=== PATIENT | female | born 1960 | race Two or more races ===

== ENCOUNTER 2017-03-15 11:24 | Emergency (ER) | payer BC, SELFPAY ==
[2017-03-15 13:00] VITALS: BP 114/63; PULSE 76; RESP 20; TEMP 36.2; O2SAT 97; BMI 34.5
--- NOTE | 2017-03-15 13:38 | HMH.EDUTC ---
[facility] [place] Clinical Impression: Upper respiratory infection Qualifiers: URI type: unspecified URI Qualified Code(s): J06.9 - Acute upper respiratory infection, unspecified Disposition: Home, Self-Care Condition on Discharge: Good Instructions: Cough, Sore Throat Additional Instructions: * Monitor Temp. Tylenol and/or Ibuprofen as needed. ER if fever is no less than 101 despite alternating Tylenol and Ibuprofen * Encourage fluids, water, Gatorade, powerade, pedialyte if infant/toddler/or child * Warm salt water gargles for throat irritation *Warm fluids *Sore throat lozenges *Sleep elevated *humidifier or vaporizer Lots of rest Increase fluids, water, Gatorade, powerade *Flonase 2 sprays each nostril daily but may take 2-3 days to notice improvement with it *Bromfed may cause drowsiness. Know how it effect you or your child. Before driving, caring for small children or sending your child to school *Your throat swab was sent to lab for culture. Those results area typically sent to your primary care physician. Be sure to follow up in 2-3 days if no improvement so they can review those results and treat if necessary If you dont have primary care I recommend you get one, but in the mean time you will have to return to a walk in clinic Follow up IMMEDIATELY for new or worsening of symptoms OR no noticeable improvement over the next 48-72 hours. 911 immediately for any life threatening symptoms such as chest pain or difficulty breathing Prescriptions: Doxycycline Monohydrate 100 mg PO BID #14 capsule Promethazine/Dextromethorphan [Promethazine-Dm Syrup] 5 ml PO Q4H PRN #200 syrup PRN Reason: Cough Referrals: Pj Higuera MD [Primary Care Provider] - Time of Disposition: 13:49 Medical Decision Making Vital Signs: 03/15/17 13:00 Temperature 97.2 F L Temperature Source Temporal Artery Scan Pulse Rate [Right] 76 Respiratory Rate 20 Blood Pressure [Right Arm] 114/63 Blood Pressure Mean [Right Arm] 80 Blood Pressure Source [Right Arm] Automatic Cuff Blood Pressure Position [Right Arm] Sitting 02 Sat by Pulse Oximetry 97 Oxygen Delivery Method Room Air - Shyam Inquiry Pt receiving controlled substance: No Shyam was queried for this patient: No [facility] [place] HPI - General Chief complaint: Urgent Treatment Center Stated complaint: sinus problem,cough,sore throat Mode of Arrival: Ambulatory Source of Information: Patient Limitations: No Limitations Description of Symptoms (Recalled from Triage Doc. by RN): COUGH, CONGESTION HEENT Symptoms (Recalled from RN notes): Yes Resp Symptoms (Recalled from RN notes): No Skin Symptoms (Recalled from RN notes): No MS Symptoms (Recalled from RN notes): No Functional Status (Recalled from RN notes): NA - History of Present Illness Provider Complaint: Patient state that she thinks she has an URI state that she is having sinus pain and pressure, drainage, sore throat and over all not feeling well - Related Data Previous Rx's Medication Instructions Recorded Doxycycline Monohydrate 100 mg PO BID #14 capsule 03/15/17 Promethazine/Dextromethorphan 5 ml PO Q4H PRN #200 syrup 03/15/17 [Promethazine-Dm Syrup] Allergies Allergy/AdvReac Type Severity Reaction Status Date / Time No Known Allergies Allergy Unverified 02/28/17 14:59 - Worker's Comp Is this a Worker's Comp case?: No [facility] History - *Social History Smoking Status: Current every day smoker Alcohol Intake: never - Psychiatric History Expresses thoughts of harming self/others: None Suicide Plan Description: No Plan - Constitutional Reports chills, Reports fever(s) - ENT Reports nasal congestion, Reports sore throat - Respiratory Reports cough Physical Exam - General General appearance: alert, in no apparent distress - Expanded ENT Exam Nose exam: Present: sinus tenderness Comment: Throat red, irritated drainage noted in back of throat - Respiratory Respiratory exam: Pre
--- NOTE | 2017-03-15 13:41 | ED_ITS ---
[facility] [place] Clinical Impression: Upper respiratory infection Qualifiers: URI type: unspecified URI Qualified Code(s): J06.9 - Acute upper respiratory infection, unspecified Disposition: Home, Self-Care Condition on Discharge: Good Instructions: Cough, Sore Throat Additional Instructions: * Monitor Temp. Tylenol and/or Ibuprofen as needed. ER if fever is no less than 101 despite alternating Tylenol and Ibuprofen * Encourage fluids, water, Gatorade, powerade, pedialyte if infant/toddler/or child * Warm salt water gargles for throat irritation *Warm fluids *Sore throat lozenges *Sleep elevated *humidifier or vaporizer Lots of rest Increase fluids, water, Gatorade, powerade *Flonase 2 sprays each nostril daily but may take 2-3 days to notice improvement with it *Bromfed may cause drowsiness. Know how it effect you or your child. Before driving, caring for small children or sending your child to school *Your throat swab was sent to lab for culture. Those results area typically sent to your primary care physician. Be sure to follow up in 2-3 days if no improvement so they can review those results and treat if necessary If you don? t have primary care I recommend you get one, but in the mean time you will have to return to a walk in clinic Follow up IMMEDIATELY for new or worsening of symptoms OR no noticeable improvement over the next 48-72 hours. 911 immediately for any life threatening symptoms such as chest pain or difficulty breathing Prescriptions: Doxycycline Monohydrate 100 mg PO BID #14 capsule Promethazine/Dextromethorphan [Promethazine-Dm Syrup] 5 ml PO Q4H PRN #200 syrup PRN Reason: Cough Referrals: Pj Higuera MD [Primary Care Provider] - Time of Disposition: 13:49 Medical Decision Making Vital Signs: 03/15/17 13:00 Temperature 97.2 F L Temperature Source Temporal Artery Scan Pulse Rate [Right] 76 Respiratory Rate 20 Blood Pressure [Right Arm] 114/63 Blood Pressure Mean [Right Arm] 80 Blood Pressure Source [Right Arm] Automatic Cuff Blood Pressure Position [Right Arm] Sitting 02 Sat by Pulse Oximetry 97 Oxygen Delivery Method Room Air - Shyam Inquiry Pt receiving controlled substance: No Shyam was queried for this patient: No [facility] [place] - General Chief complaint: Urgent Treatment Center Stated complaint: sinus problem,cough,sore throat Mode of Arrival: Ambulatory Source of Information: Patient Limitations: No Limitations Description of Symptoms (Recalled from Triage Doc. by RN): COUGH, CONGESTION HEENT Symptoms (Recalled from RN notes): Yes Resp Symptoms (Recalled from RN notes): No Skin Symptoms (Recalled from RN notes): No MS Symptoms (Recalled from RN notes): No Functional Status (Recalled from RN notes): NA - History of Present Illness Provider Complaint: Patient state that she thinks she has an URI state that she is having sinus pain and pressure, drainage, sore throat and over all not feeling well - Related Data Previous Rx's Medication Instructions Recorded Doxycycline Monohydrate 100 mg PO BID #14 capsule 03/15/17 Promethazine/Dextromethorphan 5 ml PO Q4H PRN #200 syrup 03/15/17 [Promethazine-Dm Syrup] Allergies Allergy/AdvReac Type Severity Reaction Status Date / Time No Known Allergies Allergy Unverified 02/28/17 14:59 - Worker's Comp Is this a Worker's Comp case?: No [facility] History
== END 2017-03-15 14:12 | disposition home or self-care (01) ==
PROVIDERS: Emergency Provider Nurse Practitioner; Family Provider Internal Medicine Adolescent Medicine; PCP Internal Medicine Adolescent Medicine
DX: J06.9 Acute upper respiratory infection, unspecified (principal); F17.210 Nicotine dependence, cigarettes, uncomplicated
CPT/HCPCS: 96372; 99202

== ENCOUNTER 2017-03-18 09:03 | Emergency (ER) | payer BC, SELFPAY ==
[2017-03-18 09:32] VITALS: BP 167/82; PULSE 71; RESP 22; TEMP 36.8; O2SAT 96; BMI 34.0
[2017-03-18 09:58] LABS: UTC Influenza A Antigen Negative (Negative); UTC Influenza B Antigen Negative (Negative)
--- NOTE | 2017-03-18 10:23 | HMH.EDUTC ---
[facility] [place] Clinical Impression: Cough Disposition: Home, Self-Care Condition on Discharge: Good Instructions: Cough Additional Instructions: * Continue and complete antibiotic. * Continue your singular * you can try adding claritin temporarily * continue flonase * you declined chadfernandaana luciano * Discussed possibility of pneumonia with worsening cough. You were adament this is not your chest and just a tickle . recommended cxr. you declined. BE SURE to follow up immediately for NEW or WORSENING symptoms. * start steroid today. Tapering so if as you taper, if symptoms are starting to return then you need to FU before stopping it completely. * Steroids can elevate your BP even more. Monitor your BP and if remains elevated despite improving symptoms or if you start to develop symptoms (CASIANO, CP, vision changes, etc) then follow up immediately Prescriptions: methylPREDNISolone [Medrol] 4 mg PO DAILY #1 tab.ds.pk Referrals: Pj Higuera MD [Primary Care Provider] - Time of Disposition: 10:36 Medical Decision Making Vital Signs: 03/18/17 09:32 Temperature 98.3 F Temperature Source Temporal Artery Scan Pulse Rate [Right Brachial] 71 Respiratory Rate 22 Blood Pressure [Right Arm] 167/82 Blood Pressure Mean [Right Arm] 110 Blood Pressure Source [Right Arm] Automatic Cuff Blood Pressure Position [Right Arm] Sitting 02 Sat by Pulse Oximetry 96 Oxygen Delivery Method Room Air - Lab Data Lab Results 03/18/17 09:57: Influenza Type A Ag Negative, Influenza Type B Ag Negative - Shyam Inquiry Pt receiving controlled substance: No [facility] [place] - General Stated complaint: Cough, Nausea, Diarrhea, Fever Time Seen by Provider: 03/18/17 09:35 Mode of Arrival: Ambulatory Source of Information: Patient Description of Symptoms (Recalled from Triage Doc. by RN): PT C/O NAUSEA, DIARRHEA, COUGH, AND FEVER. HEENT Symptoms (Recalled from RN notes): No Resp Symptoms (Recalled from RN notes): Yes (COUGH) Skin Symptoms (Recalled from RN notes): No MS Symptoms (Recalled from RN notes): No Functional Status (Recalled from RN notes): NA - History of Present Illness Provider Complaint: c/o persistant cough. Was seen in [facility] 03/15/16 and dx URI. Given solumedrol injection and prescribed doxy and promethazine DM. [place] like she was better for several days then cough worse yesterday. Nonprod. Feels d/t tickle . Promethazine DM every 4 hours not helping. Denies SOA or wheezing. Home Meds: levothyroxine, bisoprolol, lipitor, singular and flonase and currently doxy and promethazine DM - Related Data Previous Rx's Medication Instructions Recorded Doxycycline Monohydrate 100 mg PO BID #14 capsule 03/15/17 Promethazine/Dextromethorphan 5 ml PO Q4H PRN #200 syrup 03/15/17 [Promethazine-Dm Syrup] methylPREDNISolone [Medrol] 4 mg PO DAILY #1 tab.ds.pk 03/18/17 Allergies Allergy/AdvReac Type Severity Reaction Status Date / Time No Known Allergies Allergy Verified 03/18/17 09:39 - Worker's Comp Is this a Worker's Comp case?: No [facility] History I have reviewed the patient's past medical history: Yes Comment: hypothyroidism, allergic rhinitis, HLP, HTN Laterality Cases: Left: Partial Knee Replacement Other Surgeries: Yes: Other (deviated septum, sinus window, hysterectomy) Amputation: No Fractures: No - *Social History Smoking Status: Current every day smoker Alcohol Intake: never - Psychiatric History Expresses thoughts of harming self/others: None Suicide Plan Description: No Plan ROS Obtained: Yes Appropriate systems reviewed & no add complaints except as noted - Constitutional Denies anorexia, Denies body ache(s), Denies chills, Denies fatigue, Denies fever(s) - Eyes Denies discharge - ENT Reports nasal congestion, Reports nasal discharge, Reports sinus pressure (improving), Denies ear pain, Denies sinus pain, Denies sore throat ( just that tickle there ), Denies ringing in the ears - Cardiovascula
--- NOTE | 2017-03-18 10:26 | ED_ITS ---
[facility] [place] Disposition Clinical Impression: Cough Disposition: Home, Self-Care Condition on Discharge: Good Instructions: Cough Additional Instructions: * Continue and complete antibiotic. * Continue your singular * you can try adding claritin temporarily * continue flonase * you declined chadfernandaana luciano * Discussed possibility of pneumonia with worsening cough. You were adament this is not your chest and just a tickle . recommended cxr. you declined. BE SURE to follow up immediately for NEW or WORSENING symptoms. * start steroid today. Tapering so if as you taper, if symptoms are starting to return then you need to FU before stopping it completely. * Steroids can elevate your BP even more. Monitor your BP and if remains elevated despite improving symptoms or if you start to develop symptoms (CASIANO, CP , vision changes, etc) then follow up immediately Prescriptions: methylPREDNISolone [Medrol] 4 mg PO DAILY #1 tab.ds.pk Referrals: Pj Higuera MD [Primary Care Provider] - Time of Disposition: 10:36 Medical Decision Making Vital Signs: 03/18/17 09:32 Temperature 98.3 F Temperature Source Temporal Artery Scan Pulse Rate [Right Brachial] 71 Respiratory Rate 22 Blood Pressure [Right Arm] 167/82 Blood Pressure Mean [Right Arm] 110 Blood Pressure Source [Right Arm] Automatic Cuff Blood Pressure Position [Right Arm] Sitting 02 Sat by Pulse Oximetry 96 Oxygen Delivery Method Room Air - Lab Data Lab Results 03/18/17 09:57: Influenza Type A Ag Negative, Influenza Type B Ag Negative - Shyam Inquiry Pt receiving controlled substance: No [facility] [place] HPI - General Stated complaint: Cough, Nausea, Diarrhea, Fever Time Seen by Provider: 03/18/17 09:35 Mode of Arrival: Ambulatory Source of Information: Patient Description of Symptoms (Recalled from Triage Doc. by RN): PT C/O NAUSEA, DIARRHEA, COUGH, AND FEVER. HEENT Symptoms (Recalled from RN notes): No Resp Symptoms (Recalled from RN notes): Yes (COUGH) Skin Symptoms (Recalled from RN notes): No MS Symptoms (Recalled from RN notes): No Functional Status (Recalled from RN notes): NA - History of Present Illness Provider Complaint: c/o persistant cough. Was seen in [facility] 03/15/16 and dx URI. Given solumedrol injection and prescribed doxy and promethazine DM. [place] like she was better for several days then cough worse yesterday. Nonprod. Feels d/t tickle . Promethazine DM every 4 hours not helping. Denies SOA or wheezing. Home Meds: levothyroxine, bisoprolol, lipitor, singular and flonase and currently doxy and promethazine DM - Related Data Previous Rx's Medication Instructions Recorded Doxycycline Monohydrate 100 mg PO BID #14 capsule 03/15/17 Promethazine/Dextromethorphan 5 ml PO Q4H PRN #200 syrup 03/15/17 [Promethazine-Dm Syrup] methylPREDNISolone [Medrol] 4 mg PO DAILY #1 tab.ds.pk 03/18/17 Allergies Allergy/AdvReac Type Severity Reaction Status Date / Time No Known Allergies Allergy Verified 03/18/17 09:39 - Worker's Comp Is this a Worker's Comp case?: No [facility] History I have reviewed the patient's past medical history: Yes Comment: hypothyroidism, allergic rhinitis, HLP, HTN Laterality Cases: Left: Partial Knee Replacement Other Surgeries: Yes: Other (deviated septum, sinus window, hysterectomy) Amputation: No Fractures: No - *Social History Smoking
== END 2017-03-18 10:37 | disposition home or self-care (01) ==
PROVIDERS: Emergency Provider Nurse Practitioner Family; Family Provider Internal Medicine Adolescent Medicine; PCP Internal Medicine Adolescent Medicine
DX: R05 Cough (principal); I10 Essential (primary) hypertension; E03.9 Hypothyroidism, unspecified; E78.5 Hyperlipidemia, unspecified; Z96.652 Presence of left artificial knee joint; Z79.899 Other long term (current) drug therapy
CPT/HCPCS: 87276; 87804; 99202

== ENCOUNTER → 2017-04-06 16:34 | Outpatient (CLI) | payer BC, SELFPAY ==
[2017-04-06 19:32] LABS: Free T4 (Free Thyroxine) 1.28 ng/dl (0.76-1.46); Thyroid Stimulating Hormone 0.71 uIU/ml (0.358-3.740)
[2017-04-08 18:30] LABS: Thyroid Peroxidase Antibodies 12 IU/mL (0-34)
[2017-04-10 18:09] LABS: Thyroglobulin Level <1.0 IU/mL (0.0-0.9)
== END ==
PROVIDERS: PCP Internal Medicine Adolescent Medicine; Visit Provider Otolaryngology
DX: E03.9 Hypothyroidism, unspecified (principal)
CPT/HCPCS: 36415; 84439; 84443; 86376; 86800

== ENCOUNTER → 2017-08-12 07:05 | Outpatient (CLI) | payer BC, SELFPAY ==
[2017-08-12 07:42] LABS: Basophils # 0.1 K/mm3 (0-0.2); Basophils % 0.8 % (0.1-2.0); Eosinophils # 0.3 K/mm3 (0.0-0.4); Eosinophils % 3.9 % (0.1-12.0); Hemoglobin 15.6 g/dL (12.2-16.2); Lymphocytes # 1.8 K/mm3 (0.7-4.5); Lymphocytes % 23.7 K/mm3 (10-50); Mean Corpuscular HGB Conc 31.2 g/dL (31.8-35.4); Mean Corpuscular Hemoglobin 28.6 pg (27.0-31.2); Mean Corpuscular Volume 91.8 fl (81-99); Mean Platelet Volume 8.3 fl (7.4-10.4); Monocytes # 0.3 K/mm3 (0.1-1.0); Monocytes % 3.9 % (1.7-9.3); Neutrophils # 5.2 K/mm3 (1.8-7.8); Neutrophils % 67.7 % (37.0-80.0); Platelet Count 194 K/mm3 (142-424); Red Blood Count 5.44 M/mm3 (4.20-5.40); Red Cell Distribution Width 12.6 % (11.5-17.5); White Blood Count 7.7 K/mm3 (4.8-10.8)
[2017-08-12 08:37] LABS: Anion Gap 13.7 mEq/L (5-15); Blood Urea Nitrogen 14 mg/dL (7-18); Carbon Dioxide 29 mmol/L (21.0-32.0); Chloride 104 mmol/L (98-107); Creatine Kinase 95 U/L (26-192); Creatinine,Serum 0.77 mg/dL (0.55-1.02); Estimated Glomerular Filt Rate 78 ml/min (>60); GFR (African American) 94 ML/MIN (>60); Potassium 4.7 mmoL/L (3.5-5.1); Sodium 142 mmol/L (136-145)
[2017-08-12 08:38] LABS: Alanine Aminotransferase 21 U/L (12-78); Albumin Level 3.7 gm/dL (3.4-5.0); Albumin/Globulin Ratio 1.2 (1.1-1.8); Alkaline Phosphatase 96 U/L (46-116); Aspartate Amino Transferase 13 U/L (15-37); Bilirubin,Total 0.8 mg/dL (0.2-1.0); Calcium 9.2 mg/dL (8.5-10.1); Chol/HDL Ratio 3.5 (1-3.5); Cholesterol 135 mg/dL (140-200); Free Thyroxine Index 3.6 ug/dL (5.93-13.13); Globulin 3.2 gm/dl (1.3-3.2); Glucose 91 mg/dL (74-106); HDL Cholesterol 39 mg/dL (29-89); LDL Cholesterol 76 mg/dL (0-130); T4 (Thyroxine) 11.6 ug/dl (4.7-13.3); Thyroid Stimulating Hormone 0.55 uIU/ml (0.358-3.740); Total Protein,Serum 6.9 gm/dL (6.4-8.2); Triglycerides 102 mg/dL (30-200); Triiodothryronine (T3) Uptake 31 % (31-39); VLDL Cholesterol 20 mg/dL (0-40)
[2017-08-14 14:20] LABS: Anti-Centromere B Antibodies <0.2 AI (0.0-0.9); Anti-Jo-1 <0.2 AI (0.0-0.9); Anti-Smith Antibody <0.2 AI (0.0-0.9); Antichromatin Antibodies <0.2 AI (0.0-0.9); Antiscleroderma-70 Antibodies <0.2 AI (0.0-0.9); RNP Antibodies <0.2 AI (0.0-0.9); Sjogren's Anti-SS-A <0.2 AI (0.0-0.9); Sjogren's Anti-SS-B <0.2 AI (0.0-0.9)
[2017-08-15 06:10] LABS: Anti-Cyclic Citrullinated Pept 3 units (0-19); Anti-DNA (DS) Ab Qn 1 IU/mL (0-9)
== END ==
PROVIDERS: Visit Provider Internal Medicine Adolescent Medicine
DX: M79.1 Myalgia (principal); E03.9 Hypothyroidism, unspecified; M12.9 Arthropathy, unspecified; E78.5 Hyperlipidemia, unspecified
CPT/HCPCS: 36415; 80053; 80061; 82550; 83735; 84436; 84443; 84479; 85025; 86038; 86200

== ENCOUNTER → 2017-08-30 16:57 | Outpatient (CLI) | payer BC, SELFPAY ==
[2017-09-01 20:05] LABS: Vitamin B12 421 pg/mL (232-1245)
== END ==
PROVIDERS: Visit Provider Internal Medicine Adolescent Medicine
DX: Z86.39 Personal history of other endocrine, nutritional and metabolic disease (principal)
CPT/HCPCS: 36415; 82607

== ENCOUNTER 2018-03-28 15:30 | Outpatient (RCR) | payer OTHER, BC, SELFPAY ==
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
--- NOTE | 2018-02-23 15:46 | HMH.RHREAS ---
Rehab Reassessment Rehab OP Re-assessment Start: 02/23/18 15:39 Freq: Status: Active Protocol: Document 02/23/18 15:41 LASHANDA (Rec: 02/23/18 15:46 LASHANDA [id number]) Electronically Signed By Tobin Mendes, PT 02/23/18 15:41 Rehab Re-assessment Subjective Subjective PT REPORTS 1-2/10 @ REST AND 4 -5/10 ON VAS W/ACTIVITY, AND FEELS 50% BETTER SINCE I EVAL Objective Objective Notes CROM: FLX 0-40, EXT 0-40, B SB 0-25, B ROT 0-50 MMT: R SH FLX 4-/5, L SH FLX 4 /5, B ELBOW WFL TTP: B UT MM 2/ Assessment Progress Assessment Progressing as Expected Assessment Notes PT W/IMPROVED ROM, AND TTP Patient goals met STG'S 6 LTG'S 8 Goals Not Met STG'S 03/18, LTG'S 08/18 Plan Plan PT TO CONT. W/SKILLED P.T. TO MAKE FURTHER IMPROVEMENTS IN ROM, STRENGTH, AND TTP TO ALLOW FOR OPTIMAL FUNCTION Frequency of Therapy 1-2X/WK Duration of therapy 3-4WKS Time and Billing Re-Eval Time 15 Re-Eval Billing Units 1 PHYSICIAN CERTIFICATION: I certify the specified therapy services for Maria C Lewis are required, authorized, and reviewed every 30 days.
== END 2018-03-28 15:35 | disposition home or self-care (01) ==
LOC: PT 15:30
PROVIDERS: Visit Provider Internal Medicine Adolescent Medicine
DX: M54.2 Cervicalgia (principal)
CPT/HCPCS: 97010; 97014; 97035; 97110; 97140; 97163; 97164; G0283

== ENCOUNTER → 2018-08-25 09:42 | Outpatient (CLI) | payer BC, SELFPAY ==
[2018-08-25 10:02] LABS: Basophils # 0.1 K/mm3 (0-0.2); Basophils % 0.6 % (0.1-2.0); Eosinophils # 0.2 K/mm3 (0.0-0.4); Eosinophils % 1.7 % (0.1-12.0); Hematocrit 48.3 % (37.0-47.0); Hemoglobin 15.4 g/dL (12.2-16.2); Lymphocytes # 1.9 K/mm3 (0.7-4.5); Lymphocytes % 19.5 % (10-50); Mean Corpuscular HGB Conc 31.9 g/dL (31.8-35.4); Mean Corpuscular Hemoglobin 28.2 pg (27.0-31.2); Mean Corpuscular Volume 88.3 fl (81-99); Mean Platelet Volume 7.4 fl (7.4-10.4); Monocytes # 0.6 K/mm3 (0.1-1.0); Monocytes % 6.2 % (1.7-9.3); Neutrophils # 7.1 K/mm3 (1.8-7.8); Platelet Count 186 K/mm3 (142-424); Red Blood Count 5.47 M/mm3 (4.20-5.40); Red Cell Distribution Width 13.2 % (11.5-17.5); White Blood Count 9.9 K/mm3 (4.8-10.8)
[2018-08-25 11:12] LABS: Alanine Aminotransferase 26 U/L (12-78); Albumin Level 3.6 gm/dL (3.4-5.0); Albumin/Globulin Ratio 1.1 (1.1-1.8); Alkaline Phosphatase 72 U/L (46-116); Anion Gap 13.2 mEq/L (5-15); Aspartate Amino Transferase 19 U/L (15-37); Blood Urea Nitrogen 15 mg/dL (7-18); Carbon Dioxide 29 mmol/L (21.0-32.0); Chloride 105 mmol/L (98-107); Chol/HDL Ratio 4.3 (1-3.5); Cholesterol 216 mg/dL (140-200); Creatinine,Serum 0.72 mg/dL (0.55-1.02); Estimated Glomerular Filt Rate 84 ml/min (>60); Free Thyroxine Index 3.8 ug/dL (5.93-13.13); GFR (African American) 101 ML/MIN (>60); Globulin 3.3 gm/dl (1.3-3.2); Glucose 86 mg/dL (74-106); HDL Cholesterol 50 mg/dL (29-89); LDL Cholesterol 149 mg/dL (0-130); Potassium 5.2 mmoL/L (3.5-5.1); Sodium 142 mmol/L (136-145); T4 (Thyroxine) 11.6 ug/dl (4.7-13.3); Thyroid Stimulating Hormone 0.84 uIU/ml (0.358-3.740); Total Protein,Serum 6.9 gm/dL (6.4-8.2); Triglycerides 84 mg/dL (30-200); Triiodothryronine (T3) Uptake 33 % (31-39); VLDL Cholesterol 17 mg/dL (0-40)
[2018-08-27 03:15] LABS: Vitamin B12 676 pg/mL (232-1245)
== END ==
PROVIDERS: Visit Provider Internal Medicine Adolescent Medicine
DX: E78.5 Hyperlipidemia, unspecified (principal); E03.9 Hypothyroidism, unspecified; D45 Polycythemia vera; Z86.39 Personal history of other endocrine, nutritional and metabolic disease
CPT/HCPCS: 36415; 80053; 80061; 82607; 84436; 84443; 84479; 85025

== ENCOUNTER 2019-01-18 07:39 | Inpatient (IN) ==
[2019-01-18 08:06] LABS: Basophils # 0.1 K/mm3 (0-0.2); Basophils % 0.4 % (0.1-2.0); Eosinophils # 0.3 K/mm3 (0.0-0.4); Hematocrit 48.9 % (37.0-47.0); Hemoglobin 15.5 g/dL (12.2-16.2); Lymphocytes # 1.3 K/mm3 (0.7-4.5); Lymphocytes % 9.3 % (10-50); Mean Corpuscular HGB Conc 31.6 g/dL (31.8-35.4); Mean Corpuscular Volume 94.5 fl (81-99); Mean Platelet Volume 7.9 fl (7.4-10.4); Monocytes # 0.5 K/mm3 (0.1-1.0); Monocytes % 3.4 % (1.7-9.3); Neutrophils % 84.9 % (37.0-80.0); Platelet Count 233 K/mm3 (142-424); Red Blood Count 5.17 M/mm3 (4.20-5.40); Red Cell Distribution Width 12.8 % (11.5-17.5); White Blood Count 14.2 K/mm3 (4.8-10.8)
[2019-01-18 08:17] LABS: Albumin Level 3.9 gm/dL (3.4-5.0); Anion Gap 14.2 mEq/L (5-15); Calcium 9.8 mg/dL (8.5-10.1); Globulin 3.9 gm/dl (1.3-3.2); Total Protein,Serum 7.8 gm/dL (6.4-8.2)
--- NOTE | 2019-01-18 08:19 | Emergency Department Note ---
ED Disposition Clinical Impression: Acute appendicitis Qualifiers: Acute appendicitis type: with localized peritonitis Appendicitis gangrene presence: without gangrene Appendicitis perforation presence: without perforation Appendicitis abscess presence: without abscess Qualified Code(s): K35.30 - Acute appendicitis with localized peritonitis, without perforation or gangrene Disposition: Still a Patient Condition on Discharge: Fair Referrals: Pj Higuera MD [Primary Care Provider] - - Critical Care Critical Care Time: No Attestation: On 01/18/19, the high probability of a clinically significant, sudden or life threatening deterioration of the following system(s) required my full and direct attention, intervention and personal management. The time I documented below is in addition to time spent performing reported procedures but includes the following listed in this critical care notation. Medical Decision Making - Shyam Inquiry Pt receiving controlled substance: Yes Shyam was queried for this patient: No Reason not queried -: Emergent pt cond-no time Risks and benefits of using a controlled substance: were not discussed with pt by me Vital Signs: 01/18/19 07:47 01/18/19 08:51 01/18/19 10:18 Temperature 98.2 F Temperature Source Oral Pulse Rate [Left Radial] 68 68 98 H Respiratory Rate 18 Blood Pressure [Right Arm] 109/56 L 105/54 L 97/53 L Blood Pressure Mean [Right Arm] 73 71 67 Blood Pressure Source [Right Arm] Automatic Cuff Blood Pressure Position [Right Arm] Sitting Sitting Sitting 02 Sat by Pulse Oximetry 98 97 Oxygen Delivery Method Room Air Room Air - Lab Data Lab Results 01/18/19 07:55: WBC 14.2 H, RBC 5.17, Hgb 15.5, Hct 48.9 H, MCV 94.5, MCH 29.9, MCHC 31.6 L, RDW 12.8, Plt Count 233, MPV 7.9, Neut % (Auto) 84.9 H, Lymph % (Auto) 9.3 L, [place] % (Auto) 3.4, Eos % (Auto) 2.0, Baso % (Auto) 0.4, Neut # (Auto) 12.0 H, Lymph # (Auto) 1.3, [place] # (Auto) 0.5, Eos # (Auto) 0.3, Baso # (Auto) 0.1 01/18/19 07:55: Sodium 138, Potassium 4.2, Chloride 101, Carbon Dioxide 27, Anion Gap 14.2, BUN 13, Creatinine 0.80, Estimated Creat Clear 92, Estimated GFR 74, Est GFR ( Amer) 89, Glucose 109 H, Calcium 9.8, Total Bilirubin 1.0, AST 10 L, ALT 20, Alkaline Phosphatase 87, Total Protein 7.8, Albumin 3.9, Globulin 3.9 H, Albumin/Globulin Ratio 1.0 L 01/18/19 07:55: Lipase 147 01/18/19 08:45: Urine Color Yellow, Urine Appearance Clear, Urine pH 7.5, Ur Specific [place] 1.015, Urine Protein Negative, Urine Glucose (UA) Negative, Urine Ketones Negative, Urine Blood Negative, Urine Nitrate Negative, Urine Bi lirubin Negative, Urine Urobilinogen 0.2, Ur Leukocyte Esterase Negative, Urine RBC None, Urine WBC None, Ur Squamous Epith Cells Occasional, Urine Bacteria Trace Result diagrams: 01/18/19 07:55 01/18/19 07:55 Orders (Tests/Meds): ED MEDICATIONS Discontinued Medications Generic Name Dose Route Start Last Admin Trade Name Mary PRN Reason Stop Dose Admin Diatrizoate Meglum/Diatrizoate Sod 30 ml 01/18/19 07:59 01/18/19 08:00 Gastrografin 66%-10% 30ml PO 01/18/19 08:00 30 ml ONCE ONE Administration Diatrizoate Meglum/Diatrizoate Sod 20 ml 01/18/19 10:07 01/18/19 10:08 Rad-Gastrografin (66%-10%);120ml PO 01/18/19 10:08 20 ml ONCE ONE Administration Hydromorphone HCl 1 mg 01/18/19 09:12 01/18/19 09:21 Dilaudid 2mg/Ml Syringe IV 01/18/19 09:13 1 mg ONCE ONE Administration Sodium Chloride 1,000 mls @ 999 mls/hr 01/18/19 08:15 01/18/19 08:04 Sod Chlor 0.9% 1000ml Bag IV 01/18/19 09:15 999 mls/hr .Q1H1M YOUSUF Administration Ioversol 75 ml 01/18/19 10:07 01/18/19 10:08 Rad-Optiray 350 100ml Vial IV 11/08/19 10:08 75 ml ONCE ONE Administration Protocol Ketorolac Tromethamine 30 mg 01/18/19 07:59 01/18/19 08:00 Toradol 30mg/Ml Vial IV 01/18/19 08:00 30 mg ONCE ONE Administration Morphine Sulfate 4 mg 01/18/19 08:24 01/18/19 08:32 Morphine 4mg/Ml Syringe IV 01/18/19 08:25 4 mg ONCE ONE Administration Ondansetron HCl 4 mg 01/18/19 07:59 01/18/19 08:00 Zofran 4mg/2ml Vial IV 01/18/19 08:00 4 mg ONCE ONE Administration Ondansetron HCl 4 mg 01/18/19 08:04 01/18/19 08:06 Zofran 4mg/2ml Vial IV 01/18/19 08:05 4 mg ONCE ONE Administration Sodium Chloride 10 ml 01/18/19 10:07 01/18/19 10:08 Rad-Saline Flush 10ml Syringe IV 01/18/19 10:08 10 ml ONCE ONE Administration - CT Data CT Scan: Abdomen, Pelvis Time Received: 10:[address] Reviewed: Yes: I discussed the CT results w/the radiologist Findings Narrative: Acute appendicitis without perforation or abscess. Call placed to surgeon vocational counselor. General Adult HPI - General Chief complaint: Abdominal Pain Stated complaint: right side pain, cramps Time Seen by Provider: 01/18/19 08:18 Mode of Arrival: Wheelchair Limitations: No Limitations Description of Symptoms (Recalled from ER Triage Doc. by RN): to ed per pvt car with c/o rlq abd pain pt states started with generalized crampy abd pain nausea yesterday, woke up this am with sharp rlq pain vomiting. last PO intake sips of water thru the night - History of Present Illness HPI narrative: Abdominal pain since 7 PM yesterday. Started out with crampy upper and mid abdominal pain and then during the night developed right lower quadrant pain. Had a normal bowel movement yesterday. She has had vomiting. No urinary symptoms except decreased urinary output, but says she has not been drinking much fluid. No previous similar pain. Last meal yesterday at 4 PM. - Related Data Home Medications Medication Instructions Recorded Confirmed fluticasone propionate 50 50 mcg INTRANASAL ONCE 04/06/17 mcg/actuation nasal spray,suspension levothyroxine 100 mcg capsule PO 04/06/17 montelukast 10 mg tablet 10 mg PO QHS 04/06/17 Previous Rx's Medication Instructions Recorded methylPREDNISolone [Medrol] 4 mg PO DAILY #1 tab.ds.pk 03/18/17 atorvastatin 20 mg tablet 20 mg PO QDAY #90 tab 06/12/17 Methocarbamol [Robaxin 750mg Tab] 750 mg PO BID #20 tab 12/28/17 bisoprolol fumarate 10 mg tablet 10 mg PO BID #60 tab 01/17/19 Allergies Allergy/AdvReac Type Severity Reaction Status Date / Time No Known Allergies Allergy Verified 12/28/17 10:24 [facility] History - Hepatitis A Screen Drug use history?: No High risk sexual behaviors?: No History of sexually transmitted infection?: No Currently employed?: No Childcare worker?: No Do you have indoor plumbing?: Yes Do you have electricity?: Yes Attestation statement:: This patient has been screened for Hepatitis A risk factors. I have reviewed the patient's past medical history: Yes Medical History: Reports:: Diabetes Mellitus Type 2, Hyperlipidemia Denies:: Cancer, Diabetes Mellitus Type 1, MRSA Other Medical History: Reports: Sinus Problems Comment: hypothyroidism, allergic rhinitis, HLP, HTN Laterality Cases: Right: Arthroscopy Knee Other Surgeries: Yes: Hysterectomy-Total, Sinus Surgery, Thyroidectomy, Other Amputation: No Fractures: No - Social History Smoking Status: Current every day smoker # Packs/Day (cigarettes): 1 Alcohol Intake: never Alcohol Intake Frequency:: a few times a month Substance Use Type: denies use Occupational Status: employed Family Hx:: Cancer ROS Obtained: Yes All systems reviewed & no additional complaints - Constitutional Constitutional: Denies fever(s) - Gastrointestinal Gastrointestingal: Reports: abdominal pain, nausea, vomiting. Denies: constipation, diarrhea - Genitourinary Female Genitourinary: Denies difficulty voiding Physical Exam - General General appearance: alert, in no apparent distress - Head Head exam: atraumatic, normocephalic - Eye Eye exam: Present: normal appearance, EOMI - ENT ENT exam: Present: mucous membranes moist - Neck Neck exam: Present: normal inspection, trachea midline - Chest Chest inspection: Present: normal inspection, symmetric chest wall rise - Respiratory Respiratory exam: Present: normal lung sounds bilaterally. Absent: respiratory distress - Cardiovascular Cardiovascular exam: Present: regular rate, normal rhythm, normal heart sounds - Abdominal Exam Abdominal exam: Present: soft, tenderness, guarding, normal bowel sounds, tenderness at [place]'s Point. Absent: distention Abdominal tenderness: Present: RLQ - Extremities Exam Extremities exam: Present: normal inspection - Neurological Exam Neurological exam: Present: alert, oriented X3 - Psychiatric Psychiatric exam: Present: normal affect, normal mood - Skin Skin exam: Present: warm, dry
[2019-01-18 08:51] LABS: Microscopic, Urine URINE MICROSCOPIC (MICROSCOPIC)
[2019-01-18 09:00] LABS: Appearance,Urine CLEAR (Clear); Bilirubin,Urine Negative (Negative); Blood, Urine Negative (Negative); Color,Urine YELLOW (Yellow); Glucose,Urine (UA) Negative (Negative); Ketones,Urine Negative (Negative); Leukocyte Esterase,Urine Negative (Negative); PH,Urine 7.5 (5.0-8.5); Protein,Urine Negative (Negative); Specific Gravity, Urine 1.015 (1.005-1.030); Urobilinogen,Urine 0.2 EU/dl (0.2)
[2019-01-18 09:05] LABS: Bacteria,Urine Trace /lpf; Squamous Epithelial Cell,Urine Occasional #/hpf (0-5)
--- NOTE | 2019-01-18 11:10 | Progress Note ---
[facility] Anesthesia Checklist - Patient Identification Patient Identification: Arm Band, Verbal (Name & ) - Structural Data Admitted From: Home Planned Operative Procedure/s: lap appy Consent for Planned Operative Procedure(s) Verified: Yes Verified Documents: History and Physical - NPO Status Verified Time NPO: 00:00 - Additional verifications Patient : No Anesthesia Reactions: No Hx Blood Transfusions: No Blood Transfusion Reaction: No Cephalosporin Allergy: No Previous Colonoscopy: No - Cardiovascular Assessment Heart Sounds: S1 & S2 Pulse Strength: Baseline Pulse Rhythm: Regular Peripheral Edema: No - Airway Assessment C-Spine Mobility Assessed: Yes TMJ Mobility Assessed: Yes Dentition: Good Dentition - Neurological Assessment Level of Consciousness: Awake, Alert, Appropriate Hx Seizures: No Numbness or tingling in extremities: No - Anesthesia Plan Anesthesia Risk discussed: Yes Anesthesia Plan: Verified ASA Class: II Anesthesia Type: General [facility] History I have reviewed the patient's past medical history: Yes Medical History: Reports:: Diabetes Mellitus Type 2, Hyperlipidemia Denies:: Cancer, Diabetes Mellitus Type 1, MRSA *Have you ever received a pneumonia vaccine?: No *Have you received a flu vaccine this season?: No Other Medical History: Reports: Sinus Problems Anesthesia experience/problems:: none Laterality Cases: Right: Arthroscopy Knee Other Surgeries: Yes: Hysterectomy-Total, Sinus Surgery, Thyroidectomy, Other Amputation: No Fractures: No - *Social History Smoking Status: Current every day smoker # Packs/Day (cigarettes): 1 Alcohol Intake: never Alcohol Intake Frequency:: a few times a month Substance Use Type: denies use *Occupational Status:: employed *Travel in the last 8 weeks: None Family Hx:: Cancer
--- NOTE | 2019-01-18 11:37 | History & Physical Report ---
HPI HPI: Patient is a 58-year-old female. She states that yesterday evening she had some general cramping abdominal pain and discomfort with some associated nausea and anorexia. This morning she awoke with localization of the pain to the right lower quadrant. This was quite tender. She presented to the emergency department at [facility] where she was seen and evaluated. She was found to have a leukocytosis. CT scan revealed findings of acute appendicitis without obvious perforation or abscess formation. Surgical cons ultation was obtained. [facility] History Medical History: Reports:: Diabetes Mellitus Type 2, Hyperlipidemia Denies:: Cancer, Diabetes Mellitus Type 1, MRSA, Seizures *Have you ever received a pneumonia vaccine?: No *Have you received a flu vaccine this season?: No Other Medical History: Reports: Sinus Problems. Denies: Blood Transfusion Reaction Anesthesia experience/problems:: none Laterality Cases: Right: Arthroscopy Knee Other Surgeries: Yes: Hysterectomy-Total, Sinus Surgery, Thyroidectomy, Other Amputation: No Fractures: No - *Social History Smoking Status: Current every day smoker # Packs/Day (cigarettes): 1 Alcohol Intake: never Alcohol Intake Frequency:: a few times a month Substance Use Type: denies use *Occupational Status:: employed *Travel in the last 8 weeks: None Family Hx:: Cancer Review of Systems - Review of Systems Review of systems:: pertinent systems reviewed and negative unless documented below Meds Home Medications Medication Instructions Recorded Confirmed Type fluticasone propionate 50 50 mcg INTRANASAL ONCE 04/06/17 01/18/19 History mcg/actuation nasal spray,suspension levothyroxine 100 mcg capsule 100 mcg PO DAILY 04/06/17 01/18/19 History montelukast 10 mg tablet 10 mg PO QHS 04/06/17 01/18/19 History Atorvastatin Calcium [Lipitor 20mg 20 mg PO QDAY 01/18/19 01/18/19 History Tablet] Bisoprolol Fumarate [Bisoprolol 10 mg PO BID 01/18/19 01/18/19 History 10mg Tablet] Allergies Allergy/AdvReac Type Severity Reaction Status Date / Time No Known Allergies Allergy Verified 01/18/19 11:24 Exam Vital signs and Labs for Last 24 Hours: Temp Pulse Resp BP Pulse Ox 98 F 78 16 95/54 L 97 01/18/19 10:58 01/18/19 10:58 01/18/19 10:58 01/18/19 10:58 01/18/19 10:18 Laboratory Results - last 24 hr 01/18/19 07:55: WBC 14.2 H, RBC 5.17, Hgb 15.5, Hct 48.9 H, MCV 94.5, MCH 29.9, MCHC 31.6 L, RDW 12.8, Plt Count 233, MPV 7.9, Neut % (Auto) 84.9 H, Lymph % (Auto) 9.3 L, [place] % (Auto) 3.4, Eos % (Auto) 2.0, Baso % (Auto) 0.4, Neut # (Auto) 12.0 H, Lymph # (Auto) 1.3, [place] # (Auto) 0.5, Eos # (Auto) 0.3, Baso # (Auto) 0.1 01/18/19 07:55: Sodium 138, Potassium 4.2, Chloride 101, Carbon Dioxide 27, Anion Gap 14.2, BUN 13, Creatinine 0.80, Estimated Creat Clear 92, Estimated GFR 74, Est GFR ( Amer) 89, Glucose 109 H, Calcium 9.8, Total Bilirubin 1.0, AST 10 L, ALT 20, Alkaline Phosphatase 87, Total Protein 7.8, Albumin 3.9, Globulin 3.9 H, Albumin/Globulin Ratio 1.0 L 01/18/19 07:55: Lipase 147 01/18/19 08:45: Urine Color Yellow, Urine Appearance Clear, Urine pH 7.5, Ur Specific [place] 1.015, Urine Protein Negative, Urine Glucose (UA) Negative, Urine Ketones Negative, Urine Blood Negative, Urine Nitrate Negative, Urine Bilirubin Negative, Urine Urobilinogen 0.2, Ur Leukocyte Esterase Negative, Urine RBC None, Urine WBC None, Ur Squamous Epith Cells Occasional, Urine Bacteria Trace I & O for Last 24 hours: Intake & Output 01/15/19 01/16/19 01/17/19 01/18/19 11:59 11:59 11:59 11:59 Weight 165 lb - *Routine HEENT Exam Head: Present: normocephalic Eye: Present: EOMI, PERRL ENT: Present: mucous membranes moist - *Routine Neck Exam Present: supple. Absent: lymphadenopathy - *Routine Respiratory Exam Present: CTA bilaterally - *Routine Cardiovascular Exam Present: RRR - *Routine Abdominal Exam Present: soft, normoactive bowel sounds, tenderness, surgical scars Comments: She has tenderness with voluntary guarding in the right lower quadrant. Minimal rebound. - *Routine Extremities Exam Absent: cyanosis, clubbing, edema - *Routine Skin Exam Present: warm. Absent: rash - *Routine Neurological Exam Present: alert, oriented X3 - Detailed Eye Exam Eyelids: Left normal inspection Results - Results Lab Results Last 24 Hours:: Laboratory Results - last 24 hr 01/18/19 07:55: WBC 14.2 H, RBC 5.17, Hgb 15.5, Hct 48.9 H, MCV 94.5, MCH 29.9, MCHC 31.6 L, RDW 12.8, Plt Count 233, MPV 7.9, Neut % (Auto) 84.9 H, Lymph % (Auto) 9.3 L, [place] % (Auto) 3.4, Eos % (Auto) 2.0, Baso % (Auto) 0.4, Neut # (Auto) 12.0 H, Lymph # (Auto) 1.3, [place] # (Auto) 0.5, Eos # (Auto) 0.3, Baso # (Auto) 0.1 01/18/19 07:55: Sodium 138, Potassium 4.2, Chloride 101, Carbon Dioxide 27, Anion Gap 14.2, BUN 13, Creatinine 0.80, Estimated Creat Clear 92, Estimated GFR 74, Est GFR ( Amer) 89, Glucose 109 H, Calcium 9.8, Total Bilirubin 1.0, AST 10 L, ALT 20, Alkaline Phosphatase 87, Total Protein 7.8, Albumin 3.9, Globulin 3.9 H, Albumin/Globulin Ratio 1.0 L 01/18/19 07:55: Lipase 147 01/18/19 08:45: Urine Color Yellow, Urine Appearance Clear, Urine pH 7.5, Ur Specific [place] 1.015, Urine Protein Negative, Urine Glucose (UA) Negative, Urine Ketones Negative, Urine Blood Negative, Urine Nitrate Negative, Urine Bilirubin Negative, Urine Urobilinogen 0.2, Ur Leukocyte Esterase Negative, Urine RBC None, Urine WBC None, Ur Squamous Epith Cells Occasional, Urine Bacteria Trace Assessment and Plan - Assessment and plan all Dx Assessment and Plan for all problems:: Plan for laparoscopic with possibly open appendectomy.
--- NOTE | 2019-01-18 13:13 | Operative Note ---
Date of procedure: 01/18/19 Pre-op Diagnosis:: Acute appendicitis Post-op Diagnosis:: Acute suppurative appendicitis with perforation Procedure performed:: Laparoscopic appendectomy Surgeon:: Onesimo Ramirez MD WARP SPINNER:: Pj Em Anesthesia: TERESA Estimated blood loss (mL): 20 Clinical Note:: Patient is a 58-year-old female. She states that yesterday evening she had some general cramping abdominal pain and discomfort with some associated nausea and anorexia. This morning she awoke with localization of the pain to the right lower quadrant. This was quite tender. She presented to the emergency department at [facility] where she was seen and evaluated. She was found to have a leukocytosis. CT scan revealed findings of acute appendicitis without obvious perforation or abscess formation. Surgical consultation was obtained. Arrangements were made for emergent appendectomy. Operative findings:: Patient had evidence of established peritonitis. She had some feculent fluid in the pelvis. She had a partially retrocecal appendix. There was a perforation in the proximal appendix which had been walled off by epiploic fat. Operative note:: Patient was taken to the operating room. She was given preoperative intravenous antibiotics. In the operating room she was placed in a supine position. General anesthesia was induced via endotracheal tube. Uribe catheter was placed for bladder decompression. Her abdomen was prepped and draped in the standard surgical fashion. Subumbilical incision was made and dissection was carried down to the fascia. While performing abdominal wall lift Veress needle was inserted. CO2 pneumoperitoneum was achieved to approximately 15 mmHg. 12 mm optical trocar was inserted at the umbilicus. Intraperitoneal contents were visualized. There is evidence of some thin feculent fluid in the pelvis. She had evidence of established peritonitis. 5 mm trocar was inserted in the suprapubic location. Additional 5 mm trocar was inserted in the right upper abdomen. There was an inflammatory response in the right lower quadrant. Ultimately the appendix was identified and found to be markedly inflamed. It was partially retrocecal. Lateral retroperitoneal attachments were incised with LIDIA ultrasonic harmonic lida. Freeing, and anterior retraction of, the appendix was rather difficult due to its anatomic location and due to the inflammatory response. However, ultimately dissection was carried down to the appendiceal base using LIDIA ultrasonic harmonic lida with LIDIA ultrasonic harmonic lida used to coagulate the appendiceal artery. There was noted to be a perforation in the proximal appendix which had been walled off by epiploic fat. However, the base of the appendix was relatively uninflamed. The appendix was divided at its base with an endoscopic MARE linear cutting stapling device. The appendix was placed within an Endo Catch retrieval device and removed from the peritoneal cavity via the umbilical trocar site. The appendiceal staple line was inspected for hemostasis and integrity which was assured. Irrigation was performed in the pelvis and pericecal location and aspirated until clear. There is good hemostasis. Trochars were removed as CO2 pneumoperitoneum was evacuated. Fascia at the umbilicus was closed with 0 Vicryl suture. Local anesthetic was infiltrated. Skin incisions were closed with 4-0 Monocryl in a subcuticular fashion. Steri-Strips and dressings were applied. Condition: stable Disposition: PACU Specimens:: Appendix Complications:: None immediately apparent
--- NOTE | 2019-01-18 13:25 | Progress Note ---
[facility] Anesthesia Record Part I Intake, IV Amount: 700 Estimated blood loss (mL): 10 Urine output (mL): 50 Blood Products used (#): none Blood Pressure: 104/58 SaO2: 90 Pulse Rate: 82 Respiratory Rate: 20 Temperature: 97.4 F Patient is:: Mask O2, Stable, Ventilator Stable to PACU at:: 13:19
--- NOTE | 2019-01-18 13:25 | Progress Note ---
[facility] Anesthesia Record Part II Discharge Time: 13:49 Destination: Surgical Day Care (OP Surgery) PACU nurse assessment reviewed?: Yes Patient Condition:: Good Anesthesia Complications:: None Swallowing reflex intact?: Yes Cyanosis?: No
--- NOTE | 2019-01-18 13:38 | Electrocardiograph Report ---
APPROVED REPORT Exam: Resting ECG HR:71 bpm ECG Measurements Heart Rate 71 AXES IA 134 P 54 QRSd 76 QRS 13 QT 416 T16 QTc 452 <Conclusion> Normal sinus rhythm Nonspecific ST-T wave abnormalities Incomplete RBBB Low voltage Abnormal ECG Electronically signed by : Ranjeet Cornejo, 01/18/2019 13:37:37
--- NOTE | 2019-01-18 15:54 | Pharmacy Consult Notes ---
[facility] Pharmacy VTE Monitoring - Patient Demographics Admission date: 01/18/19 Report Date: 01/18/19 Time: 15:53 Allergies/Adverse Reactions: Patient Allergies No Known Allergies Allergy (Verified 01/18/19 11:24) Height: 1.6 m Weight: 82.242 kg Patient Problems: Current Active Problems Acute appendicitis (Acute) - VTE Risk Labs: VTE Related Lab Results Hgb 15.5 g/dL (12.2-16.2) 01/18/19 07:55 Hct 48.9 % (37.0-47.0) H 01/18/19 07:55 Plt Count 233 K/mm3 (142-424) 01/18/19 07:55 BUN 13 mg/dL (7-18) 01/18/19 07:55 Creatinine 0.80 mg/dL (0.55-1.02) 01/18/19 07:55 Estimated Creat Clear 92 mL/min (50-200) 01/18/19 07:55 Was VTE Risk Assessment Performed: Yes VTE Score: 3 VTE Risk Level: Low Risk - Prophylaxis VTE Prophylaxis Ordered?: Yes Types of VTE Prophylaxis: TEDS Knee High Location of Applied Device: Bilateral Lower Extremeties - VTE Diagnosis Confirmed Treatment or plan recommended: Continue Current Treatment
[2019-01-19 06:12] LABS: Basophils % 0.2 % (0.1-2.0); Eosinophils % 0.2 % (0.1-12.0); Hematocrit 38.7 % (37.0-47.0); Lymphocytes # 1.2 K/mm3 (0.7-4.5); Lymphocytes % 11.5 % (10-50); Mean Corpuscular HGB Conc 31.3 g/dL (31.8-35.4); Mean Corpuscular Volume 95.7 fl (81-99); Mean Platelet Volume 8.5 fl (7.4-10.4); Monocytes # 0.4 K/mm3 (0.1-1.0); Monocytes % 3.5 % (1.7-9.3); Neutrophils # 8.9 K/mm3 (1.8-7.8); Neutrophils % 84.7 % (37.0-80.0); Platelet Count 159 K/mm3 (142-424); Red Blood Count 4.05 M/mm3 (4.20-5.40); White Blood Count 10.5 K/mm3 (4.8-10.8)
[2019-01-19 06:16] LABS: Hemoglobin 12.1 g/dL (12.2-16.2)
[2019-01-19 06:32] LABS: Anion Gap 13.4 mEq/L (5-15)
[2019-01-19 08:28] LABS: Calcium 8.2 mg/dL (8.5-10.1)
--- NOTE | 2019-01-19 08:35 | Consult Report ---
*Admission Date: 01/18/19 *Reason for consult:: Medical evaluation *History of present illness: Patient is a 58-year-old female. She states that yesterday evening she had some general cramping abdominal pain and discomfort with some associated nausea and anorexia. This morning she awoke with localization of the pain to the right lower quadrant. This was quite tender. She presented to the emergency depar tment at [facility] where she was seen and evaluated. She was found to have a leukocytosis. CT scan revealed findings of acute appendicitis without obvious perforation or abscess formation. Surgical consultation was obtained. Patient was admitted to [facility] and urgent appendectomy was accomplished. Please see operative notes for review. Patient was then transferred to second floor in good condition. I am consulted for medical management this morning. [facility] History I have reviewed the patient's past medical history: Yes Medical History: Reports:: Hyperlipidemia, Palpitations Denies:: Cancer, Diabetes Mellitus Type 1, Diabetes Mellitus Type 2, MRSA, Seizures *Have you ever received a pneumonia vaccine?: Yes *Have you received a flu vaccine this season?: No Other Medical History: Reports: Hypothyroidism, Sinus Problems. Denies: Blood Transfusion Reaction Anesthesia experience/problems:: none Laterality Cases: Right: Arthroscopy Knee Other Surgeries: Yes: Hysterectomy-Total, Sinus Surgery, Thyroidectomy, Other (BREAST REDUCTION, TUMMY TUCK) Amputation: No Fractures: No - *Social History Educational Level: Attended College Smoking Status: Current every day smoker Tobacco Type: cigarettes # Packs/Day (cigarettes): 1 Alcohol Intake: never Alcohol Intake Frequency:: a few times a month Substance Use Type: denies use *Occupational Status:: employed Housing: house Household Members: spouse *Travel in the last 8 weeks: None Family Hx:: Asthma, Cancer, Diabetes Review of Systems - Review of Systems Review of systems:: pertinent systems reviewed and negative unless documented below Patient feels well this morning. Denies abdominal pain. Denies a complete 10 point review of systems as noted. - Constitutional Denies anorexia, Denies body ache(s), Denies fever(s), Denies headache(s) - ENT Denies dizziness, Denies dry mouth - *Cardiovascular Denies chest pain, Denies excessive sweating, Denies shortness of breath - *Respiratory Denies change in phlegm color, Denies chest congestion, Denies cough Meds Home Medications Medication Instructions Recorded Confirmed Type fluticasone propionate 50 50 mcg INTRANASAL ONCE 04/06/17 01/18/19 History mcg/actuation nasal spray,suspension levothyroxine 100 mcg capsule 100 mcg PO DAILY 04/06/17 01/18/19 History montelukast 10 mg tablet 10 mg PO QHS 04/06/17 01/18/19 History Amitriptyline HCl [Elavil 25mg 25 mg PO HS 01/18/19 01/18/19 History tablet] Atorvastatin Calcium [Lipitor 20mg 20 mg PO QDAY 01/18/19 01/18/19 History Tablet] Bisoprolol Fumarate [Bisoprolol 10 mg PO BID 01/18/19 01/18/19 History 10mg Tablet] Allergies Allergy/AdvReac Type Severity Reaction Status Date / Time No Known Allergies Allergy Verified 01/18/19 11:24 Exam Vital signs and Labs for Last 24 Hours: Temp Pulse Resp BP Pulse Ox 99.0 F 72 18 99/46 L 95 01/19/19 07:34 01/19/19 07:34 01/19/19 07:34 01/19/19 07:34 01/19/19 07:34 Laboratory Results - last 24 hr 01/18/19 07:55: Lipase 147 01/18/19 08:45: Urine Color Yellow, Urine Appearance Clear, Urine pH 7.5, Ur Specific [place] 1.015, Urine Protein Negative, Urine Glucose (UA) Negative, Urine Ketones Negative, Urine Blood Negative, Urine Nitrate Negative, Urine Bilirubin Negative, Urine Urobilinogen 0.2, Ur Leukocyte Esterase Negative, Urine RBC None, Urine WBC None, Ur Squamous Epith Cells Occasional, Urine Bacteria Trace 01/19/19 05:50: WBC 10.5 D, RBC 4.05 L, Hgb 12.1 L D, Hct 38.7, MCV 95.7, MCH 29.9, MCHC 31.3 L, RDW 13.0, Plt Count 159 D, MPV 8.5, Neut % (Auto) 84.7 H, Lymph % (Auto) 11.5, [place] % (Auto) 3.5, Eos % (Auto) 0.2, Baso % (Auto) 0.2, Neut # (Auto) 8.9 H, Lymph # (Auto) 1.2, [place] # (Auto) 0.4, Eos # (Auto) 0.0, Baso # (Auto) 0.0 01/19/19 05:50: Sodium 144, Potassium 4.4, Chloride 106, Carbon Dioxide 29, Anion Gap 13.4, BUN 11, Creatinine 0.85, Estimated Creat Clear 97, Estimated GFR 69, Est GFR ( Amer) 83, Glucose 111 H, Calcium 8.2 L D I & O for Last 24 hours: Intake & Output 01/16/19 01/17/19 01/18/19 01/19/19 11:59 11:59 11:59 11:59 Intake Total 3000 / 3000 Output Total 1175 / 1175 Balance 1825 / 1825 Weight 165 lb 185 lb 7 oz Narrative: Pleasant, talkative, oriented x3. No JVD. Oropharynx clear. ENT exam otherwise clear Lungs have good air movement except for some minimal smoker's rhonchi. Abdomen soft and minimal tenderness around incision sites which is certainly expected but no other spots of tenderness. No CVA tenderness. Heart rate regular without murmurs. No peripheral edema or clubbing. Neurologically intact. Internal Medicine - CN: Reslt - Labs CBC & Chem 7: 01/19/19 05:50 01/19/19 05:50 Labs: Short CBC 01/19/19 Range/Units 05:50 WBC 10.5 D (4.8-10.8) K/mm3 Hgb 12.1 L D (12.2-16.2) g/dL Hct 38.7 (37.0-47.0) % Plt Count 159 D (142-424) K/mm3 BMP 01/19/19 05:50 Sodium 144 Potassium 4.4 Chloride 106 Carbon Dioxide 29 BUN 11 Creatinine 0.85 Glucose 111 H Calcium 8.2 L D Urine 01/18/19 Range/Units 08:45 Urine Color Yellow (Yellow) Urine Appearance Clear (Clear) Urine pH 7.5 (5.0-8.5) Ur Specific [place] 1.015 (1.005-1.030) Urine Protein Negative (Negative) Urine Glucose (UA) Negative (Negative) Assessment and Plan (1) Acquired hypothyroidism Current visit: Yes Status: Acute Category: Medical Code(s): E03.9 - Hypothyroidism, unspecified Stable. Resume Synthroid dose (2) Acute appendicitis Current visit: Yes Status: Acute Qualifiers: Acute appendicitis type: with localized peritonitis Appendicitis gangrene presence: without gangrene Appendicitis perforation presence: without perforation Appendicitis abscess presence: without abscess Qualified Code(s): K35.30 - Acute appendicitis with localized peritonitis, without perforation or gangrene Category: Medical Code(s): K35.80 - Unspecified acute appendicitis Seems to be doing very nicely. Surgical management is extremely appropriate. (3) HTN (hypertension) Current visit: No Status: Acute Category: Medical Code(s): I10 - Essential (primary) hypertension Did well overnight, restart beta-adelaida. Anticipate discharge home soon, continue home medications.
--- NOTE | 2019-01-19 09:13 | Progress Note ---
Subjective Patient reports: feels better Narrative: Feels better. Tolerating clears. Exam Vital signs and Labs for Last 24 Hours: Temp Pulse Resp BP Pulse Ox 99.0 F 72 18 99/46 L 95 01/19/19 07:34 01/19/19 07:34 01/19/19 07:34 01/19/19 07:34 01/19/19 07:34 Laboratory Results - last 24 hr 01/19/19 05:50: WBC 10.5 D, RBC 4.05 L, Hgb 12.1 L D, Hct 38.7, MCV 95.7, MCH 29.9, MCHC 31.3 L, RDW 13.0, Plt Count 159 D, MPV 8.5, Neut % (Auto) 84.7 H, Lymph % (Auto) 11.5, [place] % (Auto) 3.5, Eos % (Auto) 0.2, Baso % (Auto) 0.2, Neut # (Auto) 8.9 H, Lymph # (Auto) 1.2, [place] # (Auto) 0.4, Eos # (Auto) 0.0, Baso # (Auto) 0.0 01/19/19 05:50: Sodium 144, Potassium 4.4, Chloride 106, Carbon Dioxide 29, Anion Gap 13.4, BUN 11, Creatinine 0.85, Estimated Creat Clear 97, Estimated GFR 69, Est GFR ( Amer) 83, Glucose 111 H, Calcium 8.2 L D I & O for Last 24 hours: Intake & Output 01/16/19 01/17/19 01/18/19 01/19/19 11:59 11:59 11:59 11:59 Intake Total 3000 / 3000 Output Total 1175 / 1175 Balance 1825 / 1825 Weight 165 lb 185 lb 7 oz - *Routine Abdominal Exam Present: soft Comments: Dressings intact. Hypoactive bowel sounds. Progress Note: A&P (1) Acquired hypothyroidism Status: Acute Current Visit: Yes (2) Acute appendicitis Status: Acute Assessment and plan: Continue IV antibiotics due to established peritonitis. Advance diet. Current Visit: Yes (3) HTN (hypertension) Status: Acute Current Visit: No
--- NOTE | 2019-01-20 08:11 | Progress Note ---
Internal Medicine - PN: Subj *Date: 01/20/19 *Time: 08:09 Interval history: Patient has no complaints this morning but overnight developed a fever. Patient's blood pressure remains low. She is in good spirits and was noted to have nonproductive cough but claims "I always have a cough". She denies any change in her postoperative pain and perceives this is normal. Exam Vital signs and Labs for Last 24 Hours: Temp Pulse Resp BP Pulse Ox 99.7 F H 68 18 103/46 L 94 L 01/20/19 07:47 01/20/19 07:47 01/20/19 07:47 01/20/19 07:47 01/20/19 07:47 Laboratory Results - last 24 hr 01/19/19 05:50: Calcium 8.2 L D I & O for Last 24 hours: Intake & Output 01/17/19 01/18/19 01/19/19 01/20/19 11:59 11:59 11:59 11:59 Intake Total 3360 / 3360 3333 / 3333 Output Total 1175 / 1175 3150 / 3150 Balance 2185 / 2185 183 / 183 Weight 165 lb 185 lb 7 oz 187 lb 6 oz Narrative: She looks comfortable. Oropharynx is moist and clear. Lungs have some congested breath sounds in the right upper lobe. Heart has regular rate and rhythm. Abdomen is soft. Assessment and Plan (1) Acute appendicitis Current visit: Yes Status: Acute Qualifiers: Acute appendicitis type: with localized peritonitis Appendicitis gangrene presence: without gangrene Appendicitis perforation presence: without perforation Appendicitis abscess presence: without abscess Qualified Code(s): K35.30 - Acute appendicitis with localized peritonitis, without perforation or gangrene Category: Medical Code(s): K35.80 - Unspecified acute appendicitis (2) Acquired hypothyroidism Current visit: Yes Status: Acute Category: Medical Code(s): E03.9 - Hypothyroidism, unspecified (3) HTN (hypertension) Current visit: No Status: Acute Category: Medical Code(s): I10 - Essential (primary) hypertension (4) Postoperative fever Current visit: Yes Status: Acute Category: Medical Code(s): R50.82 - Postprocedural fever - Assessment and plan all Dx Assessment and Plan for all problems:: 1. CBC has been ordered for this morning 2. I will order the patient a breathing treatment to help with her chest congestion on 3. Incentive spirometer has been ordered
[2019-01-20 08:14] LABS: Anion Gap 12.9 mEq/L (5-15); Basophils % 0.3 % (0.1-2.0); Calcium 8.4 mg/dL (8.5-10.1); Eosinophils # 0.2 K/mm3 (0.0-0.4); Eosinophils % 2.1 % (0.1-12.0); Hematocrit 37.7 % (37.0-47.0); Hemoglobin 12.2 g/dL (12.2-16.2); Lymphocytes # 0.8 K/mm3 (0.7-4.5); Lymphocytes % 8.7 % (10-50); Mean Corpuscular HGB Conc 32.3 g/dL (31.8-35.4); Mean Corpuscular Volume 93.6 fl (81-99); Mean Platelet Volume 8.1 fl (7.4-10.4); Monocytes # 0.1 K/mm3 (0.1-1.0); Monocytes % 1.4 % (1.7-9.3); Neutrophils # 8.5 K/mm3 (1.8-7.8); Neutrophils % 87.6 % (37.0-80.0); Platelet Count 159 K/mm3 (142-424); Red Blood Count 4.03 M/mm3 (4.20-5.40); Red Cell Distribution Width 12.9 % (11.5-17.5); White Blood Count 9.7 K/mm3 (4.8-10.8)
--- NOTE | 2019-01-20 08:49 | Progress Note ---
Subjective Patient reports: no new complaints, feels better Narrative: Patient tolerating bland diet without any issues. Reportedly patient did go out to smoke. Had a couple of fevers overnight. Exam Vital signs and Labs for Last 24 Hours: Temp Pulse Resp BP Pulse Ox 99.7 F H 68 18 103/46 L 94 L 01/20/19 07:47 01/20/19 07:47 01/20/19 07:47 01/20/19 07:47 01/20/19 07:47 Laboratory Results - last 24 hr 01/20/19 07:49: WBC 9.7, RBC 4.03 L, Hgb 12.2, Hct 37.7, MCV 93.6, MCH 30.3, MCHC 32.3, RDW 12.9, Plt Count 159, MPV 8.1, Neut % (Auto) 87.6 H, Lymph % (Auto) 8.7 L, [place] % (Auto) 1.4 L, Eos % (Auto) 2.1, Baso % (Auto) 0.3, Neut # (Auto) 8.5 H, Lymph # (Auto) 0.8, [place] # (Auto) 0.1, Eos # (Auto) 0.2, Baso # (Auto) 0.0 01/20/19 07:49: Sodium 141, Potassium 3.9, Chloride 105, Carbon Dioxide 27, Anion Gap 12.9, BUN 7 D, Creatinine 0.86, Estimated Creat Clear 97, Estimated GFR 68, Est GFR ( Amer) 82, Glucose 93, Calcium 8.4 L I & O for Last 24 hours: Intake & Output 01/17/19 01/18/19 01/19/19 01/20/19 11:59 11:59 11:59 11:59 Intake Total 3360 / 3360 3333 / 3333 Output Total 1175 / 1175 3150 / 3150 Balance 2185 / 2185 183 / 183 Weight 165 lb 185 lb 7 oz 187 lb 6 oz - *Routine Abdominal Exam Present: soft. Absent: tenderness Progress Note: A&P (1) Acute appendicitis Status: Acute Assessment and plan: Continue IV antibiotics. Current Visit: Yes (2) Acquired hypothyroidism Status: Acute Current Visit: Yes (3) HTN (hypertension) Status: Acute Current Visit: No (4) Postoperative fever Status: Acute Assessment and plan: Incentive spirometry. Current Visit: Yes Assessment and Plan for All Diagnoses:: Given the fevers and degree of established peritonitis likely plan to continue with IV antibiotics for another 24 hours. Once afebrile for 24 hours possible discharge on oral antibiotics. Start incentive spirometry. Advised patient against smoking.
[2019-01-20 09:17] LABS: Lymphocytes % 8 % (10-50); Monocytes % 1 % (2-9); Neutrophils % 86 % (42-76); Total Cells Counted 100
[2019-01-20 09:18] LABS: RBC Morphology Normal
[2019-01-20 13:07] LABS: Microscopic, Urine URINE MICROSCOPIC (MICROSCOPIC)
[2019-01-20 13:08] LABS: Appearance,Urine CLEAR (Clear); Bilirubin,Urine Negative (Negative); Blood, Urine Negative (Negative); Color,Urine YELLOW (Yellow); Glucose,Urine (UA) Negative (Negative); Ketones,Urine Negative (Negative); Leukocyte Esterase,Urine Negative (Negative); PH,Urine 8.5 (5.0-8.5); Protein,Urine Negative (Negative)
[2019-01-20 13:16] LABS: Bacteria,Urine Trace /lpf
--- NOTE | 2019-01-21 08:19 | Progress Note ---
Internal Medicine - PN: Subj *Date: 01/21/19 *Time: 08:18 Interval history: Patient remained in the hospital over the weekend because of postoperative fever. White count is normal. I attempted to see patient today but she is out of the room apparently downstairs smoking. Further recommendations as needed based on blood cultures if positive. Currently I would continue current antibiotic coverage and try to minimize patient smoking. Exam Vital signs and Labs for Last 24 Hours: Temp Pulse Resp BP Pulse Ox 100.2 F H 84 18 110/56 L 94 L 01/21/19 08:00 01/21/19 08:00 01/21/19 08:00 01/21/19 08:00 01/21/19 08:00 Laboratory Results - last 24 hr 01/20/19 07:49: WBC 9.7, RBC 4.03 L, Hgb 12.2, Hct 37.7, MCV 93.6, MCH 30.3, MCHC 32.3, RDW 12.9, Plt Count 159, MPV 8.1, Neut % (Auto) 87.6 H, Lymph % (Auto) 8.7 L, [place] % (Auto) 1.4 L, Eos % (Auto) 2.1, Baso % (Auto) 0.3, Neut # (Auto) 8.5 H, Lymph # (Auto) 0.8, [place] # (Auto) 0.1, Eos # (Auto) 0.2, Baso # (Auto) 0.0, Total Counted 100, Neutrophils % (Manual) 86 H, Band Neutrophils % 4.0, Lymphocytes % (Manual) 8 L, Atypical Lymphs % 1.0, Monocytes % (Manual) 1 L , Platelet Estimate Normal, RBC Morphology Normal 01/20/19 07:49: Sodium 141, Potassium 3.9, Chloride 105, Carbon Dioxide 27, Anion Gap 12.9, BUN 7 D, Creatinine 0.86, Estimated Creat Clear 97, Estimated GFR 68, Est GFR ( Amer) 82, Glucose 93, Calcium 8.4 L 01/20/19 12:50: Urine Color Yellow, Urine Appearance Clear, Urine pH 8.5, Ur Specific [place] 1.010, Urine Protein Negative, Urine Glucose (UA) Negative, Urine Ketones Negative, Urine Blood Negative, Urine Nitrate Negative, Urine Bilirubin Negative, Urine Urobilinogen 2.0, Ur Leukocyte Esterase Negative, Urine RBC None, Urine WBC None, Ur Squamous Epith Cells 3-5, Urine Bacteria Trace 01/20/19 13:18: Lactate 1.0 I & O for Last 24 hours: Intake & Output 01/18/19 01/19/19 01/20/19 01/21/19 11:59 11:59 11:59 11:59 Intake Total 3360 / 3360 3333 / 3333 3664 / 3664 Output Total 1175 / 1175 3350 / 3350 1850 / 1850 Balance 2185 / 2185 -17 / -17 1814 / 1814 Weight 165 lb 185 lb 7 oz 187 lb 6 oz 192 lb 4.8 oz Assessment and Plan (1) Acute appendicitis Current visit: Yes Status: Acute Qualifiers: Acute appendicitis type: with localized peritonitis Appendicitis gangrene presence: without gangrene Appendicitis perforation presence: without perforation Appendicitis abscess presence: without abscess Qualified Code(s): K35.30 - Acute appendicitis with localized peritonitis, without perforation or gangrene Category: Medical Code(s): K35.80 - Unspecified acute appendicitis (2) Acquired hypothyroidism Current visit: Yes Status: Acute Category: Medical Code(s): E03.9 - Hypothyroidism, unspecified (3) HTN (hypertension) Current visit: No Status: Acute Category: Medical Code(s): I10 - Essential (primary) hypertension (4) Postoperative fever Current visit: Yes Status: Acute Category: Medical Code(s): R50.82 - Postprocedural fever
--- NOTE | 2019-01-21 08:25 | Progress Note ---
Subjective Patient reports: no new complaints, feels better Narrative: Patient feels well. She has some abdominal soreness which is improving. She has had some appreciable fevers. Exam Vital signs and Labs for Last 24 Hours: Temp Pulse Resp BP Pulse Ox 100.2 F H 84 18 110/56 L 94 L 01/21/19 08:00 01/21/19 08:00 01/21/19 08:00 01/21/19 08:00 01/21/19 08:00 Laboratory Results - last 24 hr 01/20/19 07:49: WBC 9.7, RBC 4.03 L, Hgb 12.2, Hct 37.7, MCV 93.6, MCH 30.3, MCHC 32.3, RDW 12.9, Plt Count 159, MPV 8.1, Neut % (Auto) 87.6 H, Lymph % (Auto) 8.7 L, [place] % (Auto) 1.4 L, Eos % (Auto) 2.1, Baso % (Auto) 0.3, Neut # (Auto) 8.5 H, Lymph # (Auto) 0.8, [place] # (Auto) 0.1, Eos # (Auto) 0.2, Baso # (Auto) 0.0, Total Counted 100, Neutrophils % (Manual) 86 H, Band Neutrophils % 4.0, Lymphocytes % (Manual) 8 L, Atypical Lymphs % 1.0, Monocytes % (Manual) 1 L , Platelet Estimate Normal, RBC Morphology Normal 01/20/19 07:49: Sodium 141, Potassium 3.9, Chloride 105, Carbon Dioxide 27, Anion Gap 12.9, BUN 7 D, Creatinine 0.86, Estimated Creat Clear 97, Estimated GFR 68, Est GFR ( Amer) 82, Glucose 93, Calcium 8.4 L 01/20/19 12:50: Urine Color Yellow, Urine Appearance Clear, Urine pH 8.5, Ur Specific [place] 1.010, Urine Protein Negative, Urine Glucose (UA) Negative, Urine Ketones Negative, Urine Blood Negative, Urine Nitrate Negative, Urine Bilirubin Negative, Urine Urobilinogen 2.0, Ur Leukocyte Esterase Negative, Urine RBC None, Urine WBC None, Ur Squamous Epith Cells 3-5, Urine Bacteria Trace 01/20/19 13:18: Lactate 1.0 I & O for Last 24 hours: Intake & Output 01/18/19 01/19/19 01/20/19 01/21/19 11:59 11:59 11:59 11:59 Intake Total 3360 / 3360 3333 / 3333 3664 / 3664 Output Total 1175 / 1175 3350 / 3350 1850 / 1850 Balance 2185 / 2185 -17 / -17 1814 / 1814 Weight 165 lb 185 lb 7 oz 187 lb 6 oz 192 lb 4.8 oz - *Routine Abdominal Exam Present: soft Comments: Incisions are clean and intact with minimal bruising at the lower trocar site. Abdomen is soft with good bowel sounds. Progress Note: A&P (1) Acute appendicitis Status: Acute Assessment and plan: I will go ahead and advance her to a regular diet and decrease her IV fluids. Continue IV antibiotics. Monitor fevers. Once afebrile for 24 hours may be a will discharge home and transition to oral antibiotics. If she continues to have ongoing fevers could need intravenous antibiotics such as Invanz with a PICC line. Current Visit: Yes (2) Acquired hypothyroidism Status: Acute Current Visit: Yes (3) HTN (hypertension) Status: Acute Current Visit: No (4) Postoperative fever Status: Acute Current Visit: Yes
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
--- NOTE | 2019-01-22 06:51 | Progress Note ---
Subjective Patient reports: feels better Narrative: Patient states that she enjoyed regular diet but the orange juice "did not sit well." Still had Tmax of 102.1F Exam Vital signs and Labs for Last 24 Hours: Temp Pulse Resp BP Pulse Ox 98.4 F 80 22 112/54 L 96 01/22/19 04:00 01/22/19 04:00 01/22/19 04:00 01/22/19 04:00 01/22/19 04:00 I & O for Last 24 hours: Intake & Output 01/19/19 01/20/19 01/21/19 01/22/19 11:59 11:59 11:59 11:59 Intake Total 3360 / 3360 3333 / 3333 3664 / 3664 3887 / 3887 Output Total 1175 / 1175 3350 / 3350 1850 / 1850 2975 / 2975 Balance 2185 / 2185 -17 / -17 1814 / 1814 912 / 912 Weight 185 lb 7 oz 187 lb 6 oz 192 lb 4.806 oz 183 lb 1 oz - *Routine Abdominal Exam Present: soft Comments: Some bruising. Progress Note: A&P (1) Acute appendicitis Status: Acute Assessment and plan: Continue antibiotics. Check CBC. Encourage ambulation due to probable atelectasis. Current Visit: Yes (2) Acquired hypothyroidism Status: Acute Current Visit: Yes (3) HTN (hypertension) Status: Acute Current Visit: No (4) Postoperative fever Status: Acute Current Visit: Yes
[2019-01-22 07:41] LABS: Anion Gap 8.6 mEq/L (5-15); Calcium 8.2 mg/dL (8.5-10.1)
[2019-01-22 07:50] LABS: Basophils % 0.3 % (0.1-2.0); Eosinophils # 0.2 K/mm3 (0.0-0.4); Eosinophils % 2.2 % (0.1-12.0); Hematocrit 37.9 % (37.0-47.0); Hemoglobin 12.2 g/dL (12.2-16.2); Lymphocytes # 0.6 K/mm3 (0.7-4.5); Lymphocytes % 8.4 % (10-50); Mean Corpuscular HGB Conc 32.2 g/dL (31.8-35.4); Mean Corpuscular Volume 94.2 fl (81-99); Mean Platelet Volume 8.3 fl (7.4-10.4); Monocytes # 0.4 K/mm3 (0.1-1.0); Monocytes % 4.9 % (1.7-9.3); Neutrophils # 6.2 K/mm3 (1.8-7.8); Neutrophils % 84.3 % (37.0-80.0); Platelet Count 179 K/mm3 (142-424); Red Blood Count 4.03 M/mm3 (4.20-5.40); Red Cell Distribution Width 12.7 % (11.5-17.5); White Blood Count 7.4 K/mm3 (4.8-10.8)
--- NOTE | 2019-01-22 08:11 | Progress Note ---
Internal Medicine - PN: Subj *Date: 01/22/19 *Time: 08:52 Interval history: Continue to have fever overnight. Tolerating p.o. intake and having bowel movements however. Still complaining of some abdominal discomfort. Ambulating significantly. Denies nausea, vomiting. No chest pain or shortness of breath. Exam Vital signs and Labs for Last 24 Hours: Temp Pulse Resp BP Pulse Ox 98.1 F 81 17 103/58 L 97 01/22/19 07:45 01/22/19 07:45 01/22/19 07:45 01/22/19 07:45 01/22/19 07:45 Laboratory Results - last 24 hr 01/22/19 07:15: WBC 7.4, RBC 4.03 L, Hgb 12.2, Hct 37.9, MCV 94.2, MCH 30.4, MCHC 32.2, RDW 12.7, Plt Count 179, MPV 8.3, Neut % (Auto) 84.3 H, Lymph % (Auto) 8.4 L, [place] % (Auto) 4.9, Eos % (Auto) 2.2, Baso % (Auto) 0.3, Neut # (Auto) 6.2, Lymph # (Auto) 0.6 L, [place] # (Auto) 0.4, Eos # (Auto) 0.2, Baso # (Auto) 0.0 01/22/19 07:15: Sodium 137, Potassium 3.6, Chloride 103, Carbon Dioxide 29, Anion Gap 8.6, BUN 4 L D, Creatinine 0.79, Estimated Creat Clear 103, Estimated GFR 75, Est GFR ( Amer) 91, Glucose 104, Calcium 8.2 L I & O for Last 24 hours: Intake & Output 01/19/19 01/20/19 01/21/19 01/22/19 23:59 23:59 23:59 23:59 Intake Total 3507 / 3507 3714 / 3714 4820 / 4820 1383 / 1383 Output Total 3500 / 3500 800 / 1700 3825 / 3825 1000 / 1000 Balance 2913 995 / 995 383 / 383 Weight 84.113 kg 84.992 kg 87.226 kg 83.036 kg Narrative: No acute distress, obese. Lungs clear to auscultation with minimal transmitted upper respiratory wheeze, no rhonchi or crackles Heart rate regular, no murmurs Bowel sounds active, abdomen soft, diffuse nonfocal tenderness. Trocar insertion sites clean dry and intact Pulses 2+ in upper and lower extremities No edema in lower legs. Neurovascularly intact Alert and oriented to person place and time Assessment and Plan (1) Acute appendicitis Current visit: Yes Status: Acute Qualifiers: Acute appendicitis type: with localized peritonitis Appendicitis gangrene presence: without gangrene Appendicitis perforation presence: without perforation Appendicitis abscess presence: without abscess Qualified Code(s): K35.30 - Acute appendicitis with localized peritonitis, without perforation or gangrene Category: Medical Code(s): K35.80 - Unspecified acute appendicitis (2) Acquired hypothyroidism Current visit: Yes Status: Acute Category: Medical Code(s): E03.9 - Hypothyroidism, unspecified (3) HTN (hypertension) Current visit: No Status: Acute Category: Medical Code(s): I10 - Essential (primary) hypertension (4) Postoperative fever Current visit: Yes Status: Acute Category: Medical Code(s): R50.82 - Postprocedural fever - Assessment and plan all Dx Assessment and Plan for all problems:: Further recommendations as needed based on blood cultures if positive. Currently I would continue current antibiotic coverage and try to minimize patient smoking. Monitor for afebrile status for 24 hours. Will be okay from our standpoint at that time to discharge home. Further recommendations at this point. Thank you for the consult, will continue to follow along
--- NOTE | 2019-01-23 07:36 | Progress Note ---
Subjective Patient reports: feels better Narrative: Patient feels well with no complaints. No fevers. Exam Vital signs and Labs for Last 24 Hours: Temp Pulse Resp BP Pulse Ox 97.7 F 89 17 151/68 H 96 01/23/19 04:00 01/23/19 04:00 01/23/19 04:00 01/23/19 04:00 01/23/19 04:00 Laboratory Results - last 24 hr 01/22/19 07:15: WBC 7.4, RBC 4.03 L, Hgb 12.2, Hct 37.9, MCV 94.2, MCH 30.4, MCHC 32.2, RDW 12.7, Plt Count 179, MPV 8.3, Neut % (Auto) 84.3 H, Lymph % (Auto) 8.4 L, [place] % (Auto) 4.9, Eos % (Auto) 2.2, Baso % (Auto) 0.3, Neut # (Auto) 6.2, Lymph # (Auto) 0.6 L, [place] # (Auto) 0.4, Eos # (Auto) 0.2, Baso # (Auto) 0.0 01/22/19 07:15: Sodium 137, Potassium 3.6, Chloride 103, Carbon Dioxide 29, Anion Gap 8.6, BUN 4 L D, Creatinine 0.79, Estimated Creat Clear 103, Estimated GFR 75, Est GFR ( Amer) 91, Glucose 104, Calcium 8.2 L I & O for Last 24 hours: Intake & Output 01/20/19 01/21/19 01/22/19 01/23/19 11:59 11:59 11:59 11:59 Intake Total 3333 / 3333 3664 / 3664 4247 / 4247 3515 / 3515 Output Total 3350 / 3350 1850 / 1850 2975 / 2975 1300 / 1300 Balance -17 / -17 1814 / 1814 1272 / 1272 2215 / 2215 Weight 187 lb 6 oz 192 lb 4.806 oz 183 lb 1 oz 183 lb 1.009 oz Microbiology Reports for the Last 24 Hours: Microbiology 01/20/19 13:18 Blood Blood Culture - Preliminary NO GROWTH AFTER 48 HOURS 01/20/19 13:18 Blood Blood Culture - Preliminary NO GROWTH AFTER 48 HOURS - *Routine Abdominal Exam Present: soft. Absent: tenderness Comments: Minimal bruising. Progress Note: A&P (1) Acute appendicitis Status: Acute Assessment and plan: Discharge home. Current Visit: Yes (2) Acquired hypothyroidism Status: Acute Current Visit: Yes (3) HTN (hypertension) Status: Acute Current Visit: No (4) Postoperative fever Status: Acute Current Visit: Yes
--- NOTE | 2019-01-23 07:51 | Discharge Summary ---
General - General Admission date:: 01/18/19 Discharge date: 01/23/19 HPI HPI: Patient is a 58-year-old female. She states that in the evening of 01/17/19 she had some general cramping abdominal pain and discomfort with some associated nausea and anorexia. On 01/18/19 she awoke with localization of the pain more to the right lower quadrant. This area was quite tender to her. She presented to the emergency department at [facility] where she was seen and evaluated. She was found to have a leukocytosis. CT scan revealed findings of acute appendicitis without obvious perforation or abscess formation with some fluid in the pelvis. Surgical consultation was obtained. Hospital Course Hospital Course: Patient was taken emergently to the operating room for appendectomy. She was found to have evidence of perforation of the appendix with partially retrocecal appendix. There is a perforation of the proximal appendix which had been walled off with epiploic fat. She had some feculent fluid in the pelvis. This was all taken care of laparoscopically. She was given preoperative Unasyn which was continued postoperatively. Following morning she had normalization of her white blood cell count. Patient has always been very anxious to go home even prior to her operative intervention. However, she had developed some postoperative fevers and given the degree of inflammation she remained an inpatient for intravenous antibiotics. She did have medical consultation with her primary care provider during the hospitalization. On postoperative day #1 she was advanced from a clear liquid diet to a bland diet. She tolerated all of this without difficulty and wanted more substantial food early on. Patient had been out of the room reportedly smoking on several occasions. Due to her fevers she underwent evaluation for alternate source of infection including urinalysis and chest x-ray. Chest x-ray revealed mostly chronic changes but no evidence of any pneumonia. Urinalysis was unremarkable. Her diet was advanced to a regular diet. She tolerated this without difficulty. Ultimately on postoperative day #5 she had remained afebrile for greater than 24 hours and arrangements were made for discharge home. She is given a prescription for additional 5 days of Augmentin to complete a 10-day course of antibiotics. She will be given [place] 5 mg for pain. She is to refrain from heavy lifting. Given the nature of her work she will likely be off work for approximately 4 weeks postoperative. Objective Vital signs: Temp Pulse Resp BP Pulse Ox 97.7 F 89 17 151/68 H 96 11/13/19 04:00 01/23/19 04:00 01/23/19 04:00 01/23/19 04:00 01/23/19 04:00 - Detailed Eye Exam Eyelids: Left normal inspection Results Labs on day of discharge: Labs from last 24 hours 01/22/19 01/22/19 07:15 07:15 WBC 7.4 RBC 4.03 L Hgb 12.2 Hct 37.9 MCV 94.2 MCH 30.4 MCHC 32.2 RDW 12.7 Plt Count 179 MPV 8.3 Neut % (Auto) 84.3 H Lymph % (Auto) 8.4 L [place] % (Auto) 4.9 Eos % (Auto) 2.2 Baso % (Auto) 0.3 Neut # (Auto) 6.2 Lymph # (Auto) 0.6 L [place] # (Auto) 0.4 Eos # (Auto) 0.2 Baso # (Auto) 0.0 Sodium 137 Potassium 3.6 Chloride 103 Carbon Dioxide 29 Anion Gap 8.6 BUN 4 L D Creatinine 0.79 Estimated Creat Clear 103 Estimated GFR 75 Est GFR ( Amer) 91 Glucose 104 Calcium 8.2 L Preliminary micro results at discharge 01/20/19 13:18 Blood Culture - Preliminary Blood NO GROWTH AFTER 48 HOURS 01/20/19 13:18 Blood Culture - Preliminary Blood NO GROWTH AFTER 48 HOURS DS: Diagnosis - Discharge Diagnosis (1) Acute appendicitis Status: Acute (2) Acquired hypothyroidism Status: Acute (3) HTN (hypertension) Status: Acute (4) Postoperative fever Status: Acute Discharge Plan - Patient Discharge Instructions ACTIVITY: No heavy lifting DIET: advance to your usual diet Patient Instructions: DI for Appendicitis -- Adult, Appendicitis, DI for Surgical Site Infection, Appendectomy -- Laparoscopic Surgery, How to Quit Smoking - Follow up Plan Follow up with: Pj Higuera MD [Primary Care Provider] - 1 week Onesimo Ramirez MD [Staff Physician] - 02/01/19 Disposition: Home, Self-Skilled Nursing Medications: Home Medications Medication Instructions Recorded Confirmed Type fluticasone propionate 50 50 mcg INTRANASAL 1500 04/06/17 01/19/19 History mcg/actuation nasal spray,suspension levothyroxine 100 mcg capsule 100 mcg PO DAILY 04/06/17 01/18/19 History Amitriptyline HCl [Elavil 25mg 25 mg PO 1500 01/18/19 01/19/19 History tablet] Bisoprolol Fumarate [Bisoprolol 10 mg PO HS 01/18/19 01/19/19 History 10mg Tablet] Amoxicillin/Potassium Clav 1 tab PO Q12H #10 tab 01/23/19 Rx [Augmentin 875-125 Tablet] Hydrocod/Acet 5/325 mg [[place] 1 - 2 tab PO Q6HP PRN #11 tab 01/23/19 Rx 5/325mg tablet] Prescriptions/Medication Reconciliation: New Hydrocod/Acet 5/325 mg [[place] 5/325mg tablet] 1 - 2 tab PO Q6HP PRN #11 tab PRN Reason: Moderate Pain Amoxicillin/Potassium Clav [Augmentin 875-125 Tablet] 1 tab PO Q12H #10 tab Continued levothyroxine 100 mcg capsule 100 mcg PO DAILY fluticasone propionate 50 mcg/actuation nasal spray,suspension 50 mcg INTRANASAL 1500 Amitriptyline HCl [Elavil 25mg tablet] 25 mg PO 1500 Bisoprolol Fumarate [Bisoprolol 10mg Tablet] 10 mg PO HS - Problem Reconciliation Problems Reviewed?: Yes
== END 2019-01-23 09:06 | disposition home or self-care (01) | DRG 340 ==
LOC: ER 07:39 → OR 10:52 → 2ND 10:52 → OR 10:59 → OBSVTOIN 12:13 → 2ND 13:25
PROVIDERS: ADMIT Surgery; ATTEND Surgery
CPT/HCPCS: 36415; 71020; 71046; 74177; 80048; 80053; 81001; 83605; 83690; 85007; 85025; 87040; 93005; 94640; 96365; 96374; 96375; 99284; J2405; J2710; Q9967

== ENCOUNTER → 2019-02-18 11:05 | Outpatient (CLI) | payer BC, SELFPAY ==
[2019-02-18 11:09] LABS: Microscopic, Urine URINE MICROSCOPIC (MICROSCOPIC)
[2019-02-18 11:31] LABS: Appearance,Urine CLEAR (Clear); Bilirubin,Urine Negative (Negative); Blood, Urine Negative (Negative); Color,Urine YELLOW (Yellow); Glucose,Urine (UA) Negative (Negative); Ketones,Urine Negative (Negative); Leukocyte Esterase,Urine Negative (Negative); Nitrate,Urine Negative (Negative); PH,Urine 6.5 (5.0-8.5); Protein,Urine Negative (Negative); Urobilinogen,Urine 0.2 EU/dl (0.2)
[2019-02-18 11:34] LABS: Basophils # 0.1 K/mm3 (0-0.2); Eosinophils # 0.3 K/mm3 (0.0-0.4); Eosinophils % 4.8 % (0.1-12.0); Hematocrit 44.3 % (37.0-47.0); Hemoglobin 13.8 g/dL (12.2-16.2); Lymphocytes # 1.6 K/mm3 (0.7-4.5); Lymphocytes % 29.4 % (10-50); Mean Corpuscular HGB Conc 31.2 g/dL (31.8-35.4); Mean Corpuscular Hemoglobin 29.4 pg (27.0-31.2); Mean Corpuscular Volume 94.3 fl (81-99); Mean Platelet Volume 8.1 fl (7.4-10.4); Monocytes # 0.3 K/mm3 (0.1-1.0); Monocytes % 4.8 % (1.7-9.3); Neutrophils # 3.3 K/mm3 (1.8-7.8); Platelet Count 180 K/mm3 (142-424); Red Cell Distribution Width 13.6 % (11.5-17.5); White Blood Count 5.6 K/mm3 (4.8-10.8)
[2019-02-18 11:38] LABS: RBC,Urine Occasional #/hpf (0-3)
== END ==
PROVIDERS: Visit Provider Surgery
DX: Z90.49 Acquired absence of other specified parts of digestive tract (principal)
CPT/HCPCS: 36415; 81001; 85025

== ENCOUNTER → 2019-11-06 07:44 | Outpatient (CLI) | payer SELFPAY ==
--- NOTE | 2019-11-06 07:44 | CT_ITS ---
PROCEDURE: CT HEART W CALCIUM SCORE CLINICAL HISTORY: family history of cad COMPARISON: CT CT ABDOMEN PELVIS W CON from 01/18/2019 TECHNIQUE: Axial images obtained with sagittal and coronal reformats. All CT scans at the facility use one or more dose reduction, viz: automated exposure control, ma/kV adjustment per patient size (including targeted exams where dose is matched to indication, i.e. head), or iterative reconstruction technique. FINDINGS: The total coronary artery calcium score is 407 indicating extensive calcific plaque burden with very high cardiovascular disease risk. Incidental note is made coarsening of the interstitial markings and bronchial thickening suggesting COPD. IMPRESSION: Extensive calcific plaque burden with very high cardiovascular disease risk. COPD Dictated by: Frandy Krishna MD 11/06/2019 08:44 Frandy Krishna MD in [place] 11/06/2019 08:44
== END ==
PROVIDERS: PCP Internal Medicine Adolescent Medicine; Visit Provider Internal Medicine Cardiovascular Disease
DX: Z13.6 Encounter for screening for cardiovascular disorders (principal); Z82.49 Family history of ischemic heart disease and other diseases of the circulatory system
CPT/HCPCS: 75571

== ENCOUNTER → 2019-11-14 07:16 | Outpatient (CLI) | payer BC, SELFPAY ==
--- NOTE | 2019-11-14 | CA_ITS ---
APPROVED REPORT Exam: Exercise Treadmill Technologist: Kendra Diaz, Ht: 5 ft 3 in Wt: 171 lbs BSA: 1.81 m2 HR: 70 bpm BP: 118/65 mmHg Rhythm: NSR Medical History Medical History: Hyperlipidemia Medications: Levothyroxine,,,,, Asa,,,,, Cardiac Risk Factors: Hyperlipidemia, FHX of CAD, Smoking Stress Test Details Test: Nash HR Resting HR: 84 bpm Max Heart Rate (APMHR): 163 bpm Max HR Achieved: 161 bpm Target HR (85% APMHR): 138 bpm % of APMHR: 98 Recovery HR: 106 bpm BP Resting BP: 118.0/65.0 mmHg Max BP: 164.0/86.0 mmHg Recovery BP: 142.0/75.0 mmHg BP response to stress: Abnormal hypertensive response to stress. ECG Resting ECG: NSR Clinical Exercise duration: 08:31 min Highest Stage Achieved: Exercise capacity: 10.1 METs Stress ECG Conclusion EXERCISED 08:31 ON NASH PROTOCOL WITH MAX HEART RATE 149 BPM WHICH IS 91% OF PM FOR AGE. MAX BP 164/86. METS = 10.1. TEST STOPPED DUE TO SOA AND LEG FATIGUE. NO CHEST PAIN. OCCASIONAL PVC. MODERATELY FREQUENT PAC'S. ALLOWING FOR MOTION ARTIFACT,THE ST RESPONSE TO EXERCISE IS NORMAL. NORMAL GXT. MYOVIEW IMAGES REPORTED SEPARATELY. Test Summary RECOVERY 02:00 0.0 0.0 100 . 142/ 75 . . REST . . . . . . . Sitting REST . . . . . . . Sitting REST 07:01 0.0 0.0 84 . 118/ 65 . . Stage 1 01:00 10.0 1.7 97 . . . . Stage 1 02:00 10.0 1.7 104 . . . . Stage 1 03:00 10.0 1.7 109 . 154/ 86 . . Stage 2 01:00 12.0 2.5 117 . . . . Stage 2 02:00 12.0 2.5 121 . . . . Stage 2 03:00 12.0 2.5 129 . 164/ 86 . . Stage 3 01:00 14.0 3.4 142 . . . . Stage 3 . . . . . . . Cardiolite injected Stage 3 02:00 14.0 3.4 136 . . . . Stage 3 02:31 14.0 3.4 149 . . . Stop exercise at 08:31 RECOVERY 01:00 0.0 0.0 113 . . . . RECOVERY 02:00 0.0 0.0 100 . 142/ 75 . . RECOVERY 03:00 0.0 0.0 89 . 142/ 64 . . RECOVERY 04:00 0.0 0.0 82 . 119/ 59 . . RECOVERY 05:00 0.0 0.0 83 . 111/ 57 . . RECOVERY 05:20 0.0 0.0 83 . 111/ 57 . . Electronically signed by : Guero Escobar, 11/14/2019 15:36:04
--- NOTE | 2019-11-14 07:16 | NM_ITS ---
APPROVED REPORT Exam: Nuclear Stress Test Indication: chest pain Patient Location: Outpatient Stress Tech: Tram Valdovinosnkson [place] Tech:CHI Encarnacion RT(R)(N) Ht: 5 ft 3 in Wt: 171 lbs Bra Size: xl HR: 70 bpm BP: 118/65 mmHg BSA: 1.81 m2 BMI: 30.2 History: chest pain Procedure: Patient exercised on Nash protocol 8.30 minutes and sec, resting heart rate 70 bpm, resting blood pressure 118/65 mmHg, with exercise maximum heart rate achived was 124 bpm which is 91 % of the maximum predicted heart rate and blood pressure was 164/86 mmHg. Patient denied any complaint of chest pain. Patient has Good exercise capacity, achieved 10.0 METs of workload on treadmill, the blood pressure response to exercise was Adequate. Electrocardiogram Resting electrocardiogram showed sinus rhythm, with exercise there is less than 1.[address] segment depression noted from the baseline EKG. The EKG portion of the exercise Myoview is negative for ischemia. Cardiac Stress and Resting SPECT Images: Cardiac Stress and Resting SPECT images were obtained using technetium 99m Myoview 29.0 mCi stress and 10.24 mCi at rest. Gated SPECT with analysis of segmental wall motion and calculation of the ejection fraction also done. Cardiac stress and resting SPECT images show uniform myocardial activity without segmental perfusion abnormality, computer derived ejection fraction is 62% with no regional wall motion abnormality, right ventricle is normal size and contractility. Conclusion: 1. The EKG portion of the exercise Myoview is negative for ischemia, patient has good exercise capacity achieved 10.0 METs of workload on treadmill, the blood pressure response to exercise was adequate, there was no exercise-induced chest discomfort. 2. No scintigraphic evidence of reversible ischemia seen, computer derived ejection fraction is 62% with no regional wall motion abnormality, right ventricle is normal size and contractility. 3. Normal exercise Myoview study. Electronically signed by : Guero Escobar, 11/14/2019 15:38:12
--- NOTE | 2019-11-14 10:52 | HMH.ITSHM ---
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 [] levothyroxine asa
== END ==
PROVIDERS: PCP Internal Medicine Adolescent Medicine; Visit Provider Internal Medicine Cardiovascular Disease
DX: I20.8 Other forms of angina pectoris (principal); R93.1 Abnormal findings on diagnostic imaging of heart and coronary circulation; E78.5 Hyperlipidemia, unspecified; I10 Essential (primary) hypertension; F17.200 Nicotine dependence, unspecified, uncomplicated
CPT/HCPCS: 78452; 93017; A9502; J2785

== ENCOUNTER → 2020-01-18 09:38 | Outpatient (CLI) | payer BC, SELFPAY ==
[2020-01-18 10:41] LABS: Basophils # 0.1 K/mm3 (0-0.2); Basophils % 1.2 % (0.1-2.0); Eosinophils # 0.2 K/mm3 (0.0-0.4); Eosinophils % 2.8 % (0.1-12.0); Hematocrit 49.5 % (37.0-47.0); Hemoglobin 16.6 g/dL (12.2-16.2); Lymphocytes # 1.8 K/mm3 (0.7-4.5); Lymphocytes % 32.3 % (10-50); Mean Corpuscular HGB Conc 33.6 g/dL (31.8-35.4); Mean Corpuscular Hemoglobin 30.2 pg (27.0-31.2); Mean Corpuscular Volume 89.9 fl (81-99); Mean Platelet Volume 8.2 fl (7.4-10.4); Monocytes # 0.3 K/mm3 (0.1-1.0); Monocytes % 5.6 % (1.7-9.3); Neutrophils # 3.2 K/mm3 (1.8-7.8); Platelet Count 174 K/mm3 (142-424); Red Cell Distribution Width 13.3 % (11.5-17.5); White Blood Count 5.5 K/mm3 (4.8-10.8)
[2020-01-18 11:16] LABS: Chloride 103 mmol/L (98-107); Sodium 139 mmol/L (136-145)
[2020-01-18 11:18] LABS: Alanine Aminotransferase 15 U/L (12-78); Alkaline Phosphatase 69 U/L (38-126); Aspartate Amino Transferase 25 U/L (14-36); Blood Urea Nitrogen 15 mg/dl (7-17); Estimated Glomerular Filt Rate 74 ml/min (>60); GFR (African American) 89 ML/MIN (>60)
[2020-01-18 11:19] LABS: Albumin Level 4.5 g/dl (3.5-5.0); Albumin/Globulin Ratio 1.6 (1.1-1.8); Calcium 9.7 mg/dl (8.4-10.2); Carbon Dioxide 30 mmol/L (22.0-30.0); Chol/HDL Ratio 3.1 (1-3.5); Cholesterol 135 mg/dl (140-200); Globulin 2.8 g/dL (1.3-3.2); Glucose 89 mg/dl (74-100); HDL Cholesterol 44 mg/dl (40-60); Total Protein,Serum 7.3 g/dl (6.3-8.2); Triglycerides 105 mg/dl (30-150); VLDL Cholesterol 21 mg/dL (0-40)
[2020-01-18 11:30] LABS: Direct LDL Cholesterol 77.76 mg/dL (100-129)
[2020-01-18 11:34] LABS: 25-OH Vitamin D, Total 43.2 ng/mL (30-100)
[2020-01-18 11:48] LABS: Thyroid Stimulating Hormone 0.58 uIU/mL (0.465-4.68)
== END ==
PROVIDERS: Visit Provider Internal Medicine Adolescent Medicine
DX: E03.9 Hypothyroidism, unspecified (principal); E78.5 Hyperlipidemia, unspecified; M85.89 Other specified disorders of bone density and structure, multiple sites
CPT/HCPCS: 36415; 80053; 80061; 82306; 84443; 85025

== ENCOUNTER → 2020-02-20 14:09 | Outpatient (CLI) | payer BC, SELFPAY ==
--- NOTE | 2020-02-20 14:13 | XR_ITS ---
PROCEDURE: XR DEXA AXIAL SKELETON CLINICAL HISTORY: OSTEOPENIA COMPARISON: CR,DX BONE3 BONE DENSITOMETRY(HIP:LT SPINE from 04/08/2015 FINDINGS: The right hip BMD is 0.657 with a T-score of -1.7. The left hip BMD is 0.648 with a T-score of -1.8. The lumbar spine BMD is 0.777 with a T-score of -2.5. Previously the lowest density was in the left femoral neck with T-score -2.6. Previously lumbar spine density had a T-score of -2.3 IMPRESSION: This patient is considered osteoporotic according to the World Health Organization criteria. Fracture risk is high. Treatment is advised. Based on these results a follow-up exam is recommended in 1 year. Dictated by: Frandy Krishna MD 02/20/2020 16:35 Frandy Krishna MD in [place] 02/20/2020 16:35
--- NOTE | 2020-02-20 14:14 | CT_ITS ---
PROCEDURE: CT LUNG SCREENING CLINICAL INDICATION: H/O NICOTINE DEPENDENCE current smoker COMPARISON: No exams were available for comparison TECHNIQUE: The exam was performed on a GE Light Speed [address] scanner using 2.90 mGy CTDI. A low dose helical CT CHEST was performed on a multi-detector scanner. All CT scans at the facility use one or more dose reduction, viz: automated exposure control, ma/kV adjustment per patient size (including targeted exams where dose is matched to indication, i.e. head), or iterative reconstruction technique. The LDCT was performed in a facility that meets the criteria for the screening program. Data regarding this exam was submitted to ACR which is an approved registry. The order for this exam indicates that it came as a result of a lung cancer screening counseling shard decision-making visit that included all the elements required of such a visit including smoking cessation. The radiologist interpreting this exam meets the [facility] criteria for the LDCT lung cancer screening program. The exam is reported using the Lung-RADS classification scale and reported to the ACR registry. NOTE: This study was performed for the specific purposes of lung cancer screening and is not an alternative to diagnostic chest CT. RADIATION DOSE: CTDI vol(CT dose Index-volume) = 2.90mG DLP (Dose Length Product) = 103.68 mGcm FINDINGS: Changes of COPD. There is a small pneumatocele in the left lung base at 1.8 cm. There is mild bronchial thickening. There is evidence of old granulomatous disease. Old no suspicious nodules identified. OTHER FINDINGS: The few scattered small nodes are present in the mediastinum. Coronary artery calcifications are present. Are are there are degenerative changes in the thoracic spine. IMPRESSION: Lung-RADS Category 1 Negative Follow-up: Continue annual screening with LDCT in 12 months Dictated by: Frandy Krishna MD 03/09/2020 12:43 Frandy Krishna MD in [place] 03/09/2020 12:43
== END ==
PROVIDERS: PCP Internal Medicine Adolescent Medicine; Visit Provider Internal Medicine Adolescent Medicine
DX: Z87.891 Personal history of nicotine dependence (principal); Z12.2 Encounter for screening for malignant neoplasm of respiratory organs; M85.80 Other specified disorders of bone density and structure, unspecified site
CPT/HCPCS: 77080

== ENCOUNTER → 2020-06-01 17:01 | Outpatient (CLI) | payer BC, SELFPAY ==
[2020-06-01 19:13] LABS: Free Thyroxine Index 3.5 ug/dL (5.93-13.13); T4 (Thyroxine) 11.2 ug/dl (5.53-11.0); Triiodothryronine (T3) Uptake 31 % (23.5-40.5)
[2020-06-01 19:27] LABS: Thyroid Stimulating Hormone 0.43 uIU/mL (0.465-4.68)
== END ==
PROVIDERS: Visit Provider Internal Medicine Adolescent Medicine
DX: E03.9 Hypothyroidism, unspecified (principal)
CPT/HCPCS: 36415; 84436; 84443; 84479

== ENCOUNTER 2020-08-19 15:30 | Outpatient (RCR) | payer BC, SELFPAY ==
--- NOTE | 2020-06-25 17:29 | HMH.PTOPEV ---
PT Outpatient Evaluation Rehab PT Outpatient Evaluation Start: 06/25/20 15:54 Freq: Status: Active Protocol: Document 06/25/20 16:03 MADHURICECELIA (Rec: 06/25/20 17:29 ABISAI [id number]) Electronically Signed By Jorge Ahn, PT 06/25/20 16:03 Outpatient Therapy Subjective History Subjective History This is the initial Physical Therapy evaluation for Maria C Lewis. Pt is a 59 y/o female referred to PT for c/o Lower thoracic and periscapular pain . Pt reports insidious onset of thoracic pain ~ 7-8 years ago. 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 Pt reports she has burning pain that radiates around B sides R>L, and sharp pain under R shoulder blade. Pt reports all pain is intermittant but is severe at end of night after work. Chief Complaint Pain Symptom Type Ache,Sharp,Burning Symptoms Relieved By Heat Symptoms Aggravated By Physical Activity,Twisting, Lifting Prior Functional Limitations None Current Functional Limitations None Symptom Description Intermittent Level of pain today (0-10) 5 Pain scale - at its best (0-10) 3 Pain scale - at its worst (0-10) 8 Cervical Eval Palpation Cervical/Thoracic Palpation Findings Tenderness,Spasm,Trigger Point ,Muscle Guarding Special Test C-Spine Foraminal Distraction Test Positive Lumbopelvic Eval Palapation tenderness right thoracic spinal tenderness Yes lumbar spinal tenderness No Accessory Movement T-spine Vertebrae Accessory Movements Central P/A [place],Right P/A that Elicit Symptoms [place],Left P/A [place] T10 right T11 right T12 right Range of Motion Lumbar Spine ROM Reason Not Measured Within Functional Limits Outpatient Therapy Assessment Impairments Problems/Impairmments Palpation Tenderness,Impaired Driving,Impaired Lifting, Impaired Household Care, Impaired Work Activities, Subjective C/O Pain,Impaired Self Care/Self Management Prognosis Rehab Potential Good Clinical Impression Consistent with Diagnosis Yes
== END 2020-08-19 15:35 | disposition home or self-care (01) ==
LOC: PT 15:30
PROVIDERS: PCP Internal Medicine Adolescent Medicine; Visit Provider Internal Medicine Adolescent Medicine
DX: M12.9 Arthropathy, unspecified (principal)
CPT/HCPCS: 97010; 97012; 97014; 97035; 97110; 97140; 97163; 97164; G0283

== ENCOUNTER → 2021-03-12 15:49 | Outpatient (CLI) | payer BC, SELFPAY | PROVIDERS: PCP Internal Medicine Adolescent Medicine; Visit Provider Nurse Practitioner Family | DX: Z20.822 Contact with and (suspected) exposure to COVID-19 (principal) | CPT/HCPCS: C9803; U0003; U0005 ==

== ENCOUNTER → 2021-05-26 15:42 | Outpatient (CLI) | payer BC, SELFPAY ==
--- NOTE | 2021-05-26 15:47 | XR_ITS ---
FINAL REPORT CLINICAL HISTORY: pain/redness at 5th phalanx; a horse stepped on her foot 4 weeks ago; LEFT FOOR PAIN FINDINGS: LEFT FOOT 3 views were obtained. There is no acute fracture or dislocation. The joint spaces are intact. There are calcaneal spurs. There is no soft tissue abnormality. IMPRESSION: No acute bony abnormality. Reviewed, Interpreted and Dictated by Onesimo Jordan III, MD Transcribed by Jazz Hendricks Authenticated by Onesimo Jordan III, MD on 05/26/2021 04:45:[address] [facility]
== END ==
PROVIDERS: PCP Internal Medicine Adolescent Medicine; Visit Provider Internal Medicine Adolescent Medicine
DX: M79.672 Pain in left foot (principal)
CPT/HCPCS: 73630

== ENCOUNTER → 2021-08-12 09:43 | Outpatient (CLI) | payer BC, SELFPAY ==
--- NOTE | 2021-08-12 09:48 | CT_ITS ---
FINAL REPORT CLINICAL HISTORY: H/O NICOTINE DEPENDENCE, 1 1/2 packs per day x 30 years COMPARISON: 02/20/2020 FINDINGS: Axial images were obtained from the lung apex to the mid abdomen by computed tomography. Low-dose protocol was utilized. CTDl vol(mGy): 2.7 DLP (mGy-cm): 86.2 FINDINGS: There is no axillary adenopathy. There is no hilar or mediastinal adenopathy. The heart size is normal. . There are mild emphysematous changes. There are moderate coronary artery calcifications. There is no pericardial or pleural effusion. Limited images of the upper abdomen are unremarkable. Again noted is a 1.8 cm pneumatocele at the left lung base. There is diffuse bronchial wall thickening which may represent bronchitis. No suspicious mass or nodule is identified. IMPRESSION: Lung RADS category 1. Recommend 12 month follow-up low-dose chest CT. Reviewed, Interpreted and Dictated by Onesimo Jordan III, MD Transcribed by Serena Pompa Authenticated and [facility]
== END ==
PROVIDERS: PCP Internal Medicine Adolescent Medicine; Visit Provider Internal Medicine Adolescent Medicine
DX: Z87.891 Personal history of nicotine dependence (principal); Z12.2 Encounter for screening for malignant neoplasm of respiratory organs
CPT/HCPCS: 71271

== ENCOUNTER → 2021-08-19 15:11 | Outpatient (CLI) | payer BC, SELFPAY ==
--- NOTE | 2021-08-19 15:20 | MM_ITS ---
PROCEDURE INFORMATION: Exam: MG Bilateral Screening 3D Mammography Exam date and time: 08/19/2021 3:18 PM Age: 60 years old Clinical indication: Screening examination TECHNIQUE: Imaging protocol: Bilateral Screening tomosynthesis and 2D mammography including computer-aided detection (CAD) when performed. COMPARISON: No relevant prior studies available. FINDINGS: MAMMOGRAPHY: Breast composition: The breasts are almost entirely fatty. Mass: None. Architectural distortion: None. Calcifications: No suspicious calcifications. Asymmetric density: None. Skin thickening: None. Axillary adenopathy: None. IMPRESSION: No mammographic evidence of malignancy. Annual screening is recommended unless otherwise clinically indicated. ASSESSMENT: BI-RADS Category 1: Negative
== END ==
PROVIDERS: PCP Internal Medicine Adolescent Medicine; Visit Provider Internal Medicine Adolescent Medicine
DX: Z12.31 Encounter for screening mammogram for malignant neoplasm of breast (principal)
CPT/HCPCS: 77063; 77067

== ENCOUNTER → 2021-08-24 07:23 | Outpatient (CLI) | payer BC, SELFPAY ==
--- NOTE | 2021-08-24 | CA_ITS ---
APPROVED REPORT Exam: Exercise Treadmill Technologist: Keke Nathan, Ht: 5 ft 3 in Wt: 192 lbs BSA: 1.90 m2 HR: 70 bpm BP: 114/70 mmHg Rhythm: NSR, LOW VOLTAGE QRS, NS T WAVE ABNS INFERIORLY AND ANTEROLATERALLY Medical History Medical History: Hyperlipidemia Medications: Omeprazole,,,,, Levothyroxine,,,,, Aspirin,,,,, Magnesium,,,,, RoSUVASTATIN,,,,, Alendronate,,,,, Vit D2,,,,, Allergies: No known drug allergies Cardiac Risk Factors: Hyperlipidemia, Smoking Stress Test Details Test: Nash, Exercise stress testing was performed using a Nash protocol. HR Resting HR: 76 bpm Max Heart Rate (APMHR): 161.350689 bpm Max HR Achieved: 145 bpm Target HR (85% APMHR): 136.046403 bpm % of APMHR: 90.06 Recovery HR: 87 bpm BP Resting BP: 114/70 mmHg Max BP: 180/80 mmHg Recovery BP: 151.0/58.0 mmHg ECG Resting ECG: NSR, LOW VOLTAGE QRS, NS T WAVE ABNS INFERIORLY AND ANTEROLATERALLY Clinical Exercise duration: 07:16 min Highest Stage Achieved: Exercise capacity: 10.1 METs Stress ECG Conclusion MAX HR: 145 % OF PM: 90% MAP BP: 180/80 METS: 10.1 TEST STOPPED DUE TO: SOA NO CHANGE IN PRETEST CHEST TIGHTNESS. OCCASIONAL PAC AND PVC NORMAL ST RESPONSE TO EXERCISE NORMAL GXT MYOVIEW IMAGES REPORTED SEPARATELY Test Summary . . . . . . . . . Stop exercise at 07:16 . . . . . . Electronically signed by : Guero Escobar MD 08/24/2021 20:49:58
--- NOTE | 2021-08-24 07:23 | NM_ITS ---
APPROVED REPORT Exam: Nuclear Stress Test Indication: Chest pain, HTN, High cholesterol, Tobacco use, Family history Patient Location: Outpatient Stress Tech: Keke Nathan [place] Tech:Johanna Yanes, ARRT, RT (R)(N) Ht: 5 ft 3 in Wt: 1980 lbs Bra Size: D HR: 76 bpm BP: 114/70 mmHg BSA: 5.12 m2 TID: 1.04 BMI: 350.7 History: Chest pain, HTN, High cholesterol, Tobacco use, Family history Procedure: Patient exercised on Nash protocol 7:16 minutes and sec, resting heart rate 76 bpm, resting blood pressure 114/70 mmHg, with exercise maximum heart rate achived was 145 bpm which is 90 % of the maximum predicted heart rate and blood pressure was 180/80 mmHg. Test was stopped due to SOB. Patient denied any complaint of chest pain. Patient has Good exercise capacity, achieved 10.1 METs of workload on treadmill, the blood pressure response to exercise was Adequate. Electrocardiogram Resting electrocardiogram shows sinus rhythm nonspecific ST-T changes, with exercise there is less than 1.[address] segment depression noted from the baseline EKG. The EKG portion of the exercise Myoview is negative for ischemia. Cardiac Stress and Resting SPECT Images: Cardiac Stress and Resting SPECT images were obtained using technetium 99m Myoview 28.8 mCi stress and 10.64 mCi at rest. Gated SPECT analysis of segmental wall motion and calculation of the ejection fraction also done. Cardiac stress test with SPECT images show uniform, elevated without segmental fusion abnormality, computer derived ejection fraction is 68% with no regional wall motion abnormality, right ventricle is normal size and contractility. Conclusion: 1. The EKG portion of the exercise Myoview is negative for ischemia, patient has good exercise capacity achieved 10.1 METs of workload on treadmill, the blood pressure response to exercise was adequate, there was no exercise-induced chest discomfort. 2. No scintigraphic evidence of reversible ischemia seen at this level of exercise, computer derived ejection fraction is 68% with no regional wall motion abnormality, right ventricle is normal size and contractility. 3. Normal exercise Myoview study. Electronically signed by : Guero Escobar MD 08/24/2021 20:58:41
--- NOTE | 2021-08-24 07:44 | CA_ITS ---
APPROVED REPORT EXAM: Comprehensive 2D, Doppler, and color-flow Echocardiogram Speech And Language Specialist: Yessenia Warren RVT Ht: 5 ft 3 in Wt: 192lbs BSA: 1.90 BP: 127/71 mmHg Indications: SOA,CAD,SMOKER,PALPS,HTN,HLD 2D Dimensions LVOT 2.28 cm (M/F) 1.5-2.5 LA Volume 27.80 mL LA Volume Index 14.63 mL/m2 (M/F) 16-34 M-Mode Dimensions RVDd 2.33 cm (0.9-2.6) LA Diam 3.55 cm (1.9-4.0) LVDd 4.74 cm (3.5-5.7) Ao Diam 2.54 cm (2.0-3.7) LVDs 2.73 cm (3.5-5.7) IVSd 0.72 cm (0.6-1.1) PWd 0.84 cm (0.6-1.1) EF (Teich) 73.40% FS 42.40% EDV (Teich) 104.40 mL TAPSE 2.94 (<1.7) ESV (Teich) 27.80 mL LV Diastology E Decel Time 190.00 (160-240 msec) E/A Ratio 1.2 MED E' 5.80 (< 7 cm/sec) E'/MED E' Ratio 16.45 (>14) LAT E' 7.90 (<10 cm/sec) E/LAT E' Ratio 12.08 (>14) Aortic Valve AO Peak GR. 12.40 mmHg Mitral Valve MV E Max Lazaro. 95.00 (40-130 cm/s) MV A Velocity 80.00 (40-130 cm/s) E/A Ratio 1.19 MV Decel. Time 190.00 (160-240 ms) MV PHT 56.00 ms Pulmonary Valve PV Peak Velocity 76.00 (50-150 cm/s) Tricuspid Valve TR P. Velocity 220.00 cm/s RAP Estimate 10.00 mmHg RVSP 29.30 mmHg Left Ventricle Left atrium is normal size, left ventricle is normal size, estimated ejection fraction 55% with no regional wall motion abnormality, diastolic parameters are within normal range. Right Ventricle Right atrium and right ventricle are normal size and contractility. Aortic Valve Aortic valve is minimally thickened and fibrosed there is no aortic stenosis or aortic insufficiency. Mitral Valve Mitral valve grossly normal, there is trace mitral regurgitation. Tricuspid Valve Tricuspid valve grossly normal, there is trace tricuspid regurgitation, tricuspid regurgitation jet velocity is inadequate for calculation of the right ventricular systolic pressure. Pulmonic Valve Pulmonic valve is poorly visualized. Great Vessels Aortic root is normal size. Inferior vena cava is normal size with normal spectral collapse. Pericardium No significant pericardial effusion noted. Conclusion 1. Normal left ventricular size, preserved left ventricular systolic function, estimated ejection fraction 55% with no regional wall motion abnormality, diastolic parameters are within normal range. 2. Trace mitral and tricuspid regurgitation. 3. Trace mitral and tricuspid regurgitation. 3. No significant pericardial effusion noted. 4. Inferior vena cava is normal size with normal inspiratory collapse. No significant pericardial effusion noted. 5. Inferior vena cava normal size with normal inspiratory collapse. Electronically signed by : Guero Escobar MD 08/24/2021 19:33:05
--- NOTE | 2021-08-24 09:25 | HMH.ITSHM ---
Current Home Medications as stated by this patient Maria C Lewis or medical collections representative. []ROSUVASTATIN OMEPRAZOLE MAGNESIUM LEVOTHYROXINE VITAMIN D2 ASA AMLODIPINE ALENDRONATE
== END ==
LOC: RAD 07:23
PROVIDERS: PCP Internal Medicine Adolescent Medicine; Visit Provider Internal Medicine
DX: I20.8 Other forms of angina pectoris (principal); I10 Essential (primary) hypertension; R93.1 Abnormal findings on diagnostic imaging of heart and coronary circulation; E78.2 Mixed hyperlipidemia; F17.200 Nicotine dependence, unspecified, uncomplicated
CPT/HCPCS: 78452; 93017; 93306; A9502

== ENCOUNTER → 2021-09-18 12:06 | Outpatient (CLI) | payer BC, SELFPAY ==
[2021-09-18 12:17] LABS: Microscopic, Urine URINE MICROSCOPIC (MICROSCOPIC)
[2021-09-18 12:37] LABS: Basophils # 0.1 K/mm3 (0-0.2); Basophils % 0.6 % (0.1-2.0); Eosinophils # 0.3 K/mm3 (0.0-0.4); Eosinophils % 3.9 % (0.1-12.0); Hematocrit 43.5 % (37.0-47.0); Hemoglobin 14.7 g/dL (12.2-16.2); Lymphocytes # 1.7 K/mm3 (0.7-4.5); Lymphocytes % 23.7 % (10-50); Mean Corpuscular HGB Conc 33.8 g/dL (31.8-35.4); Mean Corpuscular Hemoglobin 29.1 pg (27.0-31.2); Mean Corpuscular Volume 86.1 fl (81-99); Mean Platelet Volume 7.5 fl (7.4-10.4); Monocytes # 0.3 K/mm3 (0.1-1.0); Monocytes % 4.3 % (1.7-9.3); Neutrophils # 4.9 K/mm3 (1.8-7.8); Neutrophils % 67.5 % (37.0-80.0); Platelet Count 189 K/mm3 (142-424); Red Blood Count 5.05 M/mm3 (4.20-5.40); White Blood Count 7.3 K/mm3 (4.8-10.8)
[2021-09-18 13:03] LABS: Appearance,Urine CLEAR (Clear); Bilirubin,Urine Negative (Negative); Blood, Urine TRACE-I (Negative); Color,Urine YELLOW (Yellow); Glucose,Urine (UA) Negative (Negative); Ketones,Urine Negative (Negative); Leukocyte Esterase,Urine Negative (Negative); Nitrate,Urine Negative (Negative); Protein,Urine Negative (Negative); Urobilinogen,Urine 0.2 EU/dl (0.2)
[2021-09-18 14:02] LABS: Chloride 105 mmol/L (98-107); Potassium 3.9 mmoL/L (3.5-5.1); Sodium 139 mmol/L (136-145)
[2021-09-18 14:04] LABS: Amylase 80 U/L (30-110)
[2021-09-18 14:05] LABS: Alanine Aminotransferase 21 U/L (12-78); Albumin Level 4.3 g/dl (3.5-5.0); Albumin/Globulin Ratio 1.5 (1.1-1.8); Alkaline Phosphatase 66 U/L (38-126); Anion Gap 9.9 mEq/L (5-15); Aspartate Amino Transferase 29 U/L (14-36); Bilirubin,Total 0.7 mg/dl (0.2-1.3); Blood Urea Nitrogen 11 mg/dl (7-17); Calcium 9.3 mg/dl (8.4-10.2); Carbon Dioxide 28 mmol/L (22.0-30.0); Estimated Glomerular Filt Rate 86 ml/min (>60); GFR (African American) 104 ML/MIN (>60); Globulin 2.8 g/dL (1.3-3.2); Glucose 123 mg/dl (74-100); Lipase 190 U/L (23-300); Total Protein,Serum 7.1 g/dl (6.3-8.2)
[2021-09-18 16:47] LABS: RBC,Urine Occasional #/hpf (0-3)
== END ==
PROVIDERS: PCP Internal Medicine Adolescent Medicine; Visit Provider Surgery
DX: R10.11 Right upper quadrant pain; K82.9 Disease of gallbladder, unspecified
CPT/HCPCS: 36415; 80053; 81001; 82150; 83690; 85025

== ENCOUNTER → 2021-10-13 13:52 | Outpatient (CLI) | payer BC, SELFPAY ==
--- NOTE | 2021-10-13 13:52 | CT_ITS ---
FINAL REPORT CLINICAL HISTORY: back pain, ruq pain COMPARISON: 01/18/2019 FINDINGS: Axial CT images of the abdomen and pelvis were obtained without intravenous contrast. Coronal reformatted images were also obtained.This study was performed with techniques to keep radiation doses as low as reasonably achievable (ALARA). Individualized dose reduction techniques using automated exposure control or adjustment of mA and/or kV according to the patient's size were employed. Abdomen: There are mild changes of emphysema. There is no evidence of renal stone or hydronephrosis. The gallbladder is present. The liver, spleen and pancreas have an unremarkable, unenhanced appearance. No mass or adenopathy is seen. No inflammatory process is identified. There is mild vascular calcification. Pelvis: The appendix is not seen which is likely due to appendectomy. Images of the pelvis reveal no evidence of ureteral dilation or ureteral stone.No mass or abnormal fluid collection is identified. There are multiple descending and sigmoid diverticula without evidence of diverticulitis. There are postoperative changes from hysterectomy. IMPRESSION: No acute intra-abdominal intrapelvic abnormality. Reviewed, Interpreted and Dictated by Onesimo Jordan III, MD Transcribed by Jazz Hendricks Authenticated and [facility]
== END ==
PROVIDERS: PCP Internal Medicine Adolescent Medicine; Visit Provider Urology
DX: M54.9 Dorsalgia, unspecified (principal); R10.11 Right upper quadrant pain
CPT/HCPCS: 74176

== ENCOUNTER → 2021-11-05 10:51 | Outpatient (CLI) | payer BC, SELFPAY ==
--- NOTE | 2021-11-05 10:51 | US_ITS ---
FINAL REPORT CLINICAL HISTORY: pain FINDINGS: Limited sonographic images of the right upper extremity were obtained. There are multiple echogenic and hypoechoic subcutaneous nodules. The largest measures up to 2.0 by 1.4 cm. IMPRESSION: Multiple nodules consistent with lipomas. Correlation with MRI and skin marker may be helpful. Reviewed, Interpreted and Dictated by Thanh Yarbrough MD Transcribed by Jane Durham Authenticated and [facility]
== END ==
PROVIDERS: PCP Internal Medicine Adolescent Medicine; Visit Provider Surgery
DX: D17.9 Benign lipomatous neoplasm, unspecified (principal)
CPT/HCPCS: 76882

== ENCOUNTER → 2021-11-06 08:04 | Outpatient (CLI) | payer BC, SELFPAY ==
[2021-11-06 08:29] LABS: Basophils # 0.1 K/mm3 (0-0.2); Eosinophils # 0.3 K/mm3 (0.0-0.4); Eosinophils % 5.4 % (0.1-12.0); Hematocrit 50.2 % (37.0-47.0); Hemoglobin 15.3 g/dL (12.2-16.2); Lymphocytes # 1.7 K/mm3 (0.7-4.5); Lymphocytes % 27.2 % (10-50); Mean Corpuscular HGB Conc 30.5 g/dL (31.8-35.4); Mean Corpuscular Hemoglobin 28.7 pg (27.0-31.2); Mean Corpuscular Volume 94.2 fl (81-99); Mean Platelet Volume 8.2 fl (7.4-10.4); Monocytes # 0.3 K/mm3 (0.1-1.0); Monocytes % 4.6 % (1.7-9.3); Neutrophils # 3.8 K/mm3 (1.8-7.8); Neutrophils % 60.8 % (37.0-80.0); Platelet Count 209 K/mm3 (142-424); Red Blood Count 5.33 M/mm3 (4.20-5.40); Red Cell Distribution Width 13.3 % (11.5-17.5); White Blood Count 6.3 K/mm3 (4.8-10.8)
[2021-11-06 09:14] LABS: Anion Gap 9.2 mEq/L (5-15); Blood Urea Nitrogen 9 mg/dl (7-17); Calcium 9.1 mg/dl (8.4-10.2); Carbon Dioxide 30 mmol/L (22.0-30.0); Chloride 105 mmol/L (98-107); Estimated Glomerular Filt Rate 86 ml/min (>60); GFR (African American) 104 ML/MIN (>60); Glucose 83 mg/dl (74-100); Potassium 4.2 mmoL/L (3.5-5.1); Sodium 140 mmol/L (136-145)
== END ==
PROVIDERS: PCP Internal Medicine Adolescent Medicine; Visit Provider Surgery
DX: Z01.812 Encounter for preprocedural laboratory examination (principal); Z20.822 Contact with and (suspected) exposure to COVID-19; D17.9 Benign lipomatous neoplasm, unspecified
CPT/HCPCS: 36415; 80048; 85025; C9803; U0003; U0005

== ENCOUNTER 2021-11-08 09:18 | Day surgery (SDC) | payer BC, SELFPAY ==
[2021-11-08] VITALS (10 sets, daily range): BP systolic 107–150; BP diastolic 58–80; PULSE 64–93; RESP 14–20; TEMP 36.1–36.2; O2SAT 92–99; BMI 33.6
--- NOTE | 2021-11-08 11:35 | EXP.ANES.CKL ---
PFSH PFS Medical History (Updated 11/08/21 @ 09:39 by Luna Garcia RN) Agatston coronary artery calcium score greater than 400 Arrhythmia Atypical angina Gastroesophageal reflux disease HLD (hyperlipidemia) Meniscal injury Palpitations Post-tussive syncope Syncope Syncope and collapse Trigger finger Surgical History (Updated 11/08/21 @ 09:47 by Luna Garcia RN) H/O sinus surgery H/O total hysterectomy History of appendectomy History of thyroidectomy, subtotal Hx of breast reduction, elective Family History (Updated 11/08/21 @ 09:40 by Luna Garcia RN) Other Brain cancer Cancer of kidney Family history of diabetes mellitus type II Family history of hypothyroidism Family history of myocardial infarction Lung cancer Social History (Updated 11/08/21 @ 09:42 by Luna Garcia RN) Smoking Status: Current every day smoker tobacco type: cigarettes packs per day: 2 years smoked: 30 second hand exposure: Yes alcohol intake: never substance use type: denies use current occupational status: employed Travel in the last 8 weeks: None household members: spouse housing: house current occupational exposures/hazards: No caffeine: Yes [facility] Anesthesia Checklist Patient Identification Patient Identification: Arm Band Structural Data Admitted From: Home Planned Operative Procedure/s: Excision of Back Lipoma x5 Consent for Planned Operative Procedure(s) Verified: Yes Verified Documents: Surgical Consent and History and Physical NPO Status Verified Time NPO: 00:00 Additional verifications Anesthesia Reactions: No Hx Blood Transfusions: No Blood Transfusion Reaction: No Airway Assessment C-Spine Mobility Assessed: Yes TMJ Mobility Assessed: No Dentition: Good Dentition Neurological Assessment Level of Consciousness: Awake and Alert Anesthesia Plan Anesthesia Risk discussed: Yes Anesthesia Plan: Verified ASA Class: II Anesthesia Type: General
--- NOTE | 2021-11-08 12:41 | EXP.OP.NOTE ---
Date of procedure: 11/08/21 Pre-op Diagnosis:: Lipomas on the back Post-op Diagnosis:: Same Procedure performed:: Excision of lipoma x5 on the back. Excisional length approximately 3 cm for each lipoma with intermediate complexity closure. Surgeon:: Onesimo Ramirez MD MANUFACTURING SPECIALIST:: Juan Antonio Rivas Anesthesia: GETA Estimated blood loss (mL): 5 Clinical Note:: Patient is a 60-year-old female referred for symptomatic lipoma on the back.? She has had some back pain.? She had actually seen Dr. Chappell in urology for back pain and microscopic hematuria.? Examination revealed palpable subcutaneous knot .? This was not visualized on CT scan.? She was found to have an area on the left lower back and 2 areas on the right back.? The smaller 1 more superior on the right back is the one that is most symptomatic to her. On examination she had palpable subcutaneous nodules on the lower back bilaterally.? 1 on the left and 2 on the right.? More superior one on the right is tender. She felt like she may have an area near her right shoulder as well but this was unable to be palpated as she has some discomfort at this location. I spent some time with the patient discussing the nature of her symptoms.? This seems to be most consistent with symptomatic lipoma.? Interestingly, the most symptomatic 1 to her is the smallest one on the right back more superior to the larger 1.? We discussed options including excision versus additional imaging and potential biopsy.? Given the relatively small nature and physical exam characteristics I feel that excision would be reasonable as the likelihood of malignant neoplasm is extremely low.? She strongly wished to pursue excision. This was arranged. After the patient had left the office she had called back and review stent and ultrasound to evaluate possible lesion near her shoulder which she had been complaining about. She underwent ultrasound of multiple areas which revealed findings consistent with multiple nodules consistent with lipomas. She was scheduled for surgery. In the preoperative area patient had requested having all of these areas removed as she had some discomfort near both shoulders. While the patient was awake in the preoperative area the areas were marked where she was tender. It was explained to her that these areas were rather subtle on examination and that excision may be an gratifying for her and potentially not alleviate her pain. She wished to pursue excision. Operative findings:: Consistent with subtle relatively well-circumscribed small subcutaneous nodules consistent with tiny lipomas. The left lower lesion was somewhat more circumscribed and somewhat larger consistent with a definitive lipoma. The right upper lesion near her shoulder was somewhat deeper. Operative note:: Consent was obtained and patient was taken to the operating room. She was positioned in supine position. General anesthesia. She was repositioned in prone position. The area was prepped and draped in the standard surgical fashion. Some of these lesions were palpable. Skin incision was made. Dissection was carried down through subcutaneous tissue to tiny relatively well-circumscribed lipomatous appearing tissue. These were removed using electrocautery and blunt dissection. They were sent as separate specimens based on their location. The lesion closer to her right scapula was somewhat deeper. This was closed with deep tissues reapproximated with a couple of interrupted 2-0 Vicryl and subdermal tissues closed with 3-0 Vicryl with skin closed with Monocryl. The remainder of the incisions were closed reapproximating subdermal tissues with interrupted 3-0 Vicryl and skin with 4-0 Monocryl. Please note that the largest of the lesion which was the least symptomatic was the left lower lesion which was consistent with lipoma. After all incisions were closed as stated above Dermabond was applied. Clean dry sterile dressing was applied. Condition: stable
--- NOTE | 2021-11-08 12:52 | P.PNANES_ITS ---
[facility] Anesthesia Record Part I Anesthesia Record I Intake, IV Amount: 1,000 Estimated blood loss (mL): 10 Urine output (mL): 0 Blood Pressure: 150/80 SaO2: 92 Pulse Rate: 93 Respiratory Rate: 16 Temperature: 97.2 F Patient is:: Drowsy and Stable Stable to PACU at:: 12:45
--- NOTE | 2021-11-08 13:23 | SUR.PHASEI ---
LATE ENTRY [id number] called and gave detailed report to Lisa Block RN 1315 transported via stretcher to post op. vital signs stable. rates pain at level 2. left in stable condition with Lisa Block RN at bedside.
--- NOTE | 2021-11-10 08:18 | P.PNANES_ITS ---
[facility] Anesthesia Record Part II Anesthesia Record Part II Discharge Time: 13:15 Destination: Surgical Day Care (OP Surgery) PACU nurse assessment reviewed?: Yes Patient Condition:: Good Anesthesia Complications:: None Swallowing reflex intact?: Yes Cyanosis?: No Blood Pressure: 119/64 Pulse Rate: 71 Temperature: 97 F Mental Status: Alert & Oriented Pain level:: 2 Nausea and/or vomitting:: None Intake, IV Amount: 0
[2021-11-10 08:19] VITALS: BP 119/64; PULSE 71; TEMP 36.1
== END 2021-11-08 14:08 | disposition home or self-care (01) ==
PROVIDERS: PCP Internal Medicine Adolescent Medicine; Visit Provider Surgery
PROC: (CPT 21931; principal; 2021-11-08 11:45)
DX: D17.1 Benign lipomatous neoplasm of skin and subcutaneous tissue of trunk (principal); Z72.0 Tobacco use
CPT/HCPCS: 21931; 96374; J2405; J2710

== ENCOUNTER 2022-03-01 16:08 | Emergency (ER) | payer BC, SELFPAY ==
[2022-03-01 16:10] VITALS: BP 123/75; PULSE 78; RESP 19; TEMP 37; O2SAT 98; BMI 31.4
--- NOTE | 2022-03-01 16:23 | EXP.UTC ---
Discharge Plan Disposition Patient Disposition: Home, Self-Care Condition: Good Prescriptions Prescriptions: No Action levothyroxine 100 mcg capsule 100 mcg PO DAILY omeprazole 40 mg capsule,delayed release(DR/EC) 40 mg PO DAILY Label Comments: TAKE 1 CAPSULE BY MOUTH ONCE DAILY magnesium 250 mg tablet 250 mg PO DAILY alendronate 70 mg tablet 70 mg PO WEEKLY amlodipine [Norvasc] 2.5 mg tablet 2.5 mg PO DAILY Qty: 90 3RF rosuvastatin 10 mg tablet See Rx Instructions .ROUTE .COMPLEX Rx Instructions: Take 1 tablet by mouth once daily hydrocodone-acetaminophen 5-325 mg Tablet 1 - 2 tab PO Q6H PRN (Reason: Pain) Qty: 11 0RF Referrals Follow up/Referrals: Pj Higuera MD [Primary Care Provider] - See instructions Activity Restrictions/Add. Instructions Additional Instructions/Restrictions: *Monitor Temp, Over the counter Motrin or Tylenol as directed/as needed Tylenol every 4 hours and Motrin every 6 hours (as long as your family doctor has told you that you can take it) for fever or pain. and straight to ER if unable to lower temp less than 101.0 after medication given *Warm salt water gargles may help to soothe the throat *Throat Lozenges? *Warm fluids like tea with honey may help to soothe the throat? *Sleep elevated *Humidifier/Vaporizer Follow up IMMEDIATELY for new or worsening symptoms or no Noticeable improvement over the next 48-72 hours. 911 for difficulty breathing or swallowing You were tested for today for COVID19 your test result should be back in the next 24-48 hours, you may check your results on the [facility] Clinical Impressions Clinical Impression: Encounter for laboratory testing for COVID-19 virus Stand Alone Forms Stand Alone Forms: Work/School Release Instructions Patient Instructions: Coronavirus Disease 2019, DI for COVID-19 (Suspected or Confirmed ) Discharge ED Provider: Jess Fu [facility] HPI General Stated complaint: h/a, sore throat, cough, congestion Mode of Arrival: Ambulatory Source of Information: Patient Limitations: No Limitations Time Seen by Provider: 03/01/22 16:23 Description of Symptoms (Recalled from Triage Doc. by RN): PATIENT C/O HEADACHE, SORE THROAT, COUGH AND CONGESTION X 3 DAYS. SHE STATES SHE WAS SEEN IN PCP OFFICE BUT STATES THEY COULD NOT TEST HER FOR COVID, SO SHE CAME HERE TO GET TESTED HEENT Symptoms (Recalled from RN notes): Yes Resp Symptoms (Recalled from RN notes): Yes Skin Symptoms (Recalled from RN notes): No MS Symptoms (Recalled from RN notes): No Functional Status (Recalled from RN notes): WNL History of Present Illness Provider Complaint: Patient states that she has been having cough, headache, sinus congestion and feeling achy all over for about 3 days States that she seen her PCP and they started her on antibiotics but she wanted to get tested for COVID also so she came here to get tested for COVID and doesnt want checked for anything else Related Data Home Medications Medication Instructions Recorded Confirmed levothyroxine 100 mcg capsule 100 mcg PO DAILY thyroid 04/06/17 12/02/21 alendronate 70 mg tablet 70 mg PO WEEKLY Osteoporosis 08/11/21 12/02/21 magnesium 250 mg tablet 250 mg PO DAILY Supplement 08/11/21 12/02/21 omeprazole 40 mg capsule,delayed 40 mg PO DAILY GERD 08/11/21 12/02/21 release rosuvastatin 10 mg tablet See Rx Instructions .Route 11/08/21 12/02/21 .COMPLEX Cholesterol Previous Rx's Medication Instructions Recorded hydrocodone 5 mg-acetaminophen 325 1 - 2 tab PO Q6H PRN Pain #11 tabs 11/08/21 mg tablet amlodipine 2.5 mg tablet (Norvasc) 2.5 mg PO DAILY High blood 01/17/22 pressure #90 tabs Allergies Allergy/AdvReac Type Severity Reaction Status Date / Time No Known Allergies Allergy Verified 12/02/21 09:35 Worker's Comp Is this a Worker's Comp case?: No [facility] Disclaimer: The informatio
[2022-03-01 16:24] VITALS: BP 123/75; PULSE 78; RESP 19; TEMP 37; O2SAT 98
== END 2022-03-01 16:30 | disposition home or self-care (01) ==
PROVIDERS: Emergency Provider Nurse Practitioner; PCP Internal Medicine Adolescent Medicine
DX: Z20.822 Contact with and (suspected) exposure to COVID-19 (principal); J02.9 Acute pharyngitis, unspecified; R05.9 Cough, unspecified; R09.89 Other specified symptoms and signs involving the circulatory and respiratory systems
CPT/HCPCS: 99212; C9803; G0463; U0003; U0005

== ENCOUNTER 2022-12-31 11:45 | Emergency (ER) | payer BC, SELFPAY ==
[2022-12-31 11:46] VITALS: BP 150/79; PULSE 71; RESP 18; TEMP 37; O2SAT 95; BMI 33.3
--- OUTSIDE RECORDS SUMMARY | 2022-12-31 11:51 | XMS_ITS | Clinical Summary ---
Author Name Unknown Address [address] [place] [address] Phone Organization [facility] , [facility] Address [address] [place] [address] Phone Care Team Providers Care Poiser Balance Name Role Phone HUMAIRA CHANEY, ASH Unavailable [phone] Ami CHANEY, Dino Primary Care Provider [phone] Reason for Visit and Chief Complaint The Chief Complaint is: Left Knee Pain Problems Includes: Problems addressed during this encounter and other active Problems All Visits Onset Date Resolved Date Provider Condition S tatus Joint Pain in the Left Knee 05/19/2022 Dino Mueller MD Active Plan of Treatment Patient is not ready to return to prolonged standing or squatting type work or kneeling it may take another 1 to 3 months of physical therapy to get her ready for return to full duty work will continue PT in the meantime and see her back in 4 to 6 weeks continue light duty restrictions - Last Documented On 12/05/2022 8:03AM ; [facility] Pending Tests Order Diagnosis Results Due Ordering P rovider Radiology - X-Ray Knee 2 Views Standing DEGENERATIVE JOINT DISEASE KNEE 09/11/14 Dino Mueller MD Future Appointments Date Time Location Provi last WORK COMP 01/10/2023 9:45AM [facility] [place]
--- OUTSIDE RECORDS SUMMARY | 2022-12-31 11:51 | XMS_ITS ---
Author Name Unknown Address [address] [place] [address] Phone Organization [facility] , [facility] Address [address] [place] [address] Phone Care Team Providers Care Paint Roller Winder Name Role Phone HUMAIRA CHANEY, ASH Unavailable [phone] Ami CHANEY, Dino Primary Care Provider [phone] Problems Includes: Active, inactive, and resolved Problems All Visits Onset Date Resolved Date Provider Condition S tatus Joint Pain in the Left Knee 05/19/2022 Dino Mueller MD Active Plan of Treatment Pending Tests Order Diagnosis Results Due Ordering P rovider Radiology - X-Ray Knee 2 Views Standing DEGENERATIVE JOINT DISEASE KNEE 09/11/14 Dino Mueller MD Future Appointments Date Time Location Provi last WORK COMP 01/10/2023 9:45AM [facility] MD Instructions to patient Lose weight Last Documented On 3 9:44AM ; [facility] Lose weight Last Documented On 3 10:10
--- OUTSIDE RECORDS SUMMARY | 2022-12-31 11:51 | XMS_ITS | Clinical Summary ---
Author Name Unknown Address [address] [place] [address] Phone Organization [facility] , [facility] Address [address] [place] [address] Phone Care Team Providers Care Yoker Name Role Phone HUMAIRA CHANEY, ASH Unavailable [phone] Ami CHANEY, Dino Primary Care Provider [phone] Reason for Visit and Chief Complaint The Chief Complaint is: Left Knee Pain Problems Includes: Problems addressed during this encounter and other active Problems All Visits Onset Date Resolved Date Provider Condition S tatus Joint Pain in the Left Knee 05/19/2022 Dino Mueller MD Active Plan of Treatment Patient was seen by myself Leander Hendricks PA-C. She will continue with her brace he can have it unlocked with walking at this point in time continue with PT they can begin the exercise bike, hip and core strengthening. she can weight-bear as tolerated this point in time also with the brace on and can be unlocked. Note to be off work. - Last Documented On 08/10/2022 1:12PM ; [facility] Pending Tests Order Diagnosis Results Due Ordering Lorie courtney Radiology - X-Ray Knee 2 Views Standing DEGENERATIVE JOINT DISEASE KNEE 09/11/14 Dino Mueller MD Future Appointment
--- OUTSIDE RECORDS SUMMARY | 2022-12-31 11:51 | XMS_ITS ---
Care Plan - [facility] Created on: December 31, 2022 Maria C Lewis : 1960 Sex: Female Author Name Unknown Address [address] [place] [address] Phone Organization [facility] , [facility] Address [address] [place] [address] Phone Care Team Providers Care Principal Developer Name Role Phone HUMAIRA CHANEY, ASH Unavailable [phone] Dino Mueller MD Primary Care Provider [phone]
--- OUTSIDE RECORDS SUMMARY | 2022-12-31 11:51 | XMS_ITS | Clinical Summary ---
Author Name Unknown Address [address] [place] [address] Phone Organization [facility] , [facility] Address [address] [place] [address] Phone Care Team Providers Care Accordion Repairer Name Role Phone HUMAIRA CHANEY, ASH Unavailable [phone] Ami CHANEY, Dino Primary Care Provider [phone] Reason for Visit and Chief Complaint The Chief Complaint is: Left Knee Pain Problems Includes: Problems addressed during this encounter and other active Problems All Visits Onset Date Resolved Date Provider Condition S tatus Joint Pain in the Left Knee 05/19/2022 Dino Mueller MD Active Plan of Treatment Patient was seen by myself and Dr. Mueller. Leander Hendricks PA-C Patient will follow- up 6 weeks continue with physical therapy 1-2 times a week for strengthening she is okay to DC the brace around the house but she goes on the community to continue to use it for walking. - Last Documented On 11/16/2022 8:53AM ; [facility], [facility] Pending Tests Order Diagnosis Results Due Ordering P rovider Radiology - X-Ray Knee 2 Views Standing DEGENERATIVE JOINT DISEASE KNEE 09/11/14 Dino Mueller MD Future Appointments Date Time Location Provi last WORK COMP 01/10/2023 9:45AM [facility]
--- OUTSIDE RECORDS SUMMARY | 2022-12-31 11:51 | XMS_ITS | Clinical Summary ---
Author Name Unknown Address [address] [place] [address] Phone Organization [facility] Address [address] [place] [address] Phone Care Team Providers Care Four H Agent Name Role Phone HUMAIRA CHANEY, ASH Unavailable [phone] Ami CHANEY, Dino Primary Care Provider [phone] Reason for Visit and Chief Complaint The Chief Complaint is: Left Knee Pain Problems Includes: Problems addressed during this encounter and other active Problems All Visits Onset Date Resolved Date Provider Condition S tatus Joint Pain in the Left Knee 05/19/2022 Dino Mueller MD Active Plan of Treatment Continue PT emphasize hip and core strengthening with avoiding any weighted squats or lunges at this time continue for inflammation we placed her on Celebrex 200 twice daily and to continue PT 2 times a week follow-up in 6 weeks off work until - Last Documented On 09/27/2022 10:28AM ; [facility], [facility] Pending Tests Order Diagnosis Results Due Ordering P roz Radiology - X-Ray Knee 2 Views Standing DEGENERATIVE JOINT DISEASE KNEE 09/11/14 Dino Mueller MD Future Appointments Date Time Location Provi last WORK COMP 1
--- OUTSIDE RECORDS SUMMARY | 2022-12-31 11:51 | XMS_ITS | Clinical Summary ---
Author Name Unknown Address [address] [place] [address] Phone Organization [facility] , [facility] Address [address] [place] [address] Phone Care Team Providers Care Construction Job Titles Name Role Phone HUMAIRA CHANEY, ASH Unavailable [phone] Dino Mueller MD Primary Care Provider [phone] Reason for Visit and Chief Complaint The Chief Complaint is: Left Knee Pain Problems Includes: Problems addressed during this encounter and other active Problems All Visits Onset Date Resolved Date Provider Condition S tatus Joint Pain in the Left Knee 05/19/2022 Dino Mueller MD Active Plan of Treatment Patient was seen by myself Leander Hendricks PA-C. Patient will follow up [address] Mueller we trimmed up her suture site today she will continue to be about 30% weightbearing on that leg continue with PT continue with her brace - Last Documented On 07/25/2022 11:18AM ; [facility], [facility] Pending Tests Order Diagnosis Results Due Ordering P rovider Therapy - Physical Therapy Knee 07/25/22 Leander Hendricks PA-C Future Appointments Date Time Location Provi last WORK COMP 01/10/2023 9:45AM [facility] JACQUELINE Mueller MD
--- NOTE | 2022-12-31 12:20 | EXP.UTC ---
Discharge Plan Disposition Patient Disposition: Home, Self-Care Condition: Good Prescriptions Prescriptions: New methylprednisolone [Medrol (Joesph)] 4 mg tablets,dose pack 4 mg PO DIRECTED 6 Days Qty: 6 0RF Rx Instructions: 4 mg orally ;Medrol dose taper joesph azithromycin 250 mg tablet See Rx Instructions .ROUTE .COMPLEX Qty: 6 0RF Rx Instructions: For 250 mg dose pack: take 500 mg today (day 1), then 250 mg for 4 days (days 2-5). Hold cholesterol medication while taking this medication. benzonatate 200 mg capsule 200 mg PO TID PRN (Reason: cough) Qty: 30 0RF No Action levothyroxine 100 mcg capsule 100 mcg PO DAILY alendronate 70 mg tablet 70 mg PO WEEKLY rosuvastatin 10 mg tablet 10 mg PO DAILY Referrals Follow up/Referrals: Pj Higuera MD [Primary Care Provider] - See instructions Clinical Impressions Clinical Impression: Upper respiratory infection Instructions Patient Instructions: DI for Viral Upper Respiratory Infection -- Adult Discharge ED Provider: Destini Campbell [facility] General Stated complaint: COUGH, HEADACHE, TEETH HURT Mode of Arrival: Ambulatory Source of Information: Patient Limitations: No Limitations Time Seen by Provider: 12/31/22 12:08 Description of Symptoms (Recalled from Triage Doc. by RN): sinus infection with cough and congestion HEENT Symptoms (Recalled from RN notes): Yes Resp Symptoms (Recalled from RN notes): No Skin Symptoms (Recalled from RN notes): No MS Symptoms (Recalled from RN notes): No Functional Status (Recalled from RN notes): n/a History of Present Illness Provider Complaint: Pt relates that for the past week she has had sinus issues and the last couple of days she has had a strong cough and sinus pressure where her teeth are hurting. She states that she has taken Ibuprofen for her symptoms. Related Data Home Medications Medication Instructions Recorded Confirmed levothyroxine 100 mcg capsule 100 mcg PO DAILY thyroid 04/06/17 12/31/22 alendronate 70 mg tablet 70 mg PO WEEKLY Osteoporosis 08/11/21 12/31/22 rosuvastatin 10 mg tablet 10 mg PO DAILY 11/16/22 12/31/22 Previous Rx's Medication Instructions Recorded azithromycin 250 mg tablet See Rx Instructions PO .COMPLEX #6 12/31/22 tabs benzonatate 200 mg capsule 200 mg PO TID PRN cough #30 caps 12/31/22 methylprednisolone 4 mg tablets in 4 mg PO DIRECTED 6 days #6 tabs 12/31/22 a dose pack (Medrol (Joesph)) Allergies Allergy/AdvReac Type Severity Reaction Status Date / Time No Known Allergies Allergy Verified 12/31/22 12:04 Worker's Comp Is this a Worker's Comp case?: No [facility] Disclaimer: The information contained in this section may have been updated after the patient was seen, as this information can be updated by other users. Medical History (Updated 12/31/22 @ 12:26 by Destini Campbell APRN) Agatston coronary artery calcium score greater than 400 Arrhythmia Atypical angina Gastroesophageal reflux disease HLD (hyperlipidemia) Meniscal injury Palpitations Post-tussive syncope Syncope Syncope and collapse Trigger finger Surgical History H/O abdominoplasty H/O sinus surgery H/O total hysterectomy History of appendectomy History of thyroidectomy, subtotal Hx of breast reduction, elective S/P lateral meniscal repair Family History Other Brain cancer Cancer of kidney Family history of diabetes mellitus type II Family history of hypothyroidism Family history of myocardial infarction Lung cancer Social History Smoking Status: Current every day smoker tobacco type: cigarettes packs per day: 2 years smoked: 30 second hand exposure: Yes alcohol intake: never substance use type: denies use current occupational status: employed Travel in the last 8
[2022-12-31 12:37] VITALS: BP 126/58; PULSE 71; RESP 18; TEMP 37; O2SAT 95
== END 2022-12-31 12:37 | disposition home or self-care (01) ==
PROVIDERS: Emergency Provider Nurse Practitioner Family; PCP Internal Medicine Adolescent Medicine
DX: J01.90 Acute sinusitis, unspecified (principal); R05.9 Cough, unspecified; F17.210 Nicotine dependence, cigarettes, uncomplicated; I20.89 Other forms of angina pectoris; K21.9 Gastro-esophageal reflux disease without esophagitis; E78.5 Hyperlipidemia, unspecified
CPT/HCPCS: 99212; 99214; G0463

== ENCOUNTER 2023-02-17 10:30 | Outpatient (RCR) | payer OTHER, SELFPAY | END 2023-02-17 11:15 | disposition home or self-care (01) | LOC: PT 10:30 | PROVIDERS: Visit Provider Orthopaedic Surgery | DX: S83.242A Other tear of medial meniscus, current injury, left knee, initial encounter (principal); M25.562 Pain in left knee | CPT/HCPCS: 97010; 97014; 97110; 97112; 97163; 97164; 97530; G0283 ==

== ENCOUNTER 2023-04-17 08:20 | Day surgery (SDC) | payer BC, SELFPAY ==
[2023-04-17] VITALS (16 sets, daily range): BP systolic 116–150; BP diastolic 55–97; PULSE 69–97; RESP 18–20; TEMP 36.7; O2SAT 97–98; BMI 34.9
--- NOTE | 2023-04-17 07:02 | IR_ITS ---
APPROVED REPORT Patient Location: Outpatient PROCEDURES Left heart catheterization Left ventriculogram Selective coronary angiogram Drug-eluting stent deployment to the proximal mid dominant right coronary INDICATION Coronary artery disease, High risk abnormal calcium score greater than 400 Informed consent was obtained prior to the procedure. COMPLICATIONS NONE Estimated Blood Loss: LESS THAN 10 ML TECHNIQUE One percent lidocaine used to anesthetize the right anterior aspect of the wrist. The right radial artery was accessed via the Seldinger technique. A 6 Divehi sheath was placed in the right radial artery. 2.5 mg of Verapamil, 800 mcg of nitroglycerin, 1mg Lidocaine and 5000 U Heparin were given through the arterial sheath. The papa catheter was also used to perform selective coronary angiogram. At the end of the diagnostic angiogram therapeutic heparin was administered giving a therapeutic ACT and the guide catheter was placed in the right coronary artery followed by Choice PT extra-support wire. A 3.5 x 38 mm Manter frontier stent was deployed at 20 rhett reducing the stenosis to 0%. 800 mcg of intracoronary artery nitroglycerin was administered. At the end of the procedure the apparatus was removed the sheath was removed and hemostasis was achieved using TR banding patient was transferred to the postop holding in stable condition ANGIOGRAPHIC RESULTS The left main artery Normal The left anterior descending artery Normal The circumflex artery Nondominant normal The right coronary artery Dominant with proximal concentric 70 to 80% stenosis followed by additional 40% stenoses. Distally there are 20% stenoses The GUTIÉRREZ ventriculogram reveals Not performed The left ventricular end-diastolic pressure Not measured IMPRESSION Severe proximal dominant right coronary disease as described above Successful stent to the right coronary severe disease reduced to 0% with 1 drug-eluting stent PLAN 1. Effient 10 mg daily plus aspirin 81 mg daily 2. LDL less than 55 to achieve that high intensity statin 3. Avoidance of tobacco products 4. Cardiac rehabilitation 5. Aggressive risk factor modification Electronically signed by : Yusef Kirby MD 04/17/2023 11:47:12
[2023-04-17 09:08] LABS: Chloride 103 mmol/L (98-107); Sodium 139 mmol/L (136-145)
[2023-04-17 09:11] LABS: Blood Urea Nitrogen 10 mg/dl (7-17); Carbon Dioxide 32 mmol/L (22.0-30.0); Creatinine Clearance Estimated 83 mL/min (50-200); Estimated Glomerular Filt Rate 73 ml/min (>60); GFR (African American) 88 ML/MIN (>60); Glucose 97 mg/dl (74-100)
[2023-04-17 09:48] LABS: Basophils # 0.1 K/mm3 (0-0.2); Basophils % 1.2 % (0.1-2.0); Eosinophils # 0.2 K/mm3 (0.0-0.4); Eosinophils % 2.6 % (0.1-12.0); Hematocrit 47.5 % (37.0-47.0); Hemoglobin 15.5 g/dL (12.2-16.2); Lymphocytes % 30.5 % (10-50); Mean Corpuscular HGB Conc 32.6 g/dL (31.8-35.4); Mean Corpuscular Hemoglobin 29.7 pg (27.0-31.2); Mean Corpuscular Volume 91.2 fl (81-99); Mean Platelet Volume 8.6 fl (7.4-10.4); Monocytes # 0.3 K/mm3 (0.1-1.0); Monocytes % 3.9 % (1.7-9.3); Neutrophils % 61.7 % (37.0-80.0); Platelet Count 181 K/mm3 (142-424); Red Blood Count 5.21 M/mm3 (4.20-5.40); Red Cell Distribution Width 13.6 % (11.5-17.5); White Blood Count 6.5 K/mm3 (4.8-10.8)
[2023-04-17] MEDS: diphenhydrAMINE 50MG/ML VIAL 50 MG IV (09:50)
[2023-04-17] MEDS: NITROGLYCERIN 800MCG/8ML SYR (CATH LAB) 800 MCG IA (09:50)
[2023-04-17] MEDS: VERAPAMIL 2.5MG/ML 2ML VIAL 2.5 MG IV (09:50)
[2023-04-17] MEDS: HEPARIN 1,000 UNITS/ML 10ML VIAL (CATH LAB) 10000 UNIT IV (09:51)
[2023-04-17] MEDS: HEPARIN 1,000 UNITS/500ML NS (CATH LAB) 3000 UNIT IV (09:51)
[2023-04-17] MEDS: LIDOCAINE 1% 10ML MDV 20 ML IJ (09:51)
[2023-04-17] MEDS: 0.9 % SODIUM CHLORIDE 500 ML 25 ML IV (09:51)
[2023-04-17] MEDS: FENTANYL 100MCG/2ML VIAL 50 MCG IV (09:52)
[2023-04-17] MEDS: MIDAZOLAM HCL 1MG/1ML 5ML VIAL 1 MG IV (09:52)
[2023-04-17] MEDS: PRASUGREL 10MG TAB 60 MG PO (10:19)
[2023-04-17 11:08] LABS: CATHL Activated Clotting Time > 400 SEC (74-125)
[2023-04-17] MEDS: IOPAMIDOL-370 (76%);100ML BOTTLE 90 ML IV (11:09)
--- NOTE | 2023-04-17 14:12 | SUR.PHASEII ---
Pt stated she will not take the medications that were prescribed, educated pt on the importance of taking the medications perscribed to her my Dr Kirby.
== END 2023-04-17 14:04 | disposition home or self-care (01) ==
PROVIDERS: PCP Internal Medicine Adolescent Medicine; Visit Provider Internal Medicine
DX: I25.118 Atherosclerotic heart disease of native coronary artery with other forms of angina pectoris (principal); E78.5 Hyperlipidemia, unspecified; F17.210 Nicotine dependence, cigarettes, uncomplicated; I10 Essential (primary) hypertension; K21.9 Gastro-esophageal reflux disease without esophagitis; Z79.899 Other long term (current) drug therapy
CPT/HCPCS: 80048; 85025; 85347; 92928; 93454; 99152; C1725; C1769; C1876; C9600; J1644; Q9967

== ENCOUNTER 2023-04-28 09:36 | Outpatient (CLI) | payer BC, SELFPAY ==
--- NOTE | 2023-04-28 09:38 | CA_ITS ---
APPROVED REPORT EXAM: Comprehensive 2D, Doppler, and color-flow Echocardiogram Facialist: Alva Cantu RDCS Ht: 5 ft 3 in Wt: 196lbs BSA: 1.92 BP: 128/63 mmHg Indications: ANGINA,CAD TDS M-Mode Dimensions RVDd 2.15 cm (0.9-2.6) LA Diam 3.30 cm (1.9-4.0) LVDd 4.54 cm (3.5-5.7) LVDs 3.00 cm (3.5-5.7) IVSd 0.86 cm (0.6-1.1) PWd 0.75 cm (0.6-1.1) EF (Teich) 62.90% FS 33.90% EDV (Teich) 94.40 mL ESV (Teich) 35.00 mL LV Diastology E Decel Time 177 (160-240 msec) E/A Ratio 1.7 Mitral Valve MV E Max Lazaro. 91.0 (40-130 cm/s) MV A Velocity 55.0 (40-130 cm/s) E/A Ratio 1.66 MV PHT 52.0 ms Left Ventricle The left ventricle is normal size. The left ventricular systolic function is normal. The left ventricular ejection fraction is within the normal range. There is increased LV wall thickness. There is normal LV segmental wall motion. The left ventricular diastolic function is normal. LVEF is 55%. Right Ventricle The right ventricle is normal size. The right ventricular systolic function is normal. Atria The left atrium size is normal. The right atrium size is normal. There is no Doppler evidence of interatrial shunt. Aortic Valve The aortic valve is mildly thickened. There is no aortic valvular stenosis. Trace aortic regurgitation. Mitral Valve The mitral valve leaflets are mildly thickened. No evidence of mitral valve stenosis. Trace mitral regurgitation. Tricuspid Valve The tricuspid valve leaflets are thin and pliable. Trace tricuspid regurgitation. RVSP is normal. Pulmonic Valve The pulmonary valve is normal in structure. Trace pulmonic regurgitation. Great Vessels The aortic root is not well-visualized. IVC is normal in size and collapses >50% with inspiration. Pericardium There is no pericardial effusion. Other Information Study Quality: Technically Difficult Conclusion Technically difficult study due to poor acoustic windows. Normal biventricular systolic function. No significant valvular stenosis or regurgitation. Electronically signed by : Imani Gamble MD 05/02/2023 10:49:37
== END 2023-04-28 23:59 ==
PROVIDERS: PCP Internal Medicine; Visit Provider Physician Assistant
DX: I11.9 Hypertensive heart disease without heart failure (principal); I25.118 Atherosclerotic heart disease of native coronary artery with other forms of angina pectoris; E78.5 Hyperlipidemia, unspecified; K21.9 Gastro-esophageal reflux disease without esophagitis; F17.210 Nicotine dependence, cigarettes, uncomplicated
CPT/HCPCS: 93306

== ENCOUNTER 2023-05-04 08:37 | Outpatient (CLI) | payer BC, SELFPAY ==
[2023-05-04 09:08] LABS: Basophils % 0.6 % (0.1-2.0); Eosinophils # 0.2 K/mm3 (0.0-0.4); Hematocrit 47.1 % (37.0-47.0); Hemoglobin 15.3 g/dL (12.2-16.2); Lymphocytes % 29.5 % (10-50); Mean Corpuscular HGB Conc 32.4 g/dL (31.8-35.4); Mean Corpuscular Hemoglobin 30.7 pg (27.0-31.2); Mean Corpuscular Volume 94.6 fl (81-99); Mean Platelet Volume 8.1 fl (7.4-10.4); Monocytes # 0.3 K/mm3 (0.1-1.0); Monocytes % 4.9 % (1.7-9.3); Neutrophils # 4.2 K/mm3 (1.8-7.8); Neutrophils % 61.9 % (37.0-80.0); Platelet Count 172 K/mm3 (142-424); Red Blood Count 4.97 M/mm3 (4.20-5.40); Red Cell Distribution Width 13.7 % (11.5-17.5); White Blood Count 6.7 K/mm3 (4.8-10.8)
[2023-05-04 10:26] LABS: Alanine Aminotransferase 21 U/L (12-78); Alkaline Phosphatase 63 U/L (38-126); Aspartate Amino Transferase 28 U/L (14-36); Bilirubin,Indirect 0.9 mg/dL (0.0-0.9); Bilirubin,Total 0.9 mg/dl (0.2-1.3); Bilirubin,Unconjugated 0.8 mg/dL (0.0-1.1); Chol/HDL Ratio 4.2 (1-3.5); Cholesterol 140 mg/dl (140-200); HDL Cholesterol 33 mg/dl (40-60); Total Protein,Serum 6.7 g/dl (6.3-8.2); Triglycerides 236 mg/dl (30-150); VLDL Cholesterol 47 mg/dL (0-40)
[2023-05-04 10:27] LABS: Anion Gap 10.6 mEq/L (5-15); Blood Urea Nitrogen 13 mg/dl (7-17); Calcium 8.9 mg/dl (8.4-10.2); Carbon Dioxide 29 mmol/L (22.0-30.0); Chloride 105 mmol/L (98-107); Estimated Glomerular Filt Rate 73 ml/min (>60); GFR (African American) 88 ML/MIN (>60); Glucose 81 mg/dl (74-100); Magnesium 2.2 mg/dl (1.6-2.3); Potassium 4.6 mmoL/L (3.5-5.1); Sodium 140 mmol/L (136-145)
[2023-05-04 10:55] LABS: Thyroid Stimulating Hormone 1.96 uIU/mL (0.465-4.68)
== END 2023-05-04 23:59 ==
LOC: LAB 08:37
PROVIDERS: Physician Assistant; PCP Internal Medicine Adolescent Medicine; Visit Provider Physician Assistant
DX: I11.9 Hypertensive heart disease without heart failure (principal); I25.118 Atherosclerotic heart disease of native coronary artery with other forms of angina pectoris; E78.5 Hyperlipidemia, unspecified; K21.9 Gastro-esophageal reflux disease without esophagitis; F17.210 Nicotine dependence, cigarettes, uncomplicated
CPT/HCPCS: 36415; 80048; 80061; 80076; 83735; 84439; 84443; 85025

== ENCOUNTER 2023-05-26 09:59 | Outpatient (RCR) | payer BC, SELFPAY | END 2023-07-18 10:00 | disposition home or self-care (01) | LOC: PT 09:59 | PROVIDERS: Visit Provider Internal Medicine | DX: I25.10 Atherosclerotic heart disease of native coronary artery without angina pectoris (principal); Z95.5 Presence of coronary angioplasty implant and graft ==

== ENCOUNTER 2023-07-18 15:44 | Outpatient (CLI) | payer BC, SELFPAY | END 2023-07-18 23:59 | disposition home or self-care (01) | LOC: RT 15:46 | PROVIDERS: PCP Internal Medicine Adolescent Medicine; Visit Provider Physician Assistant | DX: I25.10 Atherosclerotic heart disease of native coronary artery without angina pectoris (principal) | CPT/HCPCS: 93270 ==

== ENCOUNTER 2023-08-02 12:59 | Outpatient (CLI) | payer BC, SELFPAY ==
--- NOTE | 2023-08-02 13:06 | MM_ITS ---
PROCEDURE INFORMATION: Exam: MG Bilateral Screening 3D Mammography Exam date and time: 08/02/2023 12:55 PM Age: 62 years old Clinical indication: Screening examination TECHNIQUE: Imaging protocol: Bilateral Screening tomosynthesis and 2D mammography including computer-aided detection (CAD) when performed. COMPARISON: MG MM DIG SCREENING MAMM BI W/CAD 08/19/2021 3:18 PM FINDINGS: MAMMOGRAPHY: Breast composition: The breasts are almost entirely fatty. Mass: None. Architectural distortion: None. Calcifications: No suspicious calcifications. Asymmetric density: None. Skin thickening: None. Axillary adenopathy: None. IMPRESSION: No mammographic evidence of malignancy. Annual screening is recommended unless otherwise clinically indicated. ASSESSMENT: BI-RADS Category 1: Negative
--- NOTE | 2023-08-02 13:07 | CT_ITS ---
FINAL REPORT TECHNIQUE: Axial CT images of the chest were obtained without contrast. Low-dose protocol was utilized. This study was performed with techniques to keep radiation doses as low as reasonably achievable (ALARA). Individualized dose reduction techniques using automated exposure control or adjustment of mA and/or kV according to the patient's size were employed. CLINICAL HISTORY: H/O TOBACCO USE smokes 1 1/2 pks per day x 30 yrs cad hx of lung ca in father COMPARISON: 08/12/2021 FINDINGS: CT CHEST WITHOUT, LOW DOSE SCREENING CT Di Vol: 2.90 mGy DLP: 109.16 mGy*cm There is a densely calcified left suprahilar lymph node. The heart size is normal. There is no pleural or pericardial effusion. The lung windows show no evidence of pulmonary mass or infiltrate. There is a calcified granuloma in the medial left upper lobe. . Limited images of the upper abdomen demonstrate no acute findings. IMPRESSION: LR Category 1: 12 month follow-up low-dose chest CT is recommended. Reviewed, Interpreted and Dictated by Thanh Yarbrough MD Transcribed by Mitra Gracia Authenticated and [facility]
== END 2023-08-02 23:59 | disposition home or self-care (01) ==
LOC: RAD 13:00
PROVIDERS: PCP Internal Medicine Adolescent Medicine; Visit Provider Internal Medicine Adolescent Medicine
DX: Z12.31 Encounter for screening mammogram for malignant neoplasm of breast (principal); Z87.891 Personal history of nicotine dependence; Z12.2 Encounter for screening for malignant neoplasm of respiratory organs
CPT/HCPCS: 71271; 77063; 77067

== ENCOUNTER 2023-08-21 08:56 | Outpatient (POV) | payer BC, SELFPAY ==
[2023-08-21 10:02] VITALS: BP 126/64; PULSE 58; RESP 18; O2SAT 96; BMI 33.3
--- NOTE | 2023-08-21 10:48 | XR_ITS ---
FINAL REPORT CLINICAL HISTORY: LT SHOULDER PAIN COMPARISON: None FINDINGS: LEFT SHOULDER 3 views demonstrate no acute fracture or dislocation. There is mild degenerative change. The visualized bony structures are well aligned. No soft tissue abnormality is seen. IMPRESSION: Mild degenerative change without acute process. Reviewed, Interpreted and Dictated by Onesimo Jordan III, MD Transcribed by Mitra Gracia Authenticated and . [facility]
--- NOTE | 2023-08-21 12:25 | A.OFFVIS_ITS ---
HPI Data of Consult Patient: new to practice Consult date: 08/21/23 Requesting Physician: Shreya Kirkpatrick APRN Primary Care Provider: Pj Higuera MD Consult Narrative Reason for consult: Low back pain, mid back pain, left shoulder pain History of present illness: Ms. Lewis is a 62 year old female who presents today as a new patient. She is a referral from Dr. Higuera's office. Today she rates her pain a 9 out of 10. Patient states she has multiple pains including her mid to low back as well as her left shoulder pain. Patient states all of this has been going on for years with the mid to low back being the longest. She does state her pain is 7/10 sharp, stabbing sensation that is worse with increased activity. She does state the pain interferes with her ability perform activities of daily living such as cooking and cleaning. Patient does state that she believes she has a rotator cuff tear in her shoulder however denies any imaging. Patient states that she constantly has the burning sensation that just feels like it is all over her chest cavity. Patient does state that she has not had any prior surgery and that in the past that she has done multiple sessions of PT and only 1 time did she really get significant relief. Patient does also states she has chronic pain throughout her knees due to meniscus tears. Patient states she is very interested in any help we may be able to provide. She does state overall that her mid back pain is more bothersome and it does come and come around where her lower ribs are out and radiates down. Patient states it does interfere on a daily basis. Her Shyam has been reviewed and is appropriate. CC: Shreya Kirkpatrick APRN [facility] Disclaimer: The information contained in this section may have been updated after the patient was seen, as this information can be updated by other users. Medical History Trigger finger Meniscal injury Palpitations Arrhythmia Gastroesophageal reflux disease HLD (hyperlipidemia) Atypical angina Agatston coronary artery calcium score greater than 400 Post-tussive syncope Syncope and collapse Syncope Surgical History H/O abdominoplasty S/P lateral meniscal repair H/O sinus surgery H/O total hysterectomy Hx of breast reduction, elective History of appendectomy History of thyroidectomy, subtotal Family History Other Brain cancer Cancer of kidney Family history of diabetes mellitus type II Family history of hypothyroidism Family history of myocardial infarction Lung cancer Social History (Updated 08/21/23 @ 10:03 by Radha Estrada RN) Smoking Status: Current every day smoker tobacco type: cigarettes packs per day: 2 years smoked: 30 second hand exposure: Yes alcohol intake: never substance use type: denies use current occupational status: employed Travel in the last 8 weeks: None household members: spouse housing: house current occupational exposures/hazards: No caffeine: Yes Review of Systems Review of Systems Review of systems:: pertinent systems reviewed and negative unless documented below Review of systems (narrative): Review of Systems: General: No recent weight changes, no fever, no sleep disturbances Respiratory: No cough, no shortness of air, no recurring pulmonary infections Cardiovascular/peripheral vascular: No chest pain, no palpitations, no edema, no shortness of breath Gastrointestinal: No new onset incontinence, normal bowel movements reported Genitourinary: No new onset incontinence Musculoskeletal: Low back pain, left shoulder pain, mid back pain Psychiatric: [Normal mood/affect] Neurological: [Denies weakness in extremities], [denies balance issues] Meds Home Medications and Allergies Home Medications Medication Instructions Recorded Confirmed Type aspirin 81 mg chewable tablet 81 mg PO DAILY 30 days #30 tabs 04/17/23 08/21/23 Rx ([facility]mond Chewable Low Dose Aspirin) bisoprolol fumarate 5 mg tablet 5 mg PO DAILY 30 days #30 tabs 04/17/23 08/21/23 Rx prasugrel 10 mg tablet (Effient) 10 mg PO DAILY 30 days #30 tabs 04/17/23 08/21/23 Rx ramipril 2.5 mg capsule 2.5 mg PO DAILY 30 days #30 caps 04/17/23 08/21/23 Rx levothyroxine 88 mcg tablet 88 mcg PO DAILY 06/01/23 08/21/23 History rosuvastatin 20 mg tablet (Crestor) 20 mg PO DAILY #30 tabs 07/18/23 08/21/23 Rx New Prescriptions to Start Prescriptions: Allergies Allergy/AdvReac Type Severity Reaction Status Date / Time No Known Allergies Allergy Verified 07/27/23 09:46 Objective Vital signs: Pulse Resp BP Pulse Ox O2 Del Method 58 L 18 126/64 96 Room Air 08/21/23 10:02 08/21/23 10:02 08/21/23 10:02 08/21/23 10:02 08/21/23 10:02 Narrative: Physical Exam: General: Alert and oriented x3, no acute distress, pleasant and cooperative Lungs: Respirations even and unlabored, symmetrical chest expansion Eyes: PERRL Musculoskeletal: Flexion and extension of thoracic [spine] somewhat guarded secondary to pain, [antalgic gait noted] Neurological: Speech clear, no gross sensory deficit Additional findings Additional findings: TECHNIQUE: Axial images are obtained without contrast. Sagittal and coronal reformatted images are reviewed as well. All CT scans at the facility use one or more dose reduction, viz: automated exposure control, ma/kV adjustment per patient size (including targeted exams where dose is matched to indication, i.e. head), or iterative reconstruction technique. FINDINGS: There is normal alignment. No acute fracture or dislocation is evident. There is mild multilevel thoracic spondylosis with endplate osteophytes, anterior longitudinal ligament calcification, with mild disc space narrowing. These findings are similar when compared to 01/13/2012 No lytic or blastic change. Incidental note made of old granulomatous disease. IMPRESSION: 1. No acute fracture. 2. Multilevel thoracic spondylosis Dictated By: Frandy Krishna MD Signed By: <Electronically signed by Frandy Krishna MD in OV> 12/28/17 1107 DD/ 1104 Assessment and Plan *Assessment and plan (1) Left shoulder pain: Status: Acute Qualifiers: Chronicity: chronic Qualified Code(s): M25.512 - Pain in left shoulder; G89.29 - Other chronic pain Category: Medical Code(s): M25.512 - Pain in left shoulder (2) Mid back pain: Status: Acute Category: Medical Code(s): M54.9 - Dorsalgia, unspecified (3) Degenerative disc disease, thoracic: Status: Acute Category: Medical Code(s): M51.34 - Other intervertebral disc degeneration, thoracic region (4) Thoracic radiculopathy: Status: Acute Category: Medical Code(s): M54.14 - Radiculopathy, thoracic region Plan Patient is experiencing worsening pain in multiple areas. I will order x-ray and MRI of her left shoulder without contrast. Will also order the patient a compounded cream. Patient is experiencing worsening pain in her mid back with radiating symptoms into her abdomen. Patient does state her pain is all around her last rib. Patient has had prior CT imaging that showed multilevel degenerative disc. I have discussed with patient that she may benefit from a thoracic epidural steroid injection. Risk and benefits were discussed with patient and she would like to proceed forward with this plan of care. Patient h as tried and failed conservative therapy including continued at home exercising and stretching for longer than 6 weeks. We will schedule the patient for a thoracic epidural T11-T12 under fluoroscopy. Patient has been instructed to contact the clinic with any concerns before the next appointment. Dr. Christianson has reviewed this note and agrees with this plan of care. This note was dictated using voice recognition software and make contain errors or omissions.
== END 2023-08-21 23:59 | disposition home or self-care (01) ==
PROVIDERS: PCP Internal Medicine Adolescent Medicine; Visit Provider Nurse Practitioner Family
DX: M25.512 Pain in left shoulder (principal); G89.29 Other chronic pain; M51.14 Intervertebral disc disorders with radiculopathy, thoracic region
CPT/HCPCS: 73030; 99202; G0463

== ENCOUNTER 2023-08-22 09:05 | Outpatient (CLI) | payer BC, SELFPAY ==
--- NOTE | 2023-08-22 09:11 | XR_ITS ---
FINAL REPORT TECHNIQUE: Bone mineral density was calculated of the lumbar spine and hip. CLINICAL HISTORY: OSTEOPOROSIS COMPARISON: 02/20/2020 FINDINGS: Using L1-4, the bone mineral density of the spine is 0.883 g/cm2, corresponding to T-score of -1.5. Using the left hip, the bone mineral density of the femoral neck is 0.565 g/cm2, corresponding to a T-score of -2.6. Using the right hip, the bone mineral density of the femoral neck is 0.646 g/cm?, corresponding to a T-score of -1.8. NOTE: T-score: Standard deviation compared with peak bone mass of young adult mean. *Following the recommendations of the International Society of Bone densitometry, classification of hip BMD is based on the lower of two T-scores; total hip or femoral neck. IMPRESSION: Diminished bone mineral density of the lumbar spine and right hip consistent with low bone density. Diminished bone density of the left hip consistent with osteoporosis. Reviewed, Interpreted and Dictated by Onesimo Jordan III, MD Transcribed by Nida Saba Authenticated and [facility]
== END 2023-08-22 23:59 | disposition home or self-care (01) ==
LOC: RAD 09:06
PROVIDERS: PCP Internal Medicine Adolescent Medicine; Visit Provider Internal Medicine Adolescent Medicine
DX: M81.0 Age-related osteoporosis without current pathological fracture (principal)
CPT/HCPCS: 77080

== ENCOUNTER 2023-09-01 10:29 | Day surgery (SDC) | payer BC, SELFPAY ==
[2023-08-30 12:00] VITALS: BMI 31.8
[2023-09-01 11:18] VITALS: BP 118/69; PULSE 66; RESP 16; TEMP 36.4; O2SAT 95
[2023-09-01] MEDS: LACTATED RINGERS 1000ML 1,000 ML 25 ML IV (11:24)
--- NOTE | 2023-09-01 11:44 | EXP.GEN.HP ---
HPI HPI HPI: Patient is a 62-year-old female referred by Dr. Pj Higuera for EGD and colonoscopy. I had seen her in the past for excision of the lipoma and also for appendectomy. She has a history of hypertension, tobacco dependence, GERD, hyperlipidemia, coronary artery disease with previous stenting. She had a colonoscopy with Dr. Bishop on 05/28/2015 which was reportedly normal. She had been seen by Dr. Garcia on 09/15/2021 for atypical chest pain and it appears as though consideration was being given for upper endoscopy. She states that she needed to schedule essentially colonoscopy and endoscopy for preventative measures. Patient states that she had coronary stenting done about 6 months ago. She had left heart catheterization with placement of drug-eluting stent in the right coronary on 04/17/2023. After I had seen her in the office on 07/27/2023 I advised her to proceed with colonoscopy as upper endoscopy usually was not performed for checkup for preventive measures . However, she states that she has had a chronic cough with a tickle in her throat and therefore request was made to perform upper endoscopy. She is on LIDIA inhibitor. She smokes approximately 2 packs of cigarettes daily. . [facility] Disclaimer: The information contained in this section may have been updated after the patient was seen, as this information can be updated by other users. Medical History (Updated 08/30/23 @ 15:36 by Eusebio Aguilar RN) Tickle in throat Deviated septum Chronic cough Sinus headache Trigger finger Meniscal injury Palpitations Arrhythmia Gastroesophageal reflux disease HLD (hyperlipidemia) Atypical angina Agatston coronary artery calcium score greater than 400 Post-tussive syncope Syncope and collapse Syncope Surgical History H/O sinus surgery History of surgery H/O abdominoplasty S/P lateral meniscal repair H/O sinus surgery H/O total hysterectomy Hx of breast reduction, elective History of appendectomy History of thyroidectomy, subtotal Family History Other Brain cancer Cancer of kidney Family history of diabetes mellitus type II Family history of hypothyroidism Family history of myocardial infarction Lung cancer Social History Smoking Status: Current every day smoker tobacco type: cigarettes packs per day: 2 years smoked: 30 second hand exposure: Yes alcohol intake: never substance use type: denies use current occupational status: employed Travel in the last 8 weeks: None household members: spouse housing: house current occupational exposures/hazards: No caffeine: No Meds Home Medications and Allergies Home Medications Medication Instructions Recorded Confirmed Type aspirin 81 mg chewable tablet 81 mg PO DAILY 30 days #30 tabs 04/17/23 09/01/23 Rx (Edmond Chewable Low Dose Aspirin) bisoprolol fumarate 5 mg tablet 5 mg PO DAILY 30 days #30 tabs 04/17/23 09/01/23 Rx prasugrel 10 mg tablet (Effient) 10 mg PO DAILY 30 days #30 tabs 04/17/23 09/01/23 Rx ramipril 2.5 mg capsule 2.5 mg PO DAILY 30 days #30 caps 04/17/23 09/01/23 Rx levothyroxine 88 mcg tablet 88 mcg PO DAILY 06/01/23 09/01/23 History rosuvastatin 20 mg tablet (Crestor) 20 mg PO DAILY #30 tabs 07/18/23 09/01/23 Rx New Prescriptions to Start Prescriptions: Allergies Allergy/AdvReac Type Severity Reaction Status Date / Time No Known Allergies Allergy Verified 08/30/23 15:06 Exam Data for Last 24 hours Vital signs and Labs for Last 24 Hours: Temp Pulse Resp BP Pulse Ox O2 Del Method 97.6 F 66 16 118/69 95 Room Air 09/01/23 11:18 09/01/23 11:18 09/01/23 11:18 09/01/23 11:18 09/01/23 11:18 09/01/23 11:18 I & O for Last 24 hours: Intake & Output 08/29/23 08/30/23 08/31/23 09/01/23 11:59 11:59 11:59 11:59 Weight 180 lb 0.013 oz Constitutional Constitutional: no acute distress *Routine HEENT Exam Head: Present normocephalic Eye: Present EOMI and PERRL ENT: Present mucous membranes moist *Routine Neck Exam Neck: Present supple; Absent lymphadenopathy *Routine Respiratory Exam Respiratory: Present CTA bilaterally *Routine Cardiovascular Exam Cardiovascular: Present RRR *Routine Abdominal Exam Abdominal: Present soft and normoactive bowel sounds; Absent tenderness *Routine Rectal Exam Rectal:: deferred *Routine Genitalia Exam Genitalia:: deferred *Routine Extremities Exam Extremities: Absent cyanosis, clubbing or edema *Routine Skin Exam Skin: Present warm; Absent rash *Routine Neurological Exam Neurological: Present alert and oriented X3 Assessment and Plan *Assessment and plan (1) Encounter for screening colonoscopy: Status: Acute Category: Medical Code(s): Z12.11 - Encounter for screening for malignant neoplasm of colon Plan Plan to proceed with colonoscopy and endoscopy.
--- NOTE | 2023-09-01 11:47 | P.PNANES_ITS ---
[facility] Disclaimer: The information contained in this section may have been updated after the patient was seen, as this information can be updated by other users. Medical History (Updated 08/30/23 @ 15:36 by Eusebio Aguilar RN) Tickle in throat Deviated septum Chronic cough Sinus headache Trigger finger Meniscal injury Palpitations Arrhythmia Gastroesophageal reflux disease HLD (hyperlipidemia) Atypical angina Agatston coronary artery calcium score greater than 400 Post-tussive syncope Syncope and collapse Syncope Surgical History H/O sinus surgery History of surgery H/O abdominoplasty S/P lateral meniscal repair H/O sinus surgery H/O total hysterectomy Hx of breast reduction, elective History of appendectomy History of thyroidectomy, subtotal Family History Other Brain cancer Cancer of kidney Family history of diabetes mellitus type II Family history of hypothyroidism Family history of myocardial infarction Lung cancer Social History Smoking Status: Current every day smoker tobacco type: cigarettes packs per day: 2 years smoked: 30 second hand exposure: Yes alcohol intake: never substance use type: denies use current occupational status: employed Travel in the last 8 weeks: None household members: spouse housing: house current occupational exposures/hazards: No caffeine: No [facility] Anesthesia Checklist Patient Identification Patient Identification: Arm Band, Family and Verbal (Name & ) Structural Data Admitted From: Home Planned Operative Procedure/s: EGD/Colonoscopy Consent for Planned Operative Procedure(s) Verified: Yes Verified Documents: Surgical Consent and History and Physical NPO Status Verified Time NPO: 10:00 Chart Verification Results Verified: CBC and BMP Additional verifications Patient : No Anesthesia Reactions: No Hx Blood Transfusions: No Blood Transfusion Reaction: No Cardiovascular Assessment Heart Sounds: S1 & S2 Pulse Rhythm: Irregular Peripheral Edema: Yes Airway Assessment Mallampati Score:: Class II C-Spine Mobility Assessed: Yes (FROM) TMJ Mobility Assessed: Yes Dentition: Poor Dentition (Nothing loose per pt.) Neurological Assessment Level of Consciousness: Awake, Alert, Appropriate and Follows Commands Hx Seizures: No Numbness or tingling in extremities: No Anesthesia Plan Anesthesia Risk discussed: Yes Anesthesia Plan: Verified ASA Class: III Anesthesia Type: MAC
--- NOTE | 2023-09-01 12:50 | HMH.SCOPE ---
Procedure: Date: 09/01/23 Patient Date of :: 1960 Procedure Performed:: Esophagogastroduodenoscopy with biopsies Total colonoscopy with polypectomy using biopsy forceps and snare . Indications:: Patient is a 62-year-old female originally referred for EGD and colonoscopy. I had seen her in the past for excision of the lipoma and also for appendectomy. She has a history of hypertension, tobacco dependence, GERD, hyperlipidemia, coronary artery disease with previous stenting. She had a colonoscopy with Dr. Bishop on 05/28/2015 which was reportedly normal. She had been seen by Dr. Garcia on 09/15/2021 for atypical chest pain and it appears as though consideration was being given for upper endoscopy. She states that she needed to schedule essentially colonoscopy and endoscopy for preventative measures. Patient states that she had coronary stenting done about 6 months ago. She had left heart catheterization with placement of drug-eluting stent in the right coronary on 04/17/2023. After I had seen her in the office on 07/27/2023 I advised her to proceed with colonoscopy as upper endoscopy usually was not performed for checkup for preventive measures . However, she states that she has had a chronic cough with a tickle in her throat and therefore request was made to perform upper endoscopy. She is on LIDIA inhibitor. She smokes approximately 2 packs of cigarettes daily. . Performing Provider:: Onesimo Ramirez MD Referring Provider:: Pj Higuera MD Sedation:: MAC sedation Procedure:: Patient history was obtained and appropriate physical examination was performed. Patient's medications and allergies were reviewed. Informed consent was obtained after explaining the benefits, alternatives, and risks of the procedure including, but not limited to, bleeding, perforation, missed lesions, and adverse reaction to anesthesia medications. Patient was transported to endoscopy procedure room. Patient was connected to monitoring devices. Throughout the procedure the patient's blood pressure, pulse, and oxygen saturations were monitored continuously. Patient identification and planned procedure were verified by the staff. Attention was first turned to upper endoscopy. Olympus endoscope was inserted via the oropharynx. She has some minor cricopharyngeal spasm. Esophagus was cannulated. There was minor tortuosity of the esophagus. Gastroesophageal junction was encountered at approximately 35 cm. There was minimal beginnings of nonobstructing Schatzki's ring. Stomach was cannulated and insufflated. Retroflexion was performed which revealed tiny, 2 cm, hiatal hernia. There is some diffuse gastropathy/gastritis with more moderate nonerosive gastritis in the prepyloric location. A couple of biopsies were obtained. Pylorus was traversed. Within the duodenal bulb she had moderate nonerosive duodenitis. Biopsy was obtained. Distal duodenum appeared unremarkable. Endoscope was withdrawn into the distal esophagus and a couple of biopsies were obtained. Stomach was desufflated and the endoscope was withdrawn. Next attention was turned to colonoscopy. Patient was positioned in lateral decubitus position. Digital anorectal exam was performed. Variable stiffness Olympus colonoscope was inserted and advanced under direct visualization to the cecum. Adequacy of the colonic preparation was noted. In the right colon there is a significant amount of thick opaque particulate stool. High-volume trans colonoscopic irrigation and suctioning was performed. However there was adherent pasty stool lining the ness of the cecum and this was unable to be fully cleared. The colonoscope was then slowly withdrawn while carefully examining the color, texture, anatomy, and integrity of the mucosoa circumferentially. In the proximal transverse colon there was a tiny diminutive minuscule polyp removed with cold biopsy forceps. She had some sigmoid diverticulosis. In the descending colon there were a couple of tiny diminutive polyps removed with cold snare. The rectosigmoid region there was multiple hyperplastic appearing polyps 1 of these more prominent were removed with cold snare. Within the rectum retroflexion was performed. Colonoscope was then withdrawn. . Findings:: Cricopharyngeal spasm Gastroesophageal junction at 35 cm Beginnings of Schatzki's ring, nonobstructing Minuscule hiatal hernia, 2 cm Moderate antral gastritis Moderate duodenitis . Poor preparation of the right colon, unable to be cleared, thick pasty stool adherent to the ness Diminutive tiny minuscule transverse colon polyp Small descending colon polyps Multiple hyperplastic rectosigmoid polyps larger of which was removed with cold snare Sigmoid diverticulosis . Recommendations:: Recommend repeat colonoscopy within 6 to 12 months with maximum prep due to inability to fully evaluate the right colon. Complications:: None immediately apparent Estimated blood obtained (mL): 2 Colonoscopy Component Colonoscopy Component Was a colonoscopy performed during today's procedure?: Yes Recommended follow up colonoscopy of at least 10 years?: No If no, follow up colonoscopy recommended in ___ years?: See above Reason for not recommending >/= 10 yr follow-up interval?: See above
[2023-09-01 12:55] VITALS: BP 101/75; PULSE 79; RESP 18; TEMP 36.5; O2SAT 95
[2023-09-01 13:05] VITALS: BP 108/71; PULSE 74; RESP 18; O2SAT 95
[2023-09-01 13:15] VITALS: BP 111/61; PULSE 76; RESP 18; O2SAT 96
[2023-09-01 13:25] VITALS: BP 115/68; PULSE 74; RESP 18; O2SAT 98
== END 2023-09-01 13:45 | disposition home or self-care (01) ==
PROVIDERS: PCP Internal Medicine Adolescent Medicine; Visit Provider Surgery
PROC: 0DJ08ZZ Inspection of Upper Intestinal Tract, Via Natural or Artificial Opening Endoscopic (ICD-10-PCS; CPT 43235; principal; 2023-09-01 13:30)
DX: K44.9 Diaphragmatic hernia without obstruction or gangrene (principal); K29.50 Unspecified chronic gastritis without bleeding; K29.80 Duodenitis without bleeding; K57.30 Diverticulosis of large intestine without perforation or abscess without bleeding; D12.4 Benign neoplasm of descending colon; D12.5 Benign neoplasm of sigmoid colon; D12.3 Benign neoplasm of transverse colon; R05.3 Chronic cough; F17.210 Nicotine dependence, cigarettes, uncomplicated; K22.2 Esophageal obstruction; Z12.11 Encounter for screening for malignant neoplasm of colon
CPT/HCPCS: 45380; 45385; 43239; J2704; J7120

== ENCOUNTER 2023-09-05 12:01 | Day surgery (SDC) | payer BC, SELFPAY ==
[2023-09-05 12:14] VITALS: BP 104/63; PULSE 71; RESP 18; O2SAT 97
[2023-09-05 12:16] VITALS: BP 105/59; PULSE 65; RESP 18; O2SAT 98; BMI 32.8
[2023-09-05] MEDS: methylPREDNISolone ACETATE 80MG/ML VIAL 80 MG (12:22)
--- NOTE | 2023-09-05 12:24 | P.PCN_ITS ---
Procedure Date: 09/05/23 Time: 12:20 Anesthesiologist:: Dar Nayak CRNA Complications:: None Pre-procedure Diagnosis:: Degenerative disc lower thoracic and lumbar spine. Thoracolumbar radiculopathy. Post-procedure Diagnosis:: Same. Indications for Procedure:: Patient is a very pleasant 62-year-old female comes our clinic today for a T11- 12 epidural steroid injection. Patient describes thoracolumbar pain that is constant, dull, aching. Patient reports having difficulty with flexion and/or extension of the lumbar spine. Patient reports bilateral thoracolumbar radicular symptoms. She rates her pain 7/10. Procedure Details:: Procedure:Thoracic epidural steroid injection under fluoroscopy Informed consent was obtained and the risks and benefits of the procedure were explained to the patient. The patient was taken to the procedure room and noninvasive monitors placed, including noninvasive blood pressure cuff and pulse oximeter. The back was viewed using C-Arm fluoroscopy and prepped using Betadine as a cleansing solution and the T11-12 interspace was palpated. Skin and subcutaneous tissues were anesthetized using lidocaine 1.5% and a 25-gauge needle. After this, an 18-gauge Touhy epidural needle was placed into the T11-12 interspace and advanced using fluoroscopic guidance and loss of resistance to air until the epidural space was encountered. After confirmation of needle placement in the epidural space, with dye, a solution containing lidocaine 1.5%, 4 mL and Depo-Medrol 80 mg were incrementally injected into the thoracic epidural space. The patient tolerated the procedure well with no complications. The patient was observed in the Pain Clinic and then discharged home neurologically intact. Plan and Disposition:: Patient was discharged without incident.
[2023-09-05 12:26] VITALS: BP 102/50; PULSE 65; RESP 18; O2SAT 97
== END 2023-09-05 12:27 | disposition home or self-care (01) ==
PROVIDERS: PCP Internal Medicine Adolescent Medicine; Visit Provider Nurse Anesthetist, Certified Registered
DX: M54.15 Radiculopathy, thoracolumbar region (principal)
CPT/HCPCS: 62321; J1010

== ENCOUNTER 2023-09-28 09:20 | Outpatient (POV) | payer BC, SELFPAY ==
[2023-09-28 09:32] VITALS: BP 96/60; PULSE 58; RESP 18; O2SAT 96; BMI 31.6
--- NOTE | 2023-09-28 10:26 | EXP.PAIN.SOA ---
[facility] Disclaimer: The information contained in this section may have been updated after the patient was seen, as this information can be updated by other users. Medical History (Updated 09/27/23 @ 16:07 by URSZULA Macdonald) Sinusitis Tickle in throat Deviated septum Chronic cough Sinus headache Trigger finger Meniscal injury Palpitations Arrhythmia HLD (hyperlipidemia) Atypical angina Agatston coronary artery calcium score greater than 400 Post-tussive syncope Syncope and collapse Syncope Surgical History History of colonoscopy History of esophagogastroduodenoscopy (EGD) H/O sinus surgery History of surgery H/O abdominoplasty S/P lateral meniscal repair H/O sinus surgery H/O total hysterectomy Hx of breast reduction, elective History of appendectomy History of thyroidectomy, subtotal Family History Other Brain cancer Cancer of kidney Family history of diabetes mellitus type II Family history of hypothyroidism Family history of myocardial infarction Lung cancer Social History Smoking Status: Current every day smoker tobacco type: cigarettes packs per day: 2 years smoked: 30 second hand exposure: Yes alcohol intake: never substance use type: denies use current occupational status: employed Travel in the last 8 weeks: None household members: spouse housing: house current occupational exposures/hazards: No caffeine: No PM Subjective & Objective Subjective Subjective:: Patient is a pleasant 62-year-old female who presents today for follow-up of thoracic epidural steroid injection T11-T12 on 09/05/2023. Today she rates her pain a 1 out of 10. Patient states however that typically her mornings are just as bad and that the pain progressively can worsen throughout the day. She states certain activities are not as bad however doing things like the dishes causes her pain to jump to a 7 out of 10. Patient denies any new trauma or injury. Patient does state that she feels like this injection really made no change to her overall pain symptoms. She states she still has the same pain up under her right shoulder blade as well as around her mid back. Patient does have significant history of multiple lipomas being removed. Patient has tried and failed conservative treatment including continued at home exercising and stretching. Patient was prescribed compounded cream however she felt like it really did not seem to do anything. Her Shyam has been reviewed and is appropriate. Review of Systems: General: No recent weight changes, no fever, no sleep disturbances Respiratory: No cough, no shortness of air, no recurring pulmonary infections Cardiovascular/peripheral vascular: No chest pain, no palpitations, no edema, no shortness of breath Gastrointestinal: No new onset incontinence, normal bowel movements reported Genitourinary: No new onset incontinence Musculoskeletal: Mid back pain Psychiatric: [Normal mood/affect] Neurological: [Denies weakness in extremities], [denies balance issues] Pain at rest (0-10 scale): 1 Objective Objective:: Physical Exam: General: Alert and oriented x3, no acute distress, pleasant and cooperative Lungs: Respirations even and unlabored, symmetrical chest expansion Eyes: PERRL Musculoskeletal: Flexion and extension of thoracic [spine] somewhat guarded secondary to pain, [antalgic gait noted] Neurological: Speech clear, no gross sensory deficit Has patient had previous pain injection?: Yes Percent improvement in pain since last injection: 0 Conservative treatment options previously tried: Home exercise plan Length of treatment: Longer than 6 weeks Meds Home Medications and Allergies Home Medications Medication Instructions Recorded Confirmed Type aspirin 81 mg chewable tablet 81 mg PO DAILY 30 days #30 tabs 04/17/23 09/28/23 Rx ([place] Chewable Low Dose Aspirin) bisoprolol fumarate 5 mg tablet 5 mg PO DAILY 30 days #30 tabs 04/17/23 09/28/23 Rx prasugrel 10 mg tablet (Effient) 10 mg PO DAILY 30 days #30 tabs 04/17/23 09/28/23 Rx ramipril 2.5 mg capsule 2.5 mg PO DAILY 30 days #30 caps 04/17/23 09/28/23 Rx levothyroxine 88 mcg tablet 88 mcg PO DAILY 06/01/23 09/28/23 History rosuvastatin 20 mg tablet (Crestor) 20 mg PO DAILY #30 tabs 07/18/23 09/28/23 Rx pantoprazole 40 mg tablet,delayed 40 mg PO DAILY #30 tabs 09/21/23 09/28/23 Rx release (Protonix) famotidine 20 mg tablet 40 mg (2 x 20 mg) PO DAILY #30 tabs 09/27/23 09/28/23 Rx omeprazole 20 mg capsule,delayed 40 mg (2 x 20 mg) PO DAILY #30 caps 09/27/23 09/28/23 Rx release New Prescriptions to Start Prescriptions: Allergies Allergy/AdvReac Type Severity Reaction Status Date / Time No Known Allergies Allergy Verified 09/27/23 15:27 Assessment and Plan *Assessment and plan (1) Thoracic radiculopathy: Status: Acute Category: Medical Code(s): M54.14 - Radiculopathy, thoracic region (2) Degenerative disc disease, thoracic: Status: Acute Category: Medical Code(s): M51.34 - Other intervertebral disc degeneration, thoracic region Plan Patient continues to experience significant pain throughout her mid back with radiating symptoms. Patient has not had any updated imaging since 2018. I will order x-ray and MRI without contrast of her thoracic spine. Patient will return to clinic in 1 month for reevaluation of symptoms and plan of care. Patient has continued at home stretching exercise for longer than 6 weeks with no changes. Patient has been instructed to contact the clinic with any concerns before the next appointment. Dr. Christianson has reviewed this note and agrees with this plan of care. This note was dictated using voice recognition software and make contain errors or omissions.
== END 2023-09-28 23:59 | disposition home or self-care (01) ==
LOC: SC.PAIN 09:20
PROVIDERS: PCP Internal Medicine Adolescent Medicine; Visit Provider Nurse Practitioner Family
DX: M51.14 Intervertebral disc disorders with radiculopathy, thoracic region (principal); F17.210 Nicotine dependence, cigarettes, uncomplicated; Z79.899 Other long term (current) drug therapy; Z95.5 Presence of coronary angioplasty implant and graft
CPT/HCPCS: 99212; G0463

== ENCOUNTER 2023-10-02 16:21 | Outpatient (CLI) | payer BC, SELFPAY ==
--- NOTE | 2023-10-02 16:28 | XR_ITS ---
PROCEDURE INFORMATION: Exam: XR Thoracic Spine Exam date and time: 10/02/2023 4:30 PM Age: 62 years old Clinical indication: Pain in thoracic spine; Additional info: Mid back pain TECHNIQUE: Imaging protocol: Radiologic exam of the thoracic spine. Views: 2 views. [facility] con 12/28/2017 10:40 AM FINDINGS: Bones/joints: There is exaggeration of the spinal curvature. Moderate degenerative changes are noted, characterized by moderate disc space narrowing, predominantly in the mid to lower thoracic spine, indicative of progressive degenerative disc disease. Additionally, small osteophytes are observed at several vertebral levels, suggesting spine aging and wear and tear. Moderate hypertrophic changes in the facet joints are consistent with early arthritic changes, possibly linked to localized pain or discomfort. No fractures, significant misalignments, or other acute abnormalities are identified. The findings reflect moderate degenerative changes commonly associated with the natural aging process. Soft tissues: There is no evidence of significant spondylolisthesis or spondylolysis, and the paraspinal soft tissues appear normal. Heart/Mediastinum: there are calcified mediastinal nodes which appear stable from prior. Other findings: Prevertebral and paravertebral soft tissues appear unremarkable. IMPRESSION: The thoracic spine exhibits moderate degenerative changes without acute pathology. These changes are typically age-related and may or may not correlate with clinical symptoms.
== END 2023-10-02 23:59 | disposition home or self-care (01) ==
LOC: RAD 16:25
PROVIDERS: PCP Internal Medicine Adolescent Medicine; Visit Provider Anesthesiology
DX: M54.6 Pain in thoracic spine (principal)
CPT/HCPCS: 72070

== ENCOUNTER 2023-10-11 16:58 | Outpatient (CLI) | payer BC, SELFPAY ==
--- NOTE | 2023-10-11 17:01 | MR_ITS ---
PROCEDURE INFORMATION: Exam: MR Thoracic Spine Without Contrast Exam date and time: 10/11/2023 5:06 PM Age: 62 years old Clinical indication: Pain in thoracic spine; Additional info: Mid back pain TECHNIQUE: Imaging protocol: Magnetic resonance imaging of the thoracic spine without contrast. COMPARISON: [facility] XR THORACIC SPINE 2V 10/02/2023 4:30 PM FINDINGS: Bones/joints: Unremarkable. No fracture. Normal alignment. Spinal cord: Normal signal. No cord compression. T1-T2: No significant disc bulge or herniation. No severe spinal canal stenosis. No significant neural foraminal narrowing. T2-T3: No significant disc bulge or herniation. No severe spinal canal stenosis. No significant neural foraminal narrowing. T3-T4: No significant disc bulge or herniation. No severe spinal canal stenosis. No significant neural foraminal narrowing. T4-T5: No significant disc bulge or herniation. No severe spinal canal stenosis. No significant neural foraminal narrowing. T5-T6: No significant disc bulge or herniation. No severe spinal canal stenosis. No significant neural foraminal narrowing. T6-T7: No significant disc bulge or herniation. No severe spinal canal stenosis. No significant neural foraminal narrowing. T7-T8: No significant disc bulge or herniation. No severe spinal canal stenosis. No significant neural foraminal narrowing. T8-T9: No significant disc bulge or herniation. No severe spinal canal stenosis. No significant neural foraminal narrowing. T9-T10: No significant disc bulge or herniation. No severe spinal canal stenosis. No significant neural foraminal narrowing. T10-T11: No significant disc bulge or herniation. No severe spinal canal stenosis. No significant neural foraminal narrowing. T11-T12: No significant disc bulge or herniation. No severe spinal canal stenosis. No significant neural foraminal narrowing. T12-L1: No significant disc bulge or herniation. No severe spinal canal stenosis. No significant neural foraminal narrowing. Soft tissues: Unremarkable. IMPRESSION: Unremarkable spine.
== END 2023-10-11 23:59 | disposition home or self-care (01) ==
LOC: RAD 16:58
PROVIDERS: PCP Internal Medicine Adolescent Medicine; Visit Provider Nurse Practitioner Family
DX: M54.6 Pain in thoracic spine (principal)
CPT/HCPCS: 72146

== ENCOUNTER 2023-10-13 13:50 | Outpatient (CLI) | payer BC, SELFPAY ==
--- NOTE | 2023-10-13 13:50 | CT_ITS ---
FINAL REPORT TECHNIQUE: Thin section axial CT images of the facial bones and sinuses were obtained without contrast. Coronal and sagittal reformatted images were also obtained. This study was performed with techniques to keep radiation doses as low as reasonably achievable, (ALARA). Individualized dose reduction techniques using automated exposure control or adjustment of mA and/or kV according to the patient's size were employed. CLINICAL HISTORY: chronic cough COMPARISON: None FINDINGS: There is mild left maxillary mucoperiosteal thickening without an air-fluid level. No fluid levels are identified. There is soft tissue bridging the left ostiomeatal unit. The right ostiomeatal unit is intact. The nasal septum is in the midline. No fracture or acute bony abnormality is identified. IMPRESSION: Mild left maxillary mucoperiosteal thickening, with soft tissue bridging the left ostiomeatal unit. No air-fluid level is identified. Reviewed, Interpreted and Dictated by Thanh Yarbrough MD Transcribed by Nida Saba Authenticated and [facility]
== END 2023-10-13 23:59 | disposition home or self-care (01) ==
LOC: RAD 13:50
PROVIDERS: PCP Internal Medicine Adolescent Medicine; Visit Provider Nurse Practitioner
DX: R05.3 Chronic cough (principal); J32.9 Chronic sinusitis, unspecified; F17.210 Nicotine dependence, cigarettes, uncomplicated
CPT/HCPCS: 70486

== ENCOUNTER 2023-11-01 09:25 | Outpatient (CLI) | payer BC, SELFPAY ==
[2023-11-01 09:54] LABS: Basophils # 0.1 K/mm3 (0-0.2); Basophils % 1.6 % (0.1-2.0); Eosinophils # 0.1 K/mm3 (0.0-0.4); Eosinophils % 1.9 % (0.1-12.0); Hematocrit 47.5 % (37.0-47.0); Hemoglobin 14.5 g/dL (12.2-16.2); Lymphocytes # 1.6 K/mm3 (0.7-4.5); Lymphocytes % 24.5 % (10-50); Mean Corpuscular HGB Conc 30.5 g/dL (31.8-35.4); Mean Corpuscular Hemoglobin 29.7 pg (27.0-31.2); Mean Corpuscular Volume 97.2 fl (81-99); Mean Platelet Volume 8.4 fl (7.4-10.4); Monocytes # 0.4 K/mm3 (0.1-1.0); Neutrophils # 4.2 K/mm3 (1.8-7.8); Neutrophils % 65.9 % (37.0-80.0); Platelet Count 168 K/mm3 (142-424); Red Blood Count 4.89 M/mm3 (4.20-5.40); Red Cell Distribution Width 13.8 % (11.5-17.5); White Blood Count 6.3 K/mm3 (4.8-10.8)
[2023-11-01 10:23] LABS: Albumin Level 4.5 g/dl (3.5-5.0)
[2023-11-01 10:24] LABS: Albumin Level 4.5 g/dl (3.5-5.0); Chloride 109 mmol/L (98-107); Sodium 138 mmol/L (136-145)
[2023-11-01 10:25] LABS: Potassium 4.4 mmoL/L (3.5-5.1)
[2023-11-01 10:26] LABS: Alanine Aminotransferase 24 U/L (12-78); Alkaline Phosphatase 55 U/L (38-126); Aspartate Amino Transferase 24 U/L (14-36); Bilirubin,Direct 0.3 mg/dl (0.0-0.4); Bilirubin,Indirect 0.9 mg/dL (0.0-0.9); Bilirubin,Total 1.2 mg/dl (0.2-1.3); Bilirubin,Unconjugated 0.9 mg/dL (0.0-1.1)
[2023-11-01 10:27] LABS: Chol/HDL Ratio 2.9 (1-3.5); Cholesterol 121 mg/dl (140-200); HDL Cholesterol 42 mg/dl (40-60); Triglycerides 78 mg/dl (30-150); VLDL Cholesterol 16 mg/dL (0-40)
[2023-11-01 10:27] LABS: Alanine Aminotransferase 24 U/L (12-78); Anion Gap 12.4 mEq/L (5-15); Aspartate Amino Transferase 30 U/L (14-36); Bilirubin,Total 1.3 mg/dl (0.2-1.3); Blood Urea Nitrogen 13 mg/dl (7-17); Carbon Dioxide 21 mmol/L (22.0-30.0); Estimated Glomerular Filt Rate 85 ml/min (>60); GFR (African American) 103 ML/MIN (>60)
[2023-11-01 10:28] LABS: Albumin/Globulin Ratio 1.7 (1.1-1.8); Alkaline Phosphatase 59 U/L (38-126); Globulin 2.6 g/dL (1.3-3.2); Glucose 83 mg/dl (74-100); Total Protein,Serum 7.1 g/dl (6.3-8.2)
[2023-11-01 10:38] LABS: Direct LDL Cholesterol 57.02 mg/dL (100-129)
[2023-11-01 10:39] LABS: Intact Parathyroid Hormone 89.8 pg/mL (7.5-53.5)
[2023-11-01 10:43] LABS: Free Thyroxine Index 4.5 ug/dL (5.93-13.13); T4 (Thyroxine) 12.6 ug/dl (5.53-11.0); Triiodothryronine (T3) Uptake 36 % (23.5-40.5)
[2023-11-01 10:57] LABS: Thyroid Stimulating Hormone 0.46 uIU/mL (0.465-4.68)
[2023-11-01 15:35] LABS: Hemoglobin A1C 5.6 % (4.0-6.0)
== END 2023-11-01 23:59 | disposition home or self-care (01) ==
LOC: LAB 09:27
PROVIDERS: Internal Medicine; PCP Internal Medicine Adolescent Medicine; Visit Provider Internal Medicine Adolescent Medicine
DX: I25.10 Atherosclerotic heart disease of native coronary artery without angina pectoris (principal); K51.00 Ulcerative (chronic) pancolitis without complications; K51.90 Ulcerative colitis, unspecified, without complications; M85.80 Other specified disorders of bone density and structure, unspecified site; E03.9 Hypothyroidism, unspecified; Z72.0 Tobacco use
CPT/HCPCS: 36415; 80050; 80053; 80061; 80076; 83036; 83970; 84436; 84443; 84479; 85025

== ENCOUNTER 2023-12-01 08:16 | Outpatient (CLI) | payer BC, SELFPAY ==
--- NOTE | 2023-12-01 08:16 | NM_ITS ---
FINAL REPORT CLINICAL HISTORY: elevated PTH COMPARISON: None FINDINGS: PARATHYROID SPECT: 20 mCi Technetium 99-M Sestamibi was administered. Planar imaging was performed early and two-hour delayed of the neck and upper thorax. Early imaging shows physiologic uptake within the upper neck involving the salivary glands. No uptake by the thyroid gland is noted. On delayed imaging there is no abnormal retained activity in the lower neck or upper mediastinum to localize parathyroid adenoma. IMPRESSION: No scintigraphic evidence of parathyroid adenoma. There was no uptake noted in the thyroid gland, which can be secondary to prior thyroidectomy, hypothyroid patient, or other disease of the thyroid gland. Reviewed, Interpreted and Dictated by Thanh Yarbrough MD Transcribed by Nida Saba Authenticated and [facility]
== END 2023-12-01 23:59 | disposition home or self-care (01) ==
LOC: RAD 08:16
PROVIDERS: PCP Internal Medicine Adolescent Medicine; Visit Provider Nurse Practitioner
DX: R79.89 Other specified abnormal findings of blood chemistry (principal)
CPT/HCPCS: 78071

== ENCOUNTER 2024-01-26 09:41 | Outpatient (CLI) | payer BC, SELFPAY ==
[2024-01-26 10:25] VITALS: BP 105/65; PULSE 51; RESP 16; O2SAT 96
[2024-01-26] MEDS: ZOLEDRONIC ACID/MANNITOL-WATER 5 MG/100 ML PGGYBK.BTL 400 MG IV (10:25)
[2024-01-26] MEDS: SODIUM CHLORIDE 0.9% 50ML BAG 50 ML IV (10:25)
[2024-01-26 10:40] VITALS: BP 119/72; PULSE 52; RESP 16
== END 2024-01-26 10:40 | disposition home or self-care (01) ==
LOC: INF 09:42
PROVIDERS: PCP Internal Medicine Adolescent Medicine; Visit Provider Internal Medicine Adolescent Medicine
DX: E83.52 Hypercalcemia (principal)
CPT/HCPCS: 96374; J3489

== ENCOUNTER 2024-01-29 10:23 | Outpatient (CLI) | payer BC, SELFPAY ==
--- NOTE | 2024-01-29 10:24 | US_ITS ---
FINAL REPORT CLINICAL HISTORY: LIPOMAS COMPARISON: None FINDINGS: Limited sonographic images were obtained of the soft tissues in the back at the area of interest. There is a multitude of subcutaneous slightly hyperechoic lesions measuring up to 1.3 cm at the area of interest. These are favored to represent multiple subcutaneous lipomas. IMPRESSION: Findings favor lipomas. Reviewed, Interpreted and Dictated by Thanh Yarbrough MD Transcribed by Mitra Gracia Authenticated and [facility]
== END 2024-01-29 23:59 | disposition home or self-care (01) ==
LOC: RAD 10:24
PROVIDERS: PCP Internal Medicine Adolescent Medicine; Visit Provider Surgery
DX: D17.1 Benign lipomatous neoplasm of skin and subcutaneous tissue of trunk (principal)
CPT/HCPCS: 76604

== ENCOUNTER 2024-02-21 13:54 | Outpatient (CLI) | payer BC, SELFPAY ==
[2024-02-21 14:43] VITALS: BMI 28.3
[2024-02-21 15:24] LABS: Basophils # 0.1 K/mm3 (0-0.2); Basophils % 1.1 % (0.1-2.0); Eosinophils # 0.1 K/mm3 (0.0-0.4); Eosinophils % 1.1 % (0.1-12.0); Hematocrit 47.2 % (37.0-47.0); Hemoglobin 15.8 g/dL (12.2-16.2); Lymphocytes # 1.8 K/mm3 (0.7-4.5); Lymphocytes % 26.5 % (10-50); Mean Corpuscular HGB Conc 33.5 g/dL (31.8-35.4); Mean Corpuscular Hemoglobin 30.4 pg (27.0-31.2); Mean Corpuscular Volume 90.9 fl (81-99); Mean Platelet Volume 7.9 fl (7.4-10.4); Monocytes # 0.3 K/mm3 (0.1-1.0); Neutrophils # 4.5 K/mm3 (1.8-7.8); Neutrophils % 67.3 % (37.0-80.0); Platelet Count 179 K/mm3 (142-424); Red Blood Count 5.19 M/mm3 (4.20-5.40); Red Cell Distribution Width 13.5 % (11.5-17.5); White Blood Count 6.7 K/mm3 (4.8-10.8)
[2024-02-21 15:35] LABS: Chloride 105 mmol/L (98-107); Potassium 3.6 mmoL/L (3.5-5.1); Sodium 137 mmol/L (136-145)
[2024-02-21 15:37] LABS: Blood Urea Nitrogen 14 mg/dl (7-17)
[2024-02-21 15:38] LABS: Anion Gap 5.6 mEq/L (5-15); Calcium 9.4 mg/dl (8.4-10.2); Carbon Dioxide 30 mmol/L (22.0-30.0); Creatinine Clearance Estimated 67 mL/min (50-200); Estimated Glomerular Filt Rate 73 ml/min (>60); GFR (African American) 88 ML/MIN (>60); Glucose 87 mg/dl (74-100)
== END 2024-02-21 23:59 | disposition home or self-care (01) ==
LOC: PREOP 13:55
PROVIDERS: PCP Internal Medicine Adolescent Medicine; Visit Provider Surgery
DX: D17.1 Benign lipomatous neoplasm of skin and subcutaneous tissue of trunk (principal)
CPT/HCPCS: 80048; 85025

== ENCOUNTER 2024-02-22 09:27 | Outpatient (POV) | payer BC, SELFPAY ==
[2024-02-22 10:03] VITALS: BP 124/59; PULSE 56; RESP 18; O2SAT 98; BMI 28.3
--- NOTE | 2024-02-22 10:07 | EXP.PAIN.SOA ---
[facility] Disclaimer: The information contained in this section may have been updated after the patient was seen, as this information can be updated by other users. Medical History (Updated 02/21/24 @ 14:14 by Alberto Blanc RN) History of lipoma History of trigger finger CAD (coronary artery disease) Elevated parathyroid hormone Smoking greater than 30 pack years Sinusitis Tickle in throat Deviated septum Chronic cough Sinus headache Trigger finger Meniscal injury Palpitations Arrhythmia HLD (hyperlipidemia) Atypical angina Agatston coronary artery calcium score greater than 400 Post-tussive syncope Syncope and collapse Syncope Surgical History (Updated 02/21/24 @ 14:14 by Alberto Blanc RN) History of tonsillectomy History of colonoscopy History of esophagogastroduodenoscopy (EGD) H/O sinus surgery History of surgery H/O abdominoplasty S/P lateral meniscal repair H/O sinus surgery H/O total hysterectomy Hx of breast reduction, elective History of appendectomy History of thyroidectomy, subtotal Family History Other Brain cancer Cancer of kidney Family history of diabetes mellitus type II Family history of hypothyroidism Family history of myocardial infarction Lung cancer Social History (Updated 02/21/24 @ 14:16 by Alberto Blanc RN) Smoking Status: Current every day smoker tobacco type: cigarettes packs per day: 2 years smoked: 30 second hand exposure: Yes alcohol intake: never substance use type: denies use current occupational status: employed Travel in the last 8 weeks: None household members: spouse housing: house current occupational exposures/hazards: No caffeine: No PM Subjective & Objective Subjective Subjective:: Patient is a pleasant 63-year-old female who presents today for worsening pain in her left shoulder. Patient rates her pain right now a 4 out of 10 however does state that it will go to a 6 or more. Patient states that she is have chronic left shoulder pain for years unrelated to any specific trauma or injury. She does state that it would frequently flareup from time to time however over the last several weeks she has been experiencing much more severe pain. She states it is a sharp stabbing sensation that does affect her ability perform activities of daily living such as cooking and cleaning. Patient states that she sleeps typically with her left shoulder position up above her head and that she has been experiencing worsening pain to where it is altering her sleep patterns. Patient states she has continued conservative treatment including oral medications such as Tylenol, heat and ice and topicals including her compounded cream, Voltaren and lidocaine. Patient has also continued to try and do home exercise and stretching with this joint over the last 12 weeks with no additional improvement. Her Shyam has been reviewed and is appropriate. Review of Systems: General: No recent weight changes, no fever, no sleep disturbances Respiratory: No cough, no shortness of air, no recurring pulmonary infections Cardiovascular/peripheral vascular: No chest pain, no palpitations, no edema, no shortness of breath Gastrointestinal: No new onset incontinence, normal bowel movements reported Genitourinary: No new onset incontinence Musculoskeletal: Left shoulder pain Psychiatric: [Normal mood/affect] Neurological: [Denies weakness in extremities], [denies balance issues] Pain at rest (0-10 scale): 6 Objective Objective:: Physical Exam: General: Alert and oriented x3, no acute distress, pleasant and cooperative Lungs: Respirations even and unlabored, symmetrical chest expansion Eyes: PERRL Musculoskeletal: Flexion and extension of left shoulder somewhat guarded secondary to pain, [antalgic gait noted] Neurological: Speech clear, no gross sensory deficit Has patient had previous pain injection?: No Conservative treatment options previously tried: Home exercise plan Length of treatment: Longer than 12 weeks Meds Home Medications and Allergies Home Medications ?Medication ?Instructions ?Recorded ?Confirmed ?Type aspirin 81 mg chewable tablet 81 mg PO DAILY 30 days #30 tabs 04/17/23 02/22/24 Rx ([facility] Chewable Low Dose Aspirin) levothyroxine 88 mcg tablet 88 mcg PO DAILY 06/01/23 02/22/24 History rosuvastatin 20 mg tablet 20 mg PO DAILY #30 tabs 11/06/23 02/22/24 Rx bisoprolol fumarate 5 mg tablet 5 mg PO DAILY 30 days #90 tabs 11/15/23 02/22/24 Rx prasugrel 10 mg tablet (Effient) 10 mg PO DAILY 30 days #30 tabs 12/05/23 02/22/24 Rx New Prescriptions to Start Prescriptions: Allergies Allergy/AdvReac Type Severity Reaction Status Date / Time No Known Allergies Allergy Verified 02/01/24 10:27 Assessment and Plan *Assessment and plan (1) Left shoulder pain: Status: Acute Qualifiers: Chronicity: chronic Qualified Code(s): M25.512 - Pain in left shoulder; G89.29 - Other chronic pain Category: Medical Code(s): M25.512 - Pain in left shoulder Plan Patient is experiencing significant pain in her left shoulder with very limited range of motion. I did discuss with the patient due to this being a chronic issue that she may benefit from a intra-articular shoulder injection. Patient did have significant difficulty during today's visit with popping with movement. Risk and benefits of this injection were explained to the patient and she would like to proceed forward with this plan of care. Patient has tried and failed conservative therapy including continued at home stretching exercise for longer than 12 weeks. I did also review with her regarding getting x-ray and MRI without contrast of this joint. Patient's stated that she would not be proceeding forward with surgical intervention if there is a tear present. I have counseled her that we can try the injection and if it does not provide significant improvement we will talk about ordering updated imaging. Patient agrees with this plan of care. Patient will be scheduled for a left shoulder intra-articular injection. This will be done without fluoroscopic guidance or ultrasound. Patient has been instructed to contact the clinic with any concerns before the next appointment. Dr. Christianson has reviewed this note and agrees with this plan of care. This note was dictated using voice recognition software and make contain errors or omissions. All injections are used with Lidocaine or Bupivacaine and Depo Medrol.
== END 2024-02-22 23:59 | disposition home or self-care (01) ==
LOC: SC.PAIN 09:29
PROVIDERS: PCP Internal Medicine Adolescent Medicine; Visit Provider Nurse Practitioner Family
DX: M25.512 Pain in left shoulder (principal); G89.29 Other chronic pain; F17.210 Nicotine dependence, cigarettes, uncomplicated
CPT/HCPCS: 99212; G0463

== ENCOUNTER 2024-02-26 06:13 | Day surgery (SDC) | payer BC, SELFPAY ==
[2024-02-21 13:20] VITALS: BMI 27.8
[2024-02-26] VITALS (9 sets, daily range): BP systolic 95–129; BP diastolic 43–77; PULSE 54–81; RESP 16–18; TEMP 36.1–36.6; O2SAT 95–99
[2024-02-26] MEDS: 0.9 % SODIUM CHLORIDE 1000ML 1,000 ML 25 ML IV (06:43)
--- NOTE | 2024-02-26 07:05 | EXP.ANES.CKL ---
[facility] Disclaimer: The information contained in this section may have been updated after the patient was seen, as this information can be updated by other users. Medical History History of lipoma History of trigger finger CAD (coronary artery disease) Elevated parathyroid hormone Smoking greater than 30 pack years Sinusitis Tickle in throat Deviated septum Chronic cough Sinus headache Trigger finger Meniscal injury Palpitations Arrhythmia HLD (hyperlipidemia) Atypical angina Agatston coronary artery calcium score greater than 400 Post-tussive syncope Syncope and collapse Syncope Surgical History History of tonsillectomy History of colonoscopy History of esophagogastroduodenoscopy (EGD) H/O sinus surgery History of surgery H/O abdominoplasty S/P lateral meniscal repair H/O sinus surgery H/O total hysterectomy Hx of breast reduction, elective History of appendectomy History of thyroidectomy, subtotal Family History Other Brain cancer Cancer of kidney Family history of diabetes mellitus type II Family history of hypothyroidism Family history of myocardial infarction Lung cancer Social History Smoking Status: Current every day smoker tobacco type: cigarettes packs per day: 2 years smoked: 30 second hand exposure: Yes alcohol intake: never substance use type: denies use current occupational status: employed Travel in the last 8 weeks: None household members: spouse housing: house current occupational exposures/hazards: No caffeine: No Have you lived/traveled outside [place] in past 30 days?: No Contact w/someone who lives/traveled outside [place] past 30 days?: No Exposure to someone with infectious disease in past 14 days?: No Do you have a fever (greater than 100.4 F or 38 C)?: No Have you tested positive for COVID-19: No Exposed to someone with COVID-19 in past 14 days?: No Do you have a sore throat?: No Do you have a cough?: No Do you have any weakness?: No Do you have any diarrhea?: No Are you experiencing any unusual bleeding?: No Do you have any muscle aches/pain?: No Do you have any abdominal pain?: No Are you experiencing loss of taste or smell?: No [facility] Anesthesia Checklist Patient Identification Patient Identification: Arm Band Structural Data Admitted From: Home Planned Operative Procedure/s: Excision of Lipoma on Back Consent for Planned Operative Procedure(s) Verified: Yes Verified Documents: Surgical Consent and History and Physical NPO Status Verified Time NPO: 00:00 Additional verifications Anesthesia Reactions: No Hx Blood Transfusions: No Blood Transfusion Reaction: No Airway Assessment Mallampati Score:: Class II C-Spine Mobility Assessed: Yes TMJ Mobility Assessed: Yes Dentition: Good Dentition Neurological Assessment Level of Consciousness: Awake, Alert and Appropriate Anesthesia Plan Anesthesia Risk discussed: Yes Anesthesia Plan: Verified ASA Class: III Anesthesia Type: General
[2024-02-26] MEDS: CEFAZOLIN SODIUM 2 GM in 0.9 % SODIUM CHLORIDE 100 ML IV (07:10)
--- NOTE | 2024-02-26 07:14 | P.OP_ITS ---
Date of procedure: 02/26/24 Pre-op Diagnosis:: Possible lipoma Post-op Diagnosis:: Possible lipoma Procedure performed:: Excision of possible lipoma, 4 cm, with intermediate complexity closure Surgeon:: Onesimo Ramirez MD FORGING PRESS LEVER TENDER:: Edward Quispe Anesthesia: local and LMA Estimated blood loss (mL): 3 Clinical Note:: Patient presents for excision of lipoma. She previously had several small various sized lipomas on the back which she wished to have excised. I excised 5 lipomas on 11/08/2021. These were rather subtle on examination. She recently presented to the office with concerns for possible recurrent or an additional lipoma that was above the scar near her right shoulder blade. She describes the pain as severe and lifestyle limiting . She has radiation of the pain. When I saw her in the office on 01/25/2024 I was unable to clearly palpate any area. She did have some point tenderness about 1 cm above the scar. I had her undergo ultrasound. Interestingly this reveals a multitude of subcutaneous slightly hyperechoic lesions measuring up to 1.3 cm favored to represent multiple subcutaneous lipomas. On examination at that time she had palpable point tenderness about a centimeter above the scar near her right scapula. I was unable to palpate any definite lipoma. It was quite subtle on examination. However, the patient stated that she strongly wished to pursue excision as the pain interferes with her quality of life. I did inform her that operative exploration and excision may not alleviate her symptoms. However, she strongly wished to proceed with excision. Plan was made for excision of the possible lipoma from the right upper back under anesthesia. When she presented to the preoperative area she stated that as the ultrasound has shown before she also had an area in the right lower thoracic region as well. However, with the patient giving assistance on guidance to the possible area neither she nor I was able to palpate any lipoma or locate any area of point tenderness. Given the point tenderness of the possible lesion near the right scapula plan was made to proceed with excision of this only. As the area was not palpable, the point was marked with permanent skin marker with the assistance of the patient to aid in l ocation of incision. . Operative findings:: Subtle subcutaneous tissue Operative note:: Consent was obtained patient taken the operating room. Anesthesia was induced via LMA. Due to some complaints of pain in her left shoulder and seeing pain management she was positioned in a right lateral position. The area was prepped and draped. Palpation was performed under anesthesia. There was no definitely palpable lipoma. Incision was made over the previously marked site. Dissection was carried down through dermis to superficial subcutaneous tissues. Repeated exploration was carried out digitally and no definite lipoma was able to be palpated. Dissection was carried out the subcutaneous fascia which was incised. Repeated palpation revealed no definite lipoma. Fascia was incised over the muscle and the muscle was partially split. No definite lipoma was identified. Exploration was carried out in the subcutaneous area and there was some mild, tiny, prominent subcutaneous tissue which was excised and sent as specimen. Hemostasis was achieved with electrocautery. Local anesthetic was infiltrated. Muscle was reapproximated with 3-0 Vicryl. Fascia was closed with 3-0 Vicryl in interrupted fashion. Subdermal tissues were reapproximated with 3-0 Vicryl. Skin was closed with 4-0 Monocryl in a running subcuticular fashion. Dermabond and dressing was applied. Condition: stable Disposition: PACU Complications:: None immediately apparent
[2024-02-26] MEDS: ROPIVACAINE 0.5% 30ML VIAL 150 MG (07:30)
[2024-02-26] MEDS: LIDOCAINE 1% 20ML MDV 20 ML (07:30)
--- NOTE | 2024-02-26 08:09 | P.PNANES_ITS ---
[facility] Anesthesia Record Part I Anesthesia Record I Intake, IV Amount: 900 Hydration: Adequate Estimated blood loss (mL): 2 Urine output (mL): 0 Blood Products used (#): none Blood Pressure: 129/77 SaO2: 96 Pulse Rate: 81 Airway Patency: Patent Respiratory Rate: 16 Temperature: 97.6 F Patient is:: Drowsy and Stable Stable to PACU at:: 08:02
--- NOTE | 2024-02-26 09:12 | P.PNANES_ITS ---
[facility] Anesthesia Record Part II Anesthesia Record Part II Discharge Time: 08:32 Destination: Surgical Day Care (OP Surgery) PACU nurse assessment reviewed?: Yes Patient Condition:: Good Anesthesia Complications:: None Swallowing reflex intact?: Yes Airway Patency: Patent Cyanosis?: No Blood Pressure: 100/64 SaO2: 99 Respiratory Rate: 16 Pulse Rate: 69 Temperature: 97.6 F Mental Status: Alert & Oriented Pain level:: 0 Nausea and/or vomitting:: None Intake, IV Amount: 0 Hydration: Adequate
== END 2024-02-26 09:01 | disposition home or self-care (01) ==
PROVIDERS: PCP Internal Medicine Adolescent Medicine; Visit Provider Surgery
PROC: (CPT 11404; principal; 2024-02-26 07:30)
DX: D17.22 Benign lipomatous neoplasm of skin and subcutaneous tissue of left arm (principal)
CPT/HCPCS: 11404; 12031; 96374; J0690; J1100; J2250; J2405; J3010; J7030

== ENCOUNTER 2024-03-01 10:09 | Outpatient (CLI) | payer BC, SELFPAY ==
[2024-03-01 11:01] LABS: Alanine Aminotransferase 26 U/L (12-78); Albumin Level 4.4 g/dl (3.5-5.0); Albumin/Globulin Ratio 1.7 (1.1-1.8); Alkaline Phosphatase 59 U/L (38-126); Anion Gap 9.3 mEq/L (5-15); Aspartate Amino Transferase 28 U/L (14-36); Bilirubin,Total 0.9 mg/dl (0.2-1.3); Blood Urea Nitrogen 17 mg/dl (7-17); Calcium 9.3 mg/dl (8.4-10.2); Carbon Dioxide 30 mmol/L (22.0-30.0); Chloride 104 mmol/L (98-107); Estimated Glomerular Filt Rate 56 ml/min (>60); GFR (African American) 68 ML/MIN (>60); Globulin 2.6 g/dL (1.3-3.2); Glucose 86 mg/dl (74-100); Potassium 5.3 mmoL/L (3.5-5.1); Sodium 138 mmol/L (136-145)
[2024-03-01 11:12] LABS: Intact Parathyroid Hormone 131.2 pg/mL (7.5-53.5)
[2024-03-01 11:20] LABS: 25-OH Vitamin D, Total 42.2 ng/mL (30-100)
[2024-03-04 15:24] LABS: Calcium, Ionized 4.8 mg/dL (4.5-5.6)
== END 2024-03-01 23:59 | disposition home or self-care (01) ==
LOC: LAB 10:10
PROVIDERS: PCP Internal Medicine Adolescent Medicine; Visit Provider Nurse Practitioner
DX: E21.3 Hyperparathyroidism, unspecified (principal); Z68.27 Body mass index [BMI] 27.0-27.9, adult; E66.3 Overweight
CPT/HCPCS: 36415; 80053; 82306; 82330; 83970

== ENCOUNTER 2024-03-04 08:57 | Outpatient (CLI) | payer BC, SELFPAY ==
[2024-03-04 11:52] LABS: Creatinine,Urine Random 41 mg/dL (Not Estab.)
[2024-03-04 11:57] LABS: Collection Time,Urine 24 hours; Creatinine 24 Hour,Urine 1148 mg/24hr (630-2500); Total Volume,Urine 2800 mL (600-1600)
[2024-03-05 12:09] LABS: Calcium, Urine 5.3 mg/dL (Not Estab.); Calcium, Urine 24hr 143 mg/24 hr (0-320)
== END 2024-03-04 23:59 | disposition home or self-care (01) ==
LOC: LAB 08:58
PROVIDERS: PCP Internal Medicine Adolescent Medicine; Visit Provider Nurse Practitioner
DX: E21.3 Hyperparathyroidism, unspecified (principal)
CPT/HCPCS: 36415; 82340; 82570

== ENCOUNTER 2024-03-12 09:45 | Day surgery (SDC) | payer BC, SELFPAY ==
[2024-03-12 10:31] VITALS: BP 122/63; PULSE 53; RESP 16; TEMP 36.2; O2SAT 99; BMI 28.0
[2024-03-12 11:09] VITALS: BP 120/70; PULSE 89; RESP 16; TEMP 36.3; O2SAT 99
[2024-03-12] MEDS: methylPREDNISolone ACETATE 80MG/ML VIAL 80 MG (11:15)
[2024-03-12] MEDS: BUPIVACAINE 0.25% 10ML INJ 25 MG IJ (11:15)
[2024-03-12] MEDS: LIDOCAINE 1% 5ML PF VIAL 5 ML (11:15)
[2024-03-12 11:16] VITALS: BP 149/74; PULSE 52; RESP 18; O2SAT 98
[2024-03-12 11:19] VITALS: BP 149/74; PULSE 52; RESP 18; O2SAT 98
--- NOTE | 2024-03-12 11:23 | EXP.PAIN.PRO ---
Procedure Date: 03/12/24 Time: 10:30 Anesthesiologist:: Dar Nayak CRNA Complications:: None Pre-procedure Diagnosis:: DJD left shoulder. Chronic left shoulder pain. Post-procedure Diagnosis:: Same. Indications for Procedure:: Patient is a pleasant 63-year-old female who comes our clinic today for left intra-articular shoulder injection of cortisone and local anesthetic. Patient has 5/5 strength in the left arm. However, decreased range of motion due to left shoulder pain. Patient has difficulty with abduction and extension of the left arm. She rates her pain 8/10. Procedure Details:: Procedure Details: Left shoulder intra-articular injection Informed consent was obtained risk and benefits of the procedure were explained to the patient. Patient was taken to the procedure room. The Left shoulder was prepped using ChloraPrep. A 25-gauge needle was used posteriorly to inject 10 mL bupivacaine 0.25% and Depo-Medrol 40 mg. Patient tolerated procedure well with no complications. Plan and Disposition:: My advice to the patient is physical therapy of the left shoulder. Also, orthopedic evaluation. She was discharged without incident.
== END 2024-03-12 11:09 | disposition home or self-care (01) ==
PROVIDERS: PCP Internal Medicine Adolescent Medicine; Visit Provider Nurse Anesthetist, Certified Registered
DX: M19.012 Primary osteoarthritis, left shoulder (principal); M25.512 Pain in left shoulder; G89.29 Other chronic pain
CPT/HCPCS: 20610; J1010

== ENCOUNTER 2024-04-12 09:32 | Day surgery (SDC) | payer BC, SELFPAY ==
[2024-03-26 13:54] VITALS: BMI 28.3
--- NOTE | 2024-04-12 09:51 | HMH.SCOPE ---
Procedure: Date: 04/12/24 Patient Date of :: 1960 Procedure Performed:: Colonoscopy to terminal ileum with polypectomy using biopsy forceps Indications:: Patient is a 63-year-old female who presents for follow-up colonoscopy due to history of polyps. She underwent colonoscopy with Dr. Bishop in 2016 which was reportedly normal. I did colonoscopy on 09/01/2023 essentially for screening purposes. This was done along with upper endoscopy due to her having somewhat of a chronic cough. She was found to have sigmoid diverticulosis and a tubular adenoma in the transverse colon. There were some other benign polyps. However preparation of the right colon was unable to be cleared as it had thick pasty adherent stool to the ness. Repeat colonoscopy was recommended for 6 to 12 months. She underwent prep with Pattiiq. . Performing Provider:: Onesimo Ramirez MD Referring Provider:: Pj Higuera MD Sedation:: MAC sedation Procedure:: Patient history was obtained and appropriate physical examination was performed. Patient's medications and allergies were reviewed. Informed consent was obtained after explaining the benefits, alternatives, and risks of the procedure including, but not limited to, bleeding, perforation, missed lesions, and adverse reaction to anesthesia medications. Patient was transported to endoscopy procedure room. Patient was connected to monitoring devices. Throughout the procedure the patient's blood pressure, pulse, and oxygen saturations were monitored continuously. Patient identification and planned procedure were verified by the staff. Patient was positioned in lateral decubitus position. Digital anorectal exam was performed. Variable stiffness Olympus colonoscope was inserted and advanced under direct visualization to the cecum. Adequacy of the colonic preparation was noted. The colonoscope was advanced a short distance into the terminal ileum. The colonoscope was then slowly withdrawn while carefully examining the color, texture, anatomy, and integrity of the mucosoa circumferentially. Within the rectum retroflexion was performed. Colonoscope was then withdrawn. Impression: Colonic preparation was good. In the cecum in the periappendiceal location there is an extremely tiny diminutive but adenomatous appearing polyp removed with biopsy forceps. She did have some sigmoid diverticulosis. There were a couple of diminutive polyps in the descending colon removed with biopsy forceps. In the sigmoid colon there were a couple of diminutive polyps removed with biopsy forceps. In the rectosigmoid region there was a tiny diminutive polyp removed with biopsy forceps. In the rectum retroflexion revealed some minimal internal hemorrhoids and a couple of distal rectal polyps removed with biopsy forceps. . Findings:: Good preparation Colonic polyps as above. Most of these appeared hyperplastic. Cecal polyp was adenomatous appearing but was extremely tiny and diminutive. Diverticulosis . Recommendations:: Repeat colonoscopy pending pathology. Likely 3 to 5 years. Consider earlier if any of the rectal polyps are adenomatous. Complications:: None immediately apparent Estimated blood obtained (mL): 2 Colonoscopy Component Colonoscopy Component Was a colonoscopy performed during today's procedure?: Yes Recommended follow up colonoscopy of at least 10 years?: No If no, follow up colonoscopy recommended in ___ years?: See above Reason for not recommending >/= 10 yr follow-up interval?: See above
[2024-04-12 10:07] VITALS: BP 131/68; PULSE 58; RESP 18; TEMP 36.2; O2SAT 96; BMI 28.8
[2024-04-12] MEDS: LACTATED RINGERS 1000ML 1,000 ML 50 ML IV (10:17)
[2024-04-12 10:23] VITALS: O2SAT 96
[2024-04-12 11:02] VITALS: BP 87/50; PULSE 76; RESP 18; O2SAT 97
[2024-04-12 11:12] VITALS: BP 96/60; PULSE 85; RESP 18; O2SAT 99
[2024-04-12 11:22] VITALS: BP 108/65; PULSE 70; RESP 18; O2SAT 99
[2024-04-12 11:32] VITALS: BP 107/61; PULSE 70; RESP 18; O2SAT 99
== END 2024-04-12 11:32 | disposition home or self-care (01) ==
PROVIDERS: PCP Internal Medicine Adolescent Medicine; Visit Provider Surgery
PROC: 0DJD8ZZ Inspection of Lower Intestinal Tract, Via Natural or Artificial Opening Endoscopic (ICD-10-PCS; CPT 45380; principal; 2024-04-12 10:30)
DX: K63.5 Polyp of colon (principal); K57.30 Diverticulosis of large intestine without perforation or abscess without bleeding; K64.8 Other hemorrhoids; Z86.0100 Personal history of colon polyps, unspecified
CPT/HCPCS: 45380; J7120

== ENCOUNTER 2024-05-13 11:42 | Outpatient (POV) | payer BC, SELFPAY ==
[2024-05-13 11:55] VITALS: BP 115/62; PULSE 62; RESP 14; O2SAT 100; BMI 29.0
--- NOTE | 2024-05-13 11:56 | EXP.PAIN.SOA ---
[facility] Disclaimer: The information contained in this section may have been updated after the patient was seen, as this information can be updated by other users. Medical History History of lipoma History of trigger finger CAD (coronary artery disease) Elevated parathyroid hormone Smoking greater than 30 pack years Sinusitis Tickle in throat Deviated septum Chronic cough Sinus headache Trigger finger Meniscal injury Palpitations Arrhythmia HLD (hyperlipidemia) Atypical angina Agatston coronary artery calcium score greater than 400 Post-tussive syncope Syncope and collapse Syncope Surgical History History of surgery bladder sling History of tonsillectomy History of colonoscopy History of esophagogastroduodenoscopy (EGD) H/O sinus surgery History of surgery HEART CATH - 1 STENT PLACED H/O abdominoplasty S/P lateral meniscal repair x2 H/O sinus surgery H/O total hysterectomy Hx of breast reduction, elective History of appendectomy History of thyroidectomy, subtotal Family History Other Brain cancer Cancer of kidney Family history of diabetes mellitus type II Family history of hypothyroidism Family history of myocardial infarction Lung cancer Social History Smoking Status: Current every day smoker tobacco type: cigarettes packs per day: 2 years smoked: 30 second hand exposure: Yes alcohol intake: never substance use type: denies use current occupational status: other Travel in the last 8 weeks: None household members: spouse housing: house current occupational exposures/hazards: No caffeine: Yes PM Subjective & Objective Subjective Subjective:: Patient is a pleasant 63-year-old female who presents today for follow-up of left intra-articular shoulder injection on 03/12/2024. Today she rates that pain at 3 out of 10. She states she has had at least 80% improvement and feels like it is still helping. Patient states she has been able to increase her activity with that shoulder since. She states that certain movements or lifting so much she does still cause some pain however it is much more manageable and not severe. Patient does however states she still has chronic back pain around her mid back. Patient states that she did have about 6 lipomas removed down by her right shoulder blade however continues to have severe pain in and around the scar area. Patient states that it is constant and it does interfere with her ability perform activities of daily living such as cooking and cleaning. Patient is interested in helping may be able to provide. Patient has tried and failed conservative therapy including oral medication, heat and ice, topicals including the compounded cream, Voltaren and lidocaine as well as continued at home stretching exercise for longer than 12 weeks. Patient does rate this pain in this location a 10 out of 10. Her Shyam has been reviewed and is appropriate. Review of Systems: General: No recent weight changes, no fever, no sleep disturbances Respiratory: No cough, no shortness of air, no recurring pulmonary infections Cardiovascular/peripheral vascular: No chest pain, no palpitations, no edema, no shortness of breath Gastrointestinal: No new onset incontinence, normal bowel movements reported Genitourinary: No new onset incontinence Musculoskeletal: Chronic back pain Psychiatric: [Normal mood/affect] Neurological: [Denies weakness in extremities], [denies balance issues] Pain at rest (0-10 scale): 10 Objective Objective:: Physical Exam: General: Alert and oriented x3, no acute distress, pleasant and cooperative Lungs: Respirations even and unlabored, symmetrical chest expansion Eyes: PERRL Musculoskeletal: Flexion and extension of thoracic [spine] somewhat guarded secondary to pain, [antalgic gait noted] extreme point tenderness along her right thoracic paraspinous and latissimus muscles Neurological: Speech clear, no gross sensory deficit Has patient had previous pain injection?: Yes Percent improvement in pain since last injection: 80% Conservative treatment options previously tried: Home exercise plan Length of treatment: Longer than 12 weeks Meds Home Medications and Allergies Home Medications ?Medication ?Instructions ?Recorded ?Confirmed ?Type aspirin 81 mg chewable tablet 81 mg PO DAILY 30 days #30 tabs 04/17/23 05/13/24 Rx ([facility] Chewable Low Dose Aspirin) levothyroxine 88 mcg tablet 88 mcg PO DAILY 06/01/23 05/13/24 History rosuvastatin 20 mg tablet 20 mg PO DAILY #30 tabs 11/06/23 05/13/24 Rx omeprazole 20 mg capsule,delayed 40 mg (2 x 20 mg) PO DAILY gerd 03/28/24 05/13/24 Rx release #120 caps prasugrel HCl 10 mg tablet 10 mg PO DAILY 04/11/24 05/13/24 History New Prescriptions to Start Prescriptions: Allergies Allergy/AdvReac Type Severity Reaction Status Date / Time No Known Allergies Allergy Verified 04/18/24 09:51 Assessment and Plan *Assessment and plan (1) Myofascial pain on right side: Status: Acute Category: Medical Code(s): M79.18 - Myalgia, other site (2) Thoracic radiculopathy: Status: Acute Category: Medical Code(s): M54.14 - Radiculopathy, thoracic region (3) Degenerative disc disease, thoracic: Status: Acute Category: Medical Code(s): M51.34 - Other intervertebral disc degeneration, thoracic region (4) Mid back pain: Status: Acute Category: Medical Code(s): M54.9 - Dorsalgia, unspecified Plan Patient did have extreme point tenderness along her right thoracic paraspinous/latissimus muscles with limited range of motion of her thoracic spine. I did discuss with the patient that I do believe she would benefit from trigger point injections at this location. Risk and benefits were discussed with the patient and she would like to proceed forward with this plan of care. Patient has tried and failed conservative therapy. Patient will be scheduled for trigger point injections of this region without fluoroscopic or ultrasound guidance. Patient has been instructed to contact the clinic with any concerns before the next appointment. Dr. Christianson has reviewed this note and agrees with this plan of care. This note was dictated using voice recognition software and make contain errors or omissions. All injections are used with Lidocaine, Bupivacaine and Depo Medrol. Occasionally urine drug screen is needed to verify patient's compliance with our office pain contract. This is ordered based off specific treatments related to chronic pain with the potential to abuse certain medications.
== END 2024-05-13 23:59 | disposition home or self-care (01) ==
LOC: SC.PAIN 11:43
PROVIDERS: PCP Internal Medicine Adolescent Medicine; Visit Provider Nurse Practitioner Family
DX: M79.18 Myalgia, other site (principal); M51.14 Intervertebral disc disorders with radiculopathy, thoracic region; M54.9 Dorsalgia, unspecified; F17.210 Nicotine dependence, cigarettes, uncomplicated; Z73.89 Other problems related to life management difficulty
CPT/HCPCS: 99212; G0463

== ENCOUNTER 2024-05-24 08:44 | Day surgery (SDC) | payer BC, SELFPAY ==
[2024-05-24 08:50] VITALS: BP 125/56; PULSE 64; RESP 16; TEMP 36.8; O2SAT 100; BMI 28.8
--- NOTE | 2024-05-24 09:08 | P.PCN_ITS ---
Procedure Date: 05/24/24 Time: 09:30 Anesthesiologist:: Shreya Kirkpatrick APRN Complications:: None Pre-procedure Diagnosis:: Myofascial pain of right thoracic paraspinous muscles, degenerative disc disease of thoracic spine with thoracic radiculopathy symptoms Post-procedure Diagnosis:: Same Indications for Procedure:: Patient is a pleasant 63-year-old female who presents today for trigger point injections of her right thoracic paraspinous muscles. Today she rates her pain a 2 out of 10 however does state as the day goes on it will go to a 7 or 8 out of 10. Patient states that she is still having that same pain there in her mid back with tenderness around where she had previous lipomas removed. Patient denies any new falls or injuries. Patient does state that her left shoulder injection is still working well. Her Shyam has been reviewed and is appropriate. Physical Exam: General: Alert and oriented x3, no acute distress, pleasant and cooperative Lungs: Respirations even and unlabored, symmetrical chest expansion Eyes: PERRL Musculoskeletal: Flexion and extension of thoracic [spine] somewhat guarded secondary to pain, [antalgic gait noted] Neurological: Speech clear, no gross sensory deficit Procedure Details:: Patient did have noninvasive blood pressure cuff applied and pulse oximeter. Patient was placed in a sitting position and palpated along her right rhomboid and thoracic paraspinous muscles. Areas of point tenderness were marked and using a sterile 25-gauge needle approximately 10 mL of 0.25% bupivacaine, 1% lidocaine and 80 mg Depo-Medrol were incrementally injected into her right rhomboid and thoracic paraspinous muscles. Needle was removed and sterile bandages applied. Patient tolerated the procedure well with no complications and was discharged neurologically intact. Plan and Disposition:: Patient tolerated the procedure well with no complications and was discharged neurologically intact. Patient will return to clinic in 2 weeks for reevalu ation of symptoms and plan of care. Patient has been instructed to contact the clinic with any concerns before the next appointment. Dr. Christianson has reviewed this note and agrees with this plan of care. This note was dictated using voice recognition software and make contain errors or omissions. All injections are used with Lidocaine, Bupivacaine and Depo Medrol. Occasionally urine drug screen is needed to verify patient's compliance with our office pain contract. This is ordered based off specific treatments related to chronic pain with the potential to abuse certain medications.
[2024-05-24] MEDS: LIDOCAINE 1% 5ML PF VIAL 5 ML (09:24)
[2024-05-24 09:25] VITALS: BP 129/71; PULSE 59; RESP 18; O2SAT 96
[2024-05-24] MEDS: BUPIVACAINE 0.25% 10ML INJ 25 MG IJ (09:25)
[2024-05-24] MEDS: methylPREDNISolone ACETATE 80MG/ML VIAL 80 MG (09:25)
[2024-05-24 09:26] VITALS: BP 129/71; PULSE 62; RESP 18; O2SAT 97
[2024-05-24 09:45] VITALS: BP 115/71; PULSE 63; RESP 16; O2SAT 97
== END 2024-05-24 09:45 | disposition home or self-care (01) ==
PROVIDERS: PCP Internal Medicine Adolescent Medicine; Visit Provider Nurse Practitioner Family
DX: M79.18 Myalgia, other site (principal); M51.14 Intervertebral disc disorders with radiculopathy, thoracic region
CPT/HCPCS: 20553; J1010

== ENCOUNTER 2024-06-07 13:44 | Outpatient (POV) | payer BC, SELFPAY ==
--- NOTE | 2024-06-07 13:51 | EXP.PAIN.SOA ---
[facility] Disclaimer: The information contained in this section may have been updated after the patient was seen, as this information can be updated by other users. Medical History History of lipoma History of trigger finger CAD (coronary artery disease) Elevated parathyroid hormone Smoking greater than 30 pack years Sinusitis Tickle in throat Deviated septum Chronic cough Sinus headache Trigger finger Meniscal injury Palpitations Arrhythmia HLD (hyperlipidemia) Atypical angina Agatston coronary artery calcium score greater than 400 Post-tussive syncope Syncope and collapse Syncope Surgical History History of surgery bladder sling History of tonsillectomy History of colonoscopy History of esophagogastroduodenoscopy (EGD) H/O sinus surgery History of surgery HEART CATH - 1 STENT PLACED H/O abdominoplasty S/P lateral meniscal repair x2 H/O sinus surgery H/O total hysterectomy Hx of breast reduction, elective History of appendectomy History of thyroidectomy, subtotal Family History Other Brain cancer Cancer of kidney Family history of diabetes mellitus type II Family history of hypothyroidism Family history of myocardial infarction Lung cancer Social History Smoking Status: Current every day smoker tobacco type: cigarettes packs per day: 2 years smoked: 30 second hand exposure: Yes alcohol intake: never substance use type: denies use current occupational status: other Travel in the last 8 weeks: None household members: spouse housing: house current occupational exposures/hazards: No caffeine: Yes PM Subjective & Objective Subjective Subjective:: Patient is a pleasant 63-year-old female who presents today for follow-up of trigger point injections of her right thoracic paraspinous muscles on 05/24/2024. She rates her pain today a 2 out of 10. She denies any new trauma or injury. She does state that she feels like the injections did help the day of but really was more while it was nice and numb. She states that after that she felt like it was basically back to its normal. Patient does state that is fairly constant and remains tender to touch more around the area of her last lipoma excision. Patient denies any other changes. At her last visit we did discuss that she may be a beneficial candidate of a pump trial however she does state that at this time she would like to wait. She states she is just overall not very comfortable with the idea of a mechanical device that malfunction. Her Shyam has been reviewed and is appropriate. Review of Systems: General: No recent weight changes, no fever, no sleep disturbances Respiratory: No cough, no shortness of air, no recurring pulmonary infections Cardiovascular/peripheral vascular: No chest pain, no palpitations, no edema, no shortness of breath Gastrointestinal: No new onset incontinence, normal bowel movements reported Genitourinary: No new onset incontinence Musculoskeletal: Mid back pain Psychiatric: [Normal mood/affect] Neurological: [Denies weakness in extremities], [denies balance issues] Pain at rest (0-10 scale): 2 Objective Objective:: Physical Exam: General: Alert and oriented x3, no acute distress, pleasant and cooperative Lungs: Respirations even and unlabored, symmetrical chest expansion Eyes: PERRL Musculoskeletal: Flexion and extension of thoracic [spine] somewhat guarded secondary to pain, [antalgic gait noted] Neurological: Speech clear, no gross sensory deficit Has patient had previous pain injection?: Yes Percent improvement in pain since last injection: Only while numb Conservative treatment options previously tried: Home exercise plan Length of treatment: Longer than 12 weeks Meds Home Medications and Allergies Home Medications ?Medication ?Instructions ?Recorded ?Confirmed ?Type aspirin 81 mg chewable tablet 81 mg PO DAILY 30 days #30 tabs 04/17/23 06/07/24 Rx ([facility] Chewable Low Dose Aspirin) levothyroxine 88 mcg tablet 88 mcg PO DAILY 06/01/23 06/07/24 History rosuvastatin 20 mg tablet 20 mg PO DAILY #30 tabs 11/06/23 06/07/24 Rx omeprazole 20 mg capsule,delayed 40 mg (2 x 20 mg) PO DAILY gerd 03/28/24 06/07/24 Rx release #120 caps prasugrel HCl 10 mg tablet 10 mg PO DAILY 04/11/24 06/07/24 History baclofen 5 mg tablet 5 mg PO TID #42 tabs 06/07/24 Rx New Prescriptions to Start Prescriptions: baclofen Shreya Kirkpatrick Allergies Allergy/AdvReac Type Severity Reaction Status Date / Time No Known Allergies Allergy Verified 04/18/24 09:51 Assessment and Plan *Assessment and plan (1) Myofascial pain on right side: Status: Acute Category: Medical Code(s): M79.18 - Myalgia, other site (2) Thoracic radiculopathy: Status: Acute Category: Medical Code(s): M54.14 - Radiculopathy, thoracic region (3) Degenerative disc disease, thoracic: Status: Acute Category: Medical Code(s): M51.34 - Other intervertebral disc degeneration, thoracic region (4) Mid back pain: Status: Acute Category: Medical Code(s): M54.9 - Dorsalgia, unspecified Plan I did discuss with the patient that since she did get improvement while the numbing medication was working however which is very temporary that it may be beneficial to try muscle relaxer. Patient states in the past she has been tried on Flexeril and it did nothing. I will send in a 2-week dose of baclofen 5 mg 3 times daily. Patient will return to clinic in 2 weeks. Patient has been instructed to contact the clinic with any concerns before the next appointment. Dr. Christianson has reviewed this note and agrees with this plan of care. This note was dictated using voice recognition software and make contain errors or omissions. All injections are used with Lidocaine, Bupivacaine and Depo Medrol. Occasionally urine drug screen is needed to verify patient's compliance with our office pain contract. This is ordered based off specific treatments related to chronic pain with the potential to abuse certain medications.
[2024-06-07 14:02] VITALS: BP 108/60; PULSE 64; RESP 14; O2SAT 98; BMI 28.3
== END 2024-06-07 23:59 | disposition home or self-care (01) ==
PROVIDERS: PCP Internal Medicine Adolescent Medicine; Visit Provider Nurse Practitioner Family
DX: M79.18 Myalgia, other site (principal); M51.14 Intervertebral disc disorders with radiculopathy, thoracic region; M54.9 Dorsalgia, unspecified; F17.210 Nicotine dependence, cigarettes, uncomplicated
CPT/HCPCS: 99212; G0463

== ENCOUNTER 2024-06-12 11:22 | Outpatient (CLI) | payer BC, SELFPAY ==
[2024-06-12 12:34] LABS: Troponin I < 0.01 ng/ml (0.00-0.034)
== END 2024-06-12 23:59 | disposition home or self-care (01) ==
LOC: LAB 11:22
PROVIDERS: PCP Internal Medicine Adolescent Medicine; Visit Provider Physician Assistant
DX: R07.9 Chest pain, unspecified (principal)
CPT/HCPCS: 36415; 84484

== ENCOUNTER 2024-06-20 11:33 | Outpatient (POV) | payer BC, SELFPAY ==
[2024-06-20 11:45] VITALS: BP 110/69; PULSE 60; RESP 14; O2SAT 97; BMI 28.1
--- NOTE | 2024-06-20 11:50 | EXP.PAIN.SOA ---
[facility] Disclaimer: The information contained in this section may have been updated after the patient was seen, as this information can be updated by other users. Medical History History of lipoma History of trigger finger CAD (coronary artery disease) Elevated parathyroid hormone Smoking greater than 30 pack years Sinusitis Tickle in throat Deviated septum Chronic cough Sinus headache Trigger finger Meniscal injury Palpitations Arrhythmia HLD (hyperlipidemia) Atypical angina Agatston coronary artery calcium score greater than 400 Post-tussive syncope Syncope and collapse Syncope Surgical History History of surgery bladder sling History of tonsillectomy History of colonoscopy History of esophagogastroduodenoscopy (EGD) H/O sinus surgery History of surgery HEART CATH - 1 STENT PLACED H/O abdominoplasty S/P lateral meniscal repair x2 H/O sinus surgery H/O total hysterectomy Hx of breast reduction, elective History of appendectomy History of thyroidectomy, subtotal Family History Other Brain cancer Cancer of kidney Family history of diabetes mellitus type II Family history of hypothyroidism Family history of myocardial infarction Lung cancer Social History Smoking Status: Current every day smoker tobacco type: cigarettes packs per day: 2 years smoked: 30 second hand exposure: Yes alcohol intake: never substance use type: denies use current occupational status: other Travel in the last 8 weeks: None household members: spouse housing: house current occupational exposures/hazards: No caffeine: Yes PM Subjective & Objective Subjective Subjective:: Patient is a pleasant 63-year-old female who presents today for 2-week follow-up. Today she rates her pain a 3 out of 10. She denies any new falls or injuries. Patient does state that the baclofen we sent in a 5 mg 3 times a day did not seem to do anything. Patient states she only tried it 2 times and did not notice any worthwhile improvement. She does state that she still has the same mid back pain that does interfere with activities of daily living such as cooking and cleaning. Patient at our last visit did discuss about the possibility of a pump trial in future however she still states that she is not necessarily comfortable with proceeding forward with that option at this time. Patient would still like to try other conservative measures. Her Shyam has been reviewed and is appropriate. Review of Systems: General: No recent weight changes, no fever, no sleep disturbances Respiratory: No cough, no shortness of air, no recurring pulmonary infections Cardiovascular/peripheral vascular: No chest pain, no palpitations, no edema, no shortness of breath Gastrointestinal: No new onset incontinence, normal bowel movements reported Genitourinary: No new onset incontinence Musculoskeletal: Mid back pain Psychiatric: [Normal mood/affect] Neurological: [Denies weakness in extremities], [denies balance issues] Pain at rest (0-10 scale): 3 Objective Objective:: Physical Exam: General: Alert and oriented x3, no acute distress, pleasant and cooperative Lungs: Respirations even and unlabored, symmetrical chest expansion Eyes: PERRL Musculoskeletal: Flexion and extension of thoracic [spine] somewhat guarded secondary to pain, [antalgic gait noted] Neurological: Speech clear, no gross sensory deficit Has patient had previous pain injection?: No Conservative treatment options previously tried: Home exercise plan Length of treatment: Longer than 12 weeks Meds Home Medications and Allergies Home Medications ?Medication ?Instructions ?Recorded ?Confirmed ?Type aspirin 81 mg chewable tablet 81 mg PO DAILY 30 days #30 tabs 04/17/23 06/20/24 Rx ([facility] Chewable Low Dose Aspirin) levothyroxine 88 mcg tablet 88 mcg PO DAILY 06/01/23 06/20/24 History rosuvastatin 20 mg tablet 20 mg PO DAILY #30 tabs 11/06/23 06/20/24 Rx omeprazole 20 mg capsule,delayed 40 mg (2 x 20 mg) PO DAILY gerd 03/28/24 06/20/24 Rx release #120 caps baclofen 5 mg tablet 5 mg PO TID PRN Muscle Pain 06/12/24 06/20/24 History cholecalciferol (vitamin D3) 25 25 mcg PO DAILY 06/12/24 06/20/24 History mcg (1,000 unit) capsule cyanocobalamin (vitamin B-12) 500 500 mcg PO DAILY 06/12/24 06/20/24 History mcg lozenges New Prescriptions to Start Prescriptions: Allergies Allergy/AdvReac Type Severity Reaction Status Date / Time No Known Allergies Allergy Verified 06/12/24 10:36 Assessment and Plan *Assessment and plan (1) Thoracic radiculopathy: Status: Acute Category: Medical Code(s): M54.14 - Radiculopathy, thoracic region (2) Degenerative disc disease, thoracic: Status: Acute Category: Medical Code(s): M51.34 - Other intervertebral disc degeneration, thoracic region (3) Myofascial pain on right side: Status: Acute Category: Medical Code(s): M79.18 - Myalgia, other site Plan I will send in a new muscle relaxer of methocarbamol 750 mg 3 times daily as needed. Patient was counseled this will be again a 2-week supply and we will follow-up with her in 2 weeks to see if it does provide any improvement without causing sedation. Patient was counseled that due to the chronic back pain and curvature of her spine that I do still believe that the pump trial would be a good option as we have tried injections in the past and they only gave temporary relief. We will continue to follow-up with her on this in future. Patient has been instructed to contact the clinic with any concerns before the next appointment. Dr. Christianson has reviewed this note and agrees with this plan of care. This note was dictated using voice recognition software and make contain errors or omissions. All injections are used with Lidocaine, Bupivacaine and Depo Medrol. Occasionally urine drug screen is needed to verify patient's compliance with our office pain contract. This is ordered based off specific treatments related to chronic pain with the potential to abuse certain medications.
--- OUTSIDE RECORDS SUMMARY | 2024-06-20 23:19 | XMS_ITS ---
Author Organization [facility] Address [address] [place] [address] Phone Care Team Providers Care Guidance Director Name Role Phone ASH GERARDO MD Unavailable [phone] Dino Mueller MD Primary Care Provider [phone] Problems Includes: Active, inactive, and resolved Problems All Visits Onset Date Resolved Date Provider Condition S tatus Joint Pain in the Left Knee 05/19/2022 Dino Mueller MD Active Last Documented On 3 10:08AM ; [facility] Joint Pain in the Right Knee 09/25/2014 Dino Mueller MD Active Last Documented On 5 3:33PM ; [facility] Plan of Treatment Pending Tests Order Diagnosis Results Due Ordering P rovider Radiology - X-Ray Knee 2 Views Standing DEGENERATIVE JOINT DISEASE KNEE 09/11/14 Dino Mueller MD Last Documented On 5 11:03AM ; [facility] Radiology - MRI MRI Knee Pain in left knee 03/07/23 Valente Mueller MD Last Documented On 3 9:56AM ; [facility] Instructions to patient Intervention and counseling on cessation of tobacco use Last Documented On 4 10:34AM ; [facility] Lose weight Last Documented On 4 10:32AM ; [facility] Lose weight Last Documented On 3 9:48AM ; [facility] Lose weight Last Documented On 3 9:52AM ; [facility] Lose weight Last Documented On 3 9:44AM ; [facility] Lose weight Last Documented On 3 10:10AM ; [facility] Lose weight Last Documented On 3 10:11AM ; [facility] Intervention and counseling on cessation of tobacco use Last Documented On 3 11:13AM ; [facility] Lose weight Last Documented On 3 11:00AM ; [facility] Lose weight Last Documented On 3 10:08AM ; [facility] Instructions for patient see pcp for bp Last Documented On 3 12:44PM ; [facility] Intervention and counseling on cessation of tobacco use Last Documented On 3 12:44PM ; [facility] Lose weight Last Documented On 3 12:44PM ; [facility] Instructions for patient see pcp for bp Last Documented On 3 10:09AM ; [facility] Intervention and counseling on cessation of tobacco use Last Documented On 3 10:39AM ; [facility] Lose weight Last Documented On 3 10:39AM ; [facility] Instructions for patient see pcp for bp Last Documented On 9 2:45PM ; [facility] Instructions for patient see pcp for bp Last Documented On 8 3:30PM ; [facility] Instructions for patient see pcp for bp Last Documented On 7 3:03PM ; [facility] Instructions for patient see pcp for bp Last Documented On 7 1:07PM ; [facility] Instructions for patient see pcp for bp Last Documented On 7 2:49PM ; [facility] Instructions for patient see pcp for bp Last Documented On 7 9:08AM ; [facility] Instructions for patient see pcp for bp Last Documented On 7 1:49PM ; [facility] Instructions for patient see pcp for bp Last Documented On 6 3:12PM ; [facility] Intervention and counseling on cessation of tobacco use Last Documented On 6 3:12PM ; [facility] Instructions for patient see pcp for bp Last Documented On 6 3:39PM ; [facility] Intervention and counseling on cessation of tobacco use Last Documented On 6 3:36PM ; [facility] Instructions for patient Last Documented On 5 9:56AM ; [facility] Intervention and counseling on cessation of tobacco use Last Documented On 5 9:56AM ; [facility] Intervention and counseling on cessation of tobacco use Last Documented On 5 1:47PM ; [facility] Instructions for patient See PCP for elevated blood pressure Last Documented On 5 10:07AM ; [facility] Intervention and counseling on cessation of tobacco use Last Documented On 5 10:07AM ; [facility] Intervention and counseling on cessation of tobacco use Last Documented On 5 3:34PM ; [facility] Intervention and counseling on cessation of tobacco use Last Documented On 5 1:16PM ; [facility] Lose weight Last Documented On 5 1:16PM ; [facility] Education and Decision Aids were provided during visit for: Health seminar on smoking ce ssation Last Documented On 6 3:12PM ; [facility] Health seminar on smoking ce ssation Last Documented On 6 3:36PM ; [facility] Health seminar on smoking ce ssation Last Documented On 5 9:56AM ; [facility] Health seminar on smoking ce ssation Last Documented On 5 1:47PM ; [facility] Education and counseling Last Documented On 5 9:56AM ; [facility] Health seminar on smoking ce ssation Last Documented On 5 9:56AM ; [facility] Self-management goals set fo r patient Last Documented On 5 9:56AM ; [facility] Patient will stop smoking Last Documented On 5 9:56AM ; [facility] Education and counseling Last Documented On 5 4:06PM ; [facility] Health seminar on smoking ce ssation Last Documented On 5 4:06PM ; [facility] Self-management goals set fo r patient Last Documented On 5 4:06PM ; [facility] Patient will stop smoking Last Documented On 5 4:06PM ; [facility] Education and counseling Last Documented On 5 3:38PM ; [facility] Health seminar on smoking ce ssation Last Documented On 5 3:38PM ; [facility] Self-management goals set fo r patient Last Documented On 5 3:38PM ; [facility] Patient will stop smoking Last Documented On 5 3:38PM ; [facility] Education and counseling Last Documented On 5 3:33PM ; [facility] Health seminar on smoking ce ssation Last Documented On 5 3:33PM ; [facility] Self-management goals set fo r patient Last Documented On 5 3:33PM ; [facility] Patient will stop smoking Last Documented On 5 3:33PM ; [facility] Education and counseling Last Documented On 5 1:16PM ; [facility] Health seminar on smoking ce ssation Last Documented On 5 1:16PM ; [facility] Self-management goals set fo r patient Last Documented On 5 1:16PM ; [facility] Patient will stop smoking Last Documented On 5 1:16PM ; [facility] Assessments Includes: Assessments for all patient encounters Findings Encounter Date Overweight WC FOLLOW UP/EST with Dino morales MD 03/21/2023 Last Documented On 4 7:51AM ; [facility] Overweight Follow Up with Dino Mueller MD 1 04/24/2022 Last Documented On 3 9:56AM ; [facility] Overweight WORK COMP with Dino Mueller MD 1 Last Documented On 3 11:05AM ; [facility] Overweight Follow Up with Dino Mueller MD 0 11/29/2022 Last Documented On 3 8:03AM ; [facility] Overweight WC FOLLOW UP/EST with Dino morales MD 11/08/2022 Last Documented On 3 8:53AM ; [facility] Instructions Includes: Instructions for all patient encounters Instructions to patient Intervention and counseling on cessation of tobacco use Last Documented On 4 10:34AM ; [facility] Lose weight Last Documented On 4 10:32AM ; [facility] Lose weight Last Documented On 3 9:48AM ; [facility] Lose weight Last Documented On 3 9:52AM ; [facility] Lose weight Last Documented On 3 9:44AM ; [facility] Lose weight Last Documented On 3 10:10AM ; [facility] Lose weight Last Documented On 3 10:11AM ; [facility] Intervention and counseling on cessation of tobacco use Last Documented On 3 11:13AM ; [facility] Lose weight Last Documented On 3 11:00AM ; [facility] Lose weight Last Documented On 3 10:08AM ; [facility] Instructions for patient see pcp for bp Last Documented On 3 12:44PM ; [facility] Intervention and counseling on cessation of tobacco use Last Documented On 3 12:44PM ; [facility] Lose weight Last Documented On 3 12:44PM ; [facility] Instructions for patient see pcp for bp Last Documented On 3 10:09AM ; [facility] Intervention and counseling on cessation of tobacco use Last Documented On 3 10:39AM ; [facility] Lose weight Last Documented On 3 10:39AM ; [facility] Instructions for patient see pcp for bp Last Documented On 9 2:45PM ; [facility] Instructions for patient see pcp for bp Last Documented On 8 3:30PM ; [facility] Instructions for patient see pcp for bp Last Documented On 7 3:03PM ; [facility] Instructions for patient see pcp for bp Last Documented On 7 1:07PM ; [facility] Instructions for patient see pcp for bp Last Documented On 7 2:49PM ; [facility] Instructions for patient see pcp for bp Last Documented On 7 9:08AM ; [facility] Instructions for patient see pcp for bp Last Documented On 7 1:49PM ; [facility] Instructions for patient see pcp for bp Last Documented On 6 3:12PM ; [facility] Intervention and counseling on cessation of tobacco use Last Documented On 6 3:12PM ; [facility] Instructions for patient see pcp for bp Last Documented On 6 3:39PM ; [facility] Intervention and counseling on cessation of tobacco use Last Documented On 6 3:36PM ; [facility] Instructions for patient Last Documented On 5 9:56AM ; [facility] Intervention and counseling on cessation of tobacco use Last Documented On 5 9:56AM ; [facility] Intervention and counseling on cessation of tobacco use Last Documented On 5 1:47PM ; [facility] Instructions for patient See PCP for elevated blood pressure Last Documented On 5 10:07AM ; [facility] Intervention and counseling on cessation of tobacco use Last Documented On 5 10:07AM ; [facility] Intervention and counseling on cessation of tobacco use Last Documented On 5 3:34PM ; [facility] Intervention and counseling on cessation of tobacco use Last Documented On 5 1:16PM ; [facility] Lose weight Last Documented On 5 1:16PM ; [facility] Education and Decision Aids were provided during visit for: Health seminar on smoking ce ssation Last Documented On 6 3:12PM ; [facility] Health seminar on smoking ce ssation Last Documented On 6 3:36PM ; [facility] Health seminar on smoking ce ssation Last Documented On 5 9:56AM ; [facility] Health seminar on smoking ce ssation Last Documented On 5 1:47PM ; [facility] Education and counseling Last Documented On 5 9:56AM ; [facility] Health seminar on smoking ce ssation Last Documented On 5 9:56AM ; [facility] Self-management goals set fo r patient Last Documented On 5 9:56AM ; [facility] Patient will stop smoking Last Documented On 5 9:56AM ; [facility] Education and counseling Last Documented On 5 4:06PM ; [facility] Health seminar on smoking ce ssation Last Documented On 5 4:06PM ; [facility] Self-management goals set fo r patient Last Documented On 5 4:06PM ; [facility] Patient will stop smoking Last Documented On 5 4:06PM ; [facility] Education and counseling Last Documented On 5 3:38PM ; [facility] Health seminar on smoking ce ssation Last Documented On 5 3:38PM ; [facility] Self-management goals set fo r patient Last Documented On 5 3:38PM ; [facility] Patient will stop smoking Last Documented On 5 3:38PM ; [facility] Education and counseling Last Documented On 5 3:33PM ; [facility] Health seminar on smoking ce ssation Last Documented On 5 3:33PM ; [facility] Self-management goals set fo r patient Last Documented On 5 3:33PM ; [facility] Patient will stop smoking Last Documented On 5 3:33PM ; [facility] Education and counseling Last Documented On 5 1:16PM ; [facility] Health seminar on smoking ce ssation Last Documented On 5 1:16PM ; [facility] Self-management goals set fo r patient Last Documented On 5 1:16PM ; [facility] Patient will stop smoking Last Documented On 5 1:16PM ; [facility] Medical Equipment - Implanted Devices Includes: Current and historical Devices No Medical Equipment Recorded Medications Includes: Current and historical Medications Current Medications (continue as prescribed) Levothyroxine Sodium 88 MCG Oral Tablet 01/31/2023 P rovider: ASH GERARDO MD Diagnosis: Last Documented On 3 9:53AM By Patti Bansal ; [facility], [facility] Rosuvastatin Calcium 10 MG Oral Tablet 01/31/2023 Pr ovider: Diagnosis: Last Documented On 3 9:53AM By Patti Bansal ; [facility], [facility] Promethazine-DM 6.25-15 MG/5ML Oral Syrup 01/05/2023 Provider: ASH GERARDO MD Diagnosis: Last Documented On 3 9:53AM By Patti Bansal ; [facility] Estradiol 0.1 MG/GM Vaginal Cream 11/21/2022 Provide r: Diagnosis: Last Documented On 3 9:54AM By Patti Bansal ; [facility] Ibuprofen 800 MG Oral Tablet 07/01/2022 Provider: Diagnosis: Last Documented On 3 10:41AM By Jennifer Elizabeth ; [facility] Magnesium 500 MG Oral Tablet 07/01/2022 Provider: Diagnosis: Last Documented On 3 10:42AM By Jennifer Elizabeth ; [facility] Omeprazole 40 MG Oral Capsule Delayed Release 05/02/19 Provider: Diagnosis: Last Documented On 3 10:09AM By Cristal Freeman ; [facility], [facility] Alendronate Sodium 70 MG Oral Tablet 04/23/2022 Prov ider: ASH GERARDO MD Diagnosis: Last Documented On 3 10:09AM By Cristal Freeman ; [facility], [facility] Past Medications on file Rosuvastatin Calcium 10 MG Oral Tablet 11/15/2022 - Provider: Diagnosis: Last Documented On 4 10:33AM By Patti Bansal ; [facility], [facility] CeleBREX 200 MG Oral Capsule 09/27/2022 - 11/26/2022 P rovider: Dino Mueller MD Diagnosis: twice a day Last Documented On 3 10:37AM By Chula Prince ; [facility] oxyCODONE HCl 5 MG Oral Tablet 07/21/2022 - 07/28/2022 Provider: Dino Mueller MD Diagnosis: Take 1 tablet every 8 hrs prn pain Last Documented On 3 11:50AM By Dino Mueller ; [facility], [facility] oxyCODONE HCl 5 MG Oral Tablet 07/08/2022 - 07/12/2022 Provider: Dino Mueller MD Diagnosis: 1 po q 4h 1 tablet by mouth every [address] op pain Last Documented On 3 9:18AM By Dino Mueller ; [facility], [facility] traMADol HCl 50 MG Oral Tablet 07/08/2022 - 07/18/2022 Provider: Dino Mueller MD Diagnosis: 1-2 po q 4-6h PRN for breakthrough post op pain Last Documented On 3 9:18AM By Dino Mueller ; [facility], [facility] Ondansetron HCl 4 MG Oral Tablet 07/08/2022 - 07/23/19 Provider: Dino Mueller MD Diagnosis: 1-2 p o q 6-8h as needed for nausea Last Documented On 3 9:18AM By Dino Mueller ; [facility] Meloxicam 15 MG Oral Tablet 05/19/2022 - 06/18/2022 Pr ovider: Dino Mueller MD Diagnosis: once a day Last Documented On 3 11:13AM By Cristal Freeman ; [facility] Rosuvastatin Calcium 10 MG Oral Tablet 04/29/2022 - Provider: Diagnosis: Last Documented On 4 10:33AM By Patti Bansal ; [facility] Levothyroxine Sodium 88 MCG Oral Tablet 04/29/2022 - 03/21/2023 Provider: ASH Rosales Diagnosis: Last Documented On 4 10:33AM By Patti Bansal ; [facility], [facility] Levothyroxine Sodium 88 MCG Oral Tablet 04/01/2022 - 07/01/2022 Provider: ASH Rosales Diagnosis: Last Documented On 3 10:42AM By Jennifer Elizabeth ; [facility] Rosuvastatin Calcium 10 MG Oral Tablet 04/01/2022 - Provider: Diagnosis: Last Documented On 3 10:43AM By Jennifer Elizabeth ; [facility] Bisoprolol Fumarate 10MG Oral Tablet 07/26/2018 - 06/12 Provider: Diagnosis: Last Documented On 3 10:43AM By Jennifer Elizabeth ; [facility] Amitriptyline HCl 25MG Oral Tablet 07/26/2018 - 2022 Provider: Diagnosis: Last Documented On 3 10:43AM By Jennifer Elizabeth ; [facility] Flonase Allergy Relief 50MCG/ACT Nasal Suspensio n 07/26/2018 - 07/01/2022 Provider: Diagnosis: Last Documented On 3 10:43AM By Jennifer Elizabeth ; [facility] Diclofenac Sodium 75MG Oral Tablet Delayed Release 12/15/2016 - 01/14/2017 Provider: Dino Mueller MD Diagnosis: twice a day Last Documented On 7 3:31PM By Natalia Simpson [facility] TraMADol HCl 50 MG Tablet 11/04/2016 - 12/04/2016 Prov ider: Dino Mueller MD Diagnosis: 1 tab every 6 hrs pain Last Documented On 7 2:19PM By Kenya Alex ; [facility] Mobic 7.5 MG Tablet 03/16/2015 - 04/15/2015 Provider: Dino Mueller MD Diagnosis: twice a day Last Documented On 6 4:20PM By Ondina Bob ; [facility] Percocet 7.5-325 MG OR TABS 01/14/2015 - 01/19/2015 Pr ovider: Dino Mueller MD Diagnosis: Last Documented On 5 3:19PM By Destini Dickson ; [facility] Ibuprofen 400 MG Tablet 09/11/2014 - 07/01/2022 Provid er: Diagnosis: Last Documented On 3 10:41AM By Jennifer Elizabeth ; [facility] Levothyroxine Sodium Powder 09/11/2014 - 07/01/2022 Pr ovider: Diagnosis: Last Documented On 3 10:43AM By Jennifer Elizabeth ; [facility] Medications Administered Includes: Administered Medications in patient's chart No Administered Medications Recorded Results Includes: Results from 06/21/2023 through 06/20/2024 No Results Recorded For Specified Dates History of Present Illness History of Present Illness not supported for this document type No History of Present Illness Recorded Social History Description Last Updated Tobacco non-user 07/25/2022 Last Documented On 3 11:18AM ; [facility] No recent change in diet 07/25/2022 Last Documented On 3 11:18AM ; [facility] Not a current smoker. 07/25/2022 Last Documented On 3 11:18AM ; [facility] Exercising regularly 07/26/2018 Last Documented On 0 3:16PM ; [facility] No caffeine use 07/26/2018 Last Documented On 0 3:16PM ; [facility] Tobacco use 09/11/2014 Last Documented On 5 11:03AM ; [facility] Smoking status : Current everyday smoker 09/11/2014 Last Documented On 5 11:03AM ; [facility] Current smoker 09/11/2014 Last Documented On 5 11:03AM ; [facility] No recent change in diet 09/11/2014 Last Documented On 5 11:03AM ; [facility] Not using alcohol 09/11/2014 Last Documented On 5 11:03AM ; [facility] Not using drugs 09/11/2014 Last Documented On 5 11:03AM ; [facility] Procedures and Surgical History Surgical History Last Updated History of hysterectomy 09/11/2014 Last Documented On 5 11:03AM ; [facility] Medical History Includes: Medical History in patient's chart Description Last Updated Thyroid disease 07/26/2018 Last Documented On 0 3:16PM ; [facility] thyroid removed 01/26/2015 Last Documented On 5 1:42PM ; [facility] Family History Includes: Family History in patient's chart Description Last Updated Family history of diabetes mellitus 07/11 Last Documented On 0 3:16PM ; [facility] Family history of cancer 09/11/2014 Last Documented On 5 11:03AM ; [facility] Family history of osteoporosis 5 Last Documented On 5 11:03AM ; [facility] Review of Systems Review of Systems not supported for this document type No Review of Systems Recorded Mental Status Description No anxiety Functional Status No Functional Status Recorded Physical Exam Physical Exam not supported for this document type No Physical Exam Recorded Allergies Includes: Active, inactive, and resolved Allergies Substance Type Reaction Onset Date Resolved Date Statu s traMADol HCl Allergy Nausea 07/04/2022 Active Last Documented On 4 10:32AM ; [facility] Insurance Includes: Active Insurance Policies Plan Name Member ID Group # Subscriber Relationship Effect petra Dates [facility] [id number] Maria C cox 02/24/2022 - Unknown 2 - [employer] [id number] Maria C Baltazar 10/11/2016 - Unknown 3 - [employer] [id number] Maria C Baltazar 10/11/2016 - Unknown Clinical Notes Includes: Signed Clinical Notes starting from 02/24/2022 No Clinical Notes Recorded
--- OUTSIDE RECORDS SUMMARY | 2024-06-20 23:19 | XMS_ITS ---
Care Plan - [facility] Created on: June 20, 2024 Maria C Lewis : 1960 Sex: Female Author Organization [facility] Address [address] [place] [address] Phone Care Team Providers Care Machine Rigger Name Role Phone HUMAIRA CHANEY, ASH Dennison [phone] Dino Mueller MD Primary Care Provider [phone]
--- OUTSIDE RECORDS SUMMARY | 2024-06-20 23:19 | XMS_ITS | Clinical Summary ---
Author Organization [facility] Address [address] [place] [address] Phone Care Team Providers Care Superintendent Communications Name Role Phone ASH GERARDO MD Unavailable [phone] Dino Jane MD Primary Care Provider [phone] Reason for Visit and Chief Complaint The Chief Complaint is: Left Knee Pain Problems Includes: Problems addressed during this encounter and other active Problems All Visits Onset Date Resolved Date Provider Condition S tatus Joint Pain in the Left Knee 05/19/2022 Dino Mueller MD Active Last Documented On 3 10:08AM ; [facility] Joint Pain in the Right Knee 09/25/2014 Dino Mueller MD Active Last Documented On 5 3:33PM ; [facility] Plan of Treatment Patient is not able to do her normal work activities therefore we will keep her off work and then continue physical therapy and see her back in 6 - Last Documented On 01/10/2023 11:05AM ; [facility] Pending Tests Order Diagnosis Results Due Ordering P rovider Radiology - X-Ray Knee 2 Views Standing DEGENERATIVE JOINT DISEASE KNEE 09/11/14 Dino Mueller MD Last Documented On 5 11:03AM ; [facility] Radiology - MRI MRI Knee Pain in left knee 03/07/23 Valente Mueller MD Last Documented On 3 9:56AM ; [facility] Instructions to patient Lose weight Last Documented On 3 9:52AM ; [facility], [facility] Assessments Includes: Assessments from this encounter Findings - Overweight - Last Documented On 01/10/2023 11:05AM ; [facility], [facility] Left medial meniscus root repair improving - Last Documented On 01/10/2023 11:05AM ; [facility], [facility] Instructions Includes: Instructions from this encounter Instructions to patient Lose weight Last Documented On 3 9:52AM ; [facility], [facility] Medical Equipment - Implanted Devices Includes: Current Devices No Medical Equipment Recorded Medications Includes: Medications discussed during this encounter and other current Medications Current Medications (continue as prescribed) Levothyroxine Sodium 88 MCG Oral Tablet 01/31/2023 Lorie courtney: ASH GERARDO MD Diagnosis: Last Documented On 3 9:53AM By Patti Bansal ; [facility], [facility] Rosuvastatin Calcium 10 MG Oral Tablet 01/31/2023 Pr ovider: Diagnosis: Last Documented On 3 9:53AM By Patti Bansal ; [facility], [facility] Promethazine-DM 6.25-15 MG/5ML Oral Syrup 01/05/2023 Provider: ASH GERARDO MD Diagnosis: Last Documented On 3 9:53AM By Patti Bansal ; [facility], [facility] Estradiol 0.1 MG/GM Vaginal Cream 11/21/2022 Provide r: Diagnosis: Last Documented On 3 9:54AM By Patti Bansal ; [facility], [facility] Ibuprofen 800 MG Oral Tablet 07/01/2022 Provider: Diagnosis: Last Documented On 3 10:41AM By Jennifer Elizabeth ; [facility], [facility] Magnesium 500 MG Oral Tablet 07/01/2022 Provider: Diagnosis: Last Documented On 3 10:42AM By Jennifer Elizabeth ; [facility], [facility] Omeprazole 40 MG Oral Capsule Delayed Release 05/02/19 Provider: Diagnosis: Last Documented On 3 10:09AM By Cristal Freeman ; [facility], [facility] Alendronate Sodium 70 MG Oral Tablet 04/23/2022 Prov ider: ASH GERARDO MD Diagnosis: Last Documented On 3 10:09AM By Cristal Freeman ; [facility], [facility] Past Medications on file CeleBREX 200 MG Oral Capsule 09/27/2022 - 11/26/2022 Lorie courtney: Dino Mueller MD Diagnosis: twice a day Last Documented On 3 10:37AM By Chula Prince ; [facility], [facility] oxyCODONE HCl 5 MG Oral Tablet 07/21/2022 - 07/28/2022 Provider: Dino Mueller MD Diagnosis: Take 1 tablet every 8 hrs prn pain Last Documented On 3 11:50AM By Dino Mueller ; [facility] oxyCODONE HCl 5 MG Oral Tablet 07/08/2022 - 07/12/2022 Provider: Dino Mueller MD Diagnosis: 1 po q 4h 1 tablet by mouth every [address] op pain Last Documented On 3 9:18AM By Dino Mueller ; [facility], [facility] traMADol HCl 50 MG Oral Tablet 07/08/2022 - 07/18/2022 Provider: Dino Mueller MD Diagnosis: 1-2 po q 4-6h PRN for breakthrough post op pain Last Documented On 3 9:18AM By Dino Mueller ; [facility], [facility] Ondansetron HCl 4 MG Oral Tablet 07/08/2022 - 07/23/19 Provider: Dino Mueller MD Diagnosis: 1-2 p o q 6-8h as needed for nausea Last Documented On 3 9:18AM By Dino Mueller ; [facility], [facility] Meloxicam 15 MG Oral Tablet 05/19/2022 - 06/18/2022 Pr ovider: Dino Mueller MD Diagnosis: once a day Last Documented On 3 11:13AM By Cristal Freeman ; [facility], [facility] Diclofenac Sodium 75MG Oral Tablet Delayed Release 12/15/2016 - 01/14/2017 Provider: Dino Mueller MD Diagnosis: twice a day Last Documented On 7 3:31PM By Natalia Story ; [facility], [facility] TraMADol HCl 50 MG Tablet 11/04/2016 - 12/04/2016 Prov ider: Dino Mueller MD Diagnosis: 1 tab every 6 hrs pain Last Documented On 7 2:19PM By Kenya Alex ; [facility] Mobic 7.5 MG Tablet 03/16/2015 - 04/15/2015 Provider: Dino Mueller MD Diagnosis: twice a day Last Documented On 6 4:20PM By Ondina Bob ; [facility], [facility] Percocet 7.5-325 MG OR TABS 01/14/2015 - 01/19/2015 Pr ovider: Dino Mueller MD Diagnosis: Last Documented On 5 3:19PM By Destini Dickson ; [facility] Medications Administered Includes: Administered Medications from this encounter No Administered Medications Recorded Vital Signs Includes: Vital Signs from this encounter Vital Name 01/10/2023 09:53A Height (in) 63 Weight (lb) 190 Body Mass Index 33.7 Body Surface Area 1.9 Note: lc Last Documented: On 01/10/2023 9:53AM ; [facility] Results Includes: Results discussed during this encounter No Results Recorded For Specified Dates History of Present Illness Includes: History of Present Illness from this encounter HPI Maria C Lewis is a 62 year old female. - Allergy list reviewed - Problem list reviewed - Medication list reviewed - Patient pain level from 1-10: 2 while moving Follow-up for left knee meniscal root repair patient is improving with gradually physical therapy and getting stronger she still is trouble with squatting stooping kneeling which are all part of her normal job activities she has not been able to return to work as a result Social History Description Last Updated Tobacco non-user 07/25/2022 Last Documented On 3 9:52AM ; [facility] No recent change in diet 07/25/2022 Last Documented On 3 9:52AM ; [facility] Not a current smoker. 07/25/2022 Last Documented On 3 9:52AM ; [facility] Exercising regularly 07/26/2018 Last Documented On 3 9:52AM ; [facility] No caffeine use 07/26/2018 Last Documented On 3 9:52AM ; [facility], [facility] Tobacco use 09/11/2014 Last Documented On 3 9:52AM ; [facility], [facility] Smoking status : Current everyday smoker 09/11/2014 Last Documented On 3 9:52AM ; [facility], [facility] Current smoker 09/11/2014 Last Documented On 3 9:52AM ; [facility], [facility] No recent change in diet 09/11/2014 Last Documented On 3 9:52AM ; [facility], [facility] Not using alcohol 09/11/2014 Last Documented On 3 9:52AM ; [facility], [facility] Not using drugs 09/11/2014 Last Documented On 3 9:52AM ; [facility], [facility] Procedures and Surgical History Includes: Procedures from this encounter Procedures Code Diagnosis Performing Provider Service L ocation Service Date use of tobacco assessment performed 1000F Last Documented On 3 9:52AM ; [facility], [facility] review of medications documented 1160F Last Documented On 3 9:52AM ; [facility], [facility] Surgical History Last Updated History of hysterectomy 09/11/2014 Last Documented On 3 9:52AM ; [facility], [facility] Medical History Includes: Medical History addressed during this encounter Description Last Updated Thyroid disease 07/26/2018 Last Documented On 3 9:52AM ; [facility], [facility] thyroid removed 01/26/2015 Last Documented On 3 9:52AM ; [facility], [facility] Family History Includes: Family History addressed during this encounter Description Last Updated Family history of diabetes mellitus 07/11 Last Documented On 3 9:52AM ; [facility], [facility] Family history of cancer 09/11/2014 Last Documented On 3 9:52AM ; [facility], [facility] Family history of osteoporosis 5 Last Documented On 3 9:52AM ; [facility], [facility] Review of Systems Includes: Review of Systems from this encounter Systemic: Not feeling tired, no recent weight loss, and no recent weight gain. Head: No headache and no sinus pain. Eyes: No vision problems, no Cataracts, no Glasses/Contacts, and no Glaucoma. Otolaryngeal: No hearing loss and no tinnitus. Cardiovascular: No chest pain or discomfort, no palpitations, no Hypertension, and no High Cholesterol. Pulmonary: No daytime asthma symptoms and no chronic cough. No wheezing. Gastrointestinal: No heartburn and no abdominal pain. No Indigestion, no Acid Reflux, no Peptic Ulcer, no GI Stomach Bleed, and no Ulcers. Endocrine: No hot flashes, no muscle weakness, no Diabetes, no Hypothyroid, and no Hyperthyroid. Hematologic: No easy bleeding, no tendency for easy bruising, and no Anemia. Musculoskeletal: No Arthritis and no lower back pain. No soft tissue swelling and no localized joint pain. Neurological: No dizziness, no convulsions, and no numbness. Psychological: No anxiety, no emotional lability, no depression, and no insomnia. Not crying for no reason. Skin: No dry skin. No Ulcers, no Scars, and no rash. Allergic and Immunologic: No complaint of seasonal allergic reaction. Mental Status Includes: Mental Status from this encounter Description No anxiety Functional Status Includes: Functional Status from this encounter No Functional Status Recorded Physical Exam Includes: Physical Exam from this encounter Allergies Includes: Active Allergies Substance Type Reaction Onset Date Resolved Date Statu s traMADol HCl Allergy Nausea 07/04/2022 Active Last Documented On 4 10:32AM ; [facility] Encounters Encounter Provider Location Date Check-In Time Check-Out Time Diagnosis WORK COMP Dino Mueller MD [facility] 3 9:45AM 10:21AM Overweight Insurance Includes: Active Insurance Policies Plan Name Member ID Group # Subscriber Relationship Effect petra Dates 1 - [employer] [facility] [id number] Maria C Lewis Amada f 02/24/2022 - Unknown 2 - [place] [id number] Maria C Lewis Self 10/11/2016 - Unknown 3 - [employer] [id number] Maria C Lewis Self 10/11/2016 - Unknown Clinical Notes Includes: Clinical Notes from this encounter * Progress note Date Encounter Last Documented by 01/10/2023 WORK COMP Last documented on 01/10/2023; 11:05 AM, Dino Mueller MD; [facility] Active Problems & Conditions - Joint Pain in the Left Knee - Joint Pain in the Right Knee Chief Complaint The Chief Complaint is: Left Knee Pain. Referred Here Referred by Self. History of Present Illness Maria C Lewis is a 62 year old female. - Allergy list reviewed - Problem list reviewed - Medication list reviewed - Patient pain level from 1-10: 2 while moving Follow-up for left knee meniscal root repair patient is improving with gradually physical therapy and getting stronger she still is trouble with squatting stooping kneeling which are all part of her normal job activities she has not been able to return to work as a result Current Medication - Alendronate Sodium 70 MG Oral Tablet 28 days, 0 refills - Ibuprofen 800 MG Oral Tablet take as directed 0 days, 0 refills - Levothyroxine Sodium 88 MCG Oral Tablet 30 days, 0 refills - Magnesium 500 MG Oral Tablet take as directed 0 days, 0 refills - Omeprazole 40 MG Oral Capsule Delayed Release 30 days, 0 refills - Rosuvastatin Calcium 10 MG Oral Tablet 30 days, 0 refills Past Medical/Surgical History Reported: Medical: Thyroid disease. Thyroid removed. Surgical: - Hysterectomy Social History Not a current smoker. Current diet: No recent change in diet. No recent change in diet. Caffeine use: No caffeine use. Tobacco use: Current smoker, tobacco non-user, and smoking status: Current everyday smoker. Alcohol: Not using alcohol. Drug Use: Not using drugs. Habits: Exercising regularly. Allergies - traMADol HCl Reaction: Nausea (Severe) Family History Cancer Osteoporosis Diabetes mellitus Review Of Systems Systemic: Not feeling tired, no recent weight loss, and no recent weight gain. Head: No headache and no sinus pain. Eyes: No vision problems, no Cataracts, no Glasses/Contacts, and no Glaucoma. Otolaryngeal: No hearing loss and no tinnitus. Cardiovascular: No chest pain or discomfort, no palpitations, no Hypertension, and no High Cholesterol. Pulmonary: No daytime asthma symptoms and no chronic cough. No wheezing. Gastrointestinal: No heartburn and no abdominal pain. No Indigestion, no Acid Reflux, no Peptic Ulcer, no GI Stomach Bleed, and no Ulcers. Endocrine: No hot flashes, no muscle weakness, no Diabetes, no Hypothyroid, and no Hyperthyroid. Hematologic: No easy bleeding, no tendency for easy bruising, and no Anemia. Musculoskeletal: No Arthritis and no lower back pain. No soft tissue swelling and no localized joint pain. Neurological: No dizziness, no convulsions, and no numbness. Psychological: No anxiety, no emotional lability, no depression, and no insomnia. Not crying for no reason. Skin: No dry skin. No Ulcers, no Scars, and no rash. Allergic and Immunologic: No complaint of seasonal allergic reaction. Physical Findings - Vitals taken 01/10/2023 09:53 am lc Height 63 in 59 - 78 Weight 190 lbs 96 - 178 Body Mass Index 33.7 kg/m2 Body Surface Area 1.9 m2 Standard Measurements: - Patient was overweight. Left knee full extension 125 degrees flexion with tenderness of the posterior medial joint line but no motor meniscal click is demonstrated there is no effusion today normal gait Assessment - Overweight Left medial meniscus root repair improving Counseling/Education - Lose weight Plan Patient is not able to do her normal work activities therefore we will keep her off work and then continue physical therapy and see her back in 6 Notes This dictation was done with voice recognition software and may contain errors and omissions. Practice Management Use of tobacco assessment performed Review of medications documented. Care Team - ASH GERARDO MD - [employer]
--- OUTSIDE RECORDS SUMMARY | 2024-06-20 23:19 | XMS_ITS | Clinical Summary ---
Author Organization [facility] , [facility] Address [address] [place] [address] Phone Care Team Providers Care Nursing Home Aide Name Role Phone ASH GERARDO MD Unavailable [phone] Dino Mueller MD Primary Care Provider [phone] Reason for Visit and Chief Complaint The Chief Complaint is: Left Knee Pain Problems Includes: Problems addressed during this encounter and other active Problems All Visits Onset Date Resolved Date Provider Condition S tatus Joint Pain in the Left Knee 05/19/2022 Dino Mueller MD Active Last Documented On 3 10:08AM ; [facility] Joint Pain in the Right Knee 09/25/2014 Dino Mueller MD Active Last Documented On 5 3:33PM ; [facility] Plan of Treatment Patient is not ready [...] - Last Documented On 12/05/2022 8:03AM ; [facility] Pending Tests Order Diagnosis Results Due Ordering P rovider Radiology - X-Ray Knee 2 Views Standing DEGENERATIVE JOINT DISEASE KNEE 09/11/14 Dino Mueller MD Last Documented On 5 11:03AM ; [facility] Radiology - MRI MRI Knee Pain in left knee 03/07/23 Valente Mueller MD Last Documented On 3 9:56AM ; [facility], [facility] Instructions to patient Lose weight Last Documented On 3 9:44AM ; [facility], [facility] Assessments Includes: Assessments from this encounter Findings - Overweight - Last Documented On 12/05/2022 8:03AM ; [facility], [facility] Left knee scope medial meniscus root repair and chondroplasty patella July 11, 2022 - Last Documented On 12/05/2022 8:03AM ; [facility], [facility] Instructions Includes: Instructions from this encounter Instructions to patient Lose weight Last Documented On 3 9:44AM ; [facility], [facility] Medical Equipment - Implanted Devices Includes: Current Devices No Medical Equipment Recorded Medications Includes: Medications discussed during this encounter and other current Medications Current Medications (continue as prescribed) Levothyroxine Sodium 88 MCG Oral Tablet 01/31/2023 P roz: ASH GERARDO MD Diagnosis: Last Documented On 3 9:53AM By Patti Bansal ; [facility], [facility] Rosuvastatin Calcium 10 MG Oral Tablet 01/31/2023 Pr ovider: Diagnosis: Last Documented On 3 9:53AM By Patti Bansal ; [facility], [facility] Promethazine-DM 6.25-15 MG/5ML Oral Syrup 01/05/2023 Provider: ASH GERARDO MD Diagnosis: Last Documented On 3 9:53AM By Patti Bansal ; [facility], [facility] Estradiol 0.1 MG/GM Vaginal Cream 11/21/2022 Provide r: Diagnosis: Last Documented On 3 9:54AM By Patti Bansal ; [facility], [facility] Ibuprofen 800 MG Oral Tablet 07/01/2022 Provider: Diagnosis: Last Documented On 3 10:41AM By Jennifer Elizabeth ; [facility], [facility] Magnesium 500 MG Oral Tablet 07/01/2022 Provider: Diagnosis: Last Documented On 3 10:42AM By Jennifer Elizabeth ; [facility], [facility] Omeprazole 40 MG Oral Capsule Delayed Release 05/02/19 Provider: Diagnosis: Last Documented On 3 10:09AM By Cristal Freeman ; [facility], [facility] Alendronate Sodium 70 MG Oral Tablet 04/23/2022 Prov ider: ASH GERARDO MD Diagnosis: Last Documented On 3 10:09AM By Cristal Freeman ; [facility], [facility] Past Medications on file CeleBREX 200 MG Oral Capsule 09/27/2022 - 11/26/2022 P rovider: Dino Mueller MD Diagnosis: twice a day Last Documented On 3 10:37AM By Chula Prince ; [facility], [facility] oxyCODONE HCl 5 MG Oral Tablet 07/21/2022 - 07/28/2022 Provider: Dino Mueller MD Diagnosis: Take 1 tablet every 8 hrs prn pain Last Documented On 3 11:50AM By Dino Mueller ; [facility], [facility] oxyCODONE HCl 5 MG Oral Tablet 07/08/2022 - 07/12/2022 Provider: Dino Mueller MD Diagnosis: 1 po q 4h 1 tablet by mouth every [address] op pain Last Documented On 3 9:18AM By Dino Mueller ; [facility], [facility] traMADol HCl 50 MG Oral Tablet 07/08/2022 - 07/18/2022 Provider: Dino Mueller MD Diagnosis: 1-2 po q 4-6h PRN for breakthrough post op pain Last Documented On 3 9:18AM By Dino Mueller ; [facility], [facility] Ondansetron HCl 4 MG Oral Tablet 07/08/2022 - 07/23/19 Provider: Dino Mueller MD Diagnosis: 1-2 p o q 6-8h as needed for nausea Last Documented On 3 9:18AM By Dino Mueller ; [facility], [facility] Meloxicam 15 MG Oral Tablet 05/19/2022 - 06/18/2022 Pr ovider: Dino Mueller MD Diagnosis: once a day Last Documented On 3 11:13AM By Cristal Freeman ; [facility], [facility] Diclofenac Sodium 75MG Oral Tablet Delayed Release 12/15/2016 - 01/14/2017 Provider: Dino Mueller MD Diagnosis: twice a day Last Documented On 7 3:31PM By Natalia Story ; [facility] TraMADol HCl 50 MG Tablet 11/04/2016 - 12/04/2016 Prov ider: Dino Mueller MD Diagnosis: 1 tab every 6 hrs pain Last Documented On 7 2:19PM By Kenya Alex ; [facility] Mobic 7.5 MG Tablet 03/16/2015 - 04/15/2015 Provider: Dino Mueller MD Diagnosis: twice a day Last Documented On 6 4:20PM By Ondina Bob ; [facility] Percocet 7.5-325 MG OR TABS 01/14/2015 - 01/19/2015 Pr ovider: Dino Mueller MD Diagnosis: Last Documented On 5 3:19PM By Destini Dickson ; [facility], [facility] Medications Administered Includes: Administered Medications from this encounter No Administered Medications Recorded Vital Signs Includes: Vital Signs from this encounter Vital Name 11/29/2022 09:53A Height (in) 63 Weight (lb) 190 Body Mass Index 33.7 Body Surface Area 1.9 Note: sc Last Documented: On 11/29/2022 9:53AM ; [facility], [facility] Results Includes: Results discussed during this encounter No Results Recorded For Specified Dates History of Present Illness Includes: History of Present Illness from this encounter CARI Lewis is a 61 year old female. - Allergy list reviewed - Problem list reviewed - Medication list reviewed - Patient pain level from 1-10: 2 while moving Patient presents with left knee pain she is still in rehab for meniscal root repair on the left knee posterior horn medial meniscus steadily and slowly improved Social History Description Last Updated No recent change in diet 07/25/2022 Last Documented On 3 9:44AM ; [facility], [facility] Not a current smoker. 07/25/2022 Last Documented On 3 9:44AM ; [facility] Exercising regularly 07/26/2018 Last Documented On 3 9:44AM ; [facility], [facility] No caffeine use 07/26/2018 Last Documented On 3 9:44AM ; [facility] Tobacco use 09/11/2014 Last Documented On 3 9:44AM ; [facility] Smoking status : Current everyday smoker 09/11/2014 Last Documented On 3 9:44AM ; [facility] Current smoker 09/11/2014 Last Documented On 3 9:44AM ; [facility], [facility] No recent change in diet 09/11/2014 Last Documented On 3 9:44AM ; [facility] Not using alcohol 09/11/2014 Last Documented On 3 9:44AM ; [facility] Not using drugs 09/11/2014 Last Documented On 3 9:44AM ; [facility], [facility] Procedures and Surgical History Includes: Procedures from this encounter Procedures Code Diagnosis Performing Provider Service L ocation Service Date use of tobacco assessment performed 1000F Last Documented On 3 9:44AM ; [facility], [facility] review of medications documented 1160F Last Documented On 3 9:44AM ; [facility] an X-ray was performed 94997 Last Documented On 3 9:44AM ; [facility] Surgical History Last Updated History of hysterectomy 09/11/2014 Last Documented On 3 9:44AM ; [facility] Medical History Includes: Medical History addressed during this encounter Description Last Updated Thyroid disease 07/26/2018 Last Documented On 3 9:44AM ; [facility] thyroid removed 01/26/2015 Last Documented On 3 9:44AM ; [facility] Family History Includes: Family History addressed during this encounter Description Last Updated Family history of diabetes mellitus 07/11 Last Documented On 3 9:44AM ; [facility] Family history of cancer 09/11/2014 Last Documented On 3 9:44AM ; [facility] Family history of osteoporosis 5 Last Documented On 3 9:44AM ; [facility], [facility] Review of Systems Includes: Review of Systems [...] Immunologic: No complaint of seasonal allergic reaction. Reviewed on 11/08/2022 Mental Status Includes: Mental Status from this encounter Description No anxiety Functional Status Includes: Functional Status from this encounter No Functional Status Recorded Physical Exam Includes: Physical Exam from this encounter Allergies Includes: Active Allergies Substance Type Reaction Onset Date Resolved Date Statu s traMADol HCl Allergy Nausea 07/04/2022 Active Last Documented On 4 10:32AM ; [facility] Encounters Encounter Provider Location Date Check-In Time Check-Out Time Diagnosis Follow Up Dino Mueller MD [facility] 3 9:40AM 10:05AM Overweight Insurance Includes: Active Insurance Policies Plan Name Member ID Group # Subscriber Relationship Effect petra Dates 1 - [facility] [id number] Maria C Lewis Amada f 02/24/2022 - Unknown 2 - [employer] [id number] Maria C Lewis Self 10/11/2016 - Unknown 3 - [employer] [id number] Maria C Lewis Self 10/11/2016 - Unknown Clinical Notes Includes: Clinical Notes from this encounter * Progress note Date Encounter Last Documented by 11/29/2022 Follow Up Last documented on 12/05/2022; 8:03 AM, Dino Mueller MD; [facility], [facility] Active Problems & Conditions - Joint Pain in the Left Knee - Joint Pain in the Right Knee Chief Complaint The Chief Complaint is: Left Knee Pain. Referred Here Referred by Self. History of Present Illness Maria C Lewis is a 61 year old female. - Allergy list reviewed - Problem list reviewed - Medication list reviewed - Patient pain level from 1-10: 2 while moving Patient presents with left knee pain she is still in rehab for meniscal root repair on the left knee posterior horn medial meniscus steadily and slowly improved Current Medication - Alendronate Sodium 70 MG [...] use: No caffeine use. Tobacco use: Current smoker and smoking status: Current everyday smoker. Alcohol: [...] Immunologic: No complaint of seasonal allergic reaction. Reviewed on 11/08/2022 Physical Findings - Vitals taken 11/29/2022 09:53 am sc Height 63 in 59 - 78 Weight 190 lbs 96 - 178 Body Mass Index 33.7 kg/m2 Body Surface Area 1.9 m2 Standard Measurements: - Patient was overweight. Left knee shows 0 extension with flexion to 125 with good stability no meniscal click is felt there is no significant swelling normal gait is present 1+ quad atrophy is Assessment - Overweight Left knee scope medial meniscus root repair and chondroplasty patella July 11, 2022 Previous Tests Imaging: X-Ray: An X-ray was performed. Counseling/Education - Lose weight Plan Patient is not ready to return to prolonged standing or squatting type work or kneeling it may take another 1 to 3 months of physical therapy to get her ready for return to full duty work will continue PT in the meantime and see her back in 4 to 6 weeks continue light duty restrictions Notes This dictation was done with voice recognition software and may contain errors and omissions. Practice Management Use of tobacco assessment performed Review of medications documented. Care Team - ASH GERARDO MD - POLICY CHANGE CLERK
--- OUTSIDE RECORDS SUMMARY | 2024-06-20 23:19 | XMS_ITS | Clinical Summary ---
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 Operator Name Role Phone ASH GERARDO MD Unavailable [phone] Dino Mueller MD Primary Care Provider [phone] Reason for Visit and Chief Complaint WC MRI Problems Includes: Problems addressed during this encounter and other active Problems All Visits Onset Date Resolved Date Provider Condition S tatus Joint Pain in the Left Knee 05/19/2022 Dino Mueller MD Active Last Documented On 3 10:08AM ; [facility] Joint Pain in the Right Knee 09/25/2014 Dino Mueller MD Active Last Documented On 5 3:33PM ; [facility] Plan of Treatment No Plan of Treatment Recorded Assessments Includes: Assessments from this encounter No Assessments Recorded Medical Equipment - Implanted Devices Includes: Current Devices No Medical Equipment Recorded Medications Includes: Medications discussed during this encounter and other current Medications Current Medications (continue as prescribed) Levothyroxine Sodium 88 MCG Oral Tablet 01/31/2023 Lorie courtney: ASH GERARDO MD Diagnosis: Last Documented On 3 9:53AM By Patti Bansal ; [facility], [facility] Rosuvastatin Calcium 10 MG Oral Tablet 01/31/2023 Pr ovider: Diagnosis: Last Documented On 3 9:53AM By Patti Bansal ; [facility] Promethazine-DM 6.25-15 MG/5ML Oral Syrup 01/05/2023 Provider: ASH GERARDO MD Diagnosis: Last Documented On 3 9:53AM By Patti Bansal ; [facility], [facility] Estradiol 0.1 MG/GM Vaginal Cream 11/21/2022 Provide r: Diagnosis: Last Documented On 3 9:54AM By Patti Bansal ; [facility], [facility] Ibuprofen 800 MG Oral Tablet 07/01/2022 Provider: Diagnosis: Last Documented On 3 10:41AM By Jennifer Elizabeth ; [facility], [facility] Magnesium 500 MG Oral Tablet 07/01/2022 Provider: Diagnosis: Last Documented On 3 10:42AM By Jennifer Elizabeth ; [facility], [facility] Omeprazole 40 MG Oral Capsule Delayed Release 05/02/19 Provider: Diagnosis: Last Documented On 3 10:09AM By Cristal Freeman ; [facility], [facility] Alendronate Sodium 70 MG Oral Tablet 04/23/2022 Prov ider: ASH GERARDO MD Diagnosis: Last Documented On 3 10:09AM By Cristal Freeman ; [facility], [facility] Medications Administered Includes: Administered Medications from this encounter No Administered Medications Recorded Results Includes: Results discussed during this encounter No Results Recorded For Specified Dates History of Present Illness Includes: History of Present Illness from this encounter No History of Present Illness Recorded Social History No Social History Recorded - Smoking Status Unknown Medical History Includes: Medical History addressed during this encounter No Medical History Recorded Family History Includes: Family History addressed during this encounter No Family History Recorded Review of Systems Includes: Review of Systems from this encounter No Review of Systems Recorded Mental Status Includes: Mental Status from this encounter No Mental Status Recorded Functional Status Includes: Functional Status from this encounter No Functional Status Recorded Physical Exam Includes: Physical Exam from this encounter No Physical Exam Recorded Allergies Includes: Active Allergies Substance Type Reaction Onset Date Resolved Date Statu s traMADol HCl Allergy Nausea 07/04/2022 Active Last Documented On 4 10:32AM ; [facility], [facility] Encounters Encounter Provider Location Date Check-In Time Check-Out Time Diagnosis WC MRI [facility] 03/09/2023 4:04PM 4:34PM Insurance Includes: Active Insurance Policies Plan Name Member ID Group # Subscriber Relationship Effect petra Dates 1 - [employer] [facility] [id number] Maria C Ybarra f 02/24/2022 - Unknown 2 - [employer] [id number] Maria C Baltazar 10/11/2016 - Unknown 3 - [employer] [id number] Maria C Lewis Self 10/11/2016 - Unknown Clinical Notes Includes: Clinical Notes from this encounter No Clinical Notes Recorded
--- OUTSIDE RECORDS SUMMARY | 2024-06-20 23:19 | XMS_ITS | Clinical Summary ---
Author Organization [facility] , [facility] Address [address] [place] [address] Phone Care Team Providers Care Bunch Breaker Name Role Phone ASH GERARDO MD [facility] [phone] Dino Mueller MD Primary Care Provider [phone] Reason for Visit and Chief Complaint The Chief Complaint is: Left Knee Pain Problems Includes: Problems addressed during this encounter and other active Problems All Visits Onset Date Resolved Date Provider Condition S tatus Joint Pain in the Left Knee 05/19/2022 Dino Mueller MD Active Last Documented On 3 10:08AM ; [facility] Joint Pain in the Right Knee 09/25/2014 Dino Mueller MD Active Last Documented On 5 3:33PM ; [facility] Plan of Treatment Patient was seen by myself and Dr. Mueller. 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 At some point in the future she may require a knee replacement. She can DC wearing the brace at this time. Patient is now at maximum medical improvement and based on the AMA guides to the evaluation of permanent impairment 5th addition page 529 table 17-5 patient has whole person impairment of 7% due to antalgic limp with shortened stance phase moderate arthritic changes of the left knee. Patient is at MMI with regard to her right knee as well and based on the AMA guides to the evaluation of permanent impairment 5th addition page 529 table 17-5 the patient has a whole person impairment of 7% due to antalgic limp with shortened stance phase and moderate arthritic changes of the right knee. Both knees combined the total whole person impairment is 14%. - Last Documented On 05/01/2023 7:51AM ; [facility], [facility] Pending Tests Order Diagnosis Results Due Ordering P rovider Radiology - X-Ray Knee 2 Views Standing DEGENERATIVE JOINT DISEASE KNEE 09/11/14 Dino Mueller MD Last Documented On 5 11:03AM ; [facility] Radiology - MRI MRI Knee Pain in left knee 03/07/23 Wa eliseo Mueller MD Last Documented On 3 9:56AM ; [facility], [facility] Instructions to patient Intervention and counseling on cessation of tobacco use Last Documented On 4 10:34AM ; [facility], [facility] Lose weight Last Documented On 4 10:32AM ; [facility], [facility] Assessments Includes: Assessments from this encounter Findings - Overweight - Last Documented On 05/01/2023 7:51AM ; [facility], [facility] Left knee medial meniscus root repair 07/11/2022 - Last Documented On 05/01/2023 7:51AM ; [facility], [facility] Right knee work injury 2017 with partial medial meniscectomy and aggravation of underlying mild arthritis to level of moderate to severe osteoarthritis now maximum medical improvement with regard to the right knee. - Last Documented On 05/01/2023 7:51AM ; [facility], [facility] Instructions Includes: Instructions from this encounter Instructions to patient Intervention and counseling on cessation of tobacco use Last Documented On 4 10:34AM ; [facility], [facility] Lose weight Last Documented On 4 10:32AM ; [facility], [facility] Medical Equipment - Implanted Devices Includes: Current Devices No Medical Equipment Recorded Medications Includes: Medications discussed during this encounter and other current Medications Discontinued / Stopped on this date on 11/15/2022 Rosuvastatin Calcium 10 MG Oral Tablet Pr ovider: Diagnosis: Last Documented On 4 10:33AM By Patti Bansal ; [facility] Rosuvastatin Calcium 10 MG Oral Tablet Pr ovider: Diagnosis: Last Documented On 4 10:33AM By Patti Bansal ; [facility] Levothyroxine Sodium 88 MCG Oral Tablet P roz: ASH GERARDO MD Diagnosis: Last Documented On 4 10:33AM By Patti Bansal ; [facility] Current Medications (continue as prescribed) Levothyroxine Sodium 88 MCG Oral Tablet 01/31/2023 P roaurora: ASH GERARDO MD Diagnosis: Last Documented On 3 9:53AM By Patti Bansal ; [facility] Rosuvastatin Calcium 10 MG Oral Tablet 01/31/2023 Pr ovider: Diagnosis: Last Documented On 3 9:53AM By Patti Bansal ; [facility], [facility] Promethazine-DM 6.25-15 MG/5ML Oral Syrup 01/05/2023 Provider: ASH GERARDO MD Diagnosis: Last Documented On 3 9:53AM By Patti Bansal ; [facility], [facility] Estradiol 0.1 MG/GM Vaginal Cream 11/21/2022 Provide r: Diagnosis: Last Documented On 3 9:54AM By Patti Bansal ; [facility] Ibuprofen 800 MG Oral Tablet 07/01/2022 Provider: Diagnosis: Last Documented On 3 10:41AM By Jennifer Elizabeth ; [facility] Magnesium 500 MG Oral Tablet 07/01/2022 Provider: Diagnosis: Last Documented On 3 10:42AM By Jennifer Elizabeth ; [facility] Omeprazole 40 MG Oral Capsule Delayed Release 05/02/19 Provider: Diagnosis: Last Documented On 3 10:09AM By Cristal Freeman ; [facility], [facility] Alendronate Sodium 70 MG Oral Tablet 04/23/2022 Prov ider: ASH GERARDO MD Diagnosis: Last Documented On 3 10:09AM By Cristal Freeman ; [facility], [facility] Past Medications on file CeleBREX 200 MG Oral Capsule 09/27/2022 - 11/26/2022 P rovider: Dino Mueller MD Diagnosis: twice a day Last Documented On 3 10:37AM By Chula Prince ; [facility], [facility] oxyCODONE HCl 5 MG Oral Tablet 07/21/2022 - 07/28/2022 Provider: Dino Mueller MD Diagnosis: Take 1 tablet every 8 hrs prn pain Last Documented On 3 11:50AM By Dino Mueller ; [facility], [facility] oxyCODONE HCl 5 MG Oral Tablet 07/08/2022 - 07/12/2022 Provider: Dino Mueller MD Diagnosis: 1 po q 4h 1 tablet by mouth every [address] op pain Last Documented On 3 9:18AM By Dino Mueller ; [facility], [facility] traMADol HCl 50 MG Oral Tablet 07/08/2022 - 07/18/2022 Provider: Dino Mueller MD Diagnosis: 1-2 po q 4-6h PRN for breakthrough post op pain Last Documented On 3 9:18AM By Dino Mueller ; [facility], [facility] Ondansetron HCl 4 MG Oral Tablet 07/08/2022 - 07/23/19 Provider: Dino Mueller MD Diagnosis: 1-2 p o q 6-8h as needed for nausea Last Documented On 3 9:18AM By Dino Mueller ; [facility], [facility] Meloxicam 15 MG Oral Tablet 05/19/2022 - 06/18/2022 Pr ovider: Dino Mueller MD Diagnosis: once a day Last Documented On 3 11:13AM By Cristal Freeman ; [facility], [facility] Diclofenac Sodium 75MG Oral Tablet Delayed Release 12/15/2016 - 01/14/2017 Provider: Dino Mueller MD Diagnosis: twice a day Last Documented On 7 3:31PM By Natalia Story ; [facility], [facility] TraMADol HCl 50 MG Tablet 11/04/2016 - 12/04/2016 Prov ider: Dino Mueller MD Diagnosis: 1 tab every 6 hrs pain Last Documented On 7 2:19PM By Kenya Alex ; [facility], [facility] Mobic 7.5 MG Tablet 03/16/2015 - 04/15/2015 Provider: Dino Mueller MD Diagnosis: twice a day Last Documented On 6 4:20PM By Ondina Bob ; [facility], [facility] Percocet 7.5-325 MG OR TABS 01/14/2015 - 01/19/2015 Pr ovider: Dino Mueller MD Diagnosis: Last Documented On 5 3:19PM By Destini Dickson ; [facility], [facility] Medications Administered Includes: Administered Medications from this encounter No Administered Medications Recorded Vital Signs Includes: Vital Signs from this encounter Vital Name 03/21/2023 10:33A Height (in) 63 Weight (lb) 190 Body Mass Index 33.7 Body Surface Area 1.9 Note: lc Last Documented: On 03/21/2023 10:33A M ; [facility], [facility] Results Includes: Results discussed during this encounter No Results Recorded For Specified Dates History of Present Illness Includes: History of Present Illness from this encounter CARI Lewis is a 62 year old female. - Allergy list reviewed - Problem list reviewed - Medication list reviewed - Patient pain level from 1-10: 2 while moving Patient is here today for follow-up of her left knee scope with medial meniscus root repair on July 11, 2022. Her knee had given out on her sometime beginning February and she twisted and fell injuring the right knee coming off her son stepped we are getting an MRI to make sure she did not have a new tear. She feels like she is back to her baseline pain that she had prior to that injury. He is feeling better. Since being here last she has had an FRANCIS also. She still has pain with the left knee Patient also has persistent medial compartment pain of the right knee status post partial medial meniscectomy as part of a work injury separate injury in 2017 continues to have daily medial compartment pain in the right knee which limits her ability to stand and walk climb stairs and it is constant low to moderate level of pain. Social History Description Last Updated No recent change in diet 07/25/2022 Last Documented On 4 10:32AM ; [facility], [facility] Not a current smoker. 07/25/2022 Last Documented On 4 10:32AM ; [facility], [facility] Exercising regularly 07/26/2018 Last Documented On 4 10:32AM ; [facility], [facility] No caffeine use 07/26/2018 Last Documented On 4 10:32AM ; [facility], [facility] Tobacco use 09/11/2014 Last Documented On 4 10:32AM ; [facility], [facility] Smoking status : Current everyday smoker 09/11/2014 Last Documented On 4 10:32AM ; [facility], [facility] Current smoker 09/11/2014 Last Documented On 4 10:32AM ; [facility], [facility] No recent change in diet 09/11/2014 Last Documented On 4 10:32AM ; [facility], [facility] Not using alcohol 09/11/2014 Last Documented On 4 10:32AM ; [facility], [facility] Not using drugs 09/11/2014 Last Documented On 4 10:32AM ; [facility], [facility] Procedures and Surgical History Includes: Procedures from this encounter Procedures Code Diagnosis Performing Provider Service L ocation Service Date intervention and counseling on cessation of tobacco use 4000F Last Documented On 4 10:34AM ; [facility], [facility] use of tobacco assessment performed 1000F Last Documented On 4 10:32AM ; [facility], [facility] review of medications documented 1160F Last Documented On 4 10:32AM ; [facility], [facility] Surgical History Last Updated History of hysterectomy 09/11/2014 Last Documented On 4 10:32AM ; [facility], [facility] Medical History Includes: Medical History addressed during this encounter Description Last Updated Thyroid disease 07/26/2018 Last Documented On 4 10:32AM ; [facility], [facility] thyroid removed 01/26/2015 Last Documented On 4 10:32AM ; [facility], [facility] Family History Includes: Family History addressed during this encounter Description Last Updated Family history of diabetes mellitus 07/11 Last Documented On 4 10:32AM ; [facility], [facility] Family history of cancer 09/11/2014 Last Documented On 4 10:32AM ; [facility] Family history of osteoporosis 5 Last Documented On 4 10:32AM ; [facility] Review of Systems Includes: Review of [...] Active Last Documented On 4 10:32AM ; [facility] Encounters Encounter Provider Location Date Check-In Time Check-Out Time Diagnosis WC FOLLOW UP/EST Dino Mueller MD [facility] 03/21/19 24 10:27AM 10:59AM Overweight Insurance Includes: Active Insurance Policies Plan Name Member ID Group # Subscriber Relationship Effect petra Dates 1 - [employer] [facility] [id number] Maria C Lewis Amada f 02/24/2022 - Unknown 2 - [employer] [id number] Maria C Lewis Self 10/11/2016 - Unknown 3 - [employer] [id number] Maria C Lewis Self 10/11/2016 - Unknown Clinical Notes Includes: Clinical Notes from this encounter * Progress note Date Encounter Last Documented by 03/21/2023 WC FOLLOW UP/EST Last documented on 05/01/2023; 7:51 AM, Dino Mueller MD; [facility], [facility] Active Problems & Conditions - Joint Pain [...] level from 1-10: 2 while moving Patient is here today for follow-up of her left knee scope with medial meniscus root repair on July 11, 2022. Her knee had given out on her sometime beginning February and she twisted and fell injuring the right knee coming off her son stepped we are getting an MRI to make sure she did not have a new tear. She feels like she is back to her baseline pain that she had prior to that injury. He is feeling better. Since being here last she has had an FRANCIS also. She still has pain with the left knee Patient also has persistent medial compartment pain of the right knee status post partial medial meniscectomy as part of a work injury separate injury in 2017 continues to have daily medial compartment pain in the right knee which limits her ability to stand and walk climb stairs and it is constant low to moderate level of pain. Current Medication - Alendronate Sodium 70 MG Oral Tablet 28 days, 0 refills - Estradiol 0.1 MG/GM Vaginal Cream 43 days, 0 refills - Ibuprofen 800 MG Oral Tablet take as directed 0 days, 0 refills - Levothyroxine Sodium 88 MCG Oral Tablet 30 days, 0 refills - Magnesium 500 MG Oral Tablet take as directed 0 days, 0 refills - Omeprazole 40 MG Oral Capsule Delayed Release 30 days, 0 refills - Promethazine-DM 6.25-15 MG/5ML Oral Syrup 10 days, 0 refills - Rosuvastatin Calcium 10 [...] allergic reaction. Physical Findings - Vitals taken 03/21/2023 10:33 am lc Height 63 in 59 - 78 Weight 190 lbs 96 - 178 Body Mass Index 33.7 kg/m2 Body Surface Area 1.9 m2 Standard Measurements: - Patient was overweight. Range of motion today was 0-120 No significant effusion still has some tenderness along the medial compartment medial joint line Stable varus valgus and Alexander did not reproduce any significant clicking though with Philip Antalgic gait is demonstrated with walking due to left knee pain Right knee shows range of motion 0-120 with tenderness over the medial joint line normal stability on varus valgus anterior posterior drawer testing trace effusion slight antalgic gait mild crepitation Tests MRI of the left knee showed no new meniscus tear she does have some degenerative changes with this left knee Right knee x-rays show narrowing of the medial joint space but grade 2 3 changes noted. Assessment - Overweight Left knee medial meniscus root repair 07/11/2022 Right knee work injury 2017 with partial medial meniscectomy and aggravation of underlying mild arthritis to level of moderate to severe osteoarthritis now maximum medical improvement with regard to the right knee. Therapy - Intervention and counseling on cessation of tobacco use. Counseling/Education - Lose weight Plan Patient was seen by myself and Dr. Mueller. 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 At some point in the future she may require a knee replacement. She can DC wearing the brace at this time. Patient is now at maximum medical improvement and based on the AMA guides to the evaluation of permanent impairment 5th addition page 529 table 17-5 patient has whole person impairment of 7% due to antalgic limp with shortened stance phase moderate arthritic changes of the left knee. Patient is at MMI with regard to her right knee as well and based on the AMA guides to the evaluation of permanent impairment 5th addition page 529 table 17-5 the patient has a whole person impairment of 7% due to antalgic limp with shortened stance phase and moderate arthritic changes of the right knee. Both knees combined the total whole person impairment is 14%. Notes This dictation was done with voice recognition software and may contain errors and omissions. Practice Management Use of tobacco assessment performed Review of medications documented. Care Team - ASH GERARDO MD - MOBILITY ENGINEER
--- OUTSIDE RECORDS SUMMARY | 2024-06-20 23:20 | XMS_ITS | Clinical Summary ---
Author Organization [facility] , [facility] Address [address] [place] [address] Phone Care Team Providers Care Proposal Manager Name Role Phone ASH GERARDO MD Unavailable [phone] Dino Mueller MD Primary Care Provider [phone] Reason for Visit and Chief Complaint The Chief Complaint is: Left Knee Pain Problems Includes: Problems addressed during this encounter and other active Problems All Visits Onset Date Resolved Date Provider Condition S tatus Joint Pain in the Left Knee 05/19/2022 Dino Mueller MD Active Last Documented On 3 10:08AM ; [facility] Joint Pain in the Right Knee 09/25/2014 Dino Mueller MD Active Last Documented On 5 3:33PM ; [facility] Plan of Treatment Patient was seen by myself and Dr. Mueller. Leander Hendricks PA-C Patient will follow- up after an MRI of the left knee if he has a new tear to evaluate the healing of the previous repair. Note to still be off work. She may need to have a knee replacement in the future. - Last Documented On 02/22/2023 9:56AM ; [facility] Pending Tests Order Diagnosis Results Due Ordering P rovider Radiology - X-Ray Knee 2 Views Standing DEGENERATIVE JOINT DISEASE KNEE 09/11/14 Dino Mueller MD Last Documented On 5 11:03AM ; [facility] Radiology - MRI MRI Knee Pain in left knee 03/07/23 Valente Mueller MD Last Documented On 3 9:56AM ; [facility], [facility] Instructions to patient Lose weight Last Documented On 3 9:48AM ; [facility], [facility] Assessments Includes: Assessments from this encounter Findings - Overweight - Last Documented On 02/22/2023 9:56AM ; [facility], [facility] Left medial meniscus root repair improving - Last Documented On 02/22/2023 9:56AM ; [facility], [facility] Left knee medial meniscus root repair 07/11/2022 - Last Documented On 02/22/2023 9:56AM ; [facility], [facility] Instructions Includes: Instructions from this encounter Instructions to patient Lose weight Last Documented On 3 9:48AM ; [facility], [facility] Medical Equipment - Implanted Devices Includes: Current Devices No Medical Equipment Recorded Medications Includes: Medications discussed during this encounter and other current Medications Current Medications (continue as prescribed) Levothyroxine Sodium 88 MCG Oral Tablet 01/31/2023 P rovider: ASH GERARDO MD Diagnosis: Last Documented On 3 9:53AM By Patti Banasl ; [facility], [facility] Rosuvastatin Calcium 10 MG Oral Tablet 01/31/2023 Pr ovider: Diagnosis: Last Documented On 3 9:53AM By Patti Bansal ; [facility], [facility] Promethazine-DM 6.25-15 MG/5ML Oral Syrup 01/05/2023 Provider: ASH GERARDO MD Diagnosis: Last Documented On 3 9:53AM By Patti Bansal ; [facility], [facility] Estradiol 0.1 MG/GM Vaginal Cream 11/21/2022 Provide r: Diagnosis: Last Documented On 3 9:54AM By Patti Bansal ; [facility], [facility] Ibuprofen 800 MG Oral Tablet 07/01/2022 Provider: Diagnosis: Last Documented On 3 10:41AM By Jennifer Elizabeth ; [facility], [facility] Magnesium 500 MG Oral Tablet 07/01/2022 Provider: Diagnosis: Last Documented On 3 10:42AM By Jennifer Elizabeth ; [facility], [facility] Omeprazole 40 MG Oral Capsule Delayed Release 05/02/19 Provider: Diagnosis: Last Documented On 3 10:09AM By Cristal Freeman ; [facility], [facility] Alendronate Sodium 70 MG Oral Tablet 04/23/2022 Prov ider: ASH GERARDO MD Diagnosis: Last Documented On 3 10:09AM By Cristal Freeman ; [facility], [facility] Past Medications on file CeleBREX 200 MG Oral Capsule 09/27/2022 - 11/26/2022 P rovider: Dino Mueller MD Diagnosis: twice a day Last Documented On 3 10:37AM By Chula Prince ; [facility], [facility] oxyCODONE HCl 5 MG Oral Tablet 07/21/2022 - 07/28/2022 Provider: Dino Mueller MD Diagnosis: Take 1 tablet every 8 hrs prn pain Last Documented On 3 11:50AM By Dino Mueller ; [facility], [facility] oxyCODONE HCl 5 MG Oral Tablet 07/08/2022 - 07/12/2022 Provider: Dino Mueller MD Diagnosis: 1 po q 4h 1 tablet by mouth every [address] op pain Last Documented On 3 9:18AM By Dino Mueller ; [facility], [facility] traMADol HCl 50 MG Oral Tablet 07/08/2022 - 07/18/2022 Provider: Dino Mueller MD Diagnosis: 1-2 po q 4-6h PRN for breakthrough post op pain Last Documented On 3 9:18AM By Dino Mueller ; [facility], [facility] Ondansetron HCl 4 MG Oral Tablet 07/08/2022 - 07/23/19 Provider: Dino Mueller MD Diagnosis: 1-2 p o q 6-8h as needed for nausea Last Documented On 3 9:18AM By Dino Mueller ; [facility], [facility] Meloxicam 15 MG Oral Tablet 05/19/2022 - 06/18/2022 Pr ovider: Dino Mueller MD Diagnosis: once a day Last Documented On 3 11:13AM By Cristal Freeman ; [facility], [facility] Diclofenac Sodium 75MG Oral Tablet Delayed Release 12/15/2016 - 01/14/2017 Provider: Dino Mueller MD Diagnosis: twice a day Last Documented On 7 3:31PM By Natalia Story ; [facility], [facility] TraMADol HCl 50 MG Tablet 11/04/2016 - 12/04/2016 Prov ider: Dino Mueller MD Diagnosis: 1 tab every 6 hrs pain Last Documented On 7 2:19PM By Kenya Alex ; [facility], [facility] Mobic 7.5 MG Tablet 03/16/2015 - 04/15/2015 Provider: Dino Mueller MD Diagnosis: twice a day Last Documented On 6 4:20PM By Ondina Bob ; [facility], [facility] Percocet 7.5-325 MG OR TABS 01/14/2015 - 01/19/2015 Pr ovider: Dino Mueller MD Diagnosis: Last Documented On 5 3:19PM By Destini Dickson ; [facility] Medications Administered Includes: Administered Medications from this encounter No Administered Medications Recorded Vital Signs Includes: Vital Signs from this encounter Vital Name 02/21/2023 09:54A Height (in) 63 Weight (lb) 190 Body Mass Index 33.7 Body Surface Area 1.9 Note: lc Last Documented: On 02/21/2023 9:54AM ; [facility] Results Includes: Results discussed during [...] meniscus root repair on July 11, 2022. She says last she fell and twisted her right knee coming off her son step and since that time she is having increasing pain with the right knee has not noticed any swelling she says she did not land on the right knee. She feels like she is coming reverted back to how her knee was prior to the procedure back in July. Social History Description Last Updated Tobacco non-user 07/25/2022 Last Documented On 3 9:48AM ; [facility], [facility] No recent change in diet 07/25/2022 Last Documented On 3 9:48AM ; [facility], [facility] Not a current smoker. 07/25/2022 Last Documented On 3 9:48AM ; [facility], [facility] Exercising regularly 07/26/2018 Last Documented On 3 9:48AM ; [facility], [facility] No caffeine use 07/26/2018 Last Documented On 3 9:48AM ; [facility], [facility] Tobacco use 09/11/2014 Last Documented On 3 9:48AM ; [facility], [facility] Smoking status : Current everyday smoker 09/11/2014 Last Documented On 3 9:48AM ; [facility], [facility] Current smoker 09/11/2014 Last Documented On 3 9:48AM ; [facility], [facility] No recent change in diet 09/11/2014 Last Documented On 3 9:48AM ; [facility], [facility] Not using alcohol 09/11/2014 Last Documented On 3 9:48AM ; [facility], [facility] Not using drugs 09/11/2014 Last Documented On 3 9:48AM ; [facility], [facility] Procedures and Surgical History Includes: Procedures from this encounter Procedures Code Diagnosis Performing Provider Service L ocation Service Date use of tobacco assessment performed 1000F Last Documented On 3 9:48AM ; [facility], [facility] review of medications documented 1160F Last Documented On 3 9:48AM ; [facility], [facility] Surgical History Last Updated History of hysterectomy 09/11/2014 Last Documented On 3 9:48AM ; [facility], [facility] Medical History Includes: Medical History addressed during this encounter Description Last Updated Thyroid disease 07/26/2018 Last Documented On 3 9:48AM ; [facility], [facility] thyroid removed 01/26/2015 Last Documented On 3 9:48AM ; [facility], [facility] Family History Includes: Family History addressed during this encounter Description Last Updated Family history of diabetes mellitus 07/11 Last Documented On 3 9:48AM ; [facility] Family history of cancer 09/11/2014 Last Documented On 3 9:48AM ; [facility] Family history of osteoporosis 5 Last Documented On 3 9:48AM ; [facility] Review of Systems Includes: Review [...] Active Last Documented On 4 10:32AM ; [facility] Encounters Encounter Provider Location Date Check-In Time Check-Out Time Diagnosis Follow Up Dino Mueller MD [facility] 3 9:41AM 10:18AM Overweight Insurance Includes: Active Insurance Policies Plan Name Member ID Group # Subscriber Relationship Effect petra - [facility] [id number] Maria C cox 02/24/2022 - Unknown 2 - [employer] [id number] Maria C Lewis Self 10/11/2016 - Unknown 3 - [employer] [id number] Maria C Lewis Self 10/11/2016 - Unknown Clinical Notes Includes: Clinical Notes from this encounter * Progress note Date Encounter Last Documented by 02/21/2023 Follow Up Last documented on 02/22/2023; 9:56 AM, Dino Mueller MD; [facility], [facility] Active Problems & Conditions - Joint Pain [...] meniscus root repair on July 11, 2022. She says last she fell and twisted her right knee coming off her son step and since that time she is having increasing pain with the right knee has not noticed any swelling she says she did not land on the right knee. She feels like she is coming reverted back to how her knee was prior to the procedure back in July. Current Medication - Alendronate Sodium 70 MG Oral Tablet 28 days, 0 refills - Estradiol 0.1 MG/GM Vaginal Cream 43 days, 0 refills - Ibuprofen 800 MG Oral Tablet take as directed 0 days, 0 refills - Levothyroxine Sodium 88 MCG Oral Tablet 30 days, 0 refills - Levothyroxine Sodium 88 MCG Oral Tablet 30 days, 0 refills - Magnesium 500 MG Oral Tablet take as directed 0 days, 0 refills - Omeprazole 40 MG Oral Capsule Delayed Release 30 days, 0 refills - Promethazine-DM 6.25-15 MG/5ML Oral Syrup 10 days, 0 refills - Rosuvastatin Calcium 10 MG Oral Tablet 30 days, 0 refills - Rosuvastatin Calcium 10 MG Oral Tablet 30 days, 0 refills - Rosuvastatin Calcium [...] allergic reaction. Physical Findings - Vitals taken 02/21/2023 09:54 am lc Height 63 in 59 - 78 Weight 190 lbs 96 - 178 Body Mass Index 33.7 kg/m2 Body Surface Area 1.9 m2 Standard Measurements: - Patient was overweight. Range of motion was about 15 to-120 she can get full passive extension she is tender along the medial compartment of the left knee no significant effusion. She is tender along the medial joint line also. Stable varus valgus and Alexander did not reproduce any significant clicking though with Philip Assessment - Overweight Left medial meniscus root repair improving Left knee medial meniscus root repair 07/11/2022 Counseling/Education - Lose weight Plan StartCited - Pain in left knee Radiology/MRI: MRI Knee EndCited Patient was seen by myself and Dr. Mueller. Leander Hendricks PA-C Patient will follow- up after an MRI of the left knee if he has a new tear to evaluate the healing of the previous repair. Note to still be off work. She may need to have a knee replacement in the future. Notes This dictation was done with voice recognition software and may contain errors and omissions. Practice Management Use of tobacco assessment performed Review of medications documented. Care Team - ASH GERARDO MD - DIESEL SERVICE APPRENTICE
== END 2024-06-20 23:59 | disposition home or self-care (01) ==
PROVIDERS: PCP Internal Medicine Adolescent Medicine; Visit Provider Nurse Practitioner Family
DX: M51.14 Intervertebral disc disorders with radiculopathy, thoracic region (principal); M79.18 Myalgia, other site; F17.210 Nicotine dependence, cigarettes, uncomplicated; Z73.89 Other problems related to life management difficulty
CPT/HCPCS: 99212; G0463

== ENCOUNTER 2024-07-03 09:19 | Outpatient (POV) | payer BC, SELFPAY ==
--- OUTSIDE RECORDS SUMMARY | 2024-07-03 09:22 | XMS_ITS ---
Care Plan - [facility], [facility] Created on: July 03, 2024 Maria C Lewis : 1960 Sex: Female Author Organization [facility] , [facility] Address [address] [place] [address] Phone Care Team Providers Care Registered Public Health Nurse Name Role Phone HUMAIRA CHANEY, ASH Dennison [phone] Dino Mueller MD Primary Care Provider [phone]
--- OUTSIDE RECORDS SUMMARY | 2024-07-03 09:22 | XMS_ITS | Clinical Summary ---
Author Organization [facility] , [facility] Address [address] [place] [address] Phone Care Team Providers Care Clinic Physician Name Role Phone ASH GERARDO MD Unavailable [phone] Dino Mueller MD Primary Care Provider [phone] Reason for Visit and Chief Complaint WC MRI Problems Includes: Problems addressed during this encounter and other active Problems All Visits Onset Date Resolved Date Provider Condition S tatus Joint Pain in the Left Knee 05/19/2022 Dino Mueller MD Active Last Documented On 3 10:08AM ; [facility], [facility] Joint Pain in the Right Knee 09/25/2014 Dino Mueller MD Active Last Documented On 5 3:33PM ; [facility] Plan of Treatment No Plan of Treatment [...] 3 9:53AM By Patti Bansal ; [facility], [facility] Rosuvastatin Calcium 10 MG Oral Tablet 01/31/2023 Pr ovider: Diagnosis: Last Documented On 3 9:53AM By Patti Bansal ; [facility], [facility] Promethazine-DM 6.25-15 MG/5ML Oral Syrup 01/05/2023 Provider: ASH GERARDO MD Diagnosis: Last Documented On 3 9:53AM By Patti Bansal ; [facility], [facility] Estradiol 0.1 MG/GM Vaginal Cream 11/21/2022 Provide r: Diagnosis: Last Documented On 3 9:54AM By Patti Bansal ; [facility], [facility] Ibuprofen 800 MG Oral Tablet 07/01/2022 Provider: Diagnosis: Last Documented On 3 10:41AM By Jennifer Elizabeth ; [facility], [facility] Magnesium 500 MG Oral Tablet 07/01/2022 Provider: Diagnosis: Last Documented On 3 10:42AM By Jennifer Elizabeth ; [facility], [facility] Omeprazole 40 MG Oral Capsule Delayed Release 05/02/19 Provider: Diagnosis: Last Documented On 3 10:09AM By Cristal Freeman ; [facility], [facility] Alendronate Sodium 70 MG Oral Tablet 04/23/2022 Prov ider: ASH GERARDO MD Diagnosis: Last Documented On 3 10:09AM By Cristal Freeman ; [facility], [facility] Medications Administered Includes: Administered Medications from this [...] 10:32AM ; [facility], [facility] Encounters Encounter Provider Location Date Check-In Time Check-Out Time Diagnosis WC MRI [facility] 03/09/2023 4:04PM 4:34PM Insurance Includes: Active Insurance Policies Plan Name Member ID Group # Subscriber Relationship Effect petra Dates 1 - [employer] [facility] [id number] Maria C Ybarra f 02/24/2022 - Unknown 2 - [employer] [id number] Maria C Baltazar 10/11/2016 - Unknown 3 - [employer] [id number] Maria C Lewis Self 10/11/2016 - Unknown Clinical Notes Includes: Clinical Notes from this encounter No Clinical Notes Recorded
--- OUTSIDE RECORDS SUMMARY | 2024-07-03 09:22 | XMS_ITS | Clinical Summary ---
Author Organization [facility] , [facility] Address [address] [place] [address] Phone Care Team Providers Care Capacitor Tester Name Role Phone ASH GERARDO MD Unavailable [phone] Dino Jane MD Primary Care Provider [phone] Reason for Visit and Chief Complaint The Chief Complaint is: Left Knee Pain Problems Includes: Problems addressed during this encounter and other active Problems All Visits Onset Date Resolved Date Provider Condition S tatus Joint Pain in the Left Knee 05/19/2022 Dino Mueller MD Active Last Documented On 3 10:08AM ; [facility] Joint Pain in the Right Knee 09/25/2014 Dino Mueller MD Active Last Documented On 5 3:33PM ; [facility] Plan of Treatment Patient is not able to do her normal work activities therefore we will keep her off work and then continue physical therapy and see her back in 6 - Last Documented On 01/10/2023 11:05AM ; [facility] Pending Tests Order Diagnosis Results Due Ordering P rovider Radiology - X-Ray Knee 2 Views Standing DEGENERATIVE JOINT DISEASE KNEE 09/11/14 Dino Mueller MD Last Documented On 5 11:03AM ; [facility] Radiology - MRI MRI Knee Pain in left knee 03/07/23 Valente Mueller MD Last Documented On 3 9:56AM ; [facility] Instructions to patient Lose weight Last Documented On 3 9:52AM ; [facility], [facility] Assessments Includes: Assessments from this encounter Findings - Overweight - Last Documented On 01/10/2023 11:05AM ; [facility], [facility] Left medial meniscus root repair improving - Last Documented On 01/10/2023 11:05AM ; [facility], [facility] Instructions Includes: Instructions from this encounter Instructions to patient Lose weight Last Documented On 3 9:52AM ; [facility], [facility] Medical Equipment - Implanted Devices Includes: Current Devices No Medical Equipment Recorded Medications Includes: Medications discussed during this encounter and other current Medications Current Medications (continue as prescribed) Levothyroxine Sodium 88 MCG Oral Tablet 01/31/2023 Lorie courtney: ASH GERARDO MD Diagnosis: Last Documented On 3 9:53AM By Patti Bansal ; [facility], [facility] Rosuvastatin Calcium 10 MG Oral Tablet 01/31/2023 Pr ovider: Diagnosis: Last Documented On 3 9:53AM By Patti Bansal ; [facility], [facility] Promethazine-DM 6.25-15 MG/5ML Oral Syrup 01/05/2023 Provider: ASH GERARDO MD Diagnosis: Last Documented On 3 9:53AM By Patti Bansal ; [facility], [facility] Estradiol 0.1 MG/GM Vaginal Cream 11/21/2022 Provide r: Diagnosis: Last Documented On 3 9:54AM By Patti Bansal ; [facility], [facility] Ibuprofen 800 MG Oral Tablet 07/01/2022 Provider: Diagnosis: Last Documented On 3 10:41AM By Jennifer Elizabeth ; [facility], [facility] Magnesium 500 MG Oral Tablet 07/01/2022 Provider: Diagnosis: Last Documented On 3 10:42AM By Jennifer Elizabeth ; [facility], [facility] Omeprazole 40 MG Oral Capsule Delayed Release 05/02/19 Provider: Diagnosis: Last Documented On 3 10:09AM By Cristal Freeman ; [facility], [facility] Alendronate Sodium 70 MG Oral Tablet 04/23/2022 Prov ider: ASH GERARDO MD Diagnosis: Last Documented On 3 10:09AM By Cristal Freeman ; [facility], [facility] Past Medications on file CeleBREX 200 MG Oral Capsule 09/27/2022 - 11/26/2022 Lorie courtney: Dino Mueller MD Diagnosis: twice a day Last Documented On 3 10:37AM By Chula Prince ; [facility], [facility] oxyCODONE HCl 5 MG Oral Tablet 07/21/2022 - 07/28/2022 Provider: Dino Mueller MD Diagnosis: Take 1 tablet every 8 hrs prn pain Last Documented On 3 11:50AM By Dino Mueller ; [facility] oxyCODONE HCl 5 MG Oral Tablet 07/08/2022 - 07/12/2022 Provider: Dino Mueller MD Diagnosis: 1 po q 4h 1 tablet by mouth every [address] op pain Last Documented On 3 9:18AM By Dino Mueller ; [facility], [facility] traMADol HCl 50 MG Oral Tablet 07/08/2022 - 07/18/2022 Provider: Dino Mueller MD Diagnosis: 1-2 po q 4-6h PRN for breakthrough post op pain Last Documented On 3 9:18AM By Dino Mueller ; [facility], [facility] Ondansetron HCl 4 MG Oral Tablet 07/08/2022 - 07/23/19 Provider: Dino Mueller MD Diagnosis: 1-2 p o q 6-8h as needed for nausea Last Documented On 3 9:18AM By Dino Mueller ; [facility], [facility] Meloxicam 15 MG Oral Tablet 05/19/2022 - 06/18/2022 Pr ovider: Dino Mueller MD Diagnosis: once a day Last Documented On 3 11:13AM By Cristal Freeman ; [facility], [facility] Diclofenac Sodium 75MG Oral Tablet Delayed Release 12/15/2016 - 01/14/2017 Provider: Dino Mueller MD Diagnosis: twice a day Last Documented On 7 3:31PM By Natalia Story ; [facility], [facility] TraMADol HCl 50 MG Tablet 11/04/2016 - 12/04/2016 Prov ider: Dino Muelelr MD Diagnosis: 1 tab every 6 hrs pain Last Documented On 7 2:19PM By Kenya Alex ; [facility], [facility] Mobic 7.5 MG Tablet 03/16/2015 - 04/15/2015 Provider: Dino Mueller MD Diagnosis: twice a day Last Documented On 6 4:20PM By Ondina Bob ; [facility], [facility] Percocet 7.5-325 MG OR TABS 01/14/2015 - 01/19/2015 Pr ovider: Dino Mueller MD Diagnosis: Last Documented On 5 3:19PM By Destini Dickson ; [facility], [facility] Medications Administered Includes: Administered Medications from this encounter No Administered Medications Recorded Vital Signs Includes: Vital Signs from this encounter Vital Name 01/10/2023 09:53A Height (in) 63 Weight (lb) 190 Body Mass Index 33.7 Body Surface Area 1.9 Note: lc Last Documented: On 01/10/2023 9:53AM ; [facility], [facility] Results Includes: Results discussed during this encounter [...] Documented On 3 9:52AM ; [facility], [facility] No recent change in diet 07/25/2022 Last Documented On 3 9:52AM ; [facility], [facility] Not a current smoker. 07/25/2022 Last Documented On 3 9:52AM ; [facility] Exercising regularly 07/26/2018 Last Documented On 3 9:52AM ; [facility], [facility] No caffeine use 07/26/2018 Last Documented On 3 9:52AM ; [facility], [facility] Tobacco use 09/11/2014 Last Documented On 3 9:52AM ; [facility], [facility] Smoking status : Current everyday smoker 09/11/2014 Last Documented On 3 9:52AM ; [facility], [facility] Current smoker 09/11/2014 Last Documented On 3 9:52AM ; [facility], [facility] No recent change in diet 09/11/2014 Last Documented On 3 9:52AM ; [facility], [facility] Not using alcohol 09/11/2014 Last Documented On 3 9:52AM ; [facility], [facility] Not using drugs 09/11/2014 Last Documented On 3 9:52AM ; [facility], [facility] Procedures and Surgical History Includes: Procedures from this encounter Procedures Code Diagnosis Performing Provider Service L ocation Service Date use of tobacco assessment performed 1000F Last Documented On 3 9:52AM ; [facility], [facility] review of medications documented 1160F Last Documented On 3 9:52AM ; [facility], [facility] Surgical History Last Updated History of hysterectomy 09/11/2014 Last Documented On 3 9:52AM ; [facility], [facility] Medical History Includes: Medical History addressed during this encounter Description Last Updated Thyroid disease 07/26/2018 Last Documented On 3 9:52AM ; [facility], [facility] thyroid removed 01/26/2015 Last Documented On 3 9:52AM ; [facility], [facility] Family History Includes: Family History addressed during this encounter Description Last Updated Family history of diabetes mellitus 07/11 Last Documented On 3 9:52AM ; [facility], [facility] Family history of cancer 09/11/2014 Last Documented On 3 9:52AM ; [facility], [facility] Family history of osteoporosis 5 Last Documented On 3 9:52AM ; [facility], [facility] Review of Systems Includes: Review of Systems [...] Active Last Documented On 4 10:32AM ; [facility] Encounters Encounter Provider Location Date Check-In Time Check-Out Time Diagnosis WORK COMP Dino Mueller MD [facility] 3 9:45AM 10:21AM Overweight Insurance Includes: Active Insurance Policies Plan Name Member ID Group # Subscriber Relationship Effect petra Dates 1 - [employer] [facility] [id number] Maria C Lewis Amada f 02/24/2022 - Unknown 2 - [place] [id number] Maria C Lewis Self 10/11/2016 - Unknown 3 - [employer] [id number] Maria C Lewis Self 10/11/2016 - Unknown Clinical Notes Includes: Clinical Notes from this encounter * Progress note Date Encounter Last Documented by 01/10/2023 WORK COMP Last documented on 01/10/2023; 11:05 AM, Dino Mueller MD; [facility] Active Problems & Conditions - [...] Care Team - ASH GERARDO MD - STAIN REMOVER
--- OUTSIDE RECORDS SUMMARY | 2024-07-03 09:22 | XMS_ITS | Clinical Summary ---
Author Organization [facility] , [facility] Address [address] [address] Phone Care Team Providers Care Scheduler Conveyor Name Role Phone ASH GERARDO MD Unavailable [phone] Dino Mueller MD Primary Care Provider [phone] Reason for Visit and Chief Complaint The Chief Complaint is: Left Knee Pain Problems Includes: Problems addressed during this encounter and other active Problems All Visits Onset Date Resolved Date Provider Condition S tatus Joint Pain in the Left Knee 05/19/2022 Dino Mueller MD Active Last Documented On 3 10:08AM ; [facility] Joint Pain in the Right Knee 09/25/2014 Dino Mueller MD Active Last Documented On 5 3:33PM ; [facility] Plan of Treatment Patient is not ready [...] Documented On 12/05/2022 8:03AM ; [facility] Pending Tests Order Diagnosis Results Due Ordering P rovider Radiology - X-Ray Knee 2 Views Standing DEGENERATIVE JOINT DISEASE KNEE 09/11/14 Dino Mueller MD Last Documented On 5 11:03AM ; [facility] Radiology - MRI MRI Knee Pain in left knee 03/07/23 Valente Mueller MD Last Documented On 3 9:56AM ; [facility], [facility] Instructions to patient Lose weight Last Documented On 3 9:44AM ; [facility], [facility] Assessments Includes: Assessments from this encounter Findings - Overweight - Last Documented On 12/05/2022 8:03AM ; [facility], [facility] Left knee scope medial meniscus root repair and chondroplasty patella July 11, 2022 - Last Documented On 12/05/2022 8:03AM ; [facility], [facility] Instructions Includes: Instructions from this encounter Instructions to patient Lose weight Last Documented On 3 9:44AM ; [facility], [facility] Medical Equipment - Implanted Devices Includes: Current Devices No Medical Equipment Recorded Medications Includes: Medications discussed during this encounter and other current Medications Current Medications (continue as prescribed) Levothyroxine Sodium 88 MCG Oral Tablet 01/31/2023 P roz: ASH GERARDO MD Diagnosis: Last Documented On 3 9:53AM By Patti Bansal ; [facility], [facility] Rosuvastatin Calcium 10 MG Oral Tablet 01/31/2023 Pr ovider: Diagnosis: Last Documented On 3 9:53AM By Patti Bansal ; [facility], [facility] Promethazine-DM 6.25-15 MG/5ML Oral Syrup 01/05/2023 Provider: ASH GERARDO MD Diagnosis: Last Documented On 3 9:53AM By Patti Bansal ; [facility], [facility] Estradiol 0.1 MG/GM Vaginal Cream 11/21/2022 Provide r: Diagnosis: Last Documented On 3 9:54AM By Patti Bansal ; [facility], [facility] Ibuprofen 800 MG Oral Tablet 07/01/2022 Provider: Diagnosis: Last Documented On 3 10:41AM By Jennifer Elizabeth ; [facility], [facility] Magnesium 500 MG Oral Tablet 07/01/2022 Provider: Diagnosis: Last Documented On 3 10:42AM By Jennifer Elizabeth ; [facility], [facility] Omeprazole 40 MG Oral Capsule Delayed Release 05/02/19 Provider: Diagnosis: Last Documented On 3 10:09AM By Cristal Freeman ; [facility], [facility] Alendronate Sodium 70 MG Oral Tablet 04/23/2022 Prov ider: ASH GERARDO MD Diagnosis: Last Documented On 3 10:09AM By Cristal Freeman ; [facility], [facility] Past Medications on file CeleBREX 200 MG Oral Capsule 09/27/2022 - 11/26/2022 P rovider: Dino Mueller MD Diagnosis: twice a day Last Documented On 3 10:37AM By Chula Prince ; [facility], [facility] oxyCODONE HCl 5 MG Oral Tablet 07/21/2022 - 07/28/2022 Provider: Dino Mueller MD Diagnosis: Take 1 tablet every 8 hrs prn pain Last Documented On 3 11:50AM By Dino Mueller ; [facility], [facility] oxyCODONE HCl 5 MG Oral Tablet 07/08/2022 - 07/12/2022 Provider: Dino Mueller MD Diagnosis: 1 po q 4h 1 tablet by mouth every [address] op pain Last Documented On 3 9:18AM By Dino Mueller ; [facility], [facility] traMADol HCl 50 MG Oral Tablet 07/08/2022 - 07/18/2022 Provider: Dino Mueller MD Diagnosis: 1-2 po q 4-6h PRN for breakthrough post op pain Last Documented On 3 9:18AM By Dino Mueller ; [facility], [facility] Ondansetron HCl 4 MG Oral Tablet 07/08/2022 - 07/23/19 Provider: Dino Mueller MD Diagnosis: 1-2 p o q 6-8h as needed for nausea Last Documented On 3 9:18AM By Dino Mueller ; [facility], [facility] Meloxicam 15 MG Oral Tablet 05/19/2022 - 06/18/2022 Pr ovider: Dino Mueller MD Diagnosis: once a day Last Documented On 3 11:13AM By Cristal Freeman ; [facility], [facility] Diclofenac Sodium 75MG Oral Tablet Delayed Release 12/15/2016 - 01/14/2017 Provider: Dino Mueller MD Diagnosis: twice a day Last Documented On 7 3:31PM By Natalia Story ; [facility] TraMADol HCl 50 MG Tablet 11/04/2016 - 12/04/2016 Prov ider: Dino Mueller MD Diagnosis: 1 tab every 6 hrs pain Last Documented On 7 2:19PM By Kenya Alex ; [facility] Mobic 7.5 MG Tablet 03/16/2015 - 04/15/2015 Provider: Dino Mueller MD Diagnosis: twice a day Last Documented On 6 4:20PM By Ondina Bob ; [facility] Percocet 7.5-325 MG OR TABS 01/14/2015 - 01/19/2015 Pr ovider: Dino Mueller MD Diagnosis: Last Documented On 5 3:19PM By Destini Dickson ; [facility], [facility] Medications Administered Includes: Administered Medications from this encounter No Administered Medications Recorded Vital Signs Includes: Vital Signs from this encounter Vital Name 11/29/2022 09:53A Height (in) 63 Weight (lb) 190 Body Mass Index 33.7 Body Surface Area 1.9 Note: sc Last Documented: On 11/29/2022 9:53AM ; [facility], [facility] Results Includes: Results discussed during [...] Documented On 3 9:44AM ; [facility], [facility] Not a current smoker. 07/25/2022 Last Documented On 3 9:44AM ; [facility], [facility] Exercising regularly 07/26/2018 Last Documented On 3 9:44AM ; [facility], [facility] No caffeine use 07/26/2018 Last Documented On 3 9:44AM ; [facility] Tobacco use 09/11/2014 Last Documented On 3 9:44AM ; [facility] Smoking status : Current everyday smoker 09/11/2014 Last Documented On 3 9:44AM ; [facility] Current smoker 09/11/2014 Last Documented On 3 9:44AM ; [facility], [facility] No recent change in diet 09/11/2014 Last Documented On 3 9:44AM ; [facility] Not using alcohol 09/11/2014 Last Documented On 3 9:44AM ; [facility] Not using drugs 09/11/2014 Last Documented On 3 9:44AM ; [facility], [facility] Procedures and Surgical History Includes: Procedures from this encounter Procedures Code Diagnosis Performing Provider Service L ocation Service Date use of tobacco assessment performed 1000F Last Documented On 3 9:44AM ; [facility], [facility] review of medications documented 1160F Last Documented On 3 9:44AM ; [facility] an X-ray was performed 52596 Last Documented On 3 9:44AM ; [facility] Surgical History Last Updated History of hysterectomy 09/11/2014 Last Documented On 3 9:44AM ; [facility] Medical History Includes: Medical History addressed during this encounter Description Last Updated Thyroid disease 07/26/2018 Last Documented On 3 9:44AM ; [facility] thyroid removed 01/26/2015 Last Documented On 3 9:44AM ; [facility] Family History Includes: Family History addressed during this encounter Description Last Updated Family history of diabetes mellitus 07/11 Last Documented On 3 9:44AM ; [facility] Family history of cancer 09/11/2014 Last Documented On 3 9:44AM ; [facility] Family history of osteoporosis 5 Last Documented On 3 9:44AM ; [facility], [facility] Review of Systems Includes: Review [...] Active Last Documented On 4 10:32AM ; [facility] Encounters Encounter Provider Location Date Check-In Time Check-Out Time Diagnosis Follow Up Dino Mueller MD [facility] 3 9:40AM 10:05AM Overweight Insurance Includes: Active Insurance Policies Plan Name Member ID Group # Subscriber Relationship Effect petra Dates 1 - [employer] [facility] [id number] Maria C Lewis Amada f 02/24/2022 - Unknown 2 - [employer] [id number] Maria C Lewis Self 10/11/2016 - Unknown 3 - [employer] [id number] Maria C Lewis Self 10/11/2016 - Unknown Clinical Notes Includes: Clinical Notes from this encounter * Progress note Date Encounter Last Documented by 11/29/2022 Follow Up Last documented on 12/05/2022; 8:03 AM, Dino Mueller MD; [facility], [facility] Active Problems & Conditions - [...] Care Team - ASH GERARDO MD - ROLLER VARNISHER
--- OUTSIDE RECORDS SUMMARY | 2024-07-03 09:22 | XMS_ITS ---
Author Organization [facility] Address [address] [place] [address] Phone Care Team Providers Care Pulley Worker Name Role Phone ASH GERARDO MD Unavailable [phone] Dino Mueller MD Primary Care Provider [phone] Problems Includes: Active, inactive, and resolved Problems All Visits Onset Date Resolved Date Provider Condition S tatus Joint Pain in the Left Knee 05/19/2022 Dino Mueller MD Active Last Documented On 3 10:08AM ; [facility] Joint Pain in the Right Knee 09/25/2014 Dino Mueller MD Active Last Documented On 5 3:33PM ; [facility] Plan of Treatment Pending Tests Order Diagnosis Results Due Ordering P rovider Radiology - X-Ray Knee 2 Views Standing DEGENERATIVE JOINT DISEASE KNEE 09/11/14 Dino Mueller MD Last Documented On 5 11:03AM ; [facility] Radiology - MRI MRI Knee Pain in left knee 03/07/23 Valente Mueller MD Last Documented On 3 9:56AM ; [facility] Instructions to patient Intervention and counseling on cessation of tobacco use Last Documented On 4 10:34AM ; [facility] Lose weight Last Documented On 4 10:32AM ; [facility] Lose weight Last Documented On 3 [...] smoking Last Documented On 5 3:33PM ; [email or web address] Education and counseling Last Documented On 5 1:16PM ; [email or web address] Health seminar on smoking ce ssation Last Documented On 5 1:16PM ; [facility] Self-management goals set fo r patient Last Documented On 5 1:16PM ; [facility] Patient will stop smoking Last Documented On 5 1:16PM ; [email or web address] Medical Equipment - Implanted Devices Includes: Current and historical Devices No Medical Equipment Recorded Medications Includes: Current and historical Medications Current Medications (continue as prescribed) Levothyroxine Sodium 88 MCG Oral Tablet 01/31/2023 P rovider: ASH GERARDO MD Diagnosis: Last Documented On 3 9:53AM By Patti Bansal ; [facility] Rosuvastatin Calcium 10 MG Oral Tablet 01/31/2023 Pr ovider: Diagnosis: Last Documented On 3 9:53AM By Patti Bansal ; [facility] Promethazine-DM 6.25-15 MG/5ML Oral Syrup 01/05/2023 Provider: ASH GERARDO MD Diagnosis: Last Documented On 3 9:53AM By Patti Bansal ; [facility] Estradiol 0.1 MG/GM Vaginal Cream 11/21/2022 Provide r: Diagnosis: Last Documented On 3 9:54AM By Patti Bansal ; [facility] Ibuprofen 800 MG Oral Tablet 07/01/2022 Provider: Diagnosis: Last Documented On 3 10:41AM By Jennifer Elizabeth ; [facility] Magnesium 500 MG Oral Tablet 07/01/2022 Provider: Diagnosis: Last Documented On 3 10:42AM By Jennifer Elizabeth ; [facility] Omeprazole 40 MG Oral Capsule Delayed Release 05/02/19 Provider: Diagnosis: Last Documented On 3 10:09AM By Cristal Freeman ; [facility], [facility] Alendronate Sodium 70 MG Oral Tablet 04/23/2022 Prov ider: ASH GERARDO MD Diagnosis: Last Documented On 3 10:09AM By Cristal Freeman ; [facility] Past Medications on file Rosuvastatin Calcium 10 MG Oral Tablet 11/15/2022 - Provider: Diagnosis: Last Documented On 4 10:33AM By Patti Bansal ; [facility] CeleBREX 200 MG Oral Capsule 09/27/2022 - 11/26/2022 P rovider: Dino uMeller MD Diagnosis: twice a day Last Documented On 3 10:37AM By Chula Prince ; [facility] oxyCODONE HCl 5 MG Oral Tablet 07/21/2022 - 07/28/2022 Provider: Dino Mueller MD Diagnosis: Take 1 tablet every 8 hrs prn pain Last Documented On 3 11:50AM By Dino Mueller ; [facility] oxyCODONE HCl 5 MG Oral Tablet 07/08/2022 - 07/12/2022 Provider: Dino Mueller MD Diagnosis: 1 po q 4h 1 tablet by mouth every [address] op pain Last Documented On 3 9:18AM By Dino Mueller ; [facility] traMADol HCl 50 MG Oral Tablet 07/08/2022 - 07/18/2022 Provider: Dino Mueller MD Diagnosis: 1-2 po q 4-6h PRN for breakthrough post op pain Last Documented On 3 9:18AM By Dino Mueller ; [facility] Ondansetron HCl 4 MG Oral Tablet 07/08/2022 - 07/23/19 Provider: Dino Mueller MD Diagnosis: 1-2 p o q 6-8h as needed for nausea Last Documented On 3 9:18AM By Dino Mueller ; [facility] Meloxicam 15 MG Oral Tablet 05/19/2022 - 06/18/2022 Pr ovider: Dino Mueller MD Diagnosis: once a day Last Documented On 3 11:13AM By Cristal Freeman ; [facility] Rosuvastatin Calcium 10 MG Oral Tablet 04/29/2022 - Provider: Diagnosis: Last Documented On 4 10:33AM By Patti Bansal ; [facility] Levothyroxine Sodium 88 MCG Oral Tablet 04/29/2022 - 03/21/2023 Provider: ASH Rosales Diagnosis: Last Documented On 4 10:33AM By Patti Bansal ; [facility] Levothyroxine Sodium 88 MCG Oral Tablet 04/01/2022 - 07/01/2022 Provider: ASH Rosales Diagnosis: Last Documented On 3 10:42AM By Jennifer Elizabeth ; [facility] Rosuvastatin Calcium 10 MG Oral Tablet 04/01/2022 - Provider: Diagnosis: Last Documented On 3 10:43AM By Jennifer Elizabeth ; [facility] Bisoprolol Fumarate 10MG Oral Tablet 07/26/2018 - 06/12 Provider: Diagnosis: Last Documented On 3 10:43AM By Jennifer Elizabeth ; [facility] Amitriptyline HCl 25MG Oral Tablet 07/26/2018 - 2022 Provider: Diagnosis: Last Documented On 3 10:43AM By Jennifer Elizabeth ; [facility] Flonase Allergy Relief 50MCG/ACT Nasal Suspensio n 07/26/2018 - 07/01/2022 Provider: Diagnosis: Last Documented On 3 10:43AM By Jennifer Elizabeth ; [facility] Diclofenac Sodium 75MG Oral Tablet Delayed Release 12/15/2016 - 01/14/2017 Provider: Dino Mueller MD Diagnosis: twice a day Last Documented On 7 3:31PM By Natalia Simpson [facility] TraMADol HCl 50 MG Tablet 11/04/2016 - 12/04/2016 Prov ider: Dino Mueller MD Diagnosis: 1 tab every 6 hrs pain Last Documented On 7 2:19PM By Kenya Alex ; [facility] Mobic 7.5 MG Tablet 03/16/2015 - 04/15/2015 Provider: Dino Mueller MD Diagnosis: twice a day Last Documented On 6 4:20PM By Ondina Bob ; [facility] Percocet 7.5-325 MG OR TABS 01/14/2015 - 01/19/2015 Pr ovider: Dino Mueller MD Diagnosis: Last Documented On 5 3:19PM By Destini Dickson ; [facility] Ibuprofen 400 MG Tablet 09/11/2014 - 07/01/2022 Provid er: Diagnosis: Last Documented On 3 10:41AM By Jennifer Elizabeth ; [facility] Levothyroxine Sodium Powder 09/11/2014 - 07/01/2022 Pr ovider: Diagnosis: Last Documented On 3 10:43AM By Jennifer Elizabeth ; [facility] Medications Administered Includes: Administered Medications in patient's chart No Administered Medications Recorded Results Includes: Results from 07/04/2023 through 07/03/2024 No Results Recorded For Specified Dates History of Present Illness History of Present Illness not supported for this document type No History of Present Illness Recorded Social History Description Last Updated Tobacco non-user 07/25/2022 Last Documented On 3 11:18AM ; [facility] No recent change in diet 07/25/2022 Last Documented On 3 11:18AM ; [facility] Not a current smoker. 07/25/2022 Last Documented On 3 11:18AM ; [facility] Exercising regularly 07/26/2018 Last Documented On 0 3:16PM ; [facility] No caffeine use 07/26/2018 Last Documented On 0 3:16PM ; [facility] Tobacco use 09/11/2014 Last Documented On 5 11:03AM ; [facility] Smoking status : Current everyday smoker 09/11/2014 Last Documented On 5 11:03AM ; [facility] Current smoker 09/11/2014 Last Documented On 5 11:03AM ; [facility] No recent change in diet 09/11/2014 Last Documented On 5 11:03AM ; [facility] Not using alcohol 09/11/2014 Last Documented On 5 11:03AM ; [facility] Not using drugs 09/11/2014 Last Documented On 5 11:03AM ; [facility] Procedures and Surgical History Surgical History Last Updated History of hysterectomy 09/11/2014 Last Documented On 5 11:03AM ; [facility] Medical History Includes: Medical History in patient's chart Description Last Updated Thyroid disease 07/26/2018 Last Documented On 0 3:16PM ; [facility] thyroid removed 01/26/2015 Last Documented On 5 1:42PM ; [facility] Family History Includes: Family History in patient's chart Description Last Updated Family history of diabetes mellitus 07/11 Last Documented On 0 3:16PM ; [facility] Family history of cancer 09/11/2014 Last Documented On 5 11:03AM ; [facility] Family history of osteoporosis 5 Last Documented On 5 11:03AM ; [facility] Review of Systems Review of Systems [...] Active Last Documented On 4 10:32AM ; [facility] Insurance Includes: Active Insurance Policies Plan Name Member ID Group # Subscriber Relationship Effect petra Dates [facility] [id number] Maria C cox 02/24/2022 - Unknown 2 - [employer] [id number] Maria C Baltazar 10/11/2016 - Unknown 3 - [employer] [id number] Maria C Baltazar 10/11/2016 - Unknown Clinical Notes Includes: Signed Clinical Notes starting from 02/24/2022 No Clinical Notes Recorded
--- OUTSIDE RECORDS SUMMARY | 2024-07-03 09:23 | XMS_ITS | Clinical Summary ---
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 Joint Pain in the Right Knee 09/25/2014 Dino Mueller MD Active Last Documented On 5 3:33PM ; [facility] Plan of Treatment Patient was seen [...] - Last Documented On 02/22/2023 9:56AM ; [facility] Pending Tests Order Diagnosis Results Due Ordering P rovider Radiology - X-Ray Knee 2 Views Standing DEGENERATIVE JOINT DISEASE KNEE 09/11/14 Dino Mueller MD Last Documented On 5 11:03AM ; [facility] Radiology - MRI MRI Knee Pain in left knee 03/07/23 Valente Mueller MD Last Documented On 3 9:56AM ; [facility] Instructions to patient Lose weight Last Documented On 3 9:48AM ; [facility] Assessments Includes: Assessments from this encounter Findings - Overweight - Last Documented On 02/22/2023 9:56AM ; [facility] Left medial meniscus root repair improving - Last Documented On 02/22/2023 9:56AM ; [facility] Left knee medial meniscus root repair 07/11/2022 - Last Documented On 02/22/2023 9:56AM ; [facility] Instructions Includes: Instructions from this encounter Instructions to patient Lose weight Last Documented On 3 9:48AM ; [facility] Medical Equipment - Implanted Devices Includes: Current Devices No Medical Equipment Recorded Medications Includes: Medications discussed during this encounter and other current Medications Current Medications (continue as prescribed) Levothyroxine Sodium 88 MCG Oral Tablet 01/31/2023 P rovider: ASH GERARDO MD Diagnosis: Last Documented On 3 9:53AM By Patti Bansal ; [facility] Rosuvastatin Calcium 10 MG Oral Tablet 01/31/2023 Pr ovider: Diagnosis: Last Documented On 3 9:53AM By Patti Bansal ; [facility] Promethazine-DM 6.25-15 MG/5ML Oral Syrup 01/05/2023 Provider: ASH GERARDO MD Diagnosis: Last Documented On 3 9:53AM By Patti Bansal ; [facility] Estradiol 0.1 MG/GM Vaginal Cream 11/21/2022 Provide r: Diagnosis: Last Documented On 3 9:54AM By Patti Bansal ; [facility] Ibuprofen 800 MG Oral Tablet 07/01/2022 Provider: Diagnosis: Last Documented On 3 10:41AM By Jennifer Elizabeth ; [facility] Magnesium 500 MG Oral Tablet 07/01/2022 Provider: Diagnosis: Last Documented On 3 10:42AM By Jennifer Elizabeth ; [facility] Omeprazole 40 MG Oral Capsule Delayed Release 05/02/19 Provider: Diagnosis: Last Documented On 3 10:09AM By Cristal Freeman ; [facility] Alendronate Sodium 70 MG Oral Tablet 04/23/2022 Prov ider: ASH GERARDO MD Diagnosis: Last Documented On 3 10:09AM By Cristal Freeman ; [facility] Past Medications on file CeleBREX 200 MG Oral Capsule 09/27/2022 - 11/26/2022 P rovider: Dino Mueller MD Diagnosis: twice a day Last Documented On 3 10:37AM By Chula Prince ; [facility] oxyCODONE HCl 5 MG Oral Tablet 07/21/2022 - 07/28/2022 Provider: Dino Mueller MD Diagnosis: Take 1 tablet every 8 hrs prn pain Last Documented On 3 11:50AM By Dino Mueller ; [facility] oxyCODONE HCl 5 MG Oral Tablet 07/08/2022 - 07/12/2022 Provider: Dino Mueller MD Diagnosis: 1 po q 4h 1 tablet by mouth every [address] op pain Last Documented On 3 9:18AM By Dino Mueller ; [facility] traMADol HCl 50 MG Oral Tablet 07/08/2022 - 07/18/2022 Provider: Dino Mueller MD Diagnosis: 1-2 po q 4-6h PRN for breakthrough post op pain Last Documented On 3 9:18AM By Dino Mueller ; [facility] Ondansetron HCl 4 MG Oral Tablet 07/08/2022 - 07/23/19 Provider: Dion Mueller MD Diagnosis: 1-2 p o q 6-8h as needed for nausea Last Documented On 3 9:18AM By Dino Mueller ; [facility] Meloxicam 15 MG Oral Tablet 05/19/2022 - 06/18/2022 Pr ovider: Dino Mueller MD Diagnosis: once a day Last Documented On 3 11:13AM By Cristal Freeman ; [facility] Diclofenac Sodium 75MG Oral Tablet Delayed Release 12/15/2016 - 01/14/2017 Provider: Dino Mueller MD Diagnosis: twice a day Last Documented On 7 3:31PM By Natalia Story ; [facility] TraMADol HCl 50 MG Tablet 11/04/2016 - 12/04/2016 Prov ider: Dino Mueller MD Diagnosis: 1 tab every 6 hrs pain Last Documented On 7 2:19PM By Kenya Alex ; [facility] Mobic 7.5 MG Tablet 03/16/2015 - 04/15/2015 Provider: Dino Mueller MD Diagnosis: twice a day Last Documented On 6 4:20PM By Ondina Bob ; [facility] Percocet 7.5-325 MG OR TABS 01/14/2015 - 01/19/2015 Pr ovider: Dino Mueller MD Diagnosis: Last Documented On 5 3:19PM By Destini Dickson ; [facility] Medications Administered Includes: Administered Medications from this encounter No Administered Medications Recorded Vital Signs Includes: Vital Signs from this encounter Vital Name 02/21/2023 09:54A Height (in) 63 Weight (lb) 190 Body Mass Index 33.7 Body Surface Area 1.9 Note: lc Last Documented: On 02/21/2023 9:54AM ; [facility] Results Includes: Results discussed during this [...] Documented On 3 9:48AM ; [facility] No recent change in diet 07/25/2022 Last Documented On 3 9:48AM ; [facility] Not a current smoker. 07/25/2022 Last Documented On 3 9:48AM ; [facility] Exercising regularly 07/26/2018 Last Documented On 3 9:48AM ; [facility] No caffeine use 07/26/2018 Last Documented On 3 9:48AM ; [facility] Tobacco use 09/11/2014 Last Documented On 3 9:48AM ; [facility] Smoking status : Current everyday smoker 09/11/2014 Last Documented On 3 9:48AM ; [facility] Current smoker 09/11/2014 Last Documented On 3 9:48AM ; [facility] No recent change in diet 09/11/2014 Last Documented On 3 9:48AM ; [facility] Not using alcohol 09/11/2014 Last Documented On 3 9:48AM ; [facility] Not using drugs 09/11/2014 Last Documented On 3 9:48AM ; [facility] Procedures and Surgical History Includes: Procedures from this encounter Procedures Code Diagnosis Performing Provider Service L ocation Service Date use of tobacco assessment performed 1000F Last Documented On 3 9:48AM ; [facility] review of medications documented 1160F Last Documented On 3 9:48AM ; [facility] Surgical History Last Updated History of hysterectomy 09/11/2014 Last Documented On 3 9:48AM ; [facility] Medical History Includes: Medical History addressed during this encounter Description Last Updated Thyroid disease 07/26/2018 Last Documented On 3 9:48AM ; [facility] thyroid removed 01/26/2015 Last Documented On 3 9:48AM ; [facility] Family History Includes: Family History addressed during this encounter Description Last Updated Family history of diabetes mellitus 07/11 Last Documented On 3 9:48AM ; [facility] Family history of cancer 09/11/2014 Last Documented On 3 9:48AM ; [facility] Family history of osteoporosis 5 Last Documented On 3 9:48AM ; [facility] Review of Systems Includes: Review of [...] Active Last Documented On 4 10:32AM ; [facility] Encounters Encounter Provider Location Date Check-In Time Check-Out Time Diagnosis Follow Up Dino Mueller MD [facility] 3 9:41AM 10:18AM Overweight Insurance Includes: Active Insurance Policies Plan Name Member ID Group # Subscriber Relationship Effect petra - [facility] [id number] Maria C cox 02/24/2022 - Unknown 2 - [employer] [id number] Maria C Lewis Self 10/11/2016 - Unknown 3 - [employer] [id number] Maria C Lewis Self 10/11/2016 - Unknown Clinical Notes Includes: Clinical Notes from this encounter * Progress note Date Encounter Last Documented by 02/21/2023 Follow Up Last documented on 02/22/2023; 9:56 AM, Dino Mueller MD; [facility] Active Problems & Conditions - Joint [...] Care Team - ASH GERARDO MD - FISCAL ANALYST
--- OUTSIDE RECORDS SUMMARY | 2024-07-03 09:23 | XMS_ITS | Clinical Summary ---
Author Organization [facility] , [facility] Address [address] [place] [address] Phone Care Team Providers Care Byproducts Supervisor Name Role Phone ASH GERARDO MD [facility] [phone] Dino Mueller MD Primary Care Provider [phone] Reason for Visit and Chief Complaint The Chief Complaint is: Left Knee Pain Problems Includes: Problems addressed during this encounter and other active Problems All Visits Onset Date Resolved Date Provider Condition S tatus Joint Pain in the Left Knee 05/19/2022 Dino Mueller MD Active Last Documented On 3 10:08AM ; [facility] Joint Pain in the Right Knee 09/25/2014 Dino Mueller MD Active Last Documented On 5 3:33PM ; [facility] Plan of Treatment Patient was seen [...] - Last Documented On 05/01/2023 7:51AM ; [facility], [facility] Pending Tests Order Diagnosis Results Due Ordering P rovider Radiology - X-Ray Knee 2 Views Standing DEGENERATIVE JOINT DISEASE KNEE 09/11/14 Dino Mueller MD Last Documented On 5 11:03AM ; [facility] Radiology - MRI MRI Knee Pain in left knee 03/07/23 Wa eliseo Mueller MD Last Documented On 3 9:56AM ; [facility], [facility] Instructions to patient Intervention and counseling on cessation of tobacco use Last Documented On 4 10:34AM ; [facility], [facility] Lose weight Last Documented On 4 10:32AM ; [facility], [facility] Assessments Includes: Assessments from this encounter Findings - Overweight - Last Documented On 05/01/2023 7:51AM ; [facility], [facility] Left knee medial meniscus root repair 07/11/2022 - Last Documented On 05/01/2023 7:51AM ; [facility], [facility] Right knee work injury 2017 with partial medial meniscectomy and aggravation of underlying mild arthritis to level of moderate to severe osteoarthritis now maximum medical improvement with regard to the right knee. - Last Documented On 05/01/2023 7:51AM ; [facility], [facility] Instructions Includes: Instructions from this encounter Instructions to patient Intervention and counseling on cessation of tobacco use Last Documented On 4 10:34AM ; [facility], [facility] Lose weight Last Documented On 4 10:32AM ; [facility], [facility] Medical Equipment - Implanted Devices Includes: Current Devices No Medical Equipment Recorded Medications Includes: Medications discussed during this encounter and other current Medications Discontinued / Stopped on this date on 11/15/2022 Rosuvastatin Calcium 10 MG Oral Tablet Pr ovider: Diagnosis: Last Documented On 4 10:33AM By Patti Bansal ; [facility] Rosuvastatin Calcium 10 MG Oral Tablet Pr ovider: Diagnosis: Last Documented On 4 10:33AM By Patti Bansal ; [facility] Levothyroxine Sodium 88 MCG Oral Tablet P roz: ASH GERARDO MD Diagnosis: Last Documented On 4 10:33AM By Patti Bansal ; [facility] Current Medications (continue as prescribed) Levothyroxine Sodium 88 MCG Oral Tablet 01/31/2023 P roaurora: ASH GERARDO MD Diagnosis: Last Documented On 3 9:53AM By Patti Bansal ; [facility] Rosuvastatin Calcium 10 MG Oral Tablet 01/31/2023 Pr ovider: Diagnosis: Last Documented On 3 9:53AM By Patti Bansal ; [facility], [facility] Promethazine-DM 6.25-15 MG/5ML Oral Syrup 01/05/2023 Provider: ASH GERARDO MD Diagnosis: Last Documented On 3 9:53AM By Patti Bansal ; [facility], [facility] Estradiol 0.1 MG/GM Vaginal Cream 11/21/2022 Provide r: Diagnosis: Last Documented On 3 9:54AM By Patti Bansal ; [facility] Ibuprofen 800 MG Oral Tablet 07/01/2022 Provider: Diagnosis: Last Documented On 3 10:41AM By Jennifer Elizabeth ; [facility] Magnesium 500 MG Oral Tablet 07/01/2022 Provider: Diagnosis: Last Documented On 3 10:42AM By Jennifer Elizabeth ; [facility] Omeprazole 40 MG Oral Capsule Delayed Release 05/02/19 Provider: Diagnosis: Last Documented On 3 10:09AM By Cristal Freeman ; [facility], [facility] Alendronate Sodium 70 MG Oral Tablet 04/23/2022 Prov ider: ASH GERARDO MD Diagnosis: Last Documented On 3 10:09AM By Cristal Freeman ; [facility], [facility] Past Medications on file CeleBREX 200 MG Oral Capsule 09/27/2022 - 11/26/2022 P rovider: Dino Mueller MD Diagnosis: twice a day Last Documented On 3 10:37AM By Chula Prince ; [facility], [facility] oxyCODONE HCl 5 MG Oral Tablet 07/21/2022 - 07/28/2022 Provider: Dino Mueller MD Diagnosis: Take 1 tablet every 8 hrs prn pain Last Documented On 3 11:50AM By Dino Mueller ; [facility], [facility] oxyCODONE HCl 5 MG Oral Tablet 07/08/2022 - 07/12/2022 Provider: Dino Mueller MD Diagnosis: 1 po q 4h 1 tablet by mouth every [address] op pain Last Documented On 3 9:18AM By Dino Mueller ; [facility], [facility] traMADol HCl 50 MG Oral Tablet 07/08/2022 - 07/18/2022 Provider: Dino Mueller MD Diagnosis: 1-2 po q 4-6h PRN for breakthrough post op pain Last Documented On 3 9:18AM By Dino Mueller ; [facility], [facility] Ondansetron HCl 4 MG Oral Tablet 07/08/2022 - 07/23/19 Provider: Dino Mueller MD Diagnosis: 1-2 p o q 6-8h as needed for nausea Last Documented On 3 9:18AM By Dino Mueller ; [facility], [facility] Meloxicam 15 MG Oral Tablet 05/19/2022 - 06/18/2022 Pr ovider: Dino Mueller MD Diagnosis: once a day Last Documented On 3 11:13AM By Cristal Freeman ; [facility], [facility] Diclofenac Sodium 75MG Oral Tablet Delayed Release 12/15/2016 - 01/14/2017 Provider: Dino Mueller MD Diagnosis: twice a day Last Documented On 7 3:31PM By Natalia Story ; [facility], [facility] TraMADol HCl 50 MG Tablet 11/04/2016 - 12/04/2016 Prov ider: Dino Mueller MD Diagnosis: 1 tab every 6 hrs pain Last Documented On 7 2:19PM By Kenya Alex ; [facility], [facility] Mobic 7.5 MG Tablet 03/16/2015 - 04/15/2015 Provider: Dino Mueller MD Diagnosis: twice a day Last Documented On 6 4:20PM By Ondina Bob ; [facility], [facility] Percocet 7.5-325 MG OR TABS 01/14/2015 - 01/19/2015 Pr ovider: Dino Mueller MD Diagnosis: Last Documented On 5 3:19PM By Destini Dickson ; [facility], [facility] Medications Administered Includes: Administered Medications from this encounter No Administered Medications Recorded Vital Signs Includes: Vital Signs from this encounter Vital Name 03/21/2023 10:33A Height (in) 63 Weight (lb) 190 Body Mass Index 33.7 Body Surface Area 1.9 Note: lc Last Documented: On 03/21/2023 10:33A M ; [facility], [facility] Results Includes: Results discussed during this [...] Documented On 4 10:32AM ; [facility], [facility] Not a current smoker. 07/25/2022 Last Documented On 4 10:32AM ; [facility], [facility] Exercising regularly 07/26/2018 Last Documented On 4 10:32AM ; [facility], [facility] No caffeine use 07/26/2018 Last Documented On 4 10:32AM ; [facility], [facility] Tobacco use 09/11/2014 Last Documented On 4 10:32AM ; [facility], [facility] Smoking status : Current everyday smoker 09/11/2014 Last Documented On 4 10:32AM ; [facility], [facility] Current smoker 09/11/2014 Last Documented On 4 10:32AM ; [facility], [facility] No recent change in diet 09/11/2014 Last Documented On 4 10:32AM ; [facility], [facility] Not using alcohol 09/11/2014 Last Documented On 4 10:32AM ; [facility], [facility] Not using drugs 09/11/2014 Last Documented On 4 10:32AM ; [facility], [facility] Procedures and Surgical History Includes: Procedures from this encounter Procedures Code Diagnosis Performing Provider Service L ocation Service Date intervention and counseling on cessation of tobacco use 4000F Last Documented On 4 10:34AM ; [facility], [facility] use of tobacco assessment performed 1000F Last Documented On 4 10:32AM ; [facility], [facility] review of medications documented 1160F Last Documented On 4 10:32AM ; [facility], [facility] Surgical History Last Updated History of hysterectomy 09/11/2014 Last Documented On 4 10:32AM ; [facility], [facility] Medical History Includes: Medical History addressed during this encounter Description Last Updated Thyroid disease 07/26/2018 Last Documented On 4 10:32AM ; [facility], [facility] thyroid removed 01/26/2015 Last Documented On 4 10:32AM ; [facility], [facility] Family History Includes: Family History addressed during this encounter Description Last Updated Family history of diabetes mellitus 07/11 Last Documented On 4 10:32AM ; [facility], [facility] Family history of cancer 09/11/2014 Last Documented On 4 10:32AM ; [facility] Family history of osteoporosis 5 Last Documented On 4 10:32AM ; [facility] Review of Systems Includes: Review [...] Active Last Documented On 4 10:32AM ; [facility] Encounters Encounter Provider Location Date Check-In Time Check-Out Time Diagnosis WC FOLLOW UP/EST Dino Mueller MD [facility] 03/21/19 24 10:27AM 10:59AM Overweight Insurance Includes: Active Insurance Policies Plan Name Member ID Group # Subscriber Relationship Effect petra Dates 1 - [employer] [facility] [id number] Maria C Lewis Amada f 02/24/2022 - Unknown 2 - [employer] [id number] Maria C Lewis Self 10/11/2016 - Unknown 3 - [employer] [id number] Maria C Lewis Self 10/11/2016 - Unknown Clinical Notes Includes: Clinical Notes from this encounter * Progress note Date Encounter Last Documented by 03/21/2023 WC FOLLOW UP/EST Last documented on 05/01/2023; 7:51 AM, Dino Mueller MD; [facility], [facility] Active Problems & Conditions - Joint [...] Care Team - ASH GERARDO MD - BACK MAKER
--- NOTE | 2024-07-03 09:27 | EXP.PAIN.SOA ---
[facility] Disclaimer: The information contained in this section may have been updated after the patient was seen, as this information can be updated by other users. Medical History History of lipoma History of trigger finger CAD (coronary artery disease) Elevated parathyroid hormone Smoking greater than 30 pack years Sinusitis Tickle in throat Deviated septum Chronic cough Sinus headache Trigger finger Meniscal injury Palpitations Arrhythmia HLD (hyperlipidemia) Atypical angina Agatston coronary artery calcium score greater than 400 Post-tussive syncope Syncope and collapse Syncope Surgical History History of surgery bladder sling History of tonsillectomy History of colonoscopy History of esophagogastroduodenoscopy (EGD) H/O sinus surgery History of surgery HEART CATH - 1 STENT PLACED H/O abdominoplasty S/P lateral meniscal repair x2 H/O sinus surgery H/O total hysterectomy Hx of breast reduction, elective History of appendectomy History of thyroidectomy, subtotal Family History Other Brain cancer Cancer of kidney Family history of diabetes mellitus type II Family history of hypothyroidism Family history of myocardial infarction Lung cancer Social History Smoking Status: Current every day smoker tobacco type: cigarettes packs per day: 2 years smoked: 30 second hand exposure: Yes alcohol intake: never substance use type: denies use current occupational status: other Travel in the last 8 weeks: None household members: spouse housing: house current occupational exposures/hazards: No caffeine: Yes PM Subjective & Objective Subjective Subjective:: Patient is a pleasant 63-year-old female who presents today for follow-up. Today she rates her pain a 5 out of 10. She denies any new trauma or injury. Patient does state the new muscle relaxer we did try of methocarbamol 750 mg 3 times a day did not seem to make much difference either. Patient has been tried on baclofen in the past. Patient does state that she still continues to have the same overall pain there at her mid back. She does state today is a bad day and it is radiating out towards her ribs going towards her chest area. Patient states it is most prominent on the right side. She does state it is interfering with her ability perform activities of daily living such as cooking and cleaning. Patient at previous visit had been discussed that a pump may give her significant improvement with her history of lipomas and curvature of the spine however she would like to try more conservative approaches. Patient does state today that she would like to give another injection to try. Her Shyam has been reviewed and is appropriate. Review of Systems: General: No recent weight changes, no fever, no sleep disturbances Respiratory: No cough, no shortness of air, no recurring pulmonary infections Cardiovascular/peripheral vascular: No chest pain, no palpitations, no edema, no shortness of breath Gastrointestinal: No new onset incontinence, normal bowel movements reported Genitourinary: No new onset incontinence Musculoskeletal: Mid back pain, rib pain right-sided Psychiatric: [Normal mood/affect] Neurological: [Denies weakness in extremities], [denies balance issues] Pain at rest (0-10 scale): 5 Objective Objective:: Physical Exam: General: Alert and oriented x3, no acute distress, pleasant and cooperative Lungs: Respirations even and unlabored, symmetrical chest expansion Eyes: PERRL Musculoskeletal: Flexion and extension of thoracic [spine] somewhat guarded secondary to pain, point tenderness mid thoracic spine roughly T7 Neurological: Speech clear, no gross sensory deficit Has patient had previous pain injection?: No Conservative treatment options previously tried: Home exercise plan Length of treatment: Longer than 12 weeks Meds Home Medications and Allergies Home Medications ?Medication ?Instructions ?Recorded ?Confirmed ?Type aspirin 81 mg chewable tablet 81 mg PO DAILY 30 days #30 tabs 04/17/23 06/20/24 Rx ([facility] Chewable Low Dose Aspirin) levothyroxine 88 mcg tablet 88 mcg PO DAILY 06/01/23 06/20/24 History omeprazole 20 mg capsule,delayed 40 mg (2 x 20 mg) PO DAILY gerd 03/28/24 06/20/24 Rx release #120 caps baclofen 5 mg tablet 5 mg PO TID PRN Muscle Pain 06/12/24 06/20/24 History cholecalciferol (vitamin D3) 25 25 mcg PO DAILY 06/12/24 06/20/24 History mcg (1,000 unit) capsule cyanocobalamin (vitamin B-12) 500 500 mcg PO DAILY 06/12/24 06/20/24 History mcg lozenges methocarbamol 750 mg tablet 750 mg PO TID #42 tabs 06/20/24 Rx rosuvastatin 20 mg tablet 20 mg PO DAILY #30 tabs 07/02/24 Rx New Prescriptions to Start Prescriptions: Allergies Allergy/AdvReac Type Severity Reaction Status Date / Time No Known Allergies Allergy Verified 06/12/24 10:36 Assessment and Plan *Assessment and plan (1) Degenerative disc disease, thoracic: Status: Acute Category: Medical Code(s): M51.34 - Other intervertebral disc degeneration, thoracic region (2) Thoracic radiculopathy: Status: Acute Category: Medical Code(s): M54.14 - Radiculopathy, thoracic region Plan Patient continues to have significant pain in her mid back that does radiate into her ribs bilaterally however has more pain along the right side. Patient did have point tenderness higher up in her thoracic spine today around the approximate level of T7. I did discuss with the patient that previously when we have done epidurals we did try lower due to her pain at that time. I have discussed that she may benefit from an epidural at a higher level due to her worsening complaints and radiating symptoms towards her ribs. Risk and benefits of this injection were explained to the patient and she would like to proceed forward with this plan of care. Patient has tried and failed conservative therapy including oral medications, heat and ice, topicals, at home stretching exercise for longer than 12 weeks with no additional changes. Patient has had this mid back pain that has been chronic and going on for longer than 6 months. I will send in a 2-week dose of amitriptyline 25 mg twice daily and schedule the patient for a T TONE T7-T8 under fluoroscopy. Patient has been instructed to contact the clinic with any concerns before the next appointment. Dr. Christianson has reviewed this note and agrees with this plan of care. This note was dictated using voice recognition software and make contain errors or omissions. All injections are used with Lidocaine, Bupivacaine and dexamethasone. Occasionally urine drug screen is needed to verify patient's compliance with our office pain contract. This is ordered based off specific treatments related to chronic pain with the potential to abuse certain medications.
[2024-07-03 10:36] VITALS: BP 117/69; PULSE 61; RESP 14; O2SAT 98; BMI 28.3
== END 2024-07-03 23:59 | disposition home or self-care (01) ==
PROVIDERS: PCP Internal Medicine Adolescent Medicine; Visit Provider Nurse Practitioner Family
DX: M51.14 Intervertebral disc disorders with radiculopathy, thoracic region (principal); F17.210 Nicotine dependence, cigarettes, uncomplicated; Z73.89 Other problems related to life management difficulty
CPT/HCPCS: 99212; G0463

== ENCOUNTER 2024-07-23 11:15 | Day surgery (SDC) | payer BC, SELFPAY ==
[2024-07-23 11:34] VITALS: BP 126/64; PULSE 53; RESP 18; O2SAT 99
[2024-07-23 11:36] VITALS: BP 115/64; PULSE 64; RESP 16; TEMP 36.4; O2SAT 98; BMI 27.8
[2024-07-23] MEDS: DEXAMETHASONE 10MG/ML 1ML VIAL 10 MG (11:38)
[2024-07-23 11:48] VITALS: BP 115/69; PULSE 56; RESP 16; O2SAT 100
--- NOTE | 2024-07-23 12:33 | EXP.PAIN.PRO ---
Procedure Date: 07/23/24 Time: 11:15 Anesthesiologist:: Dar Nayak CRNA Complications:: None Pre-procedure Diagnosis:: High lumbar/low thoracic back pain. Unspecific. Post-procedure Diagnosis:: Same Indications for Procedure:: Unspecific. Thoracic spine MRI essentially normal. Thoracic x-ray does show Moderate hypertrophic changes in the facet joints are consistent with early arthritic changes, possibly linked to localized pain or discomfort. Patient's main area of discomfort is T11-L2. She reports it is not always pain is much as soreness and pressure when standing for any length of time. I discussed in detail with the patient regarding the level of epidural today. Epidural level was ordered at T7-8. I will give the thoracic epidural at T11-12. This is the area the patient is requesting based on palpation in her description of soreness. I also discussed the need for potential low thoracic high lumbar medial branch blocks/facet injections if in fact today's thoracic epidural injection is not effective. Procedure Details:: Informed consent was obtained and the risks and benefits of the procedure were explained to the patient. The patient was taken to the procedure room and noninvasive monitors placed, including noninvasive blood pressure cuff and pulse oximeter. The back was viewed using C-Arm fluoroscopy and prepped using Betadine as a cleansing solution and the T11-12 interspace was palpated. Skin and subcutaneous tissues were anesthetized using lidocaine 1.5% and a 25-gauge needle. After this, an 18-gauge Touhy epidural needle was placed into the T11-12 interspace and advanced using fluoroscopic guidance and loss of resistance to air until the epidural space was encountered. After confirmation of needle placement in the epidural space, with dye, a solution containing lidocaine 1.5%, 4 mL and Depo-Medrol 80 mg were incrementally injected into the thoracic epidural space. The patient tolerated the procedure well with no complications. The patient was observed in the Pain Clinic and then discharged home neurologically intact. Plan and Disposition:: Patient was discharged without incident.
== END 2024-07-23 11:48 | disposition home or self-care (01) ==
LOC: SC.PAINP 11:16
PROVIDERS: PCP Internal Medicine Adolescent Medicine; Visit Provider Nurse Anesthetist, Certified Registered
DX: M54.6 Pain in thoracic spine (principal)
CPT/HCPCS: 62321; J1100

== ENCOUNTER 2024-08-08 14:04 | Outpatient (CLI) | payer BC, SELFPAY ==
--- NOTE | 2024-08-08 14:07 | MM_ITS ---
PROCEDURE INFORMATION: Exam: MG Bilateral Screening 3D Mammography Exam date and time: 08/08/2024 2:12 PM Age: 63 years old Clinical indication: Screening examination TECHNIQUE: Imaging protocol: Bilateral Screening tomosynthesis and 2D mammography including computer-aided detection (CAD) when performed. COMPARISON: 1. MG MM DIG SCREENING MAMM BI W/CAD 08/02/2023 12:55 PM 2. MG MM DIG SCREENING MAMM BI W/CAD 08/19/2021 3:18 PM FINDINGS: MAMMOGRAPHY: Breast composition: The breasts are almost entirely fatty. Mass: No suspicious masses. Architectural distortion: None. Calcifications: No suspicious calcifications. Asymmetric density: None. Skin thickening: None. Axillary adenopathy: None. IMPRESSION: No mammographic evidence of malignancy. Annual screening is recommended unless otherwise clinically indicated. ASSESSMENT: BI-RADS Category 1: Negative.
== END 2024-08-08 23:59 | disposition home or self-care (01) ==
LOC: RAD 14:05
PROVIDERS: PCP Internal Medicine Adolescent Medicine; Visit Provider Internal Medicine Adolescent Medicine
DX: R92.313 Mammographic fatty tissue density, bilateral breasts (principal); Z12.31 Encounter for screening mammogram for malignant neoplasm of breast
CPT/HCPCS: 77063; 77067

== ENCOUNTER 2024-08-14 09:51 | Outpatient (POV) | payer BC, SELFPAY ==
[2024-08-14 10:35] VITALS: BP 110/60; PULSE 66; RESP 18; O2SAT 100; BMI 28.8
--- NOTE | 2024-08-14 10:57 | EXP.PAIN.SOA ---
[facility] Disclaimer: The information contained in this section may have been updated after the patient was seen, as this information can be updated by other users. Medical History History of lipoma History of trigger finger CAD (coronary artery disease) Elevated parathyroid hormone Smoking greater than 30 pack years Sinusitis Tickle in throat Deviated septum Chronic cough Sinus headache Trigger finger Meniscal injury Palpitations Arrhythmia HLD (hyperlipidemia) Atypical angina Agatston coronary artery calcium score greater than 400 Post-tussive syncope Syncope and collapse Syncope Surgical History History of surgery bladder sling History of tonsillectomy History of colonoscopy History of esophagogastroduodenoscopy (EGD) H/O sinus surgery History of surgery HEART CATH - 1 STENT PLACED H/O abdominoplasty S/P lateral meniscal repair x2 H/O sinus surgery H/O total hysterectomy Hx of breast reduction, elective History of appendectomy History of thyroidectomy, subtotal Family History Other Brain cancer Cancer of kidney Family history of diabetes mellitus type II Family history of hypothyroidism Family history of myocardial infarction Lung cancer Social History Smoking Status: Current every day smoker tobacco type: cigarettes packs per day: 2 years smoked: 30 second hand exposure: Yes alcohol intake: never substance use type: denies use current occupational status: other Travel in the last 8 weeks?: None household members: spouse housing: house current occupational exposures/hazards: No caffeine: Yes PM Subjective & Objective Subjective Subjective:: Patient is a pleasant 63-year-old female who presents today for follow-up of her thoracic epidural at T11-T12 on 07/23/2024. She rates that she only had maybe 10% improvement following this injection. She states she really did not notice significant improvement overall. Patient states she is still having the same pain there at her mid back in and around her bra strap. Patient states that it still with any type of increased activity that it just sets the pain off and then it immediately goes to a 7 or 8 out of 10 pain and that she cannot do anything past that point. Patient states that she has talked to Dr. Saleh and that he is sending her to [facility] for additional therapy. Patient states that it is a alternative cross between chiropractor and massage therapy to her knowledge. Patient states she had her initial consultation yesterday and is scheduled coming up for her first visit. Patient denies any other changes. Her Shyam has been reviewed and is appropriate. Review of Systems: General: No recent weight changes, no fever, no sleep disturbances Respiratory: No cough, no shortness of air, no recurring pulmonary infections Cardiovascular/peripheral vascular: No chest pain, no palpitations, no edema, no shortness of breath Gastrointestinal: No new onset incontinence, normal bowel movements reported Genitourinary: No new onset incontinence Musculoskeletal: Mid back pain Psychiatric: [Normal mood/affect] Neurological: [Denies weakness in extremities], [denies balance issues] Pain at rest (0-10 scale): 7 Objective Objective:: Physical Exam: General: Alert and oriented x3, no acute distress, pleasant and cooperative Lungs: Respirations even and unlabored, symmetrical chest expansion Eyes: PERRL Musculoskeletal: Flexion and extension of thoracic [spine] somewhat guarded secondary to pain, [antalgic gait noted] Neurological: Speech clear, no gross sensory deficit Has patient had previous pain injection?: Yes Percent improvement in pain since last injection: 10% Conservative treatment options previously tried: Home exercise plan Length of treatment: Longer than 12 weeks Meds Home Medications and Allergies Home Medications ?Medication ?Instructions ?Recorded ?Confirmed ?Type aspirin 81 mg chewable tablet 81 mg PO DAILY 30 days #30 tabs 04/17/23 08/14/24 Rx ([facility] Chewable Low Dose Aspirin) levothyroxine 88 mcg tablet 88 mcg PO DAILY 06/01/23 08/14/24 History omeprazole 20 mg capsule,delayed 40 mg (2 x 20 mg) PO DAILY gerd 03/28/24 08/14/24 Rx release #120 caps baclofen 5 mg tablet 5 mg PO TID PRN Muscle Pain 06/12/24 08/14/24 History cholecalciferol (vitamin D3) 25 25 mcg PO DAILY 06/12/24 08/14/24 History mcg (1,000 unit) capsule cyanocobalamin (vitamin B-12) 500 500 mcg PO DAILY 06/12/24 08/14/24 History mcg lozenges methocarbamol 750 mg tablet 750 mg PO TID #42 tabs 06/20/24 08/14/24 Rx rosuvastatin 20 mg tablet 20 mg PO DAILY #30 tabs 07/02/24 08/14/24 Rx amitriptyline 25 mg tablet 25 mg PO BID #28 tabs 07/03/24 08/14/24 Rx New Prescriptions to Start Prescriptions: Allergies Allergy/AdvReac Type Severity Reaction Status Date / Time No Known Allergies Allergy Verified 06/12/24 10:36 Assessment and Plan *Assessment and plan (1) Thoracic radiculopathy: Status: Acute Category: Medical Code(s): M54.14 - Radiculopathy, thoracic region (2) Degenerative disc disease, thoracic: Status: Acute Category: Medical Code(s): M51.34 - Other intervertebral disc degeneration, thoracic region Plan I did review over with the patient due to the fact that she is still not really noticed much improvement with any of the injections we have given that we will follow-up with her after she has had some of her sessions with the alternative therapy. We did discuss time frames and she would like to stay about a 3-month follow-up. We will see her back at this timeframe for reevaluation of symptoms and plan of care. Patient has been instructed to contact the clinic with any concerns before the next appointment. Dr. Christianson has reviewed this note and agrees with this plan of care. This note was dictated using voice recognition software and make contain errors or omissions. All injections are used with Lidocaine, Bupivacaine and dexamethasone. Occasionally urine drug screen is needed to verify patient's compliance with our office pain contract. This is ordered based off specific treatments related to chronic pain with the potential to abuse certain medications.
== END 2024-08-14 23:59 | disposition home or self-care (01) ==
LOC: SC.PAIN 09:53
PROVIDERS: PCP Internal Medicine Adolescent Medicine; Visit Provider Nurse Practitioner Family
DX: M51.14 Intervertebral disc disorders with radiculopathy, thoracic region (principal)
CPT/HCPCS: 99212; G0463

== ENCOUNTER 2024-09-11 09:19 | Outpatient (CLI) | payer BC, SELFPAY ==
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
--- OUTSIDE RECORDS SUMMARY | 2024-09-11 09:23 | XMS_ITS | Encounter Summary ---
Author Organization [facility] Address [address] [place] [address] Care Team Providers Care Medical/Surgery Registered Nurse Name Role Phone Pj Higuera MD Primary Care Provider [phone] Reason for Referral * Consultation (Routine) - Closed Specialty Diagnoses / Procedures Referred By Contact Referred To Contact Physical Medicine and Rehabilitation Diagnoses Pain in thoracic spine Pj Higuera MD [address] [place] [address] Phone: tel:[phone] fax:[phone] Physical [facility] Rehabilitation [facility] at [facility] [address] [place] [address] Phone: tel: fax: Referral ID Status Reason Start Date Expiration Date V isits Requested Visits Authorized [id number] Closed Specialty Services Required 07/31/2024 01/30/2026 1 1 Encounter Details Date Type Department Care Team (Late st Contact Info) Description 07/31/2024 Community [facility] [address] [place] [address] Pj Higuera MD [address] [place] [address] Pain in thoracic spine (Primary Dx) Social History Tobacco Use Types Packs/Day Years Used Date Smoking Tobacco: Every Day Cigarettes 1.5 40.5 Started: 03/13/1984 Passive Smoke Exposure: Current Smokeless Tobacco: Never Alcohol Use Standard Drinks/Week Comments Never 0 (1 standard drink = 0.6 oz pur e alcohol) PHQ-2 Answer Date Recorded Patient Health Questionnaire-2 Score 0 06/24/2024 PHQ-9 Answer Date Recorded Patient Health Questionnaire-9 Score 0 05/16/2024 Comments Unknown Sex and Gender Information Value Date Recorded Sex Assigned at Not on file Legal Sex Female 7:49 PM EDT Gender Identity Not on file Sexual Orientation Not on file documented as of this encounter Plan of Treatment Upcoming Encounters Date Type Department Care Team (Late st Contact Info) Description 09/19/2024 2:40 PM EDT Office Visit [facility] at [facility] [address] [address] Bong Hall, [address] [place] [address] 02/03/2025 12:40 PM EST Appointment [facility] [address], [address] [place] [address] 02/03/2025 1:00 PM EST Office Visit [facility] [address], [address] [place] [address] Frederick Valencia APRN [address] [place] [address] Scheduled Referrals Name Type Priority Associated Diagnoses Order Schedule Ambulatory referral to Physical Medicine Rehab Outpatient Referral Routine Pain in thoracic spine Expected: 07/31/2024 (Approximate), Expires: 01/31/2026 documented as of this encounter Visit Diagnoses Diagnosis Pain in thoracic spine- Primary documented in this encounter Additional Health Concerns Assessment Noted Time PHQ-9 Depression Total Score: 0 05/17/19 25 12:58 PM EST A fall risk assessment has been complete d for the patient 06/24/2024 12:56 PM EDT A Body Mass Index follow-up plan has been documented for the patient 06/24/2024 1:29 PM EDT documented as of this encounter Care Teams Medical/Surgery Registered Nurse Relationship Specialty Start Date End Date Pj Higuera MD [address] [place] [address] PCP - General 07/24/20 documented as of this encounter
--- OUTSIDE RECORDS SUMMARY | 2024-09-11 09:23 | XMS_ITS | Encounter Summary ---
Author Organization [facility] Address [address] [place] [address] Care Team Providers Care Building Estimator Name Role Phone Pj Higuera MD Primary Care Provider [phone] Reason for Referral * Consultation (Routine) - Closed Specialty Diagnoses / Procedures Referred By Contact Referred To Contact General, Endocrine & Minimally Invasive Surgery / General Surgery Diagnoses Primary hyperparathyroidism (CMS/HCC) Pj Higuera MD [address] [facility] [address] [address] Phone: tel:[phone] fax:[phone] Nida Maciel MD [address] [address] Phone: tel:[phone] fax:[phone] Referral ID Status Reason Start Date Expiration Date V isits Requested Visits Authorized [id number] Closed Specialty Services Required 11/06/2023 05/07/2025 1 1 Encounter Details Date Type Department Care Team (Latest Contact Info) Description 11/06/2023 Community [facility] Community Practice [address] [place] [address] Pj Higuera MD [address] [facility] [address] [facility] [address] [place] [address] Primary hyperparathyroidism (CMS/HCC) (Primary Dx) Social History Tobacco Use Types Packs/Day Years Used Date Smoking Tobacco: Every Day Comments Unknown Sex and Gender Information Value Date Recorded Sex Assigned at Not on file Legal Sex Female 7:49 PM EDT Gender Identity Not on file Sexual Orientation Not on file documented as of this encounter Plan of Treatment Upcoming Encounters Date Type Department Care Team (Late st Contact Info) Description 09/19/2024 2:40 PM EDT Office Visit Physical Medicine & Rehabilitation Clinic at [facility] [address] [place] [address] Bong Hall DO [address] [place] [address] 02/03/2025 12:40 PM EST Appointment [facility] [address] [place] [address] 02/03/2025 1:00 PM EST Office Visit [facility] [address] [facility], [address] [place] [address] Frederick Valencia APRN [address] [place] [address] Scheduled Referrals Name Type Priority Associated Diagnoses Orde r Schedule Ambulatory Referral to ENT Outpatient Referral Routine Primary hyperparathyroidism (CMS/HCC) Ordered: 11/06/2023 documented as of this encounter Visit Diagnoses Diagnosis Primary hyperparathyroidism (CMS/HCC)- Primary Primary hyperparathyroidism documented in this encounter Care Teams Building Estimator Relationship Specialty Start Date End Date Pj Higuera MD [address] [place] [address] PCP - General 07/24/20 documented as of this encounter
--- OUTSIDE RECORDS SUMMARY | 2024-09-11 09:23 | XMS_ITS | Encounter Summary ---
Author Organization [facility] Address [address] [place] [address] Care Team Providers Care Application Systems Engineer Name Role Phone Pj Higuera MD Primary Care Provider [phone] Encounter Details Date Type Department Care Team (Latest Contact Info) Description 08/10/2024 Travel Social History Tobacco Use Types Packs/Day Years [...] Visit Physical Medicine [facility] Rehabilitation [facility] at [facility] [address] [place] [place] [address] Bong Hall DO [address] [place] [address] 02/03/2025 12:40 PM EST Appointment [facility] [address] [facility], [address] [place] [address] 02/03/2025 1:00 PM EST [facility] [address] [facility], [address] [place] [address] Frederick Valencia APRN [address] [facility] [address] [place] [address] documented as of this encounter Visit Diagnoses Not on filedocumented in this encounter Additional Health Concerns Assessment Noted Time PHQ-9 Depression Total Score: 0 05/17/19 25 12:58 PM EST A fall risk assessment has been complete d for the patient 06/24/2024 12:56 PM EDT A Body Mass Index follow-up plan has been documented for the patient 06/24/2024 1:29 PM EDT documented as of this encounter Care Teams Application Systems Engineer Relationship Specialty Start Date End Date Pj Higuera MD [address] [facility] [address] [place] [address] PCP - General 07/24/20 documented as of this encounter
--- OUTSIDE RECORDS SUMMARY | 2024-09-11 09:23 | XMS_ITS | Clinical Summary ---
Author Organization [facility] Address [address] [place] [address] Phone Care Team Providers Care Interlocking Tower Operator Name Role Phone Unavailable Primary Care Provider Unavailabl e Social History Tobacco Use Types Packs/Day Years Used Date Smoking Tobacco: Never Assessed Comments Unknown Sex and Gender Information Value Date Recorded Sex Assigned at Not on file Legal Sex Female 3:44 PM EDT Gender Identity Not on file Sexual Orientation Not on file Plan of Treatment Health Maintenance Due Date Last Done Comments Annual Wellness Exam 1963 Hepatitis C Screening 12/07/1979 DTaP/TDaP/Td (1 - Tdap) 1980 Cologuard 2006 Colon Cancer Screening 2006 Colonoscopy 2006 FIT 2006 Sigmoidoscopy 2006 Virtual Colonography 2006 Pneumococcal Vaccine 50+ (1 of 1 - PCV) 12/07/2011 Zoster (1 of 2) 12/07/2011 COVID-19 Vaccine (2023-2 5 season) 2023 Influenza Vaccine (#1) 2024 Hepatitis B Vaccine Aged Out No longe r eligible based on patient's age to complete this topic Meningococcal B Vaccine Aged Out No l onger eligible based on patient's age to complete this topic
--- OUTSIDE RECORDS SUMMARY | 2024-09-11 09:23 | XMS_ITS | Encounter Summary ---
Author Organization [facility] Address [address] [place] [address] Care Team Providers Care Coin Machine Operator Name Role Phone Pj Higuera MD Primary Care Provider [phone] Encounter Details Date Type Department Care Team (Latest Contact Info) Description 08/13/2024 Travel Social History Tobacco Use Types Packs/Day [...] on file documented as of this encounter Functional Status * Over the [...] much Not at all 08/13/2024 10:01 AM Jayda Johnson Feeling tired or having little energy Not at all 08/13/2024 10:01 AM Jayda Saunders Poor appetite or overeating Not at all [...] Health Questionnaire-9 Score 0 08/13/2024 10:01 AM Jayda Brown * Calculated C-SSRS Risk Score (Lifetime/Recent) Answer Date of Assessment Author No Risk Indicated 08/13/2024 10:01 AM Jayda Massey * If you checked off any problems [...] (Past 1 Month) No 08/13/2024 10:01 AM EDT Jayda Carrasco 6. Suicidal Behavior (Lifetime) No 08/13/2024 10:01 AM EDT Jayda Carrasco documented as of this encounter Plan of Treatment Upcoming Encounters Date Type Department Care Team (Late st Contact Info) Description 09/19/2024 2:40 PM EDT Office Visit [facility] Rehabilitation [facility] at [facility] [address] [place] [address] Bong Hall DO [address] [place] [address] 02/03/2025 12:40 PM EST Appointment [facility] [address] [place] [address] 02/03/2025 1:00 PM EST Office Visit [facility] [address] [facility], [address] [place] [address] Frederick Valencia APRN [address] [place] [address] documented as of this encounter [...] documented as of this encounter Care Teams Coin Machine Operator Relationship Specialty Start Date End Date Pj Higuera MD [address] [place] [address] PCP - General 07/24/20 documented as of this encounter
[2024-09-11 10:09] LABS: Alanine Aminotransferase 14 U/L (12-78); Albumin Level 4.7 g/dl (3.5-5.0); Albumin/Globulin Ratio 1.7 (1.1-1.8); Alkaline Phosphatase 49 U/L (38-126); Anion Gap 12.7 mEq/L (5-15); Aspartate Amino Transferase 23 U/L (14-36); Bilirubin,Total 0.9 mg/dl (0.2-1.3); Blood Urea Nitrogen 15 mg/dl (7-17); Calcium 9.8 mg/dl (8.4-10.2); Carbon Dioxide 30 mmol/L (22.0-30.0); Chloride 98 mmol/L (98-107); Creatinine,Serum 0.70 mg/dl (0.52-1.04); Estimated Glomerular Filt Rate 85 ml/min (>60); GFR (African American) 103 ML/MIN (>60); Globulin 2.8 g/dL (1.3-3.2); Potassium 4.7 mmoL/L (3.5-5.1); Sodium 136 mmol/L (136-145); Total Protein,Serum 7.5 g/dl (6.3-8.2)
[2024-09-11 10:25] LABS: 25-OH Vitamin D, Total 58.6 ng/mL (30-100)
[2024-09-11 13:52] LABS: Glucose 92 mg/dl (74-100)
[2024-09-12 15:26] LABS: Calcium, Ionized 4.8 mg/dL (4.5-5.6)
== END 2024-09-11 23:59 | disposition home or self-care (01) ==
LOC: LAB 09:20
PROVIDERS: PCP Internal Medicine Adolescent Medicine; Visit Provider Nurse Practitioner
DX: E21.3 Hyperparathyroidism, unspecified (principal)
CPT/HCPCS: 36415; 80053; 82306; 82330; 83970

== ENCOUNTER 2024-10-31 10:56 | Outpatient (CLI) | payer BC, SELFPAY ==
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
--- NOTE | 2024-10-31 10:59 | CT_ITS ---
FINAL REPORT TECHNIQUE: Thin section axial images were obtained from the lung apices to the upper abdomen by computed tomography. Reformatted images were obtained and reviewed. This study was performed with techniques to keep radiation doses al low as reasonably achievable (ALARA). Individualized dose reduction techniques using automated exposure control or adjustment of mA and/or kV according to the patient's size were employed. CLINICAL HISTORY: SCREENING current smoker 1.5 paks per day for 30-35 years father had lung cancer exposed to 2nd hand smoke ctdi 2.90 dlp: 96.38 COMPARISON: 08/02/2023 FINDINGS: CHEST CT LOW DOSE 63-year-old female, current smoker, 10-astx-biur history. CTDI vol (mGy): 2.90 DLP (mGy-cm): 96.38 There is no axillary adenopathy. There is no mediastinal or hilar mass or adenopathy. There is a large, calcified AP window node, stable. The heart is normal in size. Mild coronary artery calcifications are present. There is no pericardial or pleural effusion. Lung window images demonstrate no suspicious infiltrate or nodule. Limited images of the upper abdomen are unremarkable. IMPRESSION: Lung-RADS category 1. Recommend 12 month follow up low dose chest CT. Reviewed, Interpreted and Dictated by Thanh Yarbrough MD Transcribed by Nida Saba Authenticated and [facility]
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
--- OUTSIDE RECORDS SUMMARY | 2024-10-31 11:01 | XMS_ITS | Clinical Summary ---
[facility] Address [address] [place] [address] Care Team Providers Care Rug Dyer Helper Name Role Phone Provider, No Known Primary Care Provider Unavail able Allergies No known active allergies Social History Tobacco Use Types Packs/Day Years Used Date Smoking Tobacco: Never Assessed Abuse Screen Answer Date Recorded Unsafe at Home or Work/School Not on file Feels Threatened by Someone? Not on file 01/2023 Does Anyone Keep You from Co ntacting Others or Doint Things Outside the Home? Not on file 12/21/2022 Physical Sign of Abuse Present Not on file 1 Housing Stability Answer Date Recorded Current Living Arrangements Not on file 12/11 Potentially Unsafe Housing Conditions Not on alea e 12/21/2022 Family and Community Support Answer Gio e Recorded Help with Day-to-Day Activities Not on file 12/21/2022 Lonely or Isolated Not on file 12/21/2022 Employment Answer Date Recorded Do you want help finding or keeping work or a yogesh b? Not on file 12/21/2022 Disabilities Answer Date Recorded Concentrating, Remembering, or Making Decisions Difficulty Not on file 12/21/2022 Doing Errands Independently Difficulty Not on fi le 12/21/2022 Education Answer Date Recorded Help with school or training? Not on file Preferred Language Not on file 12/21/2022 Comments Unknown Sex and Gender Information Value Date Recorded Sex Assigned at Not on file Legal Sex Female 3:30 PM EST Gender Identity Not on file Sexual Orientation Not on file Plan of Treatment Health Maintenance Due Date Last Done Comments Annual Gynecologic Pelvic an d Breast Exam 1960 TDAP/TD VACCINES (1 - Tdap) 1980 MAMMOGRAM 2001 COLOGUARD 2006 COLON CANCER SCREENING 5 YEA R SIGMOIDOSCOPY 2006 COLONOSCOPY [address]CER SCREENING [address] COLONOGRAPHY 2006 FECAL OCCULT BLOOD TEST 2006 FIT Testing (1 year) 2006 Pneumococcal Vaccine 50+ (1 of 1 - PCV) 12/07/2011 ZOSTER VACCINE (1 of 2) 12/07/2011 ANNUAL PHYSICAL 05/23/2022 HEPATITIS C SCREENING 05/23/2022 PT PLAN OF CARE 06/01/2022 COVID-19 Vaccine (5 - 2023-2 5 season) 2023 09/04/2021, 12/19/2020, 06/18/2020, Additional history exists INFLUENZA VACCINE 12/11/2024 01/06/2017 Insurance [employer] [address] [id number] Care Teams Rug Dyer Helper Relationship Specialty Start Date End Date Provider, No Known [facility] [place] [address] PCP - General 05/25/22
--- OUTSIDE RECORDS SUMMARY | 2024-10-31 11:01 | XMS_ITS | Encounter Summary ---
Author Organization Healthcare Address [address] [place] [address] Care Team Providers Care Maintainability Engineer Name Role Phone Pj Higuera MD Primary Care Provider [phone] Encounter Details Date Type Department Care Team (Latest Contact Info) Description 09/25/2024 Travel Social History Tobacco Use Types Packs/Day [...] much Not at all 09/25/2024 7:58 AM DARLINGT Jayda Woodward Feeling tired or having little energy Not at all 09/25/2024 7:58 AM DARLINGT Jayda Woodward Poor appetite or overeating Not at all 09/25/2024 7: 58 AM EDT Jayda Woodward Feeling bad about yourself - or that you are a failure or have let yourself or your family down Not at all 09/25/2024 7:58 AM EDT Jayda Woodward Trouble concentrating on things, such as reading the newspaper or watching television Not at all 09/25/2024 7:58 AM DARLINGT Jayda Woodward Moving or speaking so slowly that other people could have noticed? Or the opposite - being so fidgety or restless that you have been moving around a lot more than usual. Not at all 09/25/2024 7:58 AM DARLINGT Jayda Woodward Thoughts that you would be better off or hurting yourself in some way Not at all 09/25/2024 7:58 AM DARLINGT Jayda Carrasco Patient Health Questionnaire-9 Score 0 [...] Not difficult at all 09/25/2024 7:58 AM DARLINGT Jayda Carrasco * Question Answer Date of Assessment Author 1. Wish to be (Past 1 Month) No 09/25/2024 7:58 AM Jayda Bañuelos 2. Non-Specific Active Suicidal Thoughts (Past 1 Month) No 09/25/2024 7:58 AM EDT Jayda Woodward 6. Suicidal Behavior (Lifetime) No 09/25/2024 7:58 AM EDT Jayda Woodward documented as of this encounter Plan of Treatment Upcoming Encounters Date Type Department Care Team (Late st Contact Info) Description 11/06/2024 8:50 AM EDT Office Visit [facility] at [facility] [address] [place] [phone] Bong Hall, DO [address] [place] [phone] 12/03/2024 8:50 AM EDT Office Visit Physical Medicine & Rehabilitation [facility] [address] [place] [phone] Bong Hall, DO [address] [place] [phone] 12/31/2024 9:00 AM EDT Office Visit Physical Medicine & Rehabilitation [facility] [address] [place] [phone] Bong Hall, DO [address] [place] [address] 02/03/2025 12:40 PM EST Appointment [facility] [address] [facility], [address] [place] [address] documented as of this encounter Visit Diagnoses Not on filedocumented in this encounter Additional Health Concerns Assessment Noted Time PHQ-9 Depression Total Score: 0 09/26/19 7:58 AM EDT A fall risk assessment has been complete d for the patient 09/25/2024 7:58 AM EDT A Body Mass Index follow-up plan has been documented for the patient 10/02/2024 10:10 PM EDT documented as of this encounter Care Teams Maintainability Engineer Relationship Specialty Start Date End Date Pj Higuera MD [address] [place] [address] PCP - General 07/24/20 documented as of this encounter
--- OUTSIDE RECORDS SUMMARY | 2024-10-31 11:01 | XMS_ITS | Encounter Summary ---
Author Organization [facility] Address [address] [place] [address] Care Team Providers Care Curriculum And Assessment Coordinator Name Role Phone Pj Higuera MD Primary Care Provider [phone] Reason for Referral * Consultation (Routine) - Closed Specialty Diagnoses / Procedures Referred By Contact Referred To Contact Physical Medicine and Rehabilitation Diagnoses Pain in thoracic spine Pj Higuera MD [address] [place] [address] Phone: tel:[phone] fax:[phone] [facility] [address] [place] [address] Phone: tel: fax: Referral ID Status Reason Start Date Expiration Date V isits Requested Visits Authorized [id number] Closed Specialty Services Required 07/31/2024 01/30/2026 1 1 Encounter Details Date Type Department Care Team (Late st Contact Info) Description 07/31/2024 Community [facility] [address] [place] [address] Pj Higuera MD [address] [place] [address] Pain in thoracic spine (Primary [...] Visit [facility] [address] [place] [address] Bong Hall, [address] [place] [address] 12/03/2024 8:50 AM EDT Office Visit [facility] [address] [place] [address] Bnog Hall, [address] [place] [address] 12/31/2024 9:00 AM EDT Office Visit [facility] [address] [place] [address] Bong Hall DO [address] [place] [address] 02/03/2025 12:40 PM EST Appointment [facility] [address] [facility], [address] [place] [address] Scheduled Referrals Name Type Priority [...] documented as of this encounter Care Teams Curriculum And Assessment Coordinator Relationship Specialty Start Date End Date Pj Higuera MD [address] [place] [address] PCP - General 07/24/20 documented as of this encounter
--- OUTSIDE RECORDS SUMMARY | 2024-10-31 11:02 | XMS_ITS | Encounter Summary ---
Author Organization [facility] Address [address] [place] [address] Care Team Providers Care Interior Design Professional Name Role Phone Pj Higuera MD Primary Care Provider [phone] Reason for Referral * Consultation (Routine) - Closed Specialty Diagnoses / Procedures Referred By Contact Referred To Contact General, Endocrine & Minimally Invasive Surgery / General Surgery Diagnoses Primary hyperparathyroidism (CMS/HCC) Pj Higuera MD [address] [facility] [address] [place] [address] Phone: tel:[phone] fax:[phone] Nida Maciel MD [address] [address] Phone: tel:[phone] fax:[phone] Referral ID Status Reason Start Date Expiration Date V isits Requested Visits Authorized [id number] Closed Specialty Services Required 11/06/2023 05/07/2025 1 1 Encounter Details Date Type Department Care Team (Latest Contact Info) Description 11/06/2023 Community [facility] Community Practice [address] [place] [address] Pj Higuera MD [address] [facility] [address] [place], [place] [id number] Primary hyperparathyroidism (CMS/HCC) (Primary Dx) Social History [...] Upcoming Encounters Date Type Department Care Team ([facility] Contact Info) Description 11/06/2024 8:50 AM EDT Office Visit [facility] at [facility] [address] [address] Bong Hall, DO [address] [place] [address] 12/03/2024 8:50 AM EDT Office Visit [facility] [address] [address] Bong Hall, [address] [place] [address] 12/31/2024 9:00 AM EDT Office Visit [facility] [address] [address] Bong Hall, DO [address] [place] [address] 02/03/2025 12:40 PM EST Appointment [facility] [address] [facility], [address] [place] [address] Scheduled Referrals Name Type Priority Associated Diagnoses Orde r Schedule Ambulatory Referral to ENT Outpatient Referral Routine Primary hyperparathyroidism (CMS/HCC) Ordered: 11/06/2023 documented as of this encounter Visit Diagnoses Diagnosis Primary hyperparathyroidism (CMS/HCC)- Primary Primary hyperparathyroidism documented in this encounter Care Teams Interior Design Professional Relationship Specialty Start Date End Date Pj Higuera MD [address] [place] [address] PCP - General 07/24/20 documented as of this encounter
--- OUTSIDE RECORDS SUMMARY | 2024-10-31 11:02 | XMS_ITS | Clinical Summary ---
Author Organization [facility] Address [address] [facility] [address] [place] [address] Phone Care Team Providers Care Senior Accounting Manager Name Role Phone Unavailable Primary Care Provider [...]
== END 2024-10-31 23:59 | disposition home or self-care (01) ==
LOC: RAD 10:56
PROVIDERS: PCP Internal Medicine Adolescent Medicine; Visit Provider Nurse Practitioner Family
DX: I25.10 Atherosclerotic heart disease of native coronary artery without angina pectoris (principal); R91.8 Other nonspecific abnormal finding of lung field; Z12.2 Encounter for screening for malignant neoplasm of respiratory organs; Z87.891 Personal history of nicotine dependence
CPT/HCPCS: 71271

== ENCOUNTER 2024-12-24 08:06 | Day surgery (SDC) | payer BC, MEDICARE, SELFPAY ==
[2024-12-24 08:33] VITALS: BP 114/71; PULSE 63; RESP 18; O2SAT 100; BMI 26.7
[2024-12-24 08:40] VITALS: BP 135/74; PULSE 64; RESP 18; O2SAT 97
[2024-12-24] MEDS: BUPIVACAINE 0.25% 10ML INJ 25 MG IJ (08:41)
[2024-12-24] MEDS: DEXAMETHASONE 10MG/ML 1ML VIAL 10 MG (08:41)
[2024-12-24] MEDS: LIDOCAINE 1% 5ML PF VIAL 5 ML (08:42)
[2024-12-24 08:46] VITALS: BP 105/56; PULSE 59; RESP 16; O2SAT 98
[2024-12-24 08:47] VITALS: BP 135/74; PULSE 64; RESP 18; O2SAT 97
--- NOTE | 2024-12-24 09:04 | EXP.PAIN.PRO ---
Procedure Date: 12/24/24 Time: 08:35 Anesthesiologist:: Ketan Nayak CRNA Complications:: None Pre-procedure Diagnosis:: DJD left shoulder. Chronic left shoulder pain. Post-procedure Diagnosis:: Same. Indications for Procedure:: Patient is a pleasant 64-year-old female comes our clinic today for a left intra-articular shoulder injection of cortisone and local anesthetic. Patient describes left shoulder pain as constant, dull, aching. She has 5/5 strength in the left arm. However, limited range of motion secondary to left shoulder pain. She rates her pain 7/10. Procedure Details:: Procedure Details: Left shoulder intra-articular injection Informed consent was obtained risk and benefits of the procedure were explained to the patient. Patient was taken to the procedure room. The Left shoulder was prepped using ChloraPrep. A 25-gauge needle was used posteriorly to inject 10 mL bupivacaine 0.25% and 10 mg of dexamethasone. Patient tolerated procedure well with no complications. Plan and Disposition:: Patient was discharged without incident.
== END 2024-12-24 08:46 | disposition home or self-care (01) ==
LOC: SC.PAINP 08:06
PROVIDERS: PCP Internal Medicine Adolescent Medicine; Visit Provider Nurse Anesthetist, Certified Registered
DX: M19.012 Primary osteoarthritis, left shoulder (principal); E78.5 Hyperlipidemia, unspecified; I25.118 Atherosclerotic heart disease of native coronary artery with other forms of angina pectoris; F17.210 Nicotine dependence, cigarettes, uncomplicated; Z95.5 Presence of coronary angioplasty implant and graft; Z79.82 Long term (current) use of aspirin; Z79.899 Other long term (current) drug therapy; Z90.710 Acquired absence of both cervix and uterus; Z79.890 Hormone replacement therapy
CPT/HCPCS: 20610; J0665; J1100; J2003

== ENCOUNTER 2025-01-06 11:43 | Outpatient (CLI) | payer MEDICARE, BC, SELFPAY ==
--- OUTSIDE RECORDS SUMMARY | 2025-01-06 11:45 | XMS_ITS | Clinical Summary ---
Author Organization [facility] Address [address] [place] [address] Care Team Providers Care Job Coaching Name Role Phone Pj Higuera MD Primary Care Provider + [phone] Allergies No known active allergies Medications ASPIRIN [...] 01/31/2024 025 Upper respiratory infection 01/31/2024 02/07/2024 Immunizations Immunization Administration Dates Next Due Influenza, injectable, quadrivalent 01/06/2017 Influenza, injectable, quadrivalent, preservativ e free 01/06/2017 Pneumococcal 20-mann Conj Vaccine 07/28/2023 Pneumococcal Conjugate Pcv21 , Polysaccharide [id number] Conjugate, PF 07/31/2024 Rsvpref, Recombinant, Protein Subunit, [...] Date Smoking Tobacco: Every Day Cigarettes 1.5 40.8 Started: 03/13/1984 Passive Smoke Exposure: Current Smokeless [...] Care Team (Late st Contact Info) Description 01/28/2025 8:00 AM EST Appointment [facility] [address] , [address] [place] [address] 01/28/2025 8:40 AM EST Office Visit [facility] [address], [address] [place] [address] Frederick Valencia APRN [address] [place] [address] Health Maintenance Due Date Last Done Comments [facility]-Bone Density Scan 1961 [facility]-HIV Screening 1961 [facility]-Hepatitis C Screening 1961 [facility]-Infant/Child/Adol SDOH Screenings 1961 [facility]- SDOH Screenings 12/07/1979 [facility]-Adult SDOH Screenings 12/07/1979 [facility]-DTaP,Tdap,and Td Vaccines (1 - Tdap) 1980 CT Colonography 2006 Colonoscopy 2006 FIT-DNA 2006 FIT 2006 FOBT 2006 Sigmoidoscopy 2006 [facility]-Colorectal Cancer Screening 2006 Lung Cancer Screening Shared Decision Making 12/07/2011 [facility]-Breast Cancer Screening 12/07/2011 [facility]-Lung Cancer Screening 12/07/2011 [id number] Vaccine ( season) 2024 09/04/2021, 12/19/2020, 06/18/2020, Additional history exists [facility]-Influenza [...] patient's age to complete this topic Insurance [id number] Care Teams Job Coaching Relationship Specialty Start Date End Date Pj Higuera MD [address] [place] [address] PCP - General 07/24/20
--- OUTSIDE RECORDS SUMMARY | 2025-01-06 11:45 | XMS_ITS | Clinical Summary ---
Author Organization [facility] Address [address] [place] [address] Care Team Providers Care Hot Shot Name Role Phone Provider, No Known Primary [...] Date Last Done Comments Annual Gynecologic Pelvic and Breast Exam 1961 TDAP/TD VACCINES (1 - Tdap) 1980 MAMMOGRAM 2001 COLOGUARD 2006 COLON CANCER SCREENING 5 YEAR SIGMOIDOSCOPY 2006 COLONOSCOPY [address] CANCER SCREENING 2006 CT COLONOGRAPHY 2006 FECAL OCCULT BLOOD TEST 2006 FIT Testing (1 year) 2006 Pneumococcal Vaccine 50+ (1 of 1 - PCV) 12/07/2011 ZOSTER VACCINE (1 of 2) 12/07/2011 ANNUAL PHYSICAL 05/23/2022 HEPATITIS C SCREENING 05/23/2022 PT PLAN OF CARE 06/01/2022 INFLUENZA VACCINE 10/11/2024 01/06/2017 Insurance [employer] [id number] [id number] Care Teams Hot Shot Relationship Specialty Start Date End Date Provider, [place] [address] PCP - General 05/25/22
--- OUTSIDE RECORDS SUMMARY | 2025-01-06 11:45 | XMS_ITS | Encounter Summary ---
Author Organization [facility] Address [address] [place] [address] Care Team Providers Care Copy Lathe Tender Name Role Phone Pj Higuera MD Primary Care Provider [phone] Reason for Referral * Consultation (Routine) - Closed Specialty Diagnoses / Procedures Referred By Contact Referred To Contact Physical Medicine and Rehabilitation Diagnoses Pain in thoracic spine Pj Higuera MD [address] [place] [address] Phone: tel:[phone] fax:[phone] [facility] at [facility] [address] [place] [address] Phone: tel: fax: Referral ID Status Reason Start Date Expiration Date V isits Requested Visits Authorized [id number] Closed Specialty Services Required 07/31/2024 01/30/2026 1 1 Encounter Details Date Type Department Care Team (Late st Contact Info) Description 07/31/2024 Community [facility] Community Practice [address] [place] [address] Pj Higuera MD [address] [place] [address] Pain in thoracic spine (Primary [...] Info) Description 01/28/2025 8:00 AM EST Appointment [facility] [address] , [address] [place] [address] 01/28/2025 8:40 AM EST Office Visit [facility] [address] , [address] [place] [address] Frederick Valencia APRN [address] [place] [address] Scheduled Referrals Name Type Priority [...] documented as of this encounter Care Teams Copy Lathe Tender Relationship Specialty Start Date End Date Pj Higuera MD [address] [place] [address] PCP - General 07/24/20 documented as of this encounter
--- OUTSIDE RECORDS SUMMARY | 2025-01-06 11:45 | XMS_ITS | Encounter Summary ---
Author Organization [facility] Address [address] [place] [address] Care Team Providers Care Prehemmer Name Role Phone Pj Higuera MD Primary Care Provider [phone] Reason for Referral * Consultation (Routine) - Closed Specialty Diagnoses / Procedures Referred By Contact Referred To Contact General, Endocrine & Minimally Invasive Surgery / General Surgery Diagnoses Primary hyperparathyroidism (CMS/HCC) Pj Higuera MD [address] [facility] [address] [place] [address] Phone: tel:[phone] fax:[phone] Nida Maciel MD [address] [address] Phone: tel:[phone] fax:[phone] Referral ID Status Reason Start Date Expiration Date V isits Requested Visits Authorized [id number] Closed Specialty Services Required 11/06/2023 05/07/2025 1 1 Encounter Details Date Type Department Care Team (Latest Contact Info) Description 11/06/2023 Community [facility] Community Practice [address] [place] [address] Pj Higuera MD [address] [facility] [address] [place], [place] [id number] Primary hyperparathyroidism (CMS/HCC) (Primary Dx) Social History [...] Upcoming Encounters Date Type Department Care Team ([facility] st Contact Info) Description 01/28/2025 8:00 AM EST Appointment [facility] [address] [facility], [address] [place] [address] 01/28/2025 8:40 AM EST Office Visit [facility] [address] , [address] [place] [address] Frederick Valencia APRN [address] [place] [address] Scheduled Referrals Name Type Priority Associated Diagnoses Orde r Schedule Ambulatory Referral to ENT Outpatient Referral Routine Primary hyperparathyroidism (CMS/HCC) Ordered: 11/06/2023 documented as of this encounter Visit Diagnoses Diagnosis Primary hyperparathyroidism (CMS/HCC)- Primary Primary hyperparathyroidism documented in this encounter Care Teams Prehemmer Relationship Specialty Start Date End Date Pj Higuera MD [address] [place] [address] PCP - General 07/24/20 documented as of this encounter
--- OUTSIDE RECORDS SUMMARY | 2025-01-06 11:45 | XMS_ITS | Clinical Summary ---
Author Organization [facility] Address [address] [facility] [address] [place] [address] Phone Care Team Providers Care Devops Developer Name Role Phone Unavailable Primary Care Provider [...] Zoster (1 of 2) 12/07/2011 COVID-19 Vaccine (2024-2 6 season) 2024 Influenza Vaccine (#1) 2024 Hepatitis B Vaccine Aged Out No longe r eligible based on patient's age to complete this topic Meningococcal B Vaccine Aged Out No l onger eligible based on patient's age to complete this topic
[2025-01-06 11:48] LABS: Microscopic, Urine URINE MICROSCOPIC (MICROSCOPIC)
[2025-01-06 12:36] LABS: Bilirubin,Urine Negative (Negative); Color,Urine YELLOW (Yellow); Glucose,Urine (UA) Negative (Negative); Ketones,Urine Negative (Negative); Leukocyte Esterase,Urine Negative (Negative); PH,Urine 6.0 (5.0-8.5); Protein,Urine Negative (Negative); Specific Gravity, Urine <= 1.005 (1.005-1.030); Urobilinogen,Urine 0.2 EU/dl (0.2)
== END 2025-01-06 23:59 | disposition home or self-care (01) ==
LOC: LAB 11:43
PROVIDERS: PCP Internal Medicine Adolescent Medicine; Visit Provider Nurse Practitioner Family
DX: M54.50 Low back pain, unspecified (principal); R35.0 Frequency of micturition
CPT/HCPCS: 81001

== ENCOUNTER 2025-01-21 12:13 | Outpatient (CLI) | payer MEDICARE, BC, SELFPAY ==
--- OUTSIDE RECORDS SUMMARY | 2025-01-21 12:16 | XMS_ITS | Encounter Summary ---
Author Organization [facility] Address [address] [place] [address] Care Team Providers Care Mounter Clarinets Name Role Phone Pj Higuera MD Primary Care Provider [phone] Reason for Referral * Consultation (Routine) - Closed Specialty Diagnoses / Procedures Referred By Contact Referred To Contact General, Endocrine & Minimally Invasive Surgery / General Surgery Diagnoses Primary hyperparathyroidism (CMS/HCC) Pj Higuera MD [address] [facility] [address] [place] [address] Phone: tel:[phone] fax: Nida Maciel MD [address] [address] Phone: tel: fax:[phone] Referral ID Status Reason Start Date Expiration Date V isits Requested Visits Authorized [id number] Closed Specialty Services Required 11/06/2023 05/07/2025 1 1 Encounter Details Date Type Department Care Team (Latest Contact Info) Description 11/06/2023 Community [facility] Community [facility] [address] [place] [address] Pj Higuera MD [address] [facility] [address] [place], [place] [id number] Primary hyperparathyroidism (CMS/HCC) (Primary Dx) Social History [...] Upcoming Encounters Date Type Department Care Team ([facility] st Contact Info) Description 01/28/2025 8:00 AM EST Appointment [facility] [address] [facility], [address] [place] [address] 01/28/2025 8:40 AM EST Office Visit [facility] [address] , [address] [place] [address] Frederick Valencia APRN [address] [place] [address] Scheduled Referrals Name Type Priority Associated Diagnoses Orde r Schedule Ambulatory Referral to ENT Outpatient Referral Routine Primary hyperparathyroidism (CMS/HCC) Ordered: 11/06/2023 documented as of this encounter Visit Diagnoses Diagnosis Primary hyperparathyroidism (CMS/HCC)- Primary Primary hyperparathyroidism documented in this encounter Care Teams Mounter Clarinets Relationship Specialty Start Date End Date Pj Higuera MD [address] [place] [address] PCP - General 07/24/20 documented as of this encounter
--- OUTSIDE RECORDS SUMMARY | 2025-01-21 12:16 | XMS_ITS | Clinical Summary ---
Author Organization [facility] Address [address] [place] [address] Care Team Providers Care Stave Inspector Name Role Phone Pj Higuera MD Primary Care Provider + [phone] Allergies No known active allergies Medications ASPIRIN [...] Encounters Date Type Department Care Team Description 01/16/2025 Telephone [facility] [address] [facility], [address] [place] [address] Frederick Valencia APRN HCN - Patient Message 01/15/2025 [facility] [address] [facility], [address] [place] [address] Tian Buckley from Last 3 Months Immunizations Immunization Administration Dates Next Due Influenza, injectable, quadrivalent 01/06/2017 Influenza, injectable, quadrivalent, preservativ e free 01/06/2017 Pneumococcal 20-mann Conj Vaccine 07/28/2023 Pneumococcal Conjugate Pcv21 , Polysaccharide [id number] Conjugate, PF 07/31/2024 Rsvpref, Recombinant, Protein Subunit, Adjuvent 11/01/2023 Zoster, Recombinant 11/01/2023,07/28/2023 Family History Medical History Relation Name Comments Heart disease Brother 1 Dilip Heart disease Brother 2 Dliip Cancer Father Alberto Arthritis Mother Alisa Diabetes [...] Date Smoking Tobacco: Every Day Cigarettes 1.5 40.9 Started: 03/13/1984 Passive Smoke Exposure: Current Smokeless [...] Info) Description 01/28/2025 8:00 AM EST Appointment [facility] [address] , [address] [place] [address] 01/28/2025 8:40 AM EST Office Visit [facility] [place] [facility] [address] , [address] [place] [address] Frederick Valencia APRN [address] [address] Health Maintenance Due Date Last Done Comments [facility]-Bone Density Scan 1961 [facility]-HIV Screening 1961 [facility]-Hepatitis C Screening 1961 [facility]-Medicare Annual Wellness (AWV) 1961 [facility]-/Child/Adol SDOH Screenings 1961 [facility]- SDOH Screenings 12/07/1979 [facility]-Adult SDOH Screenings 12/07/1979 [facility]-DTaP,Tdap,and Td Vaccines (1 - Tdap) 1980 CT Colonography 2006 Colonoscopy 2006 FIT-DNA 2006 FIT 2006 FOBT 2006 Sigmoidoscopy 2006 [facility]-Colorectal Cancer Screening 2006 Lung Cancer Screening Shared Decision Making 12/07/2011 [facility]-Breast Cancer Screening 12/07/2011 [facility]-Lung Cancer Screening 12/07/2011 [id number] Vaccine ( season) 2024 09/04/2021, 12/19/2020, 06/18/2020, [...] patient's age to complete [place] [id number] [facility] [employer] MEDICARE Care Teams Stave Inspector Relationship Specialty Start Date End Date Pj Higuera MD [facility] [facility] [address] [place] [address] PCP - General 07/24/20
--- OUTSIDE RECORDS SUMMARY | 2025-01-21 12:16 | XMS_ITS | Clinical Summary ---
Author Organization [facility] Address [address] [place] [address] Care Team Providers Care Liquid Sugar Melter Name Role Phone Provider, No Known Primary [...] CARE 06/01/2022 INFLUENZA VACCINE 10/11/2024 01/06/2017 Insurance [employer] [address] [id number] Care Teams Liquid Sugar Melter Relationship Specialty Start Date End Date Provider, [place] [address] PCP - General 05/25/22
--- OUTSIDE RECORDS SUMMARY | 2025-01-21 12:16 | XMS_ITS | Encounter Summary ---
Author Organization [facility] Address [address] [place] [address] Care Team Providers Care Belt Loop Maker Name Role Phone jP Higuera MD Primary Care Provider [phone] Reason for Referral * Consultation (Routine) - Closed Specialty Diagnoses / Procedures Referred By Contact Referred To Contact Physical Medicine and Rehabilitation Diagnoses Pain in thoracic spine Pj Higuera MD [address] [place] [address] Phone: tel:[phone] fax:[phone] [facility] at [facility] [address] [place] [address] Phone: tel: fax: Referral ID Status Reason Start Date Expiration Date V isits Requested Visits Authorized [id number] Closed Specialty Services Required 07/31/2024 01/30/2026 1 1 Encounter Details Date Type Department Care Team (Late st Contact Info) Description 07/31/2024 Community [facility] Community Practice [address] [place] [address] Pj Higuera MD [address] [place] [address] Pain in thoracic spine (Primary [...] Info) Description 01/28/2025 8:00 AM EST Appointment [facility] [place] [facility] [address] , [address] [place] [address] 01/28/2025 8:40 AM EST Office Visit [facility] [address] , [address] [place] [address] Frederick Valencia APRN [address] [place] [address] Scheduled Referrals Name Type Priority [...] documented as of this encounter Care Teams Belt Loop Maker Relationship Specialty Start Date End Date Pj Higuera MD [address] [place] [address] PCP - General 07/24/20 documented as of this encounter
--- OUTSIDE RECORDS SUMMARY | 2025-01-21 12:16 | XMS_ITS | Clinical Summary ---
Author Organization [facility] Address [address] [facility] [address] [place] [address] Phone Care Team Providers Care Senior Sustainability Consultant Name Role Phone Unavailable Primary Care Provider [...]
--- OUTSIDE RECORDS SUMMARY | 2025-01-21 12:16 | XMS_ITS | Encounter Summary ---
Author Organization [facility] Address [address] [place] [address] Care Team Providers Care Inspector General Name Role Phone Pj Higuera MD Primary Care Provider Reason for Visit * Reason Onset Date Comments HCN - Patient Message 01/16/2025 Encounter Details Date Type Department Care Team ([facility] st Contact Info) Description 01/16/2025 Telephone [facility] [address] [address] [facility] [address] [facility], [address] [place] [address] Frederick Valencia APRN [address] [facility] [address] [facility] [address] [place] [address] HCN - Patient Message Social History Tobacco Use Types Packs/Day Years [...] on file documented as of this encounter Miscellaneous Notes * Telephone Encounter - Pratibha Giordano LPN - 01/21/2025 9:56 AM EST Returned call to patient and lab orders faxed to [facility]. Fax confirmation received and appointments confirmed. [facility] * Telephone Encounter - Mckayla Hardin - 01/21/2025 9:29 AM EST Status Update Call #1 1st call regarding the status of the initial request. Pt calling back about having her lab orders sent Best contact number: [phone] (mobile) Optimal time of day to reach caller: ANYTIME Additional comments/information from caller: None Note: Please do not reply to this message. Follow-up communication and further actions as a result of this message need to be communicated with the patient directly, if the patient is not active onMyChart. If the patient is active on MyChart, they will receive notification of the communication/outcome via [employer]. * Telephone Encounter - Pratibha Giordano LPN - 01/17/2025 8:14 AM EST Message sent to [place] that patient returned call to clinic. * Telephone Encounter - Jess Moe - 01/16/2025 3:11 PM EST Paperwork/Documentation Request Patient Name: Maria C Lewis Type: Lab orders Due Date: 01/16/25 Send To: [facility] lab Fx [phone] Best contact number: [phone] (mobile) Optimal time of day to reach caller: ANYTIME Additional comments/information from caller: None Note: Please do not reply to this message. Follow-up communication and further actions as a result of this message need to be communicated with the patient directly, if the patient is not active onMyChart. If the patient is active on MyChart, they will receive notification of the communication/outcome via [employer] documented in this encounter Plan of Treatment Upcoming Encounters Date Type Department Care Team (Late st Contact Info) Description 01/28/2025 8:00 AM EST Appointment [facility] Mineral Met[facility] [address] [facility] [address] [facility] [address] [facility], [address] [place] [address] 01/28/2025 8:40 AM EST Office Visit [facility] [address] [facility], [address] [place] [address] Frederick Valencia APRN [address] [place] [address] documented as of this encounter [...] documented as of this encounter Care Teams Inspector General Relationship Specialty Start Date End Date Pj Higuera MD [address] [place] [address] PCP - General 07/24/20 documented as of this encounter
--- OUTSIDE RECORDS SUMMARY | 2025-01-21 12:16 | XMS_ITS | Encounter Summary ---
Author Organization [facility] Address [address] [place] [address] Care Team Providers Care Pelt Salter Name Role Phone Pj Higuera MD Primary Care Provider [phone] Encounter Details Date Type Department Care Team ([facility] st Contact Info) Description 01/15/2025 Telephone [facility] [address] [facility] [address], [address] [place] [address] Tian Buckley Social History Tobacco Use Types Packs/Day Years [...] encounter Miscellaneous Notes * Telephone Encounter - Tian Buckley - 01/15/2025 4:28 PM EST Called pt regarding labs, pt did not answer lvm.pt called back stating will be labs tomorrow. documented in this encounter Plan of Treatment Upcoming Encounters Date Type Department Care Team (Late st Contact Info) Description 01/28/2025 8:00 AM EST Appointment [facility] Mineral Metabolism [address] [facility] [address], [address] [place] [address] 01/28/2025 8:40 AM EST Office Visit [facility]eral [facility] [address] [facility] [address], [address] [place] [address] Frederick Valencia APRN [address] [place] [address] documented as of this encounter [...] documented as of this encounter Care Teams Pelt Salter Relationship Specialty Start Date End Date Pj Higuera MD [address] [place] [address] PCP - General 07/24/20 documented as of this encounter
[2025-01-21 12:51] LABS: Albumin Level 4.2 g/dl (3.5-5.0); Anion Gap 8.1 mEq/L (5-15); Blood Urea Nitrogen 10 mg/dl (7-17); Calcium 9.3 mg/dl (8.4-10.2); Carbon Dioxide 30 mmol/L (22.0-30.0); Chloride 102 mmol/L (98-107); Creatinine,Serum 0.70 mg/dl (0.52-1.04); Estimated Glomerular Filt Rate 85 ml/min (>60); GFR (African American) 102 ML/MIN (>60); Glucose 94 mg/dl (74-100); Phosphorous 4.6 mg/dl (2.5-4.5); Potassium 4.1 mmoL/L (3.5-5.1); Sodium 136 mmol/L (136-145)
[2025-01-21 13:09] LABS: 25-OH Vitamin D, Total 53.1 ng/mL (30-100)
[2025-01-28 12:31] LABS: Serial Monitoring PDF SCANNED IMAGE
== END 2025-01-21 23:59 | disposition home or self-care (01) ==
LOC: LAB 12:13
PROVIDERS: PCP Internal Medicine Adolescent Medicine; Visit Provider Nurse Practitioner Acute Care
DX: M81.0 Age-related osteoporosis without current pathological fracture (principal)
CPT/HCPCS: 36415; 80069; 82306; 82523; 84080

== ENCOUNTER 2025-01-23 14:17 | Outpatient (CLI) | payer MEDICARE, BC, SELFPAY ==
--- OUTSIDE RECORDS SUMMARY | 2025-01-23 14:22 | XMS_ITS | Encounter Summary ---
Author Organization [facility] Address [address] [place] [address] Care Team Providers Care Superintendent Stations Name Role Phone Pj Higuera MD Primary Care Provider [phone] Reason for Referral * Consultation (Routine) - Closed Specialty Diagnoses / Procedures Referred By Contact Referred To Contact Physical Medicine and Rehabilitation Diagnoses Pain in thoracic spine Pj Higuera MD [address] [place] [address] Phone: tel:[phone] fax:[phone] [facility] [address] [place] [address] Phone: tel: fax: Referral ID Status Reason Start Date Expiration Date V isits Requested Visits Authorized [id number] Closed Specialty Services Required 07/31/2024 01/30/2026 1 1 Encounter Details Date Type Department Care Team (Late st Contact Info) Description 07/31/2024 Community [facility] [address] [place] [address] Pj Higuera MD [address] [place] [address] Pain in thoracic spine (Primary [...] Info) Description 01/28/2025 8:00 AM EST Appointment [facility] [employer] [facility] [place] [facility] [address] [place] [address] 01/28/2025 8:40 AM EST Office Visit [facility] [address] [place] [address] Frederick Valencia APRN [address] [place] [address] Scheduled Referrals Name Type Priority [...] documented as of this encounter Care Teams Superintendent Stations Relationship Specialty Start Date End Date Pj Higuera MD [address] [place] [address] PCP - General 07/24/20 documented as of this encounter
--- OUTSIDE RECORDS SUMMARY | 2025-01-23 14:22 | XMS_ITS | Clinical Summary ---
Author Organization [facility] Address [address] [place] [address] Care Team Providers Care New Car Make Ready Mechanic Name Role Phone Pj Higuera MD Primary Care Provider [phone] Allergies No known active allergies Medications ASPIRIN [...] Department Care Team Description 01/16/2025 Telephone [facility] Mineral Met[facility] [address] [facility] [facility], [address] [place] [address] Frederick Valencia APRN HCN - Patient Message 01/15/2025 [facility] Mineral Met[facility] [address] [facility] [facility], [address] [place] [address] Tian Buckley from Last 3 Months Immunizations Immunization Administration Dates Next Due Influenza, injectable, quadrivalent 01/06/2017 Influenza, injectable, quadrivalent, preservativ e free 01/06/2017 Pneumococcal 20-mann Conj Vaccine 07/28/2023 Pneumococcal Conjugate Pcv21 , Polysaccharide [id number] Conjugate, PF 07/31/2024 Rsvpref, Recombinant, Protein Subunit, [...] Brother 2 Dilip Alive Father Alberto Mother Alias Other 1 Other 2 Other 3 Sister [...] 01/28/2025 8:00 AM EST Appointment [facility] [address] [place] [address] 01/28/2025 8:40 AM EST Office Visit [facility] [facility] [address] [place] [address] Frederick Valencia APRN [address] [address] Health Maintenance Due Date Last [...] Cancer Screening 12/07/2011 UKY-Lung Cancer Screening 12/07/2011 [id number] Vaccine ( season) 2024 09/04/2021, 12/19/2020, 06/18/2020, [...] to complete [place] [id number] [facility] [employer] MEDICARE Care Teams New Car Make Ready Mechanic Relationship Specialty Start Date End Date Pj Higuera MD [facility] [facility] [address] [place] [address] PCP - General 07/24/20
--- OUTSIDE RECORDS SUMMARY | 2025-01-23 14:22 | XMS_ITS | Clinical Summary ---
Author Organization [facility] Address [address] [place] [address] Phone Care Team Providers Care Oil Developer Name Role Phone Unavailable Primary Care [...]
--- OUTSIDE RECORDS SUMMARY | 2025-01-23 14:22 | XMS_ITS | Encounter Summary ---
Author Organization [facility] Address [address] [place] [address] Care Team Providers Care Effervescent Salts Compounder Name Role Phone Pj Higuera MD Primary Care Provider [phone] Reason for Referral * Consultation (Routine) - Closed Specialty Diagnoses / Procedures Referred By Contact Referred To Contact General, Endocrine & Minimally Invasive Surgery / General Surgery Diagnoses Primary hyperparathyroidism (CMS/HCC) Pj Higuera MD [address] [facility] [address] [address] [place] [address] Phone: tel:[phone] fax:[phone] Nida Maciel MD [address] [address] Phone: tel:[phone] fax: Referral ID Status Reason Start Date Expiration Date V isits Requested Visits Authorized [id number] Closed Specialty Services Required 11/06/2023 05/07/2025 1 1 Encounter Details Date Type Department Care Team (Latest Contact Info) Description 11/06/2023 Community [facility] [address] [place] [address] Pj Higuera MD [address] [facility] [address] [place], [place] [id number] Primary hyperparathyroidism (CMS/HCC) (Primary Dx) Social History [...] Upcoming Encounters Date Type Department Care Team ([facility] st Contact Info) Description 01/28/2025 8:00 AM EST Appointment [facility] Mineral Met[facility] [address] [facility], [address] [place] [address] 01/28/2025 8:40 AM EST Office Visit [facility] [address] [place] [address] Frederick Valencia APRN [address] [place] [address] Scheduled Referrals Name Type Priority Associated Diagnoses Orde r Schedule Ambulatory Referral to ENT Outpatient Referral Routine Primary hyperparathyroidism (CMS/HCC) Ordered: 11/06/2023 documented as of this encounter Visit Diagnoses Diagnosis Primary hyperparathyroidism (CMS/HCC)- Primary Primary hyperparathyroidism documented in this encounter Care Teams Effervescent Salts Compounder Relationship Specialty Start Date End Date Pj Higuera MD [address] [place] [address] PCP - General 07/24/20 documented as of this encounter
--- OUTSIDE RECORDS SUMMARY | 2025-01-23 14:22 | XMS_ITS | Encounter Summary ---
Author Organization [facility] Address [address] [place] [address] Care Team Providers Care Machine Hoop Maker Name Role Phone Pj Higuera MD Primary Care Provider Reason for Visit * Reason Onset Date Comments HCN - Patient Message 01/16/2025 Encounter Details Date Type Department Care Team ([facility] st Contact Info) Description 01/16/2025 Telephone [facility] [address] [facility], [address] [place] [address] Frederick Valencia APRN [address] [facility] [address] [place] [address] HCN - Patient Message Social [...] to patient and lab orders faxed to [facility]. Fax confirmation received and appointments confirmed. [facility] * Telephone Encounter - Mckayla Hardin - 01/21/2025 9:29 AM EST Status Update Call #1 1st call regarding the status of the initial request. Pt calling back about having her lab orders sent Best contact number: [phone] (mobile) Optimal time of day to reach caller: ANYTIME Additional comments/information from caller: None Note: Please do not reply to this message. Follow-up communication and further actions as a result of this message need to be communicated with the patient directly, if the patient is not active onMyChart. If the patient is active on MyChart, they will receive notification of the communication/outcome via [employer]. * Telephone Encounter - Pratibha Giordano LPN - 01/17/2025 8:14 AM EST Message sent to [place] that patient returned call to clinic. * Telephone Encounter - Jess Moe - 01/16/2025 3:11 PM EST Paperwork/Documentation Request Patient Name: Maria C Lewis Type: Lab orders Due Date: 01/16/25 Send To: [facility] lab Fx [phone] Best contact number: [phone] (mobile) Optimal time of day to reach caller: ANYTIME Additional comments/information from caller: None Note: Please do not reply to this message. Follow-up communication and further actions as a result of this message need to be communicated with the patient directly, if the patient is not active onMyChart. If the patient is active on MyChart, they will receive notification of the communication/outcome via [facility] documented in this encounter Plan of Treatment Upcoming Encounters Date Type Department Care Team (Late st Contact Info) Description 01/28/2025 8:00 AM EST Appointment [facility] & Mineral Metabolism [address] [facility], [address] [place] [address] 01/28/2025 8:40 AM EST Office Visit [facility]eral Met[facility] [address] [facility], [address] [place] [address] Frederick Valencia APRN [address] [place] [address] documented as of this encounter [...] documented as of this encounter Care Teams Machine Hoop Maker Relationship Specialty Start Date End Date Pj Higuera MD [address] [place] [address] PCP - General 07/24/20 documented as of this encounter
--- OUTSIDE RECORDS SUMMARY | 2025-01-23 14:22 | XMS_ITS | Clinical Summary ---
Author Organization [facility] Address [address] [place] [address] Care Team Providers Care Garnett Machine Operator Name Role Phone Provider, No Known Primary [...] 12/11 Potentially Unsafe Housing Conditions Not on aela e 12/21/2022 Family and Community Support Answer [...] CARE 06/01/2022 INFLUENZA VACCINE 10/11/2024 01/06/2017 Insurance [employer] [address] [id number] Care Teams Garnett Machine Operator Relationship Specialty Start Date End Date Provider, [place] [address] PCP - General 05/25/22
--- OUTSIDE RECORDS SUMMARY | 2025-01-23 14:22 | XMS_ITS | Encounter Summary ---
Author Organization [facility] Address [address] [place] [address] Care Team Providers Care Special Education Administrator Name Role Phone Pj Higuera MD Primary Care Provider [phone] Encounter Details Date Type Department Care Team ([facility] st Contact Info) Description 01/15/2025 Telephone [facility] [address] [facility] [address], [address] [place] [address] Tian Buckley Social History Tobacco [...] Info) Description 01/28/2025 8:00 AM EST Appointment [facility] Mineral Metabolism [address], [address] [place] [address] 01/28/2025 8:40 AM EST Office Visit [facility] Mineral [facility] [address], [address] [place] [address] Frederick Valencia APRN [address] [place] [address] documented as of this encounter [...] documented as of this encounter Care Teams Special Education Administrator Relationship Specialty Start Date End Date Pj Higuera MD [address] [place] [address] PCP - General 07/24/20 documented as of this encounter
== END 2025-01-23 23:59 | disposition home or self-care (01) ==
LOC: RT 14:18
PROVIDERS: PCP Internal Medicine Adolescent Medicine; Visit Provider Physician Assistant
DX: I49.1 Atrial premature depolarization (principal); I47.19 Other supraventricular tachycardia; I49.3 Ventricular premature depolarization; I47.29 Other ventricular tachycardia
CPT/HCPCS: 93270

== ENCOUNTER 2025-02-05 09:30 | Outpatient (CLI) | payer MEDICARE, BC, SELFPAY ==
--- OUTSIDE RECORDS SUMMARY | 2025-01-28 08:00 | XMS_ITS | Encounter Summary ---
Author Organization [facility] Address [address] [place] [address] Care Team Providers Care Pararescue Craftsman Name Role Phone Pj Higuera MD Primary Care Provider [phone] Encounter Details Date Type Department Care Team (Latest Contact Info) Description 01/28/2025 8:00 AM [facility] - 01/28/2025 11:59 PM [facility] Hospital Encounter [facility] [address] [facility], [address] [place] [address] Osteoporosis without current pathological fracture, unspecified osteoporosis type Discharge Disposition: Home or Self Care Social History Tobacco Use Types Packs/Day Years Used Date Smoking Tobacco: Every Day Cigarettes 1.5 40.9 Started: 03/13/1984 Passive Smoke Exposure: Current Smokeless Tobacco: Never Alcohol Use Standard Drinks/Week Comments Never 0 (1 standard drink = 0.6 oz pur e alcohol) PHQ-2 Answer Date Recorded Patient Health Questionnaire-2 Score 0 09/25/2024 PHQ-9 Answer Date Recorded Patient Health Questionnaire-9 Score 0 09/25/2024 AUDIT-C Answer Date Recorded Frequency of Alcohol Consumption Not on file 01/28/2025 Q2: How many drinks containi ng alcohol do you have on a typical day when you are drinking? Patient does not drink Frequency of Binge Drinking Not on file 01/11 Comments Unknown Sex and Gender Information Value Date Recorded Sex Assigned at Not on file Legal Sex Female 7:49 PM EDT Gender Identity Not on file Sexual Orientation Not on file documented as of this encounter Functional Status documented as of this encounter Medications at Time of Discharge ASPIRIN 81 MG chewable tablet Chew 1 tablet (81 mg) 1 (one) time each day. 04/17/2023 Diclofenac Sodium 3 % gel APPLY 1-2 GRAMS TO AFFECTED AREA(S) 3 OR 4 TIMES A DAY (1 GRAM = 1 DIME SIZE) 01/22/2024 levothyroxine (Synthroid, Levoxyl) 88 MCG tablet Take 1 tablet (88 mcg) by mouth daily. 06/01/2023 lidocaine (Xylocaine) 5 % ointment Apply 1 Application topically if needed for mild pain or moderate pain. 01/22/2024 omeprazole (PriLOSEC) [address] capsule Take 2 capsules (40 mg) by mouth daily. 04/30/2024 rosuvastatin (Crestor) 20 MG tablet Take 1 tablet (20 mg) by mouth daily. documented as of this encounter Plan of Treatment Upcoming Encounters Date Type Department Care Team ([facility] st Contact Info) Description 02/10/2026 9:20 AM EST Appointment [facility] & Mineral Metabolism [address] [facility] [address], [address] [place] [address] 02/10/2026 9:40 AM EST Office Visit [facility] & Mineral Metabolism [address] [facility] [address], [address] [place] [address] Frederick Valencia APRN [address] [phone] Pending Results Name Type Priority Associated Diagnoses Date /Time Dexa Bone Density Imaging Routine Osteoporosis without current pathological fracture, unspecified osteoporosis type 01/28/2025 8:07 AM EST Scheduled Orders Name Type Priority Associated Diagnoses Orde r Schedule Dexa Bone Density Imaging Routine Osteoporosis without current pathological fracture, unspecified osteoporosis type Once for 1 Occurrences starting 01/28/2025 until 01/28/2025 documented as of this encounter Visit Diagnoses Diagnosis Osteoporosis without current pathological fracture, unspecified osteoporosis type documented in this encounter Additional Health Concerns Assessment Noted Time PHQ-9 Depression Total Score: 0 09/26/19 25 7:58 AM EDT A fall risk assessment has been complete d for the patient 01/28/2025 8:45 AM EST A Body Mass Index follow-up plan has been documented for the patient 01/28/2025 9:04 AM EST documented as of this encounter Care Teams Pararescue Craftsman Relationship Specialty Start Date End Date Pj iHguera MD [address] [place] [address] PCP - General 07/24/20 documented as of this encounter
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
--- OUTSIDE RECORDS SUMMARY | 2025-02-05 09:34 | XMS_ITS | Clinical Summary ---
Author Organization [facility] Address [address] [place] [address] Care Team Providers Care Field Observer Name Role Phone Provider, No Known Primary [...] CARE 06/01/2022 INFLUENZA VACCINE 10/11/2024 01/06/2017 Insurance [employer] [address] [id number] Care Teams Field Observer Relationship Specialty Start Date End Date Provider, [place] [address] PCP - General 05/25/22
--- OUTSIDE RECORDS SUMMARY | 2025-02-05 09:34 | XMS_ITS | Encounter Summary ---
Author Organization [facility] Address [address] [place] [address] Care Team Providers Care Necktie Turner Name Role Phone Pj Higuera MD Primary Care Provider [phone] Reason for Referral * Consultation (Routine) - Closed Specialty Diagnoses / Procedures Referred By Contact Referred To Contact General, Endocrine & Minimally Invasive Surgery / General Surgery Diagnoses Primary hyperparathyroidism (CMS/HCC) Pj Higuera MD [address] [place] [address] Phone: tel:[phone] fax:[phone] Nida Maciel MD [address] [address] Phone: tel:[phone] fax: Referral ID Status Reason Start Date Expiration Date V isits Requested Visits Authorized [id number] Closed Specialty Services Required 11/06/2023 05/07/2025 1 1 Encounter Details Date Type Department Care Team (Latest Contact Info) Description 11/06/2023 Community [facility] [address] [place] [address] Pj Higuera MD [address] [facility] [address] [place], [place] [id number] Primary hyperparathyroidism (CMS/HCC) (Primary Dx) Social History [...] Upcoming Encounters Date Type Department Care Team ([facility] st Contact Info) Description 02/10/2026 9:20 AM EST Appointment [facility] [address] [address] [facility] [address] [facility], [address] [place] [address] 02/10/2026 9:40 AM EST Office Visit [facility] [address] , [address] [place] [address] Frederick Valencia APRN [address] [place] [address] Scheduled Referrals Name Type Priority Associated Diagnoses Orde r Schedule Ambulatory Referral to ENT Outpatient Referral Routine Primary hyperparathyroidism (CMS/HCC) Ordered: 11/06/2023 documented as of this encounter Visit Diagnoses Diagnosis Primary hyperparathyroidism (CMS/HCC)- Primary Primary hyperparathyroidism documented in this encounter Care Teams Necktie Turner Relationship Specialty Start Date End Date Pj Higuera MD [address] [place] [address] PCP - General 07/24/20 documented as of this encounter
--- OUTSIDE RECORDS SUMMARY | 2025-02-05 09:34 | XMS_ITS | Clinical Summary ---
Author Organization [facility] Address [address] [place] [address] Phone Care Team Providers Care Television Program Director Name Role Phone Unavailable Primary Care Provider [...]
--- OUTSIDE RECORDS SUMMARY | 2025-02-05 09:34 | XMS_ITS | Encounter Summary ---
Author Organization [facility] Address [address] [place] [address] Care Team Providers Care Wildlife Conservationist Name Role Phone Pj Higuera MD Primary Care Provider [phone] Reason for Referral * Consultation (Routine) - Closed Specialty Diagnoses / Procedures Referred By Contact Referred To Contact Physical Medicine and Rehabilitation Diagnoses Pain in thoracic spine Pj Higuera MD [address] [place] [address] Phone: tel:[phone] fax:[phone] [facility] [address] [place] [address] Phone: tel: fax: Referral ID Status Reason Start Date Expiration Date V isits Requested Visits Authorized [id number] Closed Specialty Services Required 07/31/2024 01/30/2026 1 1 Encounter Details Date Type Department Care Team (Late st Contact Info) Description 07/31/2024 Community [facility] [address] [place] [address] Pj Higuera MD [address] [place] [address] Pain in thoracic spine (Primary [...] Info) Description 02/10/2026 9:20 AM EST Appointment [facility] [address] , [address] [place] [address] 02/10/2026 9:40 AM EST Office Visit [facility] [address] , [address] [place] [address] Frederick Valencia APRN [address] [place] [address] Scheduled Referrals Name Type Priority [...] documented as of this encounter Care Teams Wildlife Conservationist Relationship Specialty Start Date End Date Pj Higuera MD [address] [place] [address] PCP - General 07/24/20 documented as of this encounter
--- OUTSIDE RECORDS SUMMARY | 2025-02-05 09:34 | XMS_ITS | Encounter Summary ---
Author Organization [facility] Address [address] [place] [address] Care Team Providers Care Rfp Writer Name Role Phone Pj Higuera MD Primary Care Provider [phone] Encounter Details Date Type Department Care Team (Latest Contact Info) Description 01/28/2025 Travel Social History Tobacco Use Types Packs/Day [...] Functional Status documented as of this encounter Plan of Treatment Upcoming Encounters Date Type Department Care Team ([facility] st Contact Info) Description 02/10/2026 9:[address] [facility] [address] [facility] [address] [facility] [address] [facility] [address], [address] [place] [address] 02/10/2026 9:40 AM EST Office Visit [facility] [address] [facility], [address] [place] [address] Frederick Valencia APRN [address] [place] [address] documented as of this encounter [...] documented as of this encounter Care Teams Rfp Writer Relationship Specialty Start Date End Date Pj Higuera MD [address] [place] [address] PCP - General 07/24/20 documented as of this encounter
--- OUTSIDE RECORDS SUMMARY | 2025-02-05 09:34 | XMS_ITS | Encounter Summary ---
Author Organization [facility] Address [address] [place] [address] Care Team Providers Care Pullman Conductor Name Role Phone Pj Higuera MD Primary Care Provider Reason for Visit * Reason Onset Date Comments HCN - Patient Message 01/16/2025 Encounter Details Date Type Department Care Team ([facility] st Contact Info) Description 01/16/2025 Telephone [facility] [address] [facility], [address] [place] [address] Frederick Valencia APRN [address] [facility] [address] [place] [address] HCN - Patient Message Social [...] to patient and lab orders faxed to [facility]. Fax confirmation received and appointments confirmed. Psychiatric * Telephone Encounter - Mckayla Hardin - 01/21/2025 9:29 AM EST Status Update Call #1 1st call regarding the status of the initial request. Pt calling back about having her lab orders sent Best contact number: [phone] (mobile) Optimal time of day to reach caller: ANYTIME Additional comments/information from caller: None Note: Please do not reply to this message. Follow-up communication and further actions as a result of this message need to be communicated with the patient directly, if the patient is not active onMyChart. If the patient is active on MyChart, they will receive notification of the communication/outcome via Mydish. * Telephone Encounter - Pratibha Giordano LPN - 01/17/2025 8:14 AM EST Message sent to ND that patient returned call to clinic. * Telephone Encounter - Jess Moe - 01/16/2025 3:11 PM EST Paperwork/Documentation Request Patient Name: Maria C Lewis Type: Lab orders Due Date: 01/16/25 [facility] To[phone] [phone] Best contact number: [phone] (mobile) Optimal time of day to reach caller: ANYTIME Additional comments/information from caller: None Note: Please do not reply to this message. Follow-up communication and further actions as a result of this message need to be communicated with the patient directly, if the patient is not active onMyChart. If the patient is active on MyChart, they will receive notification of the communication/outcome via [employer]. documented in this encounter Plan of Treatment Upcoming Encounters Date Type Department Care Team (Late st Contact Info) Description 02/10/2026 9:20 AM EST Appointment [facility] [address] [facility], [address] [place] [address] 02/10/2026 9:40 AM EST Office Visit [facility] [address], [address] [place] [address] Frederick Valencia APRN [address] [place] [address] documented as of this encounter [...] documented as of this encounter Care Teams Pullman Conductor Relationship Specialty Start Date End Date Pj Higuera MD [address] [place] [address] PCP - General 07/24/20 documented as of this encounter
--- OUTSIDE RECORDS SUMMARY | 2025-02-05 09:34 | XMS_ITS | Encounter Summary ---
Author Organization [facility] Address [address] [place] [address] Care Team Providers Care Nylon Machine Operator Name Role Phone Pj Higuera MD Primary Care Provider [phone] Encounter Details Date Type Department Care Team ([facility] st Contact Info) Description 01/15/2025 Telephone [facility] [address] [facility], [address] [place] [address] Tian Buckley Social History Tobacco [...] Info) Description 02/10/2026 9:20 AM EST Appointment [facility] [address] [facility] [address] [facility], [address] [place] [address] 02/10/2026 9:40 AM EST Office Visit [facility] [address] [facility], [address] [place] [address] Frederick Valencia APRN [address] [place] [address] documented as of this encounter [...] documented as of this encounter Care Teams Nylon Machine Operator Relationship Specialty Start Date End Date Pj Higuera MD [address] [place] [address] PCP - General 07/24/20 documented as of this encounter
[2025-02-05 10:25] LABS: Albumin Level 4.6 g/dl (3.5-5.0); Anion Gap 11.1 mEq/L (5-15); Blood Urea Nitrogen 14 mg/dl (7-17); Calcium 9.4 mg/dl (8.4-10.2); Carbon Dioxide 29 mmol/L (22.0-30.0); Chloride 100 mmol/L (98-107); Creatinine,Serum 0.70 mg/dl (0.52-1.04); Estimated Glomerular Filt Rate 85 ml/min (>60); GFR (African American) 102 ML/MIN (>60); Glucose 68 mg/dl (74-100); Phosphorous 4.3 mg/dl (2.5-4.5); Potassium 4.1 mmoL/L (3.5-5.1); Sodium 136 mmol/L (136-145)
== END 2025-02-05 23:59 | disposition home or self-care (01) ==
LOC: LAB 09:31
PROVIDERS: PCP Internal Medicine Adolescent Medicine; Visit Provider Nurse Practitioner Acute Care
DX: M81.0 Age-related osteoporosis without current pathological fracture (principal)
CPT/HCPCS: 36415; 80069

== ENCOUNTER 2025-02-18 13:03 | Day surgery (SDC) | payer MEDICARE, SELFPAY ==
[2025-02-18 13:06] VITALS: BP 130/93; PULSE 76; RESP 18; O2SAT 98
[2025-02-18 13:13] VITALS: BP 110/77; PULSE 81; RESP 18; O2SAT 97; BMI 28.3
[2025-02-18] MEDS: BUPIVACAINE 0.25% 10ML INJ 25 MG IJ (13:16)
[2025-02-18] MEDS: LIDOCAINE 1% 5ML PF VIAL 5 ML (13:16)
[2025-02-18] MEDS: DEXAMETHASONE 10MG/ML 1ML VIAL 10 MG (13:17)
--- NOTE | 2025-02-18 13:28 | EXP.PAIN.PRO ---
Procedure Date: 02/18/25 Time: 13:30 Anesthesiologist:: Ketan Nayak CRNA Complications:: None Pre-procedure Diagnosis:: DJD left shoulder. Chronic left shoulder pain. Post-procedure Diagnosis:: Same. Indications for Procedure:: Patient is a very pleasant 64-year-old female who comes our clinic today for a left suprascapular nerve block. She describes left shoulder pain as constant, dull, aching. She has 5/5 strength of the left arm. However, limited range of motion due to the left shoulder pain. She rates her pain 7/10. Procedure Details:: Details of the procedure explained to the patient. The patient taken procedure and placed in the sitting position. The over the left shoulder and scapula was cleaned using chlorhexidine as a cleansing solution. Using a 25-gauge inch and half needle the left suprascapular notch was identified. After negative aspiration 4 cc of 1% lidocaine +4 cc of 0.25% Marcaine and 10 mg of dexamethasone was injected. Patient tolerated procedure without difficulty. No complications. Plan and Disposition:: Patient was discharged without incident.
[2025-02-18 13:29] VITALS: BP 101/60; PULSE 80; RESP 18; O2SAT 97
== END 2025-02-18 13:29 | disposition home or self-care (01) ==
PROVIDERS: PCP Internal Medicine Adolescent Medicine; Visit Provider Nurse Anesthetist, Certified Registered
DX: M25.512 Pain in left shoulder (principal); G89.29 Other chronic pain; I25.119 Atherosclerotic heart disease of native coronary artery with unspecified angina pectoris; E78.5 Hyperlipidemia, unspecified; I49.9 Cardiac arrhythmia, unspecified; M19.90 Unspecified osteoarthritis, unspecified site; F17.200 Nicotine dependence, unspecified, uncomplicated
CPT/HCPCS: 64418; J0665; J1100; J2003